=== PATIENT | male | born 1945 | race Caucasian/White ===

== ENCOUNTER 2020-08-05 16:13 | Emergency (ER) | payer MEDICARE, SELFPAY ==
[2020-08-05 16:44] VITALS: BP 132/64; PULSE 76; RESP 18; O2SAT 98; BMI 24.3
--- NOTE | 2020-08-05 16:47 | ECG_ITS ---
Test Reason : SI Blood Pressure : / mmHG Vent. Rate : 064 BPM Atrial Rate : 064 BPM P-R Int : 166 ms QRS Dur : 128 ms QT Int : 418 ms P-R-T Axes : 044 -50 072 degrees QTc Int : 431 ms Normal sinus rhythm Left axis deviation Left anterior fascicular block Abnormal ECG No previous ECGs available Referred By: Sari Carson Electronically Signed By:CLAUDIA MCCARTNEY MD
[2020-08-05 17:00] VITALS: BP 132/64; PULSE 76; RESP 18; O2SAT 98
--- NOTE | 2020-08-05 17:07 | ED_ITS ---
HPI - Psych General Chief Complaint: Psychiatric Symptoms Stated Complaint: crisis Time Seen by Provider: 08/05/20 16:36 Source: patient and EMS Mode of arrival: EMS Limitations: no limitations History of Present Illness HPI Narrative: 74 yo male with past medical history of dementia, IDDM, anemia, depression, hypertension, dysphagia here with complaints of depression with suicidal thoughts and a plan to cut his wrists. Patient tells me he is currently living in a prison. He is sad that he is from his who is currently having surgery on her knee and he fears that he will not see her again before he passes away. He tells me he has seen multiple people in the prison and be wheeled away and he is afraid it is going to happen to him. He tells me im tired and want to go to [facility]. This makes him very depressed and recently he has had thoughts of wanting to hurt himself. Expressed thoughts to staff today and he was transferred to the emergency department. Related Data Home Medications Medication Instructions Recorded Confirmed buspirone 5 mg PO BID 08/05/20 08/05/20 citalopram 20 mg PO DAILY 08/05/20 08/05/20 insulin glargine [Lantus Solostar 18 unit SUBCUT BEDTIME 08/05/20 08/05/20 U-100 Insulin] insulin lispro [Humalog U-100 1 sliding scale dose SUBCUT 08/05/20 08/05/20 Insulin] USEASDIRECTD lorazepam 0.5 mg PO DAILY PRN 08/05/20 08/05/20 lorazepam [Ativan] 0.5 mg PO BEDTIME 08/05/20 08/05/20 melatonin 6 mg PO BEDTIME 08/05/20 08/05/20 polyethylene glycol 3350 17 g PO DAILY 08/05/20 08/05/20 trazodone 25 mg PO DAILY 08/05/20 08/05/20 trazodone 75 mg PO BEDTIME 08/05/20 08/05/20 Allergies Allergy/AdvReac Type Severity Reaction Status Date / Time Unable to Assess Allergy Verified 08/05/20 16:47 Review of Systems Review of Systems: Yes all other systems are reviewed and are negative Constitutional: Constitutional: Reports no additional constitutional complaints, Denies body ache(s), Denies chills, Denies fever(s), Denies headache(s) and Denies weakness Eyes: Eyes: Reports no additional eye complaints and Denies change in vision ENT: Reports system reviewed and no additional complaints, except as documented, Denies dizziness, Denies headache(s), Denies nasal congestion, Denies nasal discharge and Denies neck pain Cardiovascular: Cardiovascular: Reports no additional cardiovascular complaints, Denies chest pain, Denies leg edema and Denies dyspnea Respiratory: Respiratory: Reports no additional respiratory complaints, Denies cough and Denies dyspnea Gastrointestinal: Gastrointestinal: Reports no additional gastrointestinal complaints, Denies abdominal pain, Denies diarrhea, Denies nausea and Denies vomiting Genitourinary: Genitourinary: Denies urinary incontinence Musculoskeletal: Musculoskeletal: Reports no additional musculoskeletal complaints, Denies back pain, Denies arthralgias, Denies joint swelling, Denies neck pain, Denies numbness and Denies tingling Integumentary/Breasts: Skin/Breast: Reports system reviewed and no additional complaints, except as docu and Denies rash Neurologic: Reports system reviewed and no additional complaints, except as documented, Denies Abnormal speech present, Denies dizziness, Denies headache(s), Denies numbness, Denies tingling and Denies weakness Psychiatric: Psychiatric: Reports anxiety, Reports depression, Denies hallucinations, Denies homicidal ideation and Reports suicidal ideation [facility] Past Medical History Attestation statement: The following information was validated with the patient. Source: old records reviewed and nursing notes reviewed Social History Social History Alcohol intake: unknown Patient Tobacco Use Status: Tobacco use Unknown Use of substances other than those prescribed or required for medical reasons: Unknown Advance Directives: No Advance Directives Information Provided: No Physical Exam Vital Signs: Vital Signs: Last Vital Signs Pulse 76 08/05/20 17:00 Resp 18 08/05/20 17:00 BP 132/64 08/05/20 17:00 Pulse Ox 98 08/05/20 17:00 Body Mass Index 24.3 Const: General: cooperative, healthy appearing, comfortable and no acute distress Orientation/consciousness: patient oriented x3 Limitations: no limitations HENMT: Head: Yes normal to inspection Ears: hearing grossly normal bilaterally General nose exam: Normal external nose present Face and sinus: Yes normal facial exam Mouth: Normal oral and palatal mucosa present Throat: Yes posterior oropharynx normal Eyes: General: appearance normal, both eyes and all related structures Pupils: Equal, round and reactive pupils present Neck: Neck: Yes normal visual inspection Chest: Chest palpation & inspection: normal inspection of the chest Resp: Effort & Inspection: normal respiratory effort Auscultation: clear to auscultation bilaterally Cardio: Rate: regular rate Rhythm: regular rhythm Peripheral pulses: Peripheral pulses 2+ throughout GI: Inspection: Yes normal to inspection Palpation (GI): Soft to palpation and nontender Auscultation: normal bowel sounds Back/Spine/Pelvis: Thoracic/Lumbar Spine: thoracic and lumbar spine normal to inspection Skin: General skin exam: no rashes or lesions noted Neuro: General: patient oriented x3, no focal motor deficits and normal sensation to monofilament Cranial nerves: Yes Equal, round and reactive pupils present Cognition (Neuro): normal cognition Speech: No Abnormal speech present Gait exam (Neuro): Normal gait present Motor exam (neuro): 5/5 motor strength present throughout Extrem: General: Yes normal to inspection Course Course Course Narrative: 74-year-old male coming from [facility] with complaints of depression, suicidal thoughts with plan to cut his wrists. No physical complaints. No concern for acute ingestion or trauma. Per staff at [facility] ER patient is at his baseline. Will check labs, UA, EKG. Will have care team come evaluate patient 2100-Sign out to night team pending care team evaluation. Patient placed in physician observation pending care team evaluation. MDM - Psych Differential Diagnosis Differential diagnosis: Likely depression Medical Records Attestation: I reviewed the patient's medical records. Lab Data Attestation: I reviewed the patient's lab results. Result diagrams: 08/05/20 17:19 08/05/20 17:19 Labs: Lab Results 08/05/20 08/05/20 08/05/20 Range/Units 17:19 17:19 17:19 WBC 8.5 (4.8-10.8) X10*3/uL RBC 4.46 L (4.60-5.80) X10*6/uL Hgb 13.6 L (14.0-18.0) g/dl Hct 40.7 L (42-52) % MCV 91.3 (80-98) fL MCH 30.5 (27.0-33.0) pg MCHC 33.4 (31.0-36.0) g/dl RDW 13.7 (11.0-16.0) % Plt Count 145 L (160-400) X10*3/uL MPV 9.5 (9.4-12.4) fL Immature Gran % (Auto) 0.4 (0.0-0.4) % Neut % (Auto) 70.2 (45-73) % Lymph % (Auto) 18.6 L (20-40) % [place] % (Auto) 8.6 (2-11) % Eos % (Auto) 1.8 (0-4) % Baso % (Auto) 0.4 (0-2) % Lymph # (Auto) 1.6 (1.2-4.9) X10*3/uL [place] # (Auto) 0.7 (0.1-1.2) X10*3/uL Eos # (Auto) 0.2 (0.0-0.4) X10*3/uL Baso # (Auto) 0.0 (0.0-0.2) X10*3/uL Abs Immat Gran (auto) 0.03 (0.00-0.03) X10*3/uL Absolute Neuts (auto) 5.9 (2.0-8.3) X10*3/uL Absolute Nucleated RBC 0.000 (0.0-0.012) X10*3/uL Nucleated RBC % (auto) 0.0 (0.0-0.2) /100WBC Smear Tech's Comments VERIFIED Sodium 140 (135-145) mmol/L Potassium 4.2 (3.3-5.1) mmol/L Chloride 105 (96-108) mmol/L Carbon Dioxide 29 (22-29) mmol/L Anion Gap 10 L (12-20) BUN 23 H (9-16) mg/dL Creatinine 0.88 (0.5-1.4) mg/dL Estim Creat Clear Calc 86.9 Estimated GFR > 60 Random Glucose 122 H (60-115) mg/dL Calcium 8.5 (8.4-10.2) mg/dL Total Bilirubin 0.4 (0.0-1.0) mg/dL Direct Bilirubin 0.2 (0.0-0.5) mg/dL AST 14 (5-37) U/L ALT 14 (0-40) U/L Alkaline Phosphatase 65 (39-117) U/L Total Protein 6.2 L (6.5-8.0) g/dL Albumin 3.7 (3.5-5.0) g/dL Salicylates (15-30) mg/dL Acetaminophen (<30) mcg/mL Ethyl Alcohol mg/dL COVID-19 (THOMAS) Negative (Negative) COVID-19 Clin Com See Note 08/05/20 08/05/20 Range/Units 17:19 17:19 WBC (4.8-10.8) X10*3/uL RBC (4.60-5.80) X10*6/uL Hgb (14.0-18.0) g/dl Hct (42-52) % MCV (80-98) fL MCH (27.0-33.0) pg MCHC (31.0-36.0) g/dl RDW (11.0-16.0) % Plt Count (160-400) X10*3/uL MPV (9.4-12.4) fL Immature Gran % (Auto) (0.0-0.4) % Neut % (Auto) (45-73) % Lymph % (Auto) (20-40) % [place] % (Auto) (2-11) % Eos % (Auto) (0-4) % Baso % (Auto) (0-2) % Lymph # (Auto) (1.2-4.9) X10*3/uL [place] # (Auto) (0.1-1.2) X10*3/uL Eos # (Auto) (0.0-0.4) X10*3/uL Baso # (Auto) (0.0-0.2) X10*3/uL Abs Immat Gran (auto) (0.00-0.03) X10*3/uL Absolute Neuts (auto) (2.0-8.3) X10*3/uL Absolute Nucleated RBC (0.0-0.012) X10*3/uL Nucleated RBC % (auto) (0.0-0.2) /100WBC Smear Tech's Comments Sodium (135-145) mmol/L Potassium (3.3-5.1) mmol/L Chloride (96-108) mmol/L Carbon Dioxide (22-29) mmol/L Anion Gap (12-20) BUN (9-16) mg/dL Creatinine (0.5-1.4) mg/dL Estim Creat Clear Calc Estimated GFR Random Glucose (60-115) mg/dL Calcium (8.4-10.2) mg/dL Total Bilirubin (0.0-1.0) mg/dL Direct Bilirubin (0.0-0.5) mg/dL AST (5-37) U/L ALT (0-40) U/L Alkaline Phosphatase (39-117) U/L Total Protein (6.5-8.0) g/dL Albumin (3.5-5.0) g/dL Salicylates < 5.0 L (15-30) mg/dL Acetaminophen < 1 (<30) mcg/mL Ethyl Alcohol < 10 mg/dL COVID-19 (THOMAS) (Negative) COVID-19 Clin Com ECG Data Interpretation: NSR with rate 64, normal pr, normal qrs, normal qtc Discharge Plan Discharge Clinical Impression: Depression Prescriptions: No Action buspirone 5 mg Tablet 5 mg PO BID RF: 0 trazodone 50 mg Tablet 25 mg PO DAILY RF: 0 trazodone 50 mg Tablet 75 mg PO BEDTIME RF: 0 polyethylene glycol 3350 17 gram Powder In Packet 17 g PO DAILY RF: 0 melatonin 3 mg Tablet 6 mg PO BEDTIME RF: 0 citalopram 20 mg Tablet 20 mg PO DAILY RF: 0 lorazepam 0.5 mg Tablet 0.5 mg PO DAILY PRN (Reason: Anxiety) RF: 0 lorazepam [Ativan] 0.5 mg Tablet 0.5 mg PO BEDTIME RF: 0 insulin lispro [Humalog U-100 Insulin] 100 unit/mL Solution 1 sliding scale dose SUBCUT USEASDIRECTD RF: 0 Lantus Solostar U-100 Insulin 100 unit/mL (3 mL) Insulin Pen 18 unit SUBCUT BEDTIME RF: 0
--- NOTE | 2020-08-05 17:24 | PC.NURSE ---
Pt arrives on EMS stretcher, stool incontinence. Confused but able to answers simple questions and follow simple commands. Oriented to self and year. Does report feelings of SI, with plan to slit wrist. Recalls his brother coming to visit and made a statement such as when you im going to cremate you right away. Pt states I dont want to alone Calm and cooperative with staff, agreeable to COVID swab and blood draw and EKG. Awaiting urine specimen.
--- NOTE | 2020-08-05 17:25 | PHA.MEDREC ---
Pharmacy Consult ? Medication Reconciliation Pharmacy has completed the medication reconciliation. Patient came with medication list from [facility]. There were no remarkable issues to report. Glenis Escalante, PharmD
[2020-08-05 17:28] LABS: Basophils Percent Auto 0.4 % (0-2); MANUAL DIFF FLAG SCAN; PLT CLUMP 1; Red Blood Count 4.46 X10*6/uL (4.60-5.80); SCAN SMEAR FLAG 1
[2020-08-05 17:29] LABS: Eosinophils Absolute Auto 0.2 X10*3/uL (0.0-0.4); Eosinophils Percent Auto 1.8 % (0-4); Hematocrit 40.7 % (42-52); Hemoglobin 13.6 g/dl (14.0-18.0); Imm Gran Abs Auto 0.03 X10*3/uL (0.00-0.03); Imm Gran Pct Auto 0.4 % (0.0-0.4); Lymphocytes Absolute Auto 1.6 X10*3/uL (1.2-4.9); Lymphocytes Percent Auto 18.6 % (20-40); Mean Corpuscular HGB Conc 33.4 g/dl (31.0-36.0); Mean Corpuscular Hemoglobin 30.5 pg (27.0-33.0); Mean Corpuscular Volume 91.3 fL (80-98); Mean Platelet Volume 9.5 fL (9.4-12.4); Monocytes Absolute Auto 0.7 X10*3/uL (0.1-1.2); Monocytes Percent Auto 8.6 % (2-11); Neutrophils Absolute Auto 5.9 X10*3/uL (2.0-8.3); Neutrophils Percent Auto 70.2 % (45-73); Platelet Count 145 X10*3/uL (160-400); Red Cell Distribution Width 13.7 % (11.0-16.0); White Blood Count 8.5 X10*3/uL (4.8-10.8)
--- NOTE | 2020-08-05 17:30 | PC.NURSE ---
Pharmacy down to complete med rec
[2020-08-05 18:02] LABS: SLIDE REVIEW VERIFIED
[2020-08-05 18:16] LABS: Alanine Aminotransferase 14 U/L (0-40); Albumin Level 3.7 g/dL (3.5-5.0); Alkaline Phosphatase 65 U/L (39-117); Anion Gap 10 (12-20); Aspartate Amino Transferase 14 U/L (5-37); Bilirubin Direct 0.2 mg/dL (0.0-0.5); Bilirubin Total 0.4 mg/dL (0.0-1.0); Blood Urea Nitrogen 23 mg/dL (9-16); Calcium 8.5 mg/dL (8.4-10.2); Carbon Dioxide 29 mmol/L (22-29); Chloride 105 mmol/L (96-108); Creatinine Clr Calc Pharmacy 86.9; Estimated Glomerular Filt Rate > 60; Glucose Random 122 mg/dL (60-115); Potassium 4.2 mmol/L (3.3-5.1); Sodium 140 mmol/L (135-145); Total Protein 6.2 g/dL (6.5-8.0)
[2020-08-05 18:20] LABS: Ethanol < 10 mg/dL
[2020-08-05 18:23] LABS: Acetaminophen LAB < 1 mcg/mL (<30); COVID-19 Test Negative (Negative); IDNOW Serial# 9DD0AD1C; Salicylate < 5.0 mg/dL (15-30)
[2020-08-05 22:00] VITALS: RESP 18
[2020-08-06] VITALS: RESP 18
--- NOTE | 2020-08-06 01:43 | PC.NURSE ---
pt sleeping, needs met at bedside, visable on the monitor. skin pink warm and dry. no s/s/ of distress.
[2020-08-06 06:36] VITALS: BP 122/66; PULSE 70; RESP 18; TEMP 36.7; O2SAT 96
[2020-08-06 06:52] LABS: Glucose, Whole Blood 90 mg/dL (60-115)
[2020-08-06 08:59] VITALS: BP 117/57; PULSE 62; RESP 18; TEMP 35.7; O2SAT 96
[2020-08-06 11:03] LABS: Glucose Urine UA 250 MG/DL (NEG); Leukocyte Esterase Urine 2+ (NEG); Nitrite Urine POS (NEG); PH 6.5 (5.0-8.0); UACC Culture Trigger YES; Urine Blood NEG (NEG); Urine Ketones NEG (NEG); Urine Protein NEG (NEG-TRACE)
[2020-08-06 11:04] LABS: Appearance Urine CLOUDY; Color Urine YELLOW
[2020-08-06 11:16] LABS: WBC Clumps Urine NOTED
[2020-08-06 11:17] LABS: Bacteria Urine 3+ /LPF; RBC Urine 0-2 /HPF (0); Squamous Epithelial Cell Urine 1+ /LPF; WBC Urine TNTC /HPF (0-4)
[2020-08-06 11:21] LABS: Amphetamine Screen Urine Not Detected (Not Detect); Barbiturates, Urine Not Detected (Not Detect); Benzodiazepines Screen Urine Not Detected (Not Detect); Cannabinoid Screen Urine Not Detected (Not Detect); Cocaine Screen Urine Not Detected (Not Detect); Opiate Screen Urine Not Detected (Not Detect); Phencyclidine Screen Urine Not Detected (Not Detect)
--- NOTE | 2020-08-06 19:33 | PC.NURSE ---
REPORT TAKEN FROM AINSLEY GORDON, FIRST CONTACT WITH PT. PLEASANTLY CONFUSED, EASILY DIRECTED. AMB TO BATHROOM WITH STEADY GAIT, INCONTINENT OF LARGE AMOUNT OF SOFT ORANGE/YELLOW STOOL. NO EXCESSIVE FOUL ODOR NOTED. PT ASSISTED WITH CLEANING AND ATTIRE CHANGE. BACK TO BED WITHOUT INCIDENT. S12 BEDSEARCH CONTINUES.
[2020-08-06 19:45] VITALS: BP 119/60; PULSE 67; RESP 18; TEMP 36.4; O2SAT 93
[2020-08-07] VITALS: BP 138/62; PULSE 56; RESP 16; TEMP 36.1; O2SAT 95
--- NOTE | 2020-08-07 00:13 | PC.NURSE ---
PT INCONTINENT OF URINE AND STOOL, BROUGHT TO BATHROOM TO CHANGE AND CLEAN UP. BEDDING CHANGED. RETURNED TO BED WITHOUT INCIDENT. BEDSEARCH CONTINUES.
[2020-08-07 04:00] VITALS: RESP 18
--- NOTE | 2020-08-07 04:33 | PC.NURSE ---
MED REC FOUND TO HAVE BEEN DONE BY PHARMACY 2 DAYS AGO BUT NO MEDS CONTINUED BY MD IN APR. THIS RN NOTIFIED GOLDEN WHO STATES HE WILL CONTINUE MEDS. PT RESTING IN BED AT THIS TIME, SKIN PWD, RESPIRATIONS EVEN UNLABORED. APPEARS WET YET REFUSING TO GO TO BATHROOM OR CHANGE ATTIRE. WILL CONTINUE TO ATTEMPT INTERVENTION. S12 BEDSEARCH CONTINUES.
[2020-08-07 06:00] VITALS: RESP 18
--- NOTE | 2020-08-07 07:30 | PC.NURSE ---
pt morning insulin held due to no blood sugar being obtained prior to pt eating his breakfast. Pt ate 100% of his breakfast and is resting quietly at this time.
--- NOTE | 2020-08-07 08:27 | PC.NURSE ---
Pt incontinent of urine and stool. Pt changed over with staff and back in bed resting quietly at this time.
[2020-08-07] MEDS: Escitalopram Oxalate 10 MG TABLET PO (09:09)
[2020-08-07] MEDS: busPIRone HCl 5 MG TABLET PO ×2 (09:10→21:06)
[2020-08-07] MEDS: LORazepam 0.5 MG TABLET PO ×2 (09:10→21:06)
[2020-08-07] MEDS: traZODone HCL 25 MG HALFTAB PO (09:10)
--- NOTE | 2020-08-07 09:12 | PC.NURSE ---
Miralax held for loose stool. Pt medicated with sched morning meds. PRN ativan given for pt agitation, pt insisting on going back to [place].
[2020-08-07 09:49] VITALS: BP 108/51; PULSE 62; RESP 18; TEMP 36.6; O2SAT 96
[2020-08-07 10:40] VITALS: RESP 15
[2020-08-07 12:47] LABS: Glucose, Whole Blood 159 mg/dL (60-115)
[2020-08-07] MEDS: Insulin Lispro 100 UNIT/ML 3 ML VIAL SUBCUT ×3 (12:52→21:07)
--- NOTE | 2020-08-07 16:35 | PC.NURSE ---
This rn sitting with patient for a while. Pt has been lying in bed, not watching TV, calm since this rn arrival. Pt is oriented to person and place, talks of his being at [facility] for knee surgery. States i have nothing to live for. my brother came and sat where you are, said I should just so they can cremate me. the next time I'll see my is in heaven . here they just try to shove vegetables in my face and ask me to be happy . Pt reoriented to plan for dona psych bedsearch. Offered shower, mouth care. Declining both.
[2020-08-07 18:09] LABS: Glucose, Whole Blood 197 mg/dL (60-115)
--- NOTE | 2020-08-07 18:51 | PC.NURSE ---
Pt ate full dinner tray. Has been talkative with this RN, declined offer to ambulate to BR with assistance. Continues to talk about dying and cremation. Offer to clean face also declined.
[2020-08-07 19:00] VITALS: BP 102/51; PULSE 75; RESP 18; TEMP 36.6; O2SAT 94
[2020-08-07 20:09] LABS: Glucose, Whole Blood 198 mg/dL (60-115)
[2020-08-07] MEDS: Insulin Glargine,Hum.rec.anlog 100 UNIT/ML 10 ML VIAL 18 UNIT SUBCUT (21:06)
[2020-08-07] MEDS: Melatonin 3 MG TABLET 6 MG PO (21:06)
[2020-08-07] MEDS: traZODone HCL 25 MG HALFTAB 75 MG PO (21:06)
--- NOTE | 2020-08-07 22:16 | PC.NURSE ---
Pt was saturated, incontinent of urine and soaked through brief. This Rn convinced pt to allow for linnen and clothing change. Was tolerant. Back in bed now with snack and plans to sleep.
[2020-08-08 02:26] VITALS: BP 98/54; PULSE 50; RESP 16; TEMP 36.3; O2SAT 96
[2020-08-08 06:54] LABS: Glucose, Whole Blood 92 mg/dL (60-115)
[2020-08-08] MEDS: busPIRone HCl 5 MG TABLET PO ×2 (08:40→21:34)
[2020-08-08] MEDS: traZODone HCL 25 MG HALFTAB PO (08:40)
[2020-08-08] MEDS: Escitalopram Oxalate 10 MG TABLET PO (08:40)
--- NOTE | 2020-08-08 10:05 | PC.NURSE ---
pt resting in room, calm and cooperative. pt took morning medications.
[2020-08-08 12:47] LABS: Glucose, Whole Blood 115 mg/dL (60-115)
--- NOTE | 2020-08-08 13:48 | PC.NURSE ---
pt was incontinent of urine. RN encouraged pt to get up and shower which he refused. pt did agree to go to the bathroom and get cleaned up and have his bed changed. pt continually asked So I will see Dot in a couple of weeks then? she is getting knee surgery . pt cooperative and calm.
[2020-08-08 13:57] VITALS: RESP 16
[2020-08-08 15:35] VITALS: BP 106/56; PULSE 73; O2SAT 95
[2020-08-08] MEDS: LORazepam 0.5 MG TABLET PO ×2 (17:13→21:35)
--- NOTE | 2020-08-08 17:43 | MHC.CARE ---
CARE Team speaks with Dr. Schneider from psychiatry. Per collateral contacts spoken with today, pt is at his baseline. Pt also has a UTI. CARE Team is discontinuing bedsearch, and longer recommending IPLOC. CARE Team reaches out to [facility], and left message. Keyla castle case management notified and willing to help get pt back to [facility]. TERESA Ferguson notified and is in agreement with plan.
[2020-08-08 17:46] LABS: Glucose, Whole Blood 207 mg/dL (60-115)
[2020-08-08] MEDS: Insulin Lispro 100 UNIT/ML 3 ML VIAL SUBCUT (17:50)
--- NOTE | 2020-08-08 18:09 | MHC.CM.ED ---
CM received a call from Sarah ALVAREZ to help with facilitating pt return to [facility]. T/W spoke with Karol at [facility]. Per Karol, she will need authorization from the [facility] and she is gone for the day. She suggested that CM call in the am to speak with [facility] for approval for pt to return. Pt has been cleared by CARE team to return to SNF. Hao GORDON and Marty MOORE aware.
--- NOTE | 2020-08-08 18:22 | PC.NURSE ---
pt agitated, coming to the nurses station in his brief onnly, swearing at staff, telling us to call the police so he can get the fuck outta here . posturing and reaching over the nurses station, flipping off staff. security was called to reassure pt and he deescalated quickly, allowed staff to dress him again and returned to his room for dinner.
--- NOTE | 2020-08-08 18:32 | P.EN_ITS ---
Event Note Date of Service: 08/08/20 Event Note: This commercial insurance underwriter did not see patient however Care team staff called to run case by commercial insurance underwriter. Patient sent to ED for making suicidal comment. Care team has assessed patient and recommend that patient is safe to return to facility. Team reports they have done extensive collateral, have talked with patient's healthcare proxy/guardian and that patient has a lifelong history of a saying suicidal comments, but has no history at all of self-harm. They report patient also has history of provocative behaviors. Patient resides in a locked, care facility that is staffed 24 hours a day making it a safe venue for patient. Patient is currently being treated for UTI. At this time care team staff, both Kaylynn and Meenakshi agree that patient is safe to return to care facility. Tub Mender asked if there is any more information as to why the facility felt the need to send him to the ED given that his behaviors are chronic and staff will inquire further. Given that patient has a UTI, commercial insurance underwriter will hold off further assessment until treatment has progressed. However, unless facility reports other concerns, and especially if facility is willing to take him back feeling they can keep him safe, based on care team's report, commercial insurance underwriter agrees with their assessment.
[2020-08-08 20:33] LABS: Glucose, Whole Blood 134 mg/dL (60-115)
[2020-08-08 20:38] VITALS: BP 92/56; PULSE 71; RESP 18; TEMP 36.7; O2SAT 98
--- NOTE | 2020-08-08 20:41 | PC.NURSE ---
Pt aaox2, disoriented to place and time. pt denies SI/HI at this time, reports he was feeling suicidal with thoughts of slitting my wrists while at [place] d/t dissatisfaction with placement. Pt reports improvement in thoughts. Pt compliant with pt care for this RN at this time.
[2020-08-08 21:17] VITALS: BP 99/52; PULSE 78; RESP 17; TEMP 36.3; O2SAT 95
[2020-08-08] MEDS: Insulin Glargine,Hum.rec.anlog 100 UNIT/ML 10 ML VIAL 18 UNIT SUBCUT (21:32)
[2020-08-08] MEDS: traZODone HCL 25 MG HALFTAB 75 MG PO (21:33)
[2020-08-08] MEDS: Melatonin 3 MG TABLET 6 MG PO (21:34)
[2020-08-09 06:51] VITALS: BP 118/53; PULSE 59; RESP 17; TEMP 36.3; O2SAT 96
[2020-08-09 06:52] LABS: Glucose, Whole Blood 101 mg/dL (60-115)
[2020-08-09] MEDS: polyethylene glycoL 3350 17 GM POWD.PACK PO (08:12)
[2020-08-09] MEDS: traZODone HCL 25 MG HALFTAB PO (08:13)
[2020-08-09] MEDS: busPIRone HCl 5 MG TABLET PO (08:13)
[2020-08-09] MEDS: Escitalopram Oxalate 10 MG TABLET PO (08:13)
--- NOTE | 2020-08-09 09:52 | PC.NURSE ---
Patient alert and asking staff when he will be leaving today. Patient is awaiting case management- will follow up with them to verify the plan for the patient. Patient aware that he will be updated as soon as we know more information. Resting comfortably at this time.
--- NOTE | 2020-08-09 10:45 | MHC.CM.ED ---
Patient remains in ER. Per May at [facility], patient can return. [facility] booked for nex available. Med nec with chart. Faiza GORDON aware. Continue to monitor for d/c needs.
--- NOTE | 2020-08-09 11:07 | PC.NURSE ---
Patient ambulatory and aware of plan to be d/c back to the facility. EMS present for patient transport. Patient ambulates with steady gate and patient belongings given back to the patient/ems.
== END 2020-08-09 11:31 | disposition skilled nursing facility (03) ==
PROVIDERS: Nurse Practitioner Family; Emergency Provider Internal Medicine
DX: F32.9 Major depressive disorder, single episode, unspecified (principal); R45.851 Suicidal ideations; N39.0 Urinary tract infection, site not specified; E11.9 Type 2 diabetes mellitus without complications; I10 Essential (primary) hypertension; F03.90 Unspecified dementia, unspecified severity, without behavioral disturbance, psychotic disturbance, mood disturbance, and anxiety; Z79.4 Long term (current) use of insulin; Z79.899 Other long term (current) drug therapy; Z20.822 Contact with and (suspected) exposure to COVID-19
CPT/HCPCS: 36415; 80048; 80076; 80143; 80179; 80307; 81001; 81003; 82077; 82947; 85025; 87086; 87635; 93005; 99285

== ENCOUNTER 2020-11-15 12:46 | Emergency (ER) | payer MEDICARE, SELFPAY ==
[2020-11-15 13:10] VITALS: BP 122/74; BP 130/70; PULSE 78; PULSE 80; RESP 18; TEMP 36.8; O2SAT 100; O2SAT 99; BMI 24.5
--- NOTE | 2020-11-15 15:46 | PHA.MEDREC ---
Pharmacy Consult ? Medication Reconciliation Pharmacy has completed the medication reconciliation. Patient resides at [facility] Thanks Pinky Diehl Pharm.D
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
[2020-11-15 16:04] LABS: MANUAL DIFF FLAG NO
[2020-11-15 16:06] LABS: Basophils Percent Auto 0.4 % (0-2); Eosinophils Absolute Auto 0.2 X10*3/uL (0.0-0.4); Eosinophils Percent Auto 2.4 % (0-4); Hematocrit 42.3 % (42-52); Hemoglobin 14.6 g/dl (14.0-18.0); Imm Gran Abs Auto 0.03 X10*3/uL (0.00-0.03); Imm Gran Pct Auto 0.4 % (0.0-0.4); Lymphocytes Absolute Auto 1.5 X10*3/uL (1.2-4.9); Lymphocytes Percent Auto 22.1 % (20-40); Mean Corpuscular HGB Conc 34.5 g/dl (31.0-36.0); Mean Corpuscular Hemoglobin 31.3 pg (27.0-33.0); Mean Corpuscular Volume 90.8 fL (80-98); Mean Platelet Volume 9.5 fL (9.4-12.4); Monocytes Absolute Auto 0.5 X10*3/uL (0.1-1.2); Monocytes Percent Auto 7.4 % (2-11); Neutrophils Absolute Auto 4.6 X10*3/uL (2.0-8.3); Neutrophils Percent Auto 67.3 % (45-73); Platelet Count 153 X10*3/uL (160-400); Red Blood Count 4.66 X10*6/uL (4.60-5.80); Red Cell Distribution Width 13.2 % (11.0-16.0); White Blood Count 6.8 X10*3/uL (4.8-10.8)
--- NOTE | 2020-11-15 16:08 | MHC.CM.ED ---
Received case management consult from Cadence MOORE. Patient is at [facility]. Patient came to the ER under a section 12 for AMS. Patient stated he want a grilled cheese sandwich and staff wouldn't provide one. Patient is confused at times. Labs are pending at this time. Anticipate patient will return to [facility] when medically stable. Continue to monitor for d/c needs.
[2020-11-15 16:20] LABS: COVID-19 Test Negative (Negative)
[2020-11-15 16:21] LABS: Alanine Aminotransferase 18 U/L (0-40); Albumin Level 4.1 g/dL (3.5-5.0); Alkaline Phosphatase 61 U/L (39-117); Anion Gap 10 (12-20); Aspartate Amino Transferase 14 U/L (5-37); Bilirubin Direct 0.2 mg/dL (0.0-0.5); Bilirubin Total 0.8 mg/dL (0.0-1.0); Blood Urea Nitrogen 17 mg/dL (9-16); Calcium 8.9 mg/dL (8.4-10.2); Carbon Dioxide 30 mmol/L (22-29); Chloride 104 mmol/L (96-108); Creatinine Clr Calc Pharmacy 72.5; Estimated Glomerular Filt Rate > 60; Glucose Random 166 mg/dL (60-115); Magnesium 2.2 mg/dL (1.6-2.6); Sodium 140 mmol/L (135-145); Total Protein 6.7 g/dL (6.5-8.0)
[2020-11-15 16:27] LABS: Appearance Urine CLEAR; Color Urine YELLOW; Glucose Urine UA 250 MG/DL (NEG); Leukocyte Esterase Urine TRACE (NEG); Nitrite Urine POS (NEG); PH 5.5 (5.0-8.0); Specific Gravity - Urine >= 1.030 (1.005-1.025); UACC Culture Trigger YES; Urine Blood TRACE (NEG); Urine Ketones NEG (NEG); Urine Protein NEG (NEG-TRACE)
--- NOTE | 2020-11-15 16:29 | MHC.CARE ---
CARE team consult received, pending urinalysis and results, will continue to follow.
[2020-11-15 16:43] LABS: Amorphous Sediment Urine TRACE /LPF; Mucus Urine TRACE /LPF; Squamous Epithelial Cell Urine TRACE /LPF
[2020-11-15 16:44] LABS: Bacteria Urine 2+ /LPF
--- NOTE | 2020-11-15 17:38 | MHC.CARE ---
CARE Team was consulted to meet with patient by ED provider after pt made suicidal statements. Pt was oriented x3, person, place, and time. Pt appeared disheveled and did not seem to be attending to his ADLs. Pt was engaged and eye contact within normal limits. Speech was slow and at times quiet. Pt stated he has been depressed because his is having surgery on her knee and he is worried about her. Pt's affect was full and animated. Pt did not appear to be responding to internal stimuli. Thought process was tangential. Pt denied SI or wanting to harm himself. CARE Team discussed plan to discharge pt back to SNF with ED provider, Cadence Galloway, and case management, Keyla, who were in agreement with this plan.
[2020-11-15 17:52] VITALS: BP 137/70; PULSE 79; RESP 16; TEMP 37.2; O2SAT 96
--- NOTE | 2020-11-15 17:52 | PC.NURSE ---
Pt has been calm. talks of his stating she's at [facility] getting her [facility] done ate a full lunch and has been able to follow commands. being cleansed and repositioned by PCT at this time. awaits ride back to [facility].
--- NOTE | 2020-11-15 17:59 | PC.NURSE ---
RN to RN bryson Luther at [facility]. [place] [facility] [place]
--- NOTE | 2020-11-15 19:38 | MHC.CM.ED ---
Pt is medically cleared to return to [facility] of . Pt has UTI. Care team cleared pt-not a danger to himself or others. [facility] aware. Ambulance booked for 6:30pm. CM to follow for d/c needs.
[2020-11-15 19:42] VITALS: BP 132/64; PULSE 74; RESP 16; TEMP 36.3; O2SAT 97
== END 2020-11-15 21:45 | disposition skilled nursing facility (03) ==
PROVIDERS: Physician Assistant; Emergency Provider Internal Medicine; PCP Internal Medicine
DX: F33.1 Major depressive disorder, recurrent, moderate (principal); N39.0 Urinary tract infection, site not specified; F03.90 Unspecified dementia, unspecified severity, without behavioral disturbance, psychotic disturbance, mood disturbance, and anxiety; E11.9 Type 2 diabetes mellitus without complications; Z20.822 Contact with and (suspected) exposure to COVID-19; Z79.899 Other long term (current) drug therapy; Z79.4 Long term (current) use of insulin
CPT/HCPCS: 36415; 80048; 80076; 81001; 83735; 85025; 87086; 87088; 87186; 87635; 99284

== ENCOUNTER 2021-08-04 14:38 | Emergency (ER) | payer MEDICARE, SELFPAY ==
--- NOTE | ~2021-08-04 | XR_ITS ---
EXAMINATION: XR CHEST CLINICAL INFORMATION: Increased aggression, confusion. COMPARISON: None TECHNIQUE: 2 views of the chest were obtained. FINDINGS: Low lung volumes and evaluation. There is mild elevation of the left hemidiaphragm. The lungs are clear. There are no pleural effusions. The heart and mediastinal structures are unremarkable. XR/XR chest 2V IMPRESSION: No acute cardiopulmonary process.
--- NOTE | ~2021-08-04 | CT_ITS ---
EXAMINATION: CT HEAD WITHOUT CONTRAST CLINICAL INFORMATION: Increased confusion, depression. COMPARISON: None TECHNIQUE: Contiguous axial imaging was performed from the skull base to vertex without intravenous administration of contrast. Coronal and sagittal reformatted images were obtained. This CT examination was performed using dose optimization techniques as appropriate, variously including the following: *Automated exposure control *Adjustment of mA and/or kV according to patient size (this includes techniques or standardized protocols for targeted exams where dose is matched to indication/reason for exam; i.e. extremities or head) *Use of iterative reconstruction technique DLP: 817 mGy-cm FINDINGS: There is mild widening of the cortical sulci and associated ventriculomegaly. Minimal periventricular microvascular changes. The lateral ventricles are symmetrical. The third and fourth ventricles are in their normal midline position. The basilar and prepontine cisterns are unremarkable. There is no acute intra or extracerebral abnormality. There is no mass effect or midline shift. Sections through the bony calvarium are unremarkable. The orbits are intact. The paranasal sinuses are clear. The mastoid air cells are clear. CT/CT head/brain wo con IMPRESSION: No acute intracranial pathology.
[2021-08-04 14:54] VITALS: BP 124/56; PULSE 74
--- NOTE | 2021-08-04 15:11 | ECG_ITS ---
Test Reason : alter mental Blood Pressure : / mmHG Vent. Rate : 064 BPM Atrial Rate : 064 BPM P-R Int : 134 ms QRS Dur : 140 ms QT Int : 426 ms P-R-T Axes : -28 -63 049 degrees QTc Int : 439 ms Artifact in tracing Sinus rhythm Left axis deviation non specific QRS widening Abnormal ECG When compared with ECG of 05-AUG-2020 17:09, possible RBBB, but V1 has artifact Referred By: Lesa Pinto Electronically Signed By:JUDITH JACOB
[2021-08-04 15:18] VITALS: BP 121/66; PULSE 69; TEMP 37; O2SAT 97; BMI 26.9
[2021-08-04 15:52] LABS: Basophils Percent Auto 0.4 % (0-2); Hemoglobin 13.5 g/dl (14.0-18.0); Imm Gran Abs Auto 0.02 X10*3/uL (0.00-0.03); Imm Gran Pct Auto 0.3 % (0.0-0.4); PLT CLUMP 1; SCAN SMEAR FLAG 1
[2021-08-04 15:54] LABS: Eosinophils Absolute Auto 0.2 X10*3/uL (0.0-0.4); Eosinophils Percent Auto 2.4 % (0-4); Hematocrit 40.1 % (42.0-52.0); Lymphocytes Absolute Auto 1.3 X10*3/uL (1.2-4.9); Lymphocytes Percent Auto 18.8 % (20-40); Mean Corpuscular HGB Conc 33.7 g/dl (31.0-36.0); Mean Corpuscular Hemoglobin 31.2 pg (27.0-33.0); Mean Corpuscular Volume 92.6 fL (80.0-98.0); Mean Platelet Volume 9.8 fL (9.4-12.4); Monocytes Absolute Auto 0.6 X10*3/uL (0.1-1.2); Monocytes Percent Auto 8.4 % (2-11); Neutrophils Absolute Auto 4.7 x10*3/uL (2.0-8.3); Neutrophils Percent Auto 69.7 % (45-73); Red Blood Count 4.33 X10*6/uL (4.60-5.80); Red Cell Distribution Width 12.8 % (11.0-16.0)
--- NOTE | 2021-08-04 16:00 | ED_ITS ---
HPI - Altered Mental Status General Chief Complaint: Altered Mental Status Stated Complaint: crisis Time Seen by Provider: 08/04/21 14:57 Source: patient, EMS and RN notes reviewed Mode of arrival: EMS Limitations: other (Poor historian) History of Present Illness HPI narrative: 75-year-old male c a PMHx of dementia, DM, HTN, anemia, depression and dysphagia presenting to the ED via EMS after the [facility] after they noticed that he has had increased confusion/aggression and usually when he gets like this he has UTIs. Patient currently confused at baseline and denies any complaints at this time reports that he wants to go home to his . MD complaint: confusion (Increased aggression) Onset (ago): day(s) (1) Timing confirmed by: caregiver (long-term facility staff) Severity: moderate Consistency of symptoms: constant Context: other (History of recurrent UTIs) Associated symptoms: denies other symptoms Related Data Home Medications Medication Instructions Recorded Confirmed buspirone 5 mg tablet 5 mg PO BID 08/05/20 11/15/20 insulin glargine 100 unit/mL (3 18 unit subcut BEDTIME 08/05/20 11/15/20 mL) subcutaneous pen (Lantus Solostar U-100 Insulin) insulin lispro 100 unit/mL 1 sliding scale dose subcut 08/05/20 11/15/20 subcutaneous solution (Humalog USEASDIRECTD U-100 Insulin) lorazepam 0.5 mg tablet 0.5 mg PO BID PRN Anxiety 08/05/20 11/15/20 trazodone 50 mg tablet 75 mg PO BEDTIME 08/05/20 11/15/20 acetaminophen 325 mg tablet 650 mg PO Q4H PRN Pain 11/15/20 11/15/20 escitalopram oxalate 10 mg tablet 1 tab PO DAILY 11/15/20 11/15/20 lorazepam 0.5 mg tablet 1 tab PO BEDTIME 11/15/20 11/15/20 melatonin 3 mg tablet 6 mg PO BEDTIME 11/15/20 11/15/20 quetiapine 25 mg tablet 12.5 mg PO BID PRN Agitation 11/15/20 11/15/20 trazodone 50 mg tablet 25 mg PO DAILY 11/15/20 11/15/20 Previous Rx's Medication Instructions Recorded cefuroxime axetil 250 mg tablet 250 mg PO BID 7 days #14 tabs 11/15/20 cefuroxime axetil 250 mg tablet 250 mg PO BID uti 7 days #14 tabs 08/04/21 Allergies Allergy/AdvReac Type Severity Reaction Status Date / Time aspirin [ASA] Allergy Facial Verified 08/05/20 23:36 Swelling Penicillins Allergy Redness of Verified 08/05/20 23:36 Skin Sulfa (Sulfonamide AdvReac Rash Verified 08/05/20 23:36 Antibiotics) Review of Systems Review of Systems: Yes Unobtainable due to mental status [facility] Past Medical History Attestation statement: The following information was validated with the patient. Source: old records reviewed and nursing notes reviewed Social History Social History Alcohol intake: unknown Patient Tobacco Use Status: Tobacco use Unknown Advance Directives: Yes Advance Directives on File: Yes Advance Directives Date on File: 08/11/20 Physical Exam ED Vital Signs: Vital Signs - 24 hr 08/04/21 15:18 Temperature 98.6 F Pulse Rate 69 Blood Pressure 121/66 Pulse Oximetry 97 Oxygen Delivery Method Room Air BMI result Body Mass Index 26.9 vital signs have been reviewed as normal and appeared to be correct. Blood pressure normal. Heart rate normal. Respiration rate normal. Temperature normal. Oxygen saturation normal. Appearance: Alert and pleasantly confused. No acute distress. Head: Normal external exam. Normocephalic. Atraumatic. Eyes: PERRLA. EOMI. Conjunctiva and sclera normal. Eyelids normal. ENT: EAC normal. TM's Normal. Pharynx normal. Uvula midline. Moist mucous membranes. No lesions/ulcerations or masses noted on the tongue. Normal voice. No trismus noted. No drooling noted. No muffled voice noted. Neck: Normal inspection. Neck supple. FROM. No adenopathy. Thyroid Normal. No tracheal deviation noted. No crepitus is noted. No meningeal signs. No neck mass noted. No signs of trauma noted. CVS: Normal heart rate and rhythm. Heart sound normal. Pulses normal throughout. No murmurs/rales/gallops. Respiratory: No respiratory distress. Painless inspiration. Breath sounds normal. No wheezes/rales/rhonchi noted. Chest nontender. No crepitus is noted. No signs of trauma noted. No accessory muscle usage noted or decreased air movement noted. No signs of trauma. Abdomen: Soft and nontender. Bowel sounds normal in all 4 quadrants. No distention noted. No organomegaly noted. No visible injury noted. Back: No CVA tenderness. Full range of motion noted. Nontender. No signs of trauma. Patient neuro intact bilaterally and distally on all 4 extremities. Patient's reflexes intact bilaterally and distally on all 4 extremities. No rashes/lesion/induration/fluctuance or signs of infection noted. Soiled and smells of urine. Skin: Skin warm and dry. Normal skin color. Normal skin turgor. No rashes/lesions/lacerations noted. Extremities: No lower extremity edema. No calf tenderness is noted. Extremities exhibit normal range of motion and nontender. Neuro: Alert and pleasantly confused No motor deficit. No sensory deficit. Reflexes normal. Normal steady gait. No focal neuro deficits noted. CN's II- XII intact bilaterally? Vascular: + radial pulses/+ 2 distal pedal pulses/+2 dorsalis pedis b/l. Normal cap refill. No cyanosis noted to upper extremity nails and lower extremity toes nails. Course Course Course Narrative: 15:15pm - 75-year-old male c a PMHx of dementia, DM, HTN, anemia, depression and dysphagia presenting to the ED via EMS after the [facility] [place] after they noticed that he has had increased confusion/aggression and usually when he gets like this he has UTIs. On exam patient is alert and pleasantly confused at baseline. No signs of trauma. Lungs clear to auscultation CV RRR. Abdomen is soft nontender. No CVA tenderness is noted. No rashes are noted. He is soiled in urine. No focal neuro deficits noted. Plan: Labs, chest x-ray, EKG, UA, CT scan of brain, blood cultures and lactic acid re-evaluate. Reevaluation(s) Reevaluation #1: - labs reviewed patient mild anemia with an H&H of 13.5/40.1. Persistent low pl atelet count at 150 similar compared to prior. BUN 21. Random glucose 145. Troponin 3.6. Lactic acid 1.6. Otherwise all other labs are within normal limits. Chest x-ray within normal limits no acute processes noted. CT scan of brain revealed chronic changes no acute processes noted. EKG within normal limits although new right bundle branch block was noted. - therefore at this time patient will need a straight cath for UA for possible UTI will re-evaluate. Time: 16:47 Reevaluation #2: - UA revealed positive nitrates therefore will treat for UTI and sent back to [facility]. Along with instructions to follow-up with PCP. long-term facility updated at this time by nurse. Time: 19:59 MDM - Altered Mental Status Medical Records Attestation: I reviewed the patient's medical records. Lab Data Attestation: I reviewed the patient's lab results. Result diagrams: 08/04/21 15:47 08/04/21 15:47 Labs: Lab Results 08/04/21 08/04/21 08/04/21 Range/Units 15:47 15:47 15:47 WBC 6.8 (4.8-10.8) X10*3/uL RBC 4.33 L (4.60-5.80) X10*6/uL Hgb 13.5 L (14.0-18.0) g/dl Hct 40.1 L (42.0-52.0) % MCV 92.6 (80.0-98.0) fL MCH 31.2 (27.0-33.0) pg MCHC 33.7 (31.0-36.0) g/dl RDW 12.8 (11.0-16.0) % Plt Count 150 L (160-400) X10*3/uL MPV 9.8 (9.4-12.4) fL Immature Gran % (Auto) 0.3 (0.0-0.4) % Neut % (Auto) 69.7 (45-73) % Lymph % (Auto) 18.8 L (20-40) % [place] % (Auto) 8.4 (2-11) % Eos % (Auto) 2.4 (0-4) % Baso % (Auto) 0.4 (0-2) % Lymph # (Auto) 1.3 (1.2-4.9) X10*3/uL [place] # (Auto) 0.6 (0.1-1.2) X10*3/uL Eos # (Auto) 0.2 (0.0-0.4) X10*3/uL Baso # (Auto) 0.0 (0.0-0.2) X10*3/uL Abs Immat Gran (auto) 0.02 (0.00-0.03) X10*3/uL Absolute Neuts (auto) 4.7 (2.0-8.3) x10*3/uL Absolute Nucleated RBC 0.000 (0.0-0.012) X10*3/uL Nucleated RBC % (auto) 0.0 (0.0-0.2) /100WBC PT 11.5 (9.9-13.0) SEC INR 1.0 (0.9-1.1) Sodium 138 (135-145) mmol/L Potassium 4.5 (3.3-5.1) mmol/L Chloride 104 (96-108) mmol/L Carbon Dioxide 24 (22-29) mmol/L Anion Gap 15 (12-20) BUN 21 H (9-16) mg/dL Creatinine 0.99 (0.5-1.4) mg/dL Estim Creat Clear Calc 71.8 Estimated GFR > 60 Random Glucose 145 H (60-115) mg/dL Lactic Acid (0.5-2.0) mmol/L Calcium 8.6 (8.4-10.2) mg/dL Magnesium 2.2 (1.6-2.6) mg/dL Total Bilirubin 0.4 (0.0-1.0) mg/dL AST 19 (5-37) U/L ALT 12 (0-40) U/L Alkaline Phosphatase 76 D (39-117) U/L Troponin I High Sens (<3.5-35.0) ng/L Total Protein 6.7 (6.5-8.0) g/dL Albumin 3.9 (3.5-5.0) g/dL Urine Color Urine Appearance Urine pH (5.0-8.0) Ur Specific [place] (1.005-1.025) Urine Protein (NEG-TRACE) MG/DL Urine Glucose (UA) (NEG) MG/DL Urine Ketones (NEG) MG/DL Urine Blood (NEG) Urine Nitrite (NEG) Ur Leukocyte Esterase (NEG) Urine RBC (0) /HPF Urine WBC (0-4) /HPF Ur Squamous Epith Cells /LPF Urine Bacteria /LPF 08/04/21 08/04/21 08/04/21 Range/Units 15:47 16:10 19:20 WBC (4.8-10.8) X10*3/uL RBC (4.60-5.80) X10*6/uL Hgb (14.0-18.0) g/dl Hct (42.0-52.0) % MCV (80.0-98.0) fL MCH (27.0-33.0) pg MCHC (31.0-36.0) g/dl RDW (11.0-16.0) % Plt Count (160-400) X10*3/uL MPV (9.4-12.4) fL Immature Gran % (Auto) (0.0-0.4) % Neut % (Auto) (45-73) % Lymph % (Auto) (20-40) % [place] % (Auto) (2-11) % Eos % (Auto) (0-4) % Baso % (Auto) (0-2) % Lymph # (Auto) (1.2-4.9) X10*3/uL [place] # (Auto) (0.1-1.2) X10*3/uL Eos # (Auto) (0.0-0.4) X10*3/uL Baso # (Auto) (0.0-0.2) X10*3/uL Abs Immat Gran (auto) (0.00-0.03) X10*3/uL Absolute Neuts (auto) (2.0-8.3) x10*3/uL Absolute Nucleated RBC (0.0-0.012) X10*3/uL Nucleated RBC % (auto) (0.0-0.2) /100WBC PT (9.9-13.0) SEC INR (0.9-1.1) Sodium (135-145) mmol/L Potassium (3.3-5.1) mmol/L Chloride (96-108) mmol/L Carbon Dioxide (22-29) mmol/L Anion Gap (12-20) BUN (9-16) mg/dL Creatinine (0.5-1.4) mg/dL Estim Creat Clear Calc Estimated GFR Random Glucose (60-115) mg/dL Lactic Acid 1.6 (0.5-2.0) mmol/L Calcium (8.4-10.2) mg/dL Magnesium (1.6-2.6) mg/dL Total Bilirubin (0.0-1.0) mg/dL AST (5-37) U/L ALT (0-40) U/L Alkaline Phosphatase (39-117) U/L Troponin I High Sens 3.6 (<3.5-35.0) ng/L Total Protein (6.5-8.0) g/dL Albumin (3.5-5.0) g/dL Urine Color YELLOW Urine Appearance HAZY Urine pH 6.0 (5.0-8.0) Ur Specific [place] 1.025 (1.005-1.025) Urine Protein NEG (NEG-TRACE) MG/DL Urine Glucose (UA) 250 H (NEG) MG/DL Urine Ketones NEG (NEG) MG/DL Urine Blood NEG (NEG) Urine Nitrite POS H (NEG) Ur Leukocyte Esterase TRACE H (NEG) Urine RBC 1-4 (0) /HPF Urine WBC 10-14 H (0-4) /HPF Ur Squamous Epith Cells 2+ /LPF Urine Bacteria 4+ /LPF Imaging Data Chest x-ray: Attestation: I personally reviewed and interpreted this imaging study as follows: Radiologist's impression: FINDINGS: Low lung volumes and evaluation. There is mild elevation of the left hemidiaphragm. The lungs are clear. There are no pleural effusions. The heart and mediastinal structures are unremarkable. XR/XR chest 2V IMPRESSION: No acute cardiopulmonary process. CT scan - head: Attestation: I personally reviewed and interpreted this imaging study as follows: Radiologist's impression: FINDINGS: There is mild widening of the cortical sulci and associated ventriculomegaly. Minimal periventricular microvascular changes. The lateral ventricles are symmetrical. The third and fourth ventricles are in their normal midline position. The basilar and prepontine cisterns are unremarkable. There is no acute intra or extracerebral abnormality. There is no mass effect or midline shift. Sections through the bony calvarium are unremarkable. The orbits are intact. The paranasal sinuses are clear. The mastoid air cells are clear. CT/CT head/brain wo con IMPRESSION: No acute intracranial pathology. ECG Data ECG #1: Attestation: I personally reviewed and interpreted this ECG as follows: ECG interpretation date: 08/04/21 ECG interpretation time: 15:11 Interpretation: Sinus rhythm with fusion complexes with a ventricular rate of 64 with left axis deviation right bundle-branch block. The right bundle branch block is new when compared to prior EKG otherwise no other new changes. No acute ischemic change noted. Prior EKG was 08/05/2020. Critical Care Time Critical Care Time Critical Care Time: Yes Total Critical Care Time: 60 Attestation: I personally attest to this time spent taking care of the patient Discharge Plan Discharge Clinical Impression: UTI (urinary tract infection) Patient Disposition: Home, Self-Care Instructions: Urinary Tract Infection in Men (ED) Prescriptions: New cefuroxime axetil 250 mg tablet 250 mg PO BID 7 Days Qty: 14 0RF No Action buspirone 5 mg Tablet 5 mg PO BID trazodone 50 mg Tablet 75 mg PO BEDTIME lorazepam 0.5 mg Tablet 0.5 mg PO BID PRN (Reason: Anxiety) insulin lispro [Humalog U-100 Insulin] 100 unit/mL Solution 1 sliding scale dose SUBCUT USEASDIRECTD Protocol: Insulin Correction Scale Less than or equal to 110 ---- Give (units): 0 111 to 150 Give (units): 0 151 to 200 Give (units): 2 201 to 250 Give (units): 4 251 to 300 Give (units): 6 301 to 350 Give (units): 8 Greater than 350 Give (units): 10 Call MD if Blood Glucose > : 350 [place] Solostar U-100 Insulin 100 unit/mL (3 mL) Insulin Pen 18 unit SUBCUT BEDTIME quetiapine 25 mg tablet 12.5 mg PO BID PRN (Reason: Agitation) escitalopram oxalate 10 mg tablet 1 tab PO DAILY acetaminophen 325 mg Tablet 650 mg PO Q4H PRN (Reason: Pain) Rx Instructions: PAIN/FEVER trazodone 50 mg tablet 25 mg PO DAILY melatonin 3 mg Tablet 6 mg PO BEDTIME lorazepam 0.5 mg tablet 1 tab PO BEDTIME cefuroxime axetil 250 mg tablet 250 mg PO BID 7 Days Qty: 14 0RF Referrals: Jolynn Corrales MD [Primary Care Provider] - 2 days
[2021-08-04 16:02] LABS: Prothrombin Time 11.5 SEC (9.9-13.0)
[2021-08-04] MEDS: 0.9 % Sodium Chloride 1,000 ML 999 ML IVCONT (16:05)
[2021-08-04 16:09] LABS: MANUAL DIFF FLAG NO
[2021-08-04 16:10] LABS: Platelet Count 150 X10*3/uL (160-400); White Blood Count 6.8 X10*3/uL (4.8-10.8)
[2021-08-04 16:11] LABS: Troponin-I High Sensitivity 3.6 ng/L (<3.5-35.0)
[2021-08-04 16:16] LABS: Alanine Aminotransferase 12 U/L (0-40); Albumin Level 3.9 g/dL (3.5-5.0); Alkaline Phosphatase 76 U/L (39-117); Anion Gap 15 (12-20); Aspartate Amino Transferase 19 U/L (5-37); Bilirubin Total 0.4 mg/dL (0.0-1.0); Blood Urea Nitrogen 21 mg/dL (9-16); Calcium 8.6 mg/dL (8.4-10.2); Carbon Dioxide 24 mmol/L (22-29); Chloride 104 mmol/L (96-108); Creatinine Clr Calc Pharmacy 71.8; Estimated Glomerular Filt Rate > 60; Glucose Random 145 mg/dL (60-115); Magnesium 2.2 mg/dL (1.6-2.6); Potassium 4.5 mmol/L (3.3-5.1); Sodium 138 mmol/L (135-145); Total Protein 6.7 g/dL (6.5-8.0)
[2021-08-04 16:36] LABS: Lactic Acid 1.6 mmol/L (0.5-2.0)
[2021-08-04 19:39] LABS: Appearance Urine HAZY; Color Urine YELLOW; Glucose Urine UA 250 MG/DL (NEG); Leukocyte Esterase Urine TRACE (NEG); Nitrite Urine POS (NEG); Specific Gravity - Urine 1.025 (1.005-1.025); UACC Culture Trigger YES; Urine Blood NEG (NEG); Urine Ketones NEG (NEG); Urine Protein NEG (NEG-TRACE)
[2021-08-04 19:58] LABS: Bacteria Urine 4+ /LPF; Squamous Epithelial Cell Urine 2+ /LPF
[2021-08-04 20:35] VITALS: BP 152/77; PULSE 62; RESP 14; TEMP 37.1; O2SAT 98
[2021-08-04 20:56] LABS: Troponin-I High Sensitivity 3.8 ng/L (<3.5-35.0)
--- NOTE | 2021-08-04 21:08 | PC.NURSE ---
Report given to HEIDI Roberson at [facility]. 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
== END 2021-08-04 21:29 | disposition home or self-care (01) ==
PROVIDERS: Physician Assistant Medical; Emergency Provider Emergency Medicine; PCP Internal Medicine
DX: N39.0 Urinary tract infection, site not specified (principal); F03.90 Unspecified dementia, unspecified severity, without behavioral disturbance, psychotic disturbance, mood disturbance, and anxiety; E11.9 Type 2 diabetes mellitus without complications; I10 Essential (primary) hypertension; D64.9 Anemia, unspecified
CPT/HCPCS: 36415; 51701; 70450; 71046; 80053; 81001; 83605; 83735; 84484; 85025; 85610; 87040; 87086; 93005; 96360; 99284

== ENCOUNTER 2021-08-13 16:37 | Emergency (ER) | payer MEDICARE, SELFPAY ==
--- NOTE | 2021-08-13 16:51 | ED_ITS ---
HPI - Altered Mental Status General Chief Complaint: General Medical Stated Complaint: Increase Agitation Time Seen by Provider: 08/13/21 16:43 Source: EMS Mode of arrival: EMS Limitations: no limitations History of Present Illness HPI narrative: 75-year-old male past medical history significant for depression, dementia presenting from a custodial facility coming in by ambulance with complaints of increased agitation over the past day. Patient unable to give me a good history but according to facility patient has been more agitated than usual, and they were concerned that he may have a urinary tract infection. Patient unable to answer my questions appropriately due to dementia however he tells me that they do not let him eat where he lives and he is mad. He also tells me that he just wants food and he will feel better. Denies chest pain, shortness of breath, fevers chills, nausea, vomiting, headache, dizziness, vision changes. Onset (ago): day(s) (1) Related Data Home Medications Medication Instructions Recorded Confirmed buspirone 5 mg tablet 5 mg PO BID 08/05/20 08/13/21 insulin glargine 100 unit/mL (3 15 unit subcut BEDTIME 08/05/20 08/13/21 mL) subcutaneous pen (Lantus Solostar U-100 Insulin) insulin lispro 100 unit/mL 1 sliding scale dose subcut TIDAC 08/05/20 08/13/21 subcutaneous solution (Humalog U-100 Insulin) lorazepam 0.5 mg tablet 0.25 mg PO BID 08/05/20 08/13/21 trazodone 50 mg tablet 75 mg PO BEDTIME 08/05/20 08/13/21 acetaminophen 325 mg tablet 650 mg PO Q4H PRN Pain 11/15/20 08/13/21 escitalopram oxalate 10 mg tablet 1 tab PO DAILY 11/15/20 08/13/21 melatonin 3 mg tablet 6 mg PO BEDTIME 11/15/20 08/13/21 quetiapine 25 mg tablet 25 mg PO BID 11/15/20 08/13/21 trazodone 50 mg tablet 25 mg PO DAILY 11/15/20 08/13/21 docusate sodium 100 mg capsule 100 mg PO BID PRN Constipation 08/13/21 08/13/21 omeprazole 20 mg capsule,delayed 20 mg PO DAILY 08/13/21 08/13/21 release quetiapine 25 mg tablet 50 mg PO DAILY@1200 08/13/21 08/13/21 Allergies Allergy/AdvReac Type Severity Reaction Status Date / Time aspirin [ASA] Allergy Facial Verified 08/13/21 16:57 Swelling Penicillins Allergy Redness of Verified 08/13/21 16:57 Skin Sulfa (Sulfonamide AdvReac Rash Verified 08/13/21 16:57 Antibiotics) Review of Systems Review of Systems: Yes Unobtainable due to mental status PMFSH Past Medical History Attestation statement: The following information was validated with the patient. 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 Dysphagia, oropharyngeal phase Dysphagia, pharyngoesophageal phase Essential (primary) hypertension Major depressive disorder, single episode, unspecified Metabolic encephalopathy Muscle weakness (generalized) Other abnormalities of gait and mobility Repeated falls Schizophrenia, unspecified Type 2 diabetes mellitus without complications Unspecified dementia without behavioral disturbance Unsteadiness on feet Weakness Social History Social History Alcohol intake: never Patient Tobacco Use Status: Tobacco use Unknown Use of substances other than those prescribed or required for medical reasons: No Advance Directives: Yes Advance Directives on File: Yes Advance Directives Date on File: 08/11/20 Physical Exam ED Vital Signs: Vital Signs - 24 hr 08/13/21 16:59 08/13/21 20:57 08/13/21 23:22 Temperature 98.8 F 98.1 F 98.1 F Pulse Rate 88 62 62 Respiratory Rate 18 16 Blood Pressure 101/60 122/73 140/74 H Pulse Oximetry 97 97 99 Oxygen Delivery Method Room Air Room Air Room Air BMI result Body Mass Index 27.1 VSS Appearance: Alert.? Oriented X3.? No acute distress.? Head: Normocephalic, atraumatic, no step-offs or deformities Eyes: Pupils equal, round and reactive to light.? ENT: Pharynx normal.? Neck: Normal inspection.? Neck supple.? CVS: Normal heart rate and rhythm.? Pulses normal.? Respiratory: No respiratory distress.? Breath sounds normal.? Abdomen: Soft and nontender.? Skin: Skin warm and dry.? Normal skin color.? Normal skin turgor.? Extremities: No lower extremity edema.? No calf ttp. 5/5 strength to bilateral upper and lower extremities Neuro: Oriented X 3.? No motor deficit.? No sensory deficit. CN 2-12 intact Course Reevaluation(s) Reevaluation #1: CBC with no leukocytosis, a normocytic anemia which appears to be chronic is present, chemistry w/ no acute electrolyte abnormalities requiring intervention. UA pending. Time: 17:44 Reevaluation #2: Called to the bedside as patient was difficult to get wright in, in a while taking blood soft a small amount of lubricant and secretions got into my eye. Patient tells me that he has no known HIV. He tells me that he is okay with me obtaining blood work to check. Obtain patient consent an ordered HIV antibody and antigen exposure source. He also gave consent to nurse and tech who yesenia darrius t. Very low risk. Time: 20:44 Reevaluation #3: UA negative. Patient has been calm, cooperative with us the entire time. At this time patient is medically cleared and he can go back to his custodial facility. Advised him to return with new or worsening symptoms. At this time I feel comfortable with discharge home Time: 00:22 MDM - Altered Mental Status MDM Narrative Medical decision making narrative: 1650 75-year-old male presents from custodial facility where they were concern ed that he has been agitated today, their concern for UTI. Patient offers no complaints. Physical examination benign. Patient answer questions however unable to hold a complex conversation. Alert and oriented x3. Neuro exam appears to be at baseline. No focal neuro deficits. Will rule out UTI, infection however unlikely. Likely dementia/sundowning. patient has not had any head trauma, no falls, no evidence signs of trauma, no reported falls, also noted that patient had a head CT and chest x-ray on 08/04/2021, which were within normal limits at this time I do not feel as though there is need for imaging. As I have high suspicion for sundowning/dementia. Medical Records Attestation: I reviewed the patient's medical records. Lab Data Attestation: I reviewed the patient's lab results. Result diagrams: 08/13/21 17:05 06/19/22 17:05 Labs: Lab Results 08/13/21 08/13/21 08/13/21 Range/Units 17:05 17:05 17:05 WBC 6.3 (4.8-10.8) X10*3/uL RBC 4.30 L (4.60-5.80) X10*6/uL Hgb 13.5 L (14.0-18.0) g/dl Hct 39.7 L (42.0-52.0) % MCV 92.3 (80.0-98.0) fL MCH 31.4 (27.0-33.0) pg MCHC 34.0 (31.0-36.0) g/dl RDW 12.8 (11.0-16.0) % Plt Count 157 L (160-400) X10*3/uL MPV 9.4 (9.4-12.4) fL Immature Gran % (Auto) 0.3 (0.0-0.4) % Neut % (Auto) 73.9 H (45-73) % Lymph % (Auto) 15.8 L (20-40) % [place] % (Auto) 7.6 (2-11) % Eos % (Auto) 2.1 (0-4) % Baso % (Auto) 0.3 (0-2) % Lymph # (Auto) 1.0 L (1.2-4.9) X10*3/uL [place] # (Auto) 0.5 (0.1-1.2) X10*3/uL Eos # (Auto) 0.1 (0.0-0.4) X10*3/uL Baso # (Auto) 0.0 (0.0-0.2) X10*3/uL Abs Immat Gran (auto) 0.02 (0.00-0.03) X10*3/uL Absolute Neuts (auto) 4.7 (2.0-8.3) x10*3/uL Absolute Nucleated RBC 0.000 (0.0-0.012) X10*3/uL Nucleated RBC % (auto) 0.0 (0.0-0.2) /100WBC Sodium 139 (135-145) mmol/L Potassium 3.8 (3.3-5.1) mmol/L Chloride 104 (96-108) mmol/L Carbon Dioxide 26 (22-29) mmol/L Anion Gap 13 (12-20) BUN 22 H (9-16) mg/dL Creatinine 1.08 (0.5-1.4) mg/dL Estim Creat Clear Calc 63.9 Estimated GFR > 60 Random Glucose 119 H (60-115) mg/dL Calcium 8.6 (8.4-10.2) mg/dL Magnesium 1.9 (1.6-2.6) mg/dL Total Bilirubin 0.4 (0.0-1.0) mg/dL AST 13 (5-37) U/L ALT 10 (0-40) U/L Alkaline Phosphatase 95 D (39-117) U/L Total Protein 6.7 (6.5-8.0) g/dL Albumin 4.0 (3.5-5.0) g/dL Urine Color Urine Appearance Urine pH (5.0-8.0) Ur Specific Arma (1.005-1.025) Urine Protein (NEG-TRACE) MG/DL Urine Glucose (UA) (NEG) MG/DL Urine Ketones (NEG) MG/DL Urine Blood (NEG) Urine Nitrite (NEG) Ur Leukocyte Esterase (NEG) Urine RBC (0) /HPF Urine WBC (0-4) /HPF Ur Squamous Epith Cells /LPF Calcium Oxalate Crystal /LPF Urine Bacteria /LPF Urine Mucus /LPF Urine Opiates Screen (Not Detect) Urine Fentanyl Screen (Not Detect) Ur Barbiturates Screen (Not Detect) Ur Phencyclidine Scrn (Not Detect) Ur Amphetamines Screen (Not Detect) U Benzodiazepines Scrn (Not Detect) Urine Cocaine Screen (Not Detect) U Marijuana (THC) Screen (Not Detect) Ethyl Alcohol mg/dL COVID-19 ([facility]OMAS) Negative (Negative) COVID-19 Clin Com See Note HIV 1&2 Ab/P24 Ag 4thGn (Nonreactive) 08/13/21 08/13/21 08/13/21 Range/Units 17:05 21:05 23:05 WBC (4.8-10.8) X10*3/uL RBC (4.60-5.80) X10*6/uL Hgb (14.0-18.0) g/dl Hct (42.0-52.0) % MCV (80.0-98.0) fL MCH (27.0-33.0) pg MCHC (31.0-36.0) g/dl RDW (11.0-16.0) % Plt Count (160-400) X10*3/uL MPV (9.4-12.4) fL Immature Gran % (Auto) (0.0-0.4) % Neut % (Auto) (45-73) % Lymph % (Auto) (20-40) % [place] % (Auto) (2-11) % Eos % (Auto) (0-4) % Baso % (Auto) (0-2) % Lymph # (Auto) (1.2-4.9) X10*3/uL [place] # (Auto) (0.1-1.2) X10*3/uL Eos # (Auto) (0.0-0.4) X10*3/uL Baso # (Auto) (0.0-0.2) X10*3/uL Abs Immat Gran (auto) (0.00-0.03) X10*3/uL Absolute Neuts (auto) (2.0-8.3) x10*3/uL Absolute Nucleated RBC (0.0-0.012) X10*3/uL Nucleated RBC % (auto) (0.0-0.2) /100WBC Sodium (135-145) mmol/L Potassium (3.3-5.1) mmol/L Chloride (96-108) mmol/L Carbon Dioxide (22-29) mmol/L Anion Gap (12-20) BUN (9-16) mg/dL Creatinine (0.5-1.4) mg/dL Estim Creat Clear Calc Estimated GFR Random Glucose (60-115) mg/dL Calcium (8.4-10.2) mg/dL Magnesium (1.6-2.6) mg/dL Total Bilirubin (0.0-1.0) mg/dL AST (5-37) U/L ALT (0-40) U/L Alkaline Phosphatase (39-117) U/L Total Protein (6.5-8.0) g/dL Albumin (3.5-5.0) g/dL Urine Color YELLOW Urine Appearance CLEAR Urine pH 6.0 (5.0-8.0) Ur Specific Arma >= 1.030 H (1.005-1.025) Urine Protein TRACE (NEG-TRACE) MG/DL Urine Glucose (UA) 500 H (NEG) MG/DL Urine Ketones 5 (NEG) MG/DL Urine Blood 3+ H (NEG) Urine Nitrite NEG (NEG) Ur Leukocyte Esterase NEG (NEG) Urine RBC 5-9 H (0) /HPF Urine WBC 1-4 (0-4) /HPF Ur Squamous Epith Cells 1+ /LPF Calcium Oxalate Crystal 2+ /LPF Urine Bacteria 3+ /LPF Urine Mucus 1+ /LPF Urine Opiates Screen (Not Detect) Urine Fentanyl Screen (Not Detect) Ur Barbiturates Screen (Not Detect) Ur Phencyclidine Scrn (Not Detect) Ur Amphetamines Screen (Not Detect) U Benzodiazepines Scrn (Not Detect) Urine Cocaine Screen (Not Detect) U Marijuana (THC) Screen (Not Detect) Ethyl Alcohol < 10 mg/dL COVID-19 (THOMAS) (Negative) COVID-19 Clin Com HIV 1&2 Ab/P24 Ag 4thGn Nonreactive (Nonreactive) 08/13/21 Range/Units 23:05 WBC (4.8-10.8) X10*3/uL RBC (4.60-5.80) X10*6/uL Hgb (14.0-18.0) g/dl Hct (42.0-52.0) % MCV (80.0-98.0) fL MCH (27.0-33.0) pg MCHC (31.0-36.0) g/dl RDW (11.0-16.0) % Plt Count (160-400) X10*3/uL MPV (9.4-12.4) fL Immature Gran % (Auto) (0.0-0.4) % Neut % (Auto) (45-73) % Lymph % (Auto) (20-40) % [place] % (Auto) (2-11) % Eos % (Auto) (0-4) % Baso % (Auto) (0-2) % Lymph # (Auto) (1.2-4.9) X10*3/uL [place] # (Auto) (0.1-1.2) X10*3/uL Eos # (Auto) (0.0-0.4) X10*3/uL Baso # (Auto) (0.0-0.2) X10*3/uL Abs Immat Gran (auto) (0.00-0.03) X10*3/uL Absolute Neuts (auto) (2.0-8.3) x10*3/uL Absolute Nucleated RBC (0.0-0.012) X10*3/uL Nucleated RBC % (auto) (0.0-0.2) /100WBC Sodium (135-145) mmol/L Potassium (3.3-5.1) mmol/L Chloride (96-108) mmol/L Carbon Dioxide (22-29) mmol/L Anion Gap (12-20) BUN (9-16) mg/dL Creatinine (0.5-1.4) mg/dL Estim Creat Clear Calc Estimated GFR Random Glucose (60-115) mg/dL Calcium (8.4-10.2) mg/dL Magnesium (1.6-2.6) mg/dL Total Bilirubin (0.0-1.0) mg/dL AST (5-37) U/L ALT (0-40) U/L Alkaline Phosphatase (39-117) U/L Total Protein (6.5-8.0) g/dL Albumin (3.5-5.0) g/dL Urine Color Urine Appearance Urine pH (5.0-8.0) Ur Specific Arma (1.005-1.025) Urine Protein (NEG-TRACE) MG/DL Urine Glucose (UA) (NEG) MG/DL Urine Ketones (NEG) MG/DL Urine Blood (NEG) Urine Nitrite (NEG) Ur Leukocyte Esterase (NEG) Urine RBC (0) /HPF Urine WBC (0-4) /HPF Ur Squamous Epith Cells /LPF Calcium Oxalate Crystal /LPF Urine Bacteria /LPF Urine Mucus /LPF Urine Opiates Screen POSITIVE H (Not Detect) Urine Fentanyl Screen Not Detected (Not Detect) Ur Barbiturates Screen Not Detected (Not Detect) Ur Phencyclidine Scrn Not Detected (Not Detect) Ur Amphetamines Screen Not Detected (Not Detect) U Benzodiazepines Scrn Not Detected (Not Detect) Urine Cocaine Screen Not Detected (Not Detect) U Marijuana (THC) Screen Not Detected (Not Detect) Ethyl Alcohol mg/dL COVID-19 (THOMAS) (Negative) COVID-19 Clin Com HIV 1&2 Ab/P24 Ag 4thGn (Nonreactive) Critical Care Time Critical Care Time Critical Care Time: No Discharge Plan Discharge Clinical Impression: Agitation Patient Disposition: Xfer SNF Additional Instructions: Take your medications as prescribed. If you were prescribed antibiotics today, it is important that you take your medication to their entirety, do not skip any doses, do not finish them early. Follow-up with your primary care provider this week. Return to the emergency department with new or worsening symptoms. Such as fevers, chills, chest pain, shortness of breath, nausea, vomiting, dizziness, headache, vision changes, lethargy In case of emergency call 911 labs and urine were reassuring. Prescriptions: No Action buspirone 5 mg Tablet 5 mg PO BID trazodone 50 mg Tablet 75 mg PO BEDTIME lorazepam 0.5 mg Tablet 0.25 mg PO BID insulin lispro [Humalog U-100 Insulin] 100 unit/mL Solution 1 sliding scale dose SUBCUT TIDAC Protocol: Insulin Correction Scale Less than or equal to 110 ---- Give (units): 0 111 to 150 Give (units): 0 151 to 200 Give (units): 2 201 to 250 Give (units): 4 251 to 300 Give (units): 6 301 to 350 Give (units): 8 Greater than 350 Give (units): 10 Call MD if Blood Glucose > : 350 Rx Instructions: 150-199: 2 units, 200-249: 4 units, 250-299: 6 units, 300-349: 8 units, 350- 399 10 units insulin glargine [Lantus Solostar U-100 Insulin] 100 unit/mL (3 mL) Insulin Pen 15 unit SUBCUT BEDTIME quetiapine 25 mg tablet 25 mg PO BID escitalopram oxalate 10 mg tablet 1 tab PO DAILY acetaminophen 325 mg Tablet 650 mg PO Q4H PRN (Reason: Pain) Rx Instructions: PAIN/FEVER trazodone 50 mg tablet 25 mg PO DAILY melatonin 3 mg Tablet 6 mg PO BEDTIME quetiapine 25 mg tablet 50 mg PO DAILY@1200 docusate sodium 100 mg Capsule 100 mg PO BID PRN (Reason: Constipation) omeprazole 20 mg Capsule,Delayed Release(Dr/Ec) 20 mg PO DAILY Referrals: Physician,Unknown J [Primary Care Provider] - 2 days
[2021-08-13 16:59] VITALS: BP 101/60; PULSE 88; RESP 18; TEMP 37.1; O2SAT 97; BMI 27.1
[2021-08-13 17:11] LABS: MANUAL DIFF FLAG NO
[2021-08-13 17:13] LABS: Basophils Percent Auto 0.3 % (0-2); Eosinophils Absolute Auto 0.1 X10*3/uL (0.0-0.4); Eosinophils Percent Auto 2.1 % (0-4); Hematocrit 39.7 % (42.0-52.0); Hemoglobin 13.5 g/dl (14.0-18.0); Imm Gran Abs Auto 0.02 X10*3/uL (0.00-0.03); Imm Gran Pct Auto 0.3 % (0.0-0.4); Lymphocytes Percent Auto 15.8 % (20-40); Mean Corpuscular Hemoglobin 31.4 pg (27.0-33.0); Mean Corpuscular Volume 92.3 fL (80.0-98.0); Mean Platelet Volume 9.4 fL (9.4-12.4); Monocytes Absolute Auto 0.5 X10*3/uL (0.1-1.2); Monocytes Percent Auto 7.6 % (2-11); Neutrophils Absolute Auto 4.7 x10*3/uL (2.0-8.3); Neutrophils Percent Auto 73.9 % (45-73); Platelet Count 157 X10*3/uL (160-400); Red Cell Distribution Width 12.8 % (11.0-16.0); White Blood Count 6.3 X10*3/uL (4.8-10.8)
--- NOTE | 2021-08-13 17:22 | PC.NURSE ---
pt alert, oriented to self and knows that he is at the hospital, repeatedly asking about where his is. hx dementia at baseline - pt reportedly increasingly combative at SNF, query UTI. EMS witnessed staff interacting with w pt and reported increased agitation due to staff demeanour. pt was calm and cooperative with EMS and has been the same at [facility]. pt reportedly hungry and states that he was denied food at SNF. per provider okay to give pt food - pt ate chicken salad sandwich and pudding, per records from SNF okay eating bread and mechanical soft food w thin liquids. while changing over pt, tech noted poor pt hygiene and old [facility] band dated 08/04 still on pt. labs drawn by tech without issue.
[2021-08-13 17:30] LABS: Ethanol < 10 mg/dL
[2021-08-13 17:31] LABS: COVID-19 Test Negative (Negative)
[2021-08-13 17:40] LABS: Alanine Aminotransferase 10 U/L (0-40); Alkaline Phosphatase 95 U/L (39-117); Anion Gap 13 (12-20); Aspartate Amino Transferase 13 U/L (5-37); Bilirubin Total 0.4 mg/dL (0.0-1.0); Blood Urea Nitrogen 22 mg/dL (9-16); Calcium 8.6 mg/dL (8.4-10.2); Carbon Dioxide 26 mmol/L (22-29); Chloride 104 mmol/L (96-108); Creatinine Clr Calc Pharmacy 63.9; Estimated Glomerular Filt Rate > 60; Glucose Random 119 mg/dL (60-115); Magnesium 1.9 mg/dL (1.6-2.6); Potassium 3.8 mmol/L (3.3-5.1); Sodium 139 mmol/L (135-145); Total Protein 6.7 g/dL (6.5-8.0)
--- NOTE | 2021-08-13 19:40 | PC.NURSE ---
straight cath attempted, unable to advance past urethra. provider notified, urojet ordered.
[2021-08-13] MEDS: Lidocaine HCl 2 % Urojet 10 ML JEL.PF.APP TOPICAL (20:07)
--- NOTE | 2021-08-13 20:17 | PC.NURSE ---
2nd nurse attempted straight cath, unable to advance, provider notified and brought into room to assess.
[2021-08-13 20:57] VITALS: BP 122/73; PULSE 62; RESP 16; TEMP 36.7; O2SAT 97
--- NOTE | 2021-08-13 20:59 | PC.NURSE ---
checked on straight cath - left in place by provider, straight cath now draining urine.
[2021-08-13 21:51] LABS: HIV AB/AG Nonreactive (Nonreactive); HIV Num 1 0.08 S/CO (0.00-0.99)
[2021-08-13 23:16] LABS: Appearance Urine CLEAR; Color Urine YELLOW; Glucose Urine UA 500 MG/DL (NEG); Leukocyte Esterase Urine NEG (NEG); Nitrite Urine NEG (NEG); Specific Gravity - Urine >= 1.030 (1.005-1.025); UACC Culture Trigger NO; Urine Blood 3+ (NEG); Urine Ketones 5 MG/DL (NEG); Urine Protein TRACE MG/DL (NEG-TRACE)
[2021-08-13 23:22] VITALS: BP 140/74; PULSE 62; TEMP 36.7; O2SAT 99
[2021-08-13 23:23] LABS: Bacteria Urine 3+ /LPF; Calcium Oxalate Crystals Urine 2+ /LPF; Mucus Urine 1+ /LPF; Squamous Epithelial Cell Urine 1+ /LPF
[2021-08-13 23:26] LABS: Amphetamine Screen Urine Not Detected (Not Detect); Barbiturates, Urine Not Detected (Not Detect); Benzodiazepines Screen Urine Not Detected (Not Detect); Cannabinoid Screen Urine Not Detected (Not Detect); Cocaine Screen Urine Not Detected (Not Detect); Fentanyl, urine Not Detected (Not Detect); Opiate Screen Urine POSITIVE (Not Detect); Phencyclidine Screen Urine Not Detected (Not Detect)
[2021-08-14 02:42] VITALS: BP 143/56; PULSE 59; RESP 16; TEMP 36.6; O2SAT 100
--- NOTE | 2021-08-14 02:58 | PC.NURSE ---
PATIENT WAS INC OF URINE ,CARE GIVEN LINEN CHANGE ,PATIENT WATCHING TELEVISION IN BED .
--- NOTE | 2021-08-14 03:22 | PC.NURSE ---
Naga GORDON assumed care from Gillian GORDON at this time. Check pt's penis because of difficult straight cath insertion by Corinne MOORE earlier in shift. Small amount of dark red discharge noted, clean with wash cloth, pt reports no pain.
--- NOTE | 2021-08-14 03:43 | PC.NURSE ---
Report given to Odette GORDON at [facility]. Pt will be transported back to facility via ambulance this morning.
[2021-08-14 05:39] VITALS: BP 174/84; PULSE 64; RESP 18; TEMP 36.9; O2SAT 99
--- NOTE | 2021-08-14 06:14 | PC.NURSE ---
PATIENT WAS AWAKE ALL NIGHT WATCHING TELEVISION ,PATIENT WAS INC OF URINE AT 6AM ,CARE GIVEN LINEN CHANGE ,PATIENT CONTINUE TO WATCH TELEVISION .
[2021-08-14 08:24] VITALS: BP 113/55; PULSE 102; RESP 16; O2SAT 94
--- NOTE | 2021-08-14 08:25 | PC.NURSE ---
offered pt tuna sandwich and orange juice. pt refused the sandwich but requested that stay. pt reporting he wants to go home, requested that the undertaker be called to take him.
== END 2021-08-14 09:43 | disposition skilled nursing facility (03) ==
PROVIDERS: Physician Assistant; Emergency Provider Internal Medicine
DX: F03.91 Unspecified dementia, unspecified severity, with behavioral disturbance (principal); E11.9 Type 2 diabetes mellitus without complications; F33.1 Major depressive disorder, recurrent, moderate; Z79.899 Other long term (current) drug therapy; Z20.822 Contact with and (suspected) exposure to COVID-19; Z79.4 Long term (current) use of insulin
CPT/HCPCS: 36415; 51702; 80053; 80307; 81001; 82077; 83735; 85025; 87635; 96365; 99284

== ENCOUNTER 2022-02-23 16:34 | Emergency (ER) | payer MEDICARE, SELFPAY ==
[2022-02-23 16:46] VITALS: BP 130/59; BP 130/80; PULSE 84; RESP 18; TEMP 37.4; O2SAT 97; BMI 37.1
--- NOTE | 2022-02-23 17:20 | ED.PSYCH ---
HPI - Psych General Chief Complaint: Psychiatric Symptoms Stated Complaint: SI WITH INTENT. Time Seen by Provider: 02/23/22 16:36 Source: patient and EMS Mode of arrival: EMS Limitations: other (History of dementia) History of Present Illness HPI Narrative: Patient comes to the emergency room complaining of suicidal ideation. Patient lives at [facility]. Earlier today, the staff at the [facility] saw the patient was trying to jump off the balcony. The patient here in the emergency room states that he does want to . Patient belligerent, swearing, yelling that he wants his Criss to pick him up and take him back home Related Data Home Medications Medication Instructions Recorded Confirmed acetaminophen 325 mg tablet 650 mg PO Q4H PRN Fever 02/23/22 02/23/22 bisacodyl 10 mg rectal suppository 10 mg ME DAILY PRN Constipation 02/23/22 02/23/22 dextrose 40 % oral gel (Glutose-45) 15 g PO Q15M PRN Hypoglycemia 02/23/22 02/23/22 divalproex 125 mg tablet,delayed 125 mg PO BID 02/23/22 02/23/22 release divalproex 250 mg tablet,delayed 250 mg PO BEDTIME 02/23/22 02/23/22 release (Depakote) docusate sodium 100 mg capsule 100 mg PO DAILY 02/23/22 02/23/22 escitalopram oxalate 5 mg tablet 7.5 mg PO DAILY 02/23/22 02/23/22 insulin glargine 100 unit/mL (3 5 unit subcut QPM 02/23/22 02/23/22 mL) subcutaneous pen (Lantus Solostar U-100 Insulin) insulin lispro 100 unit/mL 1 sliding scale dose subcut 02/23/22 02/23/22 subcutaneous solution USEASDIRECTD lorazepam 0.5 mg tablet (Ativan) 0.5 mg PO BID PRN Anxiety 02/23/22 02/23/22 magnesium hydroxide 400 mg/5 mL 400 mg PO BEDTIME PRN Constipation 02/23/22 02/23/22 oral suspension (Milk of Magnesia) melatonin 3 mg tablet 6 mg PO DAILY 02/23/22 02/23/22 naloxone 4 mg/actuation nasal 1 spray intranasal USEASDIRECTD 02/23/22 02/23/22 spray (Narcan) PRN apnea omeprazole 20 mg capsule,delayed 20 mg PO DAILY 02/23/22 02/23/22 release polyethylene glycol 3350 17 gram 17 g PO DAILY 02/23/22 02/23/22 oral powder packet (Miralax) quetiapine 50 mg tablet (Seroquel) 50 mg PO TID 02/23/22 02/23/22 sodium phosphates 19 gram-7 118 ml ME DAILY PRN Constipation 02/23/22 02/23/22 gram/118 mL enema (Fleet Enema) trazodone 50 mg tablet 25 mg PO DAILY 02/23/22 02/23/22 trazodone 50 mg tablet 75 mg PO BEDTIME 02/23/22 02/23/22 Previous Rx's Medication Instructions Recorded cefuroxime axetil 500 mg tablet 500 mg PO BID #20 tabs 02/23/22 Allergies Allergy/AdvReac Type Severity Reaction Status Date / Time aspirin [ASA] Allergy Facial Verified 08/13/21 16:57 Swelling Penicillins Allergy Redness of Verified 08/13/21 16:57 Skin Sulfa (Sulfonamide AdvReac Rash Verified 08/13/21 16:57 Antibiotics) Review of Systems Review of Systems: Yes all other systems are reviewed and are negative and Unobtainable due to mental condition (Patient complaining of not sleeping and refuses to answer any questions) PMFSH Past Medical History Medical History Anemia 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 Dysphagia, oropharyngeal phase Dysphagia, pharyngoesophageal phase Essential (primary) hypertension Major depressive disorder, single episode, unspecified Metabolic encephalopathy Muscle weakness (generalized) Other abnormalities of gait and mobility Repeated falls Schizophrenia, unspecified Type 2 diabetes mellitus without complications Unspecified dementia without behavioral disturbance Unsteadiness on feet Weakness Social History Social History Alcohol intake: current Patient Tobacco Use Status: Tobacco use Unknown Smoked in Last 30 Days: No Use of substances other than those prescribed or required for medical reasons: No Advance Directives: Yes Advance Directives on File: Yes Advance Directives Date on File: 08/11/20 Physical Exam Vital Signs: Vital Signs: Last Vital Signs Temp 99.3 F 02/23/22 16:46 Pulse 84 02/23/22 16:46 Resp 20 02/23/22 19:15 BP 130/59 L 02/23/22 16:46 Pulse Ox 97 02/23/22 16:46 O2 Del Method 02/23/22 16:46 BMI result Body Mass Index 37.1 Const: Other: Appearance: Alert. Oriented X1 , angry, pacing around, belligerent Eyes: Pupils equal, round and reactive to light. ENT: Pharynx normal. Neck: Normal inspection. Neck supple. No lymph nodes noted. No crepitus CVS: Normal heart rate and rhythm. Pulses normal. Normal S1 and S2 Respiratory: No respiratory distress. Breath sounds normal. No Wheezing. No rales Abdomen: Soft and nontender. No rigidity. No distention. Skin: Skin warm and dry. Normal skin color. Normal skin turgor. Extremities: No lower extremity edema. No Lacerations. No Rash Neuro: Oriented X 3. No motor deficit. No sensory deficit. Moving all extremities. No slurred speech. CN 2 through 12 grossly intact Psych: Anxious, pacing Course Course Course Narrative: Patient does have history of dementia. Urinalysis pending. Behavioral health network consult pending. Physician observation started at 17:25 21:40, we were able to obtain urine. Patient has a UTI, given 1 dose of IM ceftriaxone. The care team evaluated the patient, he will stay until he has a little bit more clear tomorrow. Patient remains on physician observation Medications Administered Discontinued Medications Generic Name Dose Route Start Last Admin Trade Name Freq PRN Reason Stop Dose Admin Olanzapine 10 mg 02/23/22 18:11 02/23/22 18:15 Olanzapine 10 Mg Vial IM 02/23/22 18:12 10 mg ONCE ONE Administration Medical Decision Making Lab Data Labs: Lab Results 02/23/22 02/23/22 02/23/22 Range/Units 17:29 20:45 20:45 Urine Color Yellow Urine Appearance Clear Urine pH 6.0 (5.0-9.0) Ur Specific [place] 1.010 (1.005-1.025) Urine Protein Negative (Neg-Trace) mg/dL Urine Glucose (UA) Negative (Negative) mg/dL Urine Ketones Negative (Negative) mg/dL Urine Blood Negative (Negative) Urine Nitrite Positive H (Negative) Ur Leukocyte Esterase Moderate (2+) H (Negative) Urine RBC 0-2 (0-2) /HPF Urine WBC 21-50 H (0-5) /HPF Ur Squamous Epith Cells 0-2 (0-2) /HPF Urine Bacteria 4+ (None Seen) Hyaline Casts 0-2 (0-2) /LPF Urine Opiates Screen Not Detected (Not Detect) Urine Fentanyl Screen Not Detected (Not Detect) Ur Barbiturates Screen Not Detected (Not Detect) Ur Phencyclidine Scrn Not Detected (Not Detect) Ur Amphetamines Screen Not Detected (Not Detect) U Benzodiazepines Scrn Not Detected (Not Detect) Urine Cocaine Screen Not Detected (Not Detect) U Marijuana (THC) Screen Not Detected (Not Detect) Influenza Type A (PCR) NEGATIVE (Negative) Influenza Type B (PCR) NEGATIVE (Negative) RSV RNA Qual (PCR) NEGATIVE (Negative) SARS-CoV-2 RNA (RT-PCR) NEGATIVE (Negative) Discharge Plan Discharge Clinical Impression: Dementia, Urinary tract infection Patient Disposition: Still a Patient Instructions: Urinary Tract Infection in Older Adults (ED) Additional Instructions: Please follow-up with your primary care physician tomorrow. If you have any worsening or new symptoms, please return to the emergency room or call 911 Prescriptions: New cefuroxime axetil 500 mg tablet 500 mg PO BID Qty: 20 0RF No Action acetaminophen 325 mg Tablet 650 mg PO Q4H PRN (Reason: Fever) divalproex [Depakote] 250 mg Tablet,Delayed Release (Dr/Ec) 250 mg PO BEDTIME dextrose [Glutose-45] 40 % Gel 15 g PO Q15M PRN (Reason: Hypoglycemia) Rx Instructions: until symptoms of low blood sugar are controlled melatonin 3 mg Tablet 6 mg PO DAILY lorazepam [Ativan] 0.5 mg Tablet 0.5 mg PO BID PRN (Reason: Anxiety) magnesium hydroxide [Milk of Magnesia] 400 mg/5 mL Suspension 400 mg PO BEDTIME PRN (Reason: Constipation) bisacodyl 10 mg Suppository 10 mg ME DAILY PRN (Reason: Constipation) divalproex 125 mg Tablet,Delayed Release (Dr/Ec) 125 mg PO BID Fleet Enema 19-7 gram/118 mL Enema 118 ml ME DAILY PRN (Reason: Constipation) docusate sodium 100 mg Capsule 100 mg PO DAILY insulin lispro 100 unit/mL Solution 1 sliding scale dose SUBCUT USEASDIRECTD Protocol: Insulin Correction Scale Less than or equal to 110 ---- Give (units): 0 111 to 150 Give (units): 0 151 to 200 Give (units): 2 201 to 250 Give (units): 4 251 to 300 Give (units): 6 301 to 350 Give (units): 8 Greater than 350 Give (units): 10 Call MD if Blood Glucose > : 350 escitalopram oxalate 5 mg Tablet 7.5 mg PO DAILY insulin glargine [Lantus Solostar U-100 Insulin] 100 unit/mL (3 mL) Insulin Pen 5 unit SUBCUT QPM naloxone [Narcan] 4 mg/actuation [place],Non-Aerosol 1 spray INTRANASAL USEASDIRECTD PRN (Reason: apnea) Rx Instructions: spray 1 dose into ONE nostril; alternate nostrils w each dose until help arrives trazodone 50 mg Tablet 25 mg PO DAILY trazodone 50 mg Tablet 75 mg PO BEDTIME polyethylene glycol 3350 [Miralax] 17 gram Powder In Packet 17 g PO DAILY omeprazole 20 mg Capsule,Delayed Release(Dr/Ec) 20 mg PO DAILY quetiapine [Seroquel] 50 mg Tablet 50 mg PO TID Interventions: [place]-Suicide Risk Severity Scale Last Done: 02/23/22 16:49
--- NOTE | 2022-02-23 17:44 | PC.NURSE ---
Pt loud and verbally abusive towards staff during mold insert changer period. why the fuck am I here? I should just go and already. You fucking asshole's don't care. What do I have to do to get out of here? I'm going to make a fucking scene. Pt slamming walker while walking in [place] area. Md aware of pt's refusal for urine sample.
--- NOTE | 2022-02-23 17:54 | PC.NURSE ---
Addendum entered by Aury Mckeon 02/23/22 17:57: Contact information for Olga LONG [phone] Original Note: Olga MCADAMSN from [place] contacted [facility] [place]. You can't just look at him and discharge him after an hour or two otherwise this will be for nothing . Per olga, Pt has had increasing agitation x months w/o relief from medication or PRNs at the SNF. i'm not sure if his pcp is aware of this or not . Incident tonight: Pt reportedly had increasing behaviors of aggression all afternoon. Pt then repeatedly attempted to throw himself off the balcony, but he was caught in time. No prns were offered by staff for anxiety or agitation through out the day.
[2022-02-23] MEDS: OLANZapine 10 MG VIAL IM (18:15)
[2022-02-23 18:21] VITALS: RESP 24
--- NOTE | 2022-02-23 18:24 | PC.NURSE ---
Multiple attempts were made with patient to decrease aggressive behavior. Pt threatened to punch me as I was handing out dinner trays. Per pt Fuck you cunt, I want to get out of here. You better call the Undertaker. Pt continued to slam walker into ground and nurses station.
[2022-02-23 18:30] VITALS: RESP 18
[2022-02-23 18:30] LABS: Influenza A PCR NEGATIVE (Negative); Influenza B PCR NEGATIVE (Negative); Resp Syncy Virus RNA Qual PCR NEGATIVE (Negative); SARS COV2 PCR INHOUSE NEGATIVE (Negative)
[2022-02-23 18:45] VITALS: RESP 18
[2022-02-23 19:00] VITALS: RESP 16
[2022-02-23 19:15] VITALS: RESP 20
--- NOTE | 2022-02-23 20:22 | MHC.CARE ---
CARE TEAM spoke to Guicho Rosa RN. RN reported patient attempted to jump off the first floor balcony and was reportedly stopped by staff. She discussed patient has a known diagnosis of dementia and has a history of anxiety. She also reported patient has history of destroying walkers, by throwing them and has been talking about , stating he wants to call the undertakers . According to RN, patient often asks for his and becomes angry when she is not able to visit. Pt will be assessed in the morning.
[2022-02-23 20:53] LABS: Appearance Urine Clear; Color Urine Yellow; Glucose Urine UA Negative (Negative); Leukocyte Esterase Urine Moderate (2+) (Negative); Nitrite Urine Positive (Negative); UMIC TRIGGER UACC YES; Urine Blood Negative (Negative); Urine Ketones Negative (Negative); Urine Protein Negative (Neg-Trace)
[2022-02-23 20:55] LABS: Bacteria Urine 4+ (None Seen); Hyaline Casts Urine 0-2 /LPF (0-2); RBC Urine 0-2 /HPF (0-2); Squamous Epithelial Cell Urine 0-2 /HPF (0-2); UACC Culture Trigger YES; WBC Urine 21-50 /HPF (0-5)
[2022-02-23 21:04] LABS: Amphetamine Screen Urine Not Detected (Not Detect); Barbiturates, Urine Not Detected (Not Detect); Benzodiazepines Screen Urine Not Detected (Not Detect); Cannabinoid Screen Urine Not Detected (Not Detect); Cocaine Screen Urine Not Detected (Not Detect); Fentanyl, urine Not Detected (Not Detect); Opiate Screen Urine Not Detected (Not Detect); Phencyclidine Screen Urine Not Detected (Not Detect)
[2022-02-23] MEDS: cefTRIAXone sodium 1 GM, Lidocaine HCl 1 % MPF 2.1 ML IM (22:16)
--- NOTE | 2022-02-23 22:38 | MHC.CARE ---
CARE Team was notified by pod RN that pt has an UTI. Pt was Im'd due to level of agitation. Per Sarah plan is to keep pt here in the ED until agitation has subsided and will not return to SNF until it is controlled. CARE Team does not anticipate that pt will require an admission. Pt will be started on medication to control his UTI and CARE Team will interview pt tomorrow once more awake and clear.
[2022-02-23 22:59] LABS: Glucose, Whole Blood 116 mg/dL (60-115)
--- NOTE | 2022-02-24 05:19 | PC.NURSE ---
Patient slept through the night, up twice for elimination, patient was incontinent of bladder x 1, saturated with urine, incontinence care provided, patient complaint, patient + for UTI Ceftriaxone 1 gm administered at 22.6/patient compliant, patient is hyper-verbal at time but coherent mostly, POC at 2254 was 116, med rec completed/pending provider's approval, patient continues to refuse to have blood drawn, patient will be evaluated by care team in the morning, will continue to monitor.
[2022-02-24 05:44] LABS: Glucose, Whole Blood 108 mg/dL (60-115)
[2022-02-24 06:52] VITALS: BP 139/68; PULSE 63; RESP 17; TEMP 36.7; O2SAT 98
--- NOTE | 2022-02-24 08:21 | PHA.MEDREC ---
Pharmacy Consult ? Medication Reconciliation Pharmacy has completed the medication reconciliation. Reviewed med rec done by nursing (Aury). Patient came in with list.
[2022-02-24] MEDS: Divalproex Sodium Sprinkles 125 MG CAP.DR.SPR PO ×2 (08:56→20:32)
[2022-02-24] MEDS: Escitalopram Oxalate 5 MG TABLET 7.5 MG PO (08:56)
[2022-02-24] MEDS: Docusate Sodium 100 MG CAPSULE PO (08:56)
[2022-02-24] MEDS: Omeprazole 20 MG CAPSULE.DR PO (08:56)
[2022-02-24] MEDS: QUEtiapine Fumarate 50 MG TABLET PO ×3 (08:57→20:32)
[2022-02-24] MEDS: traZODone HCL 25 MG HALFTAB PO (08:57)
[2022-02-24] MEDS: polyethylene glycoL 3350 17 GM POWD.PACK PO (09:12)
--- NOTE | 2022-02-24 09:49 | PC.NURSE ---
alert but forgetful, has asked several times about when he's going home, he told several interesting stories about his past including building his home in [place] and [place] the [place] in [place], he states that he is claustrophobic from this experience and does not like to have the lights off in his room
--- NOTE | 2022-02-24 11:20 | MHC.CARE ---
CARE Team made CM aware Pt will be cleared to be discharged tomorrow 02/25/22
[2022-02-24 13:30] LABS: Glucose, Whole Blood 185 mg/dL (60-115)
--- NOTE | 2022-02-24 13:38 | PC.NURSE ---
repeatedly asking when he's going home as he is forgetful, calm and pleasant and always happy to hear that he'll be going home tomorrow, poc after his lunch was 185 so insulin held
--- NOTE | 2022-02-24 15:02 | PC.NURSE ---
Addendum entered by Caryn Sunshine RN 02/24/22 18:44: report given to HEIDI Fong Original Note: report received from HEIDI Roman pt is alert and oriented to self no signs of acute distress notice breathing equally unlabored
[2022-02-24 18:12] LABS: Glucose, Whole Blood 112 mg/dL (60-115)
[2022-02-24] MEDS: Melatonin 3 MG TABLET 6 MG PO (20:31)
[2022-02-24] MEDS: Divalproex Sodium 250 MG TABLET.DR PO (20:32)
[2022-02-24] MEDS: traZODone HCL 25 MG HALFTAB 75 MG PO (20:32)
[2022-02-24 20:38] VITALS: BP 145/72; PULSE 57; RESP 18; TEMP 36.4; O2SAT 97
[2022-02-24 20:44] LABS: Glucose, Whole Blood 97 mg/dL (60-115)
--- NOTE | 2022-02-25 06:13 | PC.NURSE ---
Patient slept through the night, no distress observed/reported, behavior pleasant and non concerning, compliant with medication, +UTI treated with ceftin 250 mg BID, POC at 2039 was 97, HS Lantus held per provider's order, per care team patient will be discharged back to [facility] today, will continue to monitor.
[2022-02-25] MEDS: Omeprazole 20 MG CAPSULE.DR PO (06:46)
[2022-02-25 06:47] LABS: Glucose, Whole Blood 162 mg/dL (60-115)
--- NOTE | 2022-02-25 08:15 | MHC.EDTECH ---
Pt was prompted to wake up and change soiled linen. Pt was washed up, brief and hospital attire was changed and bed linen was replaced. Pt now resting comfortably in bed with walker within reach.
[2022-02-25 08:36] VITALS: BP 131/61; PULSE 57; RESP 16; TEMP 36.7; O2SAT 96
--- NOTE | 2022-02-25 08:47 | MHC.CM.ED ---
Pt has been cleared to return to [facility] today at 11 am via [facility]. Message left for pt's contact Amy - pt and ED care team aware of return and in agreement w/plan.
[2022-02-25] MEDS: Insulin Lispro 100 UNIT/ML 3 ML VIAL SUBCUT (08:57)
[2022-02-25] MEDS: traZODone HCL 25 MG HALFTAB PO (08:58)
[2022-02-25] MEDS: Escitalopram Oxalate 5 MG TABLET 7.5 MG PO (08:58)
[2022-02-25] MEDS: Divalproex Sodium Sprinkles 125 MG CAP.DR.SPR PO (08:58)
[2022-02-25] MEDS: QUEtiapine Fumarate 50 MG TABLET PO (08:59)
[2022-02-25] MEDS: Docusate Sodium 100 MG CAPSULE PO (08:59)
[2022-02-25] MEDS: polyethylene glycoL 3350 17 GM POWD.PACK PO (08:59)
--- NOTE | 2022-02-25 09:59 | PC.NURSE ---
pt is a/o x 1 no sob/leonel noted speaks in full sentences. amb (i) gait steady with walker. pt continues to ask for rhina and when he is going home. pt has been verbally redirected many times with success. pt to be d/c home today to [facility]. pt is aware of plan of care.
--- NOTE | 2022-02-25 10:20 | PC.NURSE ---
pt is a/o x 1 no sob/leonel noted pt is in the hallway threatening to throw his walker at this rn because he does not have a tv in his room and he needs to go buy one. finally verbal queuing is responding to the pt. pt is given snacks and juice/water. pt continues to call this rn a bitch and a cunt . pt keeps saying that he wants out of here now. call the undertaker . pt is verbally redirected to his room or the common area with the tv.
[2022-02-25] MEDS: LORazepam 0.5 MG TABLET 0.25 MG PO (10:31)
--- NOTE | 2022-02-25 11:26 | PC.NURSE ---
pt is out of his room continues to be aggressive and is hitting his walker on the nurses station. pt also continues to call the staff, christine cotto and rishi . pt has been offered food/snacks and is stating that we have not fed him.
--- NOTE | 2022-02-25 11:32 | PC.NURSE ---
pt is in the common area with mha ish) planning cards (go fishing)
[2022-02-25] MEDS: LORazepam 1 MG TABLET PO (11:41)
--- NOTE | 2022-02-25 11:54 | PC.NURSE ---
rn to rn report given hattie at [facility], pt aware of plan of care for return to facility.
== END 2022-02-25 13:25 ==
PROVIDERS: Emergency Medicine; Emergency Provider Emergency Medicine Emergency Medical Services
DX: F03.C2 Unspecified dementia, severe, with psychotic disturbance (principal); R45.851 Suicidal ideations; F33.1 Major depressive disorder, recurrent, moderate; N39.0 Urinary tract infection, site not specified; Z20.822 Contact with and (suspected) exposure to COVID-19; Z79.899 Other long term (current) drug therapy
CPT/HCPCS: 0241U; 80307; 81001; 82947; 87086; 96372; 99285; J0696

== ENCOUNTER 2022-06-17 15:43 | Inpatient (IN) | payer MEDICARE, SELFPAY ==
--- NOTE | ~2022-06-17 | XR_ITS ---
EXAMINATION: XR KNEE, LEFT CLINICAL INFORMATION: Fall. COMPARISON: None available. TECHNIQUE: Two views of the left knee. FINDINGS: No acute fractures or subluxation. Mild joint space narrowing and subcortical sclerosis of the medial and patellofemoral compartments. No erosions or chondrocalcinosis. No joint effusion. Scattered atherosclerotic disease. XR/XR knee LT 2V IMPRESSION: No acute fractures or subluxation. Mild degenerative osteoarthritis.
--- NOTE | ~2022-06-17 | XR_ITS ---
Examination: Left ankle. Bilateral hips with AP pelvis. Clinical indications: Fell. Pain left side. TECHNIQUE: Left ankle 2 views. AP pelvis and bilateral hips 5 views. FINDINGS: AP PELVIS AND BILATERAL HIPS: There is foreshortening of left femoral neck with a minimally displaced subcapital fracture left hip. There is no dislocation. The right hip joint is normal. SI joints are symmetrical the pelvic bones are normal. The soft tissues are normal. LEFT ANKLE: The subtalar joint and ankle mortise is normal. There is no visible acute fracture, dislocation or subluxation seen. The soft tissues are normal. There are vascular calcifications. XR/XR ankle LT 2V IMPRESSION: 1. There is foreshortening of left femoral neck with a subcapital fracture left hip. There is no dislocation. 2. There is no visible acute fracture or dislocation right hip or pelvis exam. 3. There is no acute fracture or dislocation left ankle.
--- NOTE | ~2022-06-17 | CT_ITS ---
EXAMINATION: CT HEAD WITHOUT CONTRAST CLINICAL INFORMATION: Head injury. Post fall. COMPARISON: None available. TECHNIQUE: Contiguous axial imaging was performed from the skull base to vertex without intravenous administration of contrast. This CT examination was performed using dose optimization techniques as appropriate, variously including the following: *Automated exposure control *Adjustment of mA and/or kV according to patient size (this includes techniques or standardized protocols for targeted exams where dose is matched to indication/reason for exam; i.e. extremities or head) *Use of iterative reconstruction technique DLP: 918 mGy-cm FINDINGS: There is no acute intra-axial, extra-axial bleed, masses or midline shift. There is no acute infarct evolution. There is no edema. There is diffuse periventricular hypodensity likely small vessel ischemic changes. The lateral ventricles are symmetrical but enlarged. There is mild prominence of bifrontal subarachnoid space. Bone windows reveal no calvarial abnormality. Bilateral paranasal sinuses and mastoid air cells are well aerated. No scalp soft tissue abnormality seen. CT/CT head/brain wo IV con IMPRESSION: No acute intracranial process seen. There is age-related cerebral volume loss.
--- NOTE | ~2022-06-17 | XR_ITS ---
Examination: Left ankle. Bilateral hips with AP pelvis. Clinical indications: Fell. Pain left side. TECHNIQUE: Left ankle 2 views. AP pelvis and bilateral hips 5 views. FINDINGS: AP PELVIS AND BILATERAL HIPS: There is foreshortening of left femoral neck with a minimally displaced subcapital fracture left hip. There is no dislocation. The right hip joint is normal. SI joints are symmetrical the pelvic bones are normal. The soft tissues are normal. LEFT ANKLE: The subtalar joint and ankle mortise is normal. There is no visible acute fracture, dislocation or subluxation seen. The soft tissues are normal. There are vascular calcifications. XR/XR hip BI w PEL1V IMPRESSION: 1. There is foreshortening of left femoral neck with a subcapital fracture left hip. There is no dislocation. 2. There is no visible acute fracture or dislocation right hip or pelvis exam. 3. There is no acute fracture or dislocation left ankle.
[2022-06-17 15:56] VITALS: BP 123/83; BP 140/72; PULSE 82; PULSE 84; RESP 18; TEMP 36.1; O2SAT 98; BMI 27.1
[2022-06-17 16:51] LABS: COVID-19 Test Negative (Negative); IDNOW Serial# 9DB6401D
[2022-06-17 17:15] LABS: MANUAL DIFF FLAG NO
[2022-06-17 17:29] LABS: Basophils Percent Auto 0.5 % (0-2); Eosinophils Absolute Auto 0.1 X10*3/uL (0.0-0.4); Eosinophils Percent Auto 2.9 % (0-4); Hematocrit 36.6 % (42.0-52.0); Hemoglobin 12.2 g/dl (14.0-18.0); Imm Gran Abs Auto 0.03 X10*3/uL (0.00-0.03); Imm Gran Pct Auto 0.7 % (0.0-0.4); Lymphocytes Absolute Auto 1.1 X10*3/uL (1.2-4.9); Lymphocytes Percent Auto 24.9 % (20-40); Mean Corpuscular HGB Conc 33.3 g/dl (31.0-36.0); Mean Corpuscular Hemoglobin 31.8 pg (27.0-33.0); Mean Corpuscular Volume 95.3 fL (80.0-98.0); Mean Platelet Volume 9.6 fL (9.4-12.4); Monocytes Absolute Auto 0.6 X10*3/uL (0.1-1.2); Monocytes Percent Auto 12.7 % (2-11); Neutrophils Absolute Auto 2.6 x10*3/uL (2.0-8.3); Neutrophils Percent Auto 58.3 % (45-73); Platelet Count 141 X10*3/uL (160-400); Red Blood Count 3.84 X10*6/uL (4.60-5.80); Red Cell Distribution Width 12.8 % (11.0-16.0); White Blood Count 4.4 X10*3/uL (4.8-10.8)
--- NOTE | 2022-06-17 17:29 | PHA.MEDREC ---
Addendum entered by Candy Dobson RPh 06/17/22 17:31: [facility] HAS REVIEWED MED REC Original Note: Pharmacy Consult ? Medication Reconciliation [facility]
[2022-06-17 17:38] LABS: Alanine Aminotransferase 20 U/L (0-40); Albumin Level 3.6 g/dL (3.5-5.0); Alkaline Phosphatase 60 U/L (39-117); Anion Gap 12 (12-20); Aspartate Amino Transferase 16 U/L (5-37); Bilirubin Total 0.7 mg/dL (0.0-1.0); Blood Urea Nitrogen 21 mg/dL (9-16); Calcium 8.3 mg/dL (8.4-10.2); Carbon Dioxide 29 mmol/L (22-29); Chloride 103 mmol/L (96-108); Estimated Glomerular Filt Rate > 60; Ethanol < 10 mg/dL; Glucose Random 89 mg/dL (60-115); Potassium 4.2 mmol/L (3.3-5.1); Sodium 140 mmol/L (135-145); Total Protein 6.1 g/dL (6.5-8.0)
[2022-06-17 17:39] LABS: Valproate 38.2 mcg/mL (50.0-100.0)
[2022-06-17 18:38] VITALS: BP 130/86; PULSE 98; O2SAT 98
--- NOTE | 2022-06-17 21:22 | PC.NURSE ---
pt refusing all bed time medications. pt states i'm 76 years old, screw the diabetes medication, i don't care if i live another 12 hours or not pt tells this RN he doesn't need any of those . pt also refusing giving a urine sample. he says ill go when i feel like it PA aware. will CTM.
--- NOTE | 2022-06-17 23:05 | PC.NURSE ---
report received from HIEDI Álvarez patient sleeping at this time, respirations even and unlabored, skin pwd, no apparent distress. Awaiting urine sample to get CARE team consult
[2022-06-17 23:07] VITALS: BP 134/76; PULSE 67; RESP 15; O2SAT 99
--- NOTE | 2022-06-17 23:45 | PC.NURSE ---
this RN and MOE Dominguez spoke with pt regarding urine sample. Pt declined, this RN spoke with TERESA Ferguson who agreed with this RN that pt can wait until the am
--- NOTE | 2022-06-18 00:06 | MHC.EDTECH ---
t/w attempted to obtain urine when pt woke up he stated you keep asking me and I keep telling you the same thing... I can't right now. PT also followed by saying I have already said my prayers and you continue to bother me. RN, CARE TEAM and DIRECT MARKETING SPECIALIST made aware.
--- NOTE | 2022-06-18 00:12 | MHC.CARE ---
Pt could not give a urine. There is some suspicion that he have a UTI which could be contributing to his mental state. Pt was not medically cleared for t/w to see him.
--- NOTE | 2022-06-18 01:53 | ED.PSYCH ---
HPI - Psych General Chief Complaint: Psychiatric Symptoms <TERESA Gann Last Filed: 06/18/22 02:05> Stated Complaint: evaluation <TERESA Gann Last Filed: 06/18/22 02:05> Time Seen by Provider: 06/17/22 16:34 <TERESA Gann Last Filed: 06/18/22 02:05> Source: patient <TERESA Gann Last Filed: 06/18/22 02:05> Mode of arrival: ambulatory <TERESA Gann Last Filed: 06/18/22 02:05> Limitations: no limitations <TERESA Gann Last Filed: 06/18/22 02:05> History of Present Illness HPI Narrative: 76-year-old male history of dementia presents to the ED for trying jump off the balcony. Patient has increased aggression. Patient from [facility]. Patient brought by EMS <TERESA Gann Last Filed: 06/18/22 02:05> Related Data Home Medications: Home Medications Medication Instructions Recorded Confirmed acetaminophen 325 mg tablet 650 mg PO Q4H PRN Fever 02/23/22 06/17/22 divalproex 125 mg tablet,delayed 125 mg PO BEDTIME 02/23/22 06/17/22 release divalproex 250 mg tablet,delayed 250 mg PO BID 02/23/22 06/17/22 release (Depakote) docusate sodium 100 mg capsule 100 mg PO DAILY PRN Constipation 02/23/22 06/17/22 escitalopram oxalate 5 mg tablet 7.5 mg PO DAILY 02/23/22 06/17/22 insulin lispro 100 unit/mL 1 sliding scale dose subcut 02/23/22 06/17/22 subcutaneous solution USEASDIRECTD lorazepam 0.5 mg tablet (Ativan) 0.25 mg PO BID PRN Anxiety 02/23/22 06/17/22 melatonin 3 mg tablet 6 mg PO BEDTIME 02/23/22 06/17/22 omeprazole 20 mg capsule,delayed 20 mg PO DAILY@0630 02/23/22 06/17/22 release polyethylene glycol 3350 17 gram 17 g PO DAILY PRN Constipation 02/23/22 06/17/22 oral powder packet (Miralax) quetiapine 50 mg tablet (Seroquel) 50 mg PO QID 02/23/22 06/17/22 trazodone 50 mg tablet 25 mg PO DAILY 02/23/22 06/17/22 trazodone 50 mg tablet 75 mg PO BEDTIME 02/23/22 06/17/22 metformin 500 mg tablet,extended 500 mg PO BEDTIME 06/17/22 06/17/22 release 24 hr methenamine hippurate 1 gram tablet 1 g PO BID 06/17/22 06/17/22 <TERESA Gann - Last Filed: 06/18/22 02:05> Allergies/Adverse Reactions: Allergies Allergy/AdvReac Type Severity Reaction Status Date / Time aspirin [ASA] Allergy Facial Verified 08/13/21 16:57 Swelling Penicillins Allergy Redness of Verified 08/13/21 16:57 Skin Sulfa (Sulfonamide AdvReac Rash Verified 08/13/21 16:57 Antibiotics) <TERESA Gann - Last Filed: 06/18/22 02:05> Review of Systems Review of Systems: tried to jump of balcony <TERESA Gann - Last Filed: 06/18/22 02:05> Yes all other systems are reviewed and are negative <TERESA Gann - Last Filed: 06/18/22 02:05> PMFSH Past Medical History Medical History: Medical History Anemia 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 Dysphagia, oropharyngeal phase Dysphagia, pharyngoesophageal phase Essential (primary) hypertension Major depressive disorder, single episode, unspecified Metabolic encephalopathy Muscle weakness (generalized) Other abnormalities of gait and mobility Repeated falls Schizophrenia, unspecified Type 2 diabetes mellitus without complications Unspecified dementia without behavioral disturbance Unsteadiness on feet Weakness <TERESA Gann - Last Filed: 06/18/22 02:05> Social History Social History: Social History Alcohol intake: current Alcohol intake frequency: holidays/special occasions only Patient Tobacco Use Status: Tobacco use Unknown Smoked in Last 30 Days: No Use of substances other than those prescribed or required for medical reasons: No Advance Directives: Yes Advance Directives on File: Yes Advance Directives Date on File: 08/11/20 <TERESA Gann - Last Filed: 06/18/22 02:05> Physical Exam Vital Signs: Vital Signs: Last Vital Signs Temp 97.4 F 06/18/22 06:00 Pulse 62 06/18/22 06:00 Resp 16 06/18/22 06:00 BP 113/53 L 06/18/22 06:00 Pulse Ox 96 06/18/22 06:00 O2 Del Method Room Air 06/18/22 06:00 BMI result Body Mass Index 27.1 <TERESA Gann - Last Filed: 06/18/22 02:05> Vital Signs: Last Vital Signs Temp 97.4 F 06/18/22 06:00 Pulse 62 06/18/22 06:00 Resp 16 06/18/22 06:00 BP 113/53 L 06/18/22 06:00 Pulse Ox 96 06/18/22 06:00 O2 Del Method Room Air 06/18/22 06:00 BMI result Body Mass Index 27.1 <Viktor Yang MD - Last Filed: 06/18/22 07:17> Const: General: cooperative, healthy appearing and comfortable <TERESA Gann Last Filed: 06/18/22 02:05> HEENT: Head: Yes normal to inspection, Yes No palpable skull fracture present, Yes normocephalic, Yes atraumatic and No abrasion <TERESA Gann Last Filed: 06/18/22 02:05> Eyes: General: appearance normal, both eyes and all related structures <TERESA Gann Last Filed: 06/18/22 02:05> Neck: Neck: Yes normal visual inspection, Yes full ROM, Yes no lymphadenopathy, Yes no meningeal signs, Yes trachea midline, Yes supple, No anterior neck swelling and No tender <TERESA Gann Last Filed: 06/18/22 02:05> Chest: Chest palpation & inspection: normal inspection of the chest and normal palpation of entire chest wall <TERESA Gann Last Filed: 06/18/22 02:05> Resp: Effort & Inspection: normal respiratory effort and able to speak in complete sentences <TERESA Gann Last Filed: 06/18/22 02:05> Auscultation: clear to auscultation bilaterally <Marty AramisTERESA Last Filed: 06/18/22 02:05> Cardio: Jugular venous distension: no JVD <Marty AramisTERESA Last Filed: 06/18/22 02:05> Heart sounds: S1 normal heart sound present and S2 normal heart sound present <Marty Aramis, PA Last Filed: 06/18/22 02:05> GI: Inspection: Yes normal to inspection and No abdominal wall ecchymosis <Marty Aramis, PA Last Filed: 06/18/22 02:05> Palpation (GI): Soft to palpation, not firm, nontender, no guarding and not rigid <Marty Aramis, PA Last Filed: 06/18/22 02:05> : General: No CVA tenderness and Yes no CVA tenderness <Marty Aramis, PA Last Filed: 06/18/22 02:05> Back/Spine/Pelvis: Back: no CVA tenderness, No CVA tenderness and No back tenderness <Marty Aramis, PA Last Filed: 06/18/22 02:05> Skin: General skin exam: no rashes or lesions noted and elasticity normal <Marty Aramis, PA Filed: 06/18/22 02:05> Neuro: Other: Dementia <Marty Aramis, PA Filed: 06/18/22 02:05> General: gait normal, tone normal, moves all extremities, Normal light touch and pain sensation, no meningeal signs, no focal motor deficits, CN's II-XI intact bilaterally and normal sensation to monofilament <Marty Aramis, TERESA Last Filed: 06/18/22 02:05> Extrem: General: Yes normal to inspection and Yes full ROM <Marty Aramis, PA Last Filed: 06/18/22 02:05> Psych: Other: Dementia <Marty Aramis, PA Last Filed: 06/18/22 02:05> Appearance: grossly normal, well kempt and not disheveled <Marty Aramis, PA Last Filed: 06/18/22 02:05> Course Reevaluation(s) Reevaluation #1: I assume care at 7:00 a.m. this morning. Patient is care team evaluation for suicidal ideation. <Viktor Yang MD - Last Filed: 06/18/22 07:17> Medications Administered Generic Name Dose Route Start Last Admin Trade Name Freq PRN Reason Stop Dose Admin Divalproex Sodium 250 mg 06/17/22 21:15 06/17/22 21:26 Divalproex Sodium 250 Mg Tablet. PO Not Given BID HELEN Divalproex Sodium 125 mg 06/17/22 21:15 06/17/22 21:26 Divalproex Sodium Sprinkles 125 Mg Cap. PO Not Given BEDTIME HELEN Melatonin 6 mg 06/17/22 21:15 06/17/22 21:26 Melatonin 3 Mg Tablet PO Not Given BEDTIME HELEN Metformin HCl 500 mg 06/17/22 21:15 06/17/22 21:26 Metformin Hcl Er 500 Mg Tab.Er.24h PO Not Given BEDTIME HELEN Omeprazole 20 mg 06/18/22 06:30 06/18/22 05:57 Omeprazole 20 Mg Capsule. PO 20 mg DAILY@0630 HELEN Administration Quetiapine Fumarate 50 mg 06/17/22 21:15 06/17/22 21:26 Quetiapine Fumarate 50 Mg Tablet PO Not Given QID HELEN Trazodone HCl 75 mg 06/17/22 21:15 06/17/22 21:26 Trazodone Hcl 25 Mg Halftab PO Not Given BEDTIME HELEN <TERESA Gann - Last Filed: 06/18/22 02:05> Medications Administered Generic Name Dose Route Start Last Admin Trade Name Freq PRN Reason Stop Dose Admin Divalproex Sodium 250 mg 06/17/22 21:15 06/17/22 21:26 Divalproex Sodium 250 Mg Tablet. PO Not Given BID HELEN Divalproex Sodium 125 mg 06/17/22 21:15 06/17/22 21:26 Divalproex Sodium Sprinkles 125 Mg Cap. PO Not Given BEDTIME HELEN Melatonin 6 mg 06/17/22 21:15 06/17/22 21:26 Melatonin 3 Mg Tablet PO Not Given BEDTIME HELEN Metformin HCl 500 mg 06/17/22 21:15 06/17/22 21:26 Metformin Hcl Er 500 Mg Tab.Er.24h PO Not Given BEDTIME HELEN Omeprazole 20 mg 06/18/22 06:30 06/18/22 05:57 Omeprazole 20 Mg Capsule. PO 20 mg DAILY@0630 [facility] Administration Quetiapine Fumarate 50 mg 06/17/22 21:15 06/17/22 21:26 Quetiapine Fumarate 50 Mg Tablet PO Not Given QID HELEN Trazodone HCl 75 mg 06/17/22 21:15 06/17/22 21:26 Trazodone Hcl 25 Mg Halftab PO Not Given BEDTIME HELEN <Viktor Yang MD - Last Filed: 06/18/22 07:17> Medical Decision Making Medical Decision Making MDM Narrative: 76-year-old male brought to the ED for trying to jump off a balcony and being agressive. Patient has history of dementia. Labs are normal waiting for UA. Care team consult pending <TERESA Gann - Last Filed: 06/18/22 02:05> Differential Diagnosis Differential Diagnoses: The differential diagnosis associated with the presentation includes (UTI, worsening dementia) <TERESA Gann - Last Filed: 06/18/22 02:05> Admission/Observation Consideration of admission/observation: Escalation of care including admission/observation considered <TERESA Gann - Last Filed: 06/18/22 02:05> Lab Data [facility] Lab Attestation statement: I reviewed the patient's lab results. <TERESA Gann - Last Filed: 06/18/22 02:05> Result Diagrams: 06/17/22 17:11 06/17/22 17:11 <TERESA Gann - Last Filed: 06/18/22 02:05> Labs: Lab Results 06/17/22 06/17/22 06/17/22 Range/Units 16:25 17:11 17:11 WBC 4.4 L (4.8-10.8) X10*3/uL RBC 3.84 L (4.60-5.80) X10*6/uL Hgb 12.2 L (14.0-18.0) g/dl Hct 36.6 L (42.0-52.0) % MCV 95.3 (80.0-98.0) fL MCH 31.8 (27.0-33.0) pg MCHC 33.3 (31.0-36.0) g/dl RDW 12.8 (11.0-16.0) % Plt Count 141 L (160-400) X10*3/uL MPV 9.6 (9.4-12.4) fL Immature Gran % (Auto) 0.7 H (0.0-0.4) % Neut % (Auto) 58.3 (45-73) % Lymph % (Auto) 24.9 (20-40) % Forest % (Auto) 12.7 H (2-11) % Eos % (Auto) 2.9 (0-4) % Baso % (Auto) 0.5 (0-2) % Lymph # (Auto) 1.1 L (1.2-4.9) X10*3/uL Forest # (Auto) 0.6 (0.1-1.2) X10*3/uL Eos # (Auto) 0.1 (0.0-0.4) X10*3/uL Baso # (Auto) 0.0 (0.0-0.2) X10*3/uL Abs Immat Gran (auto) 0.03 (0.00-0.03) X10*3/uL Absolute Neuts (auto) 2.6 (2.0-8.3) x10*3/uL Absolute Nucleated RBC 0.000 (0.0-0.012) X10*3/uL Nucleated RBC % (auto) 0.0 (0.0-0.2) /100WBC Sodium 140 (135-145) mmol/L Potassium 4.2 (3.3-5.1) mmol/L Chloride 103 (96-108) mmol/L Carbon Dioxide 29 (22-29) mmol/L Anion Gap 12 (12-20) BUN 21 H (9-16) mg/dL Creatinine 1.00 (0.5-1.4) mg/dL Estim Creat Clear Calc 70.0 Estimated GFR > 60 Random Glucose 89 (60-115) mg/dL Calcium 8.3 L (8.4-10.2) mg/dL Total Bilirubin 0.7 (0.0-1.0) mg/dL AST 16 (5-37) U/L ALT 20 (0-40) U/L Alkaline Phosphatase 60 (39-117) U/L Total Protein 6.1 L (6.5-8.0) g/dL Albumin 3.6 (3.5-5.0) g/dL Urine Color Urine Appearance Urine pH (5.0-9.0) Ur Specific Rosebud (1.005-1.025) Urine Protein (Neg-Trace) mg/dL Urine Glucose (UA) (Negative) mg/dL Urine Ketones (Negative) mg/dL Urine Blood (Negative) Urine Nitrite (Negative) Ur Leukocyte Esterase (Negative) Urine RBC (0-2) /HPF Urine WBC (0-5) /HPF Ur Squamous Epith Cells (0-2) /HPF Urine Bacteria (None Seen) Hyaline Casts (0-2) /LPF Urine Opiates Screen (Not Detect) Urine Fentanyl Screen (Not Detect) Ur Barbiturates Screen (Not Detect) Valproic Acid (50.0-100.0) mcg/mL Ur Phencyclidine Scrn (Not Detect) Ur Amphetamines Screen (Not Detect) U Benzodiazepines Scrn (Not Detect) Urine Cocaine Screen (Not Detect) U Marijuana (THC) Screen (Not Detect) Ethyl Alcohol < 10 mg/dL COVID-19 (THOMAS) Negative (Negative) COVID-19 Clin Com See Note 06/17/22 06/18/22 06/18/22 Range/Units 17:11 05:12 05:12 WBC (4.8-10.8) X10*3/uL RBC (4.60-5.80) X10*6/uL Hgb (14.0-18.0) g/dl Hct (42.0-52.0) % MCV (80.0-98.0) fL MCH (27.0-33.0) pg MCHC (31.0-36.0) g/dl RDW (11.0-16.0) % Plt Count (160-400) X10*3/uL MPV (9.4-12.4) fL Immature Gran % (Auto) (0.0-0.4) % Neut % (Auto) (45-73) % Lymph % (Auto) (20-40) % Forest % (Auto) (2-11) % Eos % (Auto) (0-4) % Baso % (Auto) (0-2) % Lymph # (Auto) (1.2-4.9) X10*3/uL Forest # (Auto) (0.1-1.2) X10*3/uL Eos # (Auto) (0.0-0.4) X10*3/uL Baso # (Auto) (0.0-0.2) X10*3/uL Abs Immat Gran (auto) (0.00-0.03) X10*3/uL Absolute Neuts (auto) (2.0-8.3) x10*3/uL Absolute Nucleated RBC (0.0-0.012) X10*3/uL Nucleated RBC % (auto) (0.0-0.2) /100WBC Sodium (135-145) mmol/L Potassium (3.3-5.1) mmol/L Chloride (96-108) mmol/L Carbon Dioxide (22-29) mmol/L Anion Gap (12-20) BUN (9-16) mg/dL Creatinine (0.5-1.4) mg/dL Estim Creat Clear Calc Estimated GFR Random Glucose (60-115) mg/dL Calcium (8.4-10.2) mg/dL Total Bilirubin (0.0-1.0) mg/dL AST (5-37) U/L ALT (0-40) U/L Alkaline Phosphatase (39-117) U/L Total Protein (6.5-8.0) g/dL Albumin (3.5-5.0) g/dL Urine Color Yellow Urine Appearance Cloudy Urine pH 7.5 (5.0-9.0) Ur Specific Rosebud 1.015 (1.005-1.025) Urine Protein Trace (Neg-Trace) mg/dL Urine Glucose (UA) Negative (Negative) mg/dL Urine Ketones Negative (Negative) mg/dL Urine Blood Negative (Negative) Urine Nitrite Positive H (Negative) Ur Leukocyte Esterase Large (3+) H (Negative) Urine RBC 0-2 (0-2) /HPF Urine WBC >50 H (0-5) /HPF Ur Squamous Epith Cells 0-2 (0-2) /HPF Urine Bacteria 4+ (None Seen) Hyaline Casts 0-2 (0-2) /LPF Urine Opiates Screen Not Detected (Not Detect) Urine Fentanyl Screen Not Detected (Not Detect) Ur Barbiturates Screen Not Detected (Not Detect) Valproic Acid 38.2 L (50.0-100.0) mcg/mL Ur Phencyclidine Scrn Not Detected (Not Detect) Ur Amphetamines Screen Not Detected (Not Detect) U Benzodiazepines Scrn Not Detected (Not Detect) Urine Cocaine Screen Not Detected (Not Detect) U Marijuana (THC) Screen Not Detected (Not Detect) Ethyl Alcohol mg/dL COVID-19 (THOMAS) (Negative) COVID-19 Clin Com <TERESA Gann - Last Filed: 06/18/22 02:05> Lab Results 06/17/22 06/17/22 06/17/22 Range/Units 16:25 17:11 17:11 WBC 4.4 L (4.8-10.8) X10*3/uL RBC 3.84 L (4.60-5.80) X10*6/uL Hgb 12.2 L (14.0-18.0) g/dl Hct 36.6 L (42.0-52.0) % MCV 95.3 (80.0-98.0) fL MCH 31.8 (27.0-33.0) pg MCHC 33.3 (31.0-36.0) g/dl RDW 12.8 (11.0-16.0) % Plt Count 141 L (160-400) X10*3/uL MPV 9.6 (9.4-12.4) fL Immature Gran % (Auto) 0.7 H (0.0-0.4) % Neut % (Auto) 58.3 (45-73) % Lymph % (Auto) 24.9 (20-40) % Forest % (Auto) 12.7 H (2-11) % Eos % (Auto) 2.9 (0-4) % Baso % (Auto) 0.5 (0-2) % Lymph # (Auto) 1.1 L (1.2-4.9) X10*3/uL Forest # (Auto) 0.6 (0.1-1.2) X10*3/uL Eos # (Auto) 0.1 (0.0-0.4) X10*3/uL Baso # (Auto) 0.0 (0.0-0.2) X10*3/uL Abs Immat Gran (auto) 0.03 (0.00-0.03) X10*3/uL Absolute Neuts (auto) 2.6 (2.0-8.3) x10*3/uL Absolute Nucleated RBC 0.000 (0.0-0.012) X10*3/uL Nucleated RBC % (auto) 0.0 (0.0-0.2) /100WBC Sodium 140 (135-145) mmol/L Potassium 4.2 (3.3-5.1) mmol/L Chloride 103 (96-108) mmol/L Carbon Dioxide 29 (22-29) mmol/L Anion Gap 12 (12-20) BUN 21 H (9-16) mg/dL Creatinine 1.00 (0.5-1.4) mg/dL Estim Creat Clear Calc 70.0 Estimated GFR > 60 Random Glucose 89 (60-115) mg/dL Calcium 8.3 L (8.4-10.2) mg/dL Total Bilirubin 0.7 (0.0-1.0) mg/dL AST 16 (5-37) U/L ALT 20 (0-40) U/L Alkaline Phosphatase 60 (39-117) U/L Total Protein 6.1 L (6.5-8.0) g/dL Albumin 3.6 (3.5-5.0) g/dL Urine Color Urine Appearance Urine pH (5.0-9.0) Ur Specific Rosebud (1.005-1.025) Urine Protein (Neg-Trace) mg/dL Urine Glucose (UA) (Negative) mg/dL Urine Ketones (Negative) mg/dL Urine Blood (Negative) Urine Nitrite (Negative) Ur Leukocyte Esterase (Negative) Urine RBC (0-2) /HPF Urine WBC (0-5) /HPF Ur Squamous Epith Cells (0-2) /HPF Urine Bacteria (None Seen) Hyaline Casts (0-2) /LPF Urine Opiates Screen (Not Detect) Urine Fentanyl Screen (Not Detect) Ur Barbiturates Screen (Not Detect) Valproic Acid (50.0-100.0) mcg/mL Ur Phencyclidine Scrn (Not Detect) Ur Amphetamines Screen (Not Detect) U Benzodiazepines Scrn (Not Detect) Urine Cocaine Screen (Not Detect) U Marijuana (THC) Screen (Not Detect) Ethyl Alcohol < 10 mg/dL COVID-19 (THOMAS) Negative (Negative) COVID-19 Clin Com See Note 06/17/22 06/18/22 06/18/22 Range/Units 17:11 05:12 05:12 WBC (4.8-10.8) X10*3/uL RBC (4.60-5.80) X10*6/uL Hgb (14.0-18.0) g/dl Hct (42.0-52.0) % MCV (80.0-98.0) fL MCH (27.0-33.0) pg MCHC (31.0-36.0) g/dl RDW (11.0-16.0) % Plt Count (160-400) X10*3/uL MPV (9.4-12.4) fL Immature Gran % (Auto) (0.0-0.4) % Neut % (Auto) (45-73) % Lymph % (Auto) (20-40) % Forest % (Auto) (2-11) % Eos % (Auto) (0-4) % Baso % (Auto) (0-2) % Lymph # (Auto) (1.2-4.9) X10*3/uL Forest # (Auto) (0.1-1.2) X10*3/uL Eos # (Auto) (0.0-0.4) X10*3/uL Baso # (Auto) (0.0-0.2) X10*3/uL Abs Immat Gran (auto) (0.00-0.03) X10*3/uL Absolute Neuts (auto) (2.0-8.3) x10*3/uL Absolute Nucleated RBC (0.0-0.012) X10*3/uL Nucleated RBC % (auto) (0.0-0.2) /100WBC Sodium (135-145) mmol/L Potassium (3.3-5.1) mmol/L Chloride (96-108) mmol/L Carbon Dioxide (22-29) mmol/L Anion Gap (12-20) BUN (9-16) mg/dL Creatinine (0.5-1.4) mg/dL Estim Creat Clear Calc Estimated GFR Random Glucose (60-115) mg/dL Calcium (8.4-10.2) mg/dL Total Bilirubin (0.0-1.0) mg/dL AST (5-37) U/L ALT (0-40) U/L Alkaline Phosphatase (39-117) U/L Total Protein (6.5-8.0) g/dL Albumin (3.5-5.0) g/dL Urine Color Yellow Urine Appearance Cloudy Urine pH 7.5 (5.0-9.0) Ur Specific Rosebud 1.015 (1.005-1.025) Urine Protein Trace (Neg-Trace) mg/dL Urine Glucose (UA) Negative (Negative) mg/dL Urine Ketones Negative (Negative) mg/dL Urine Blood Negative (Negative) Urine Nitrite Positive H (Negative) Ur Leukocyte Esterase Large (3+) H (Negative) Urine RBC 0-2 (0-2) /HPF Urine WBC >50 H (0-5) /HPF Ur Squamous Epith Cells 0-2 (0-2) /HPF Urine Bacteria 4+ (None Seen) Hyaline Casts 0-2 (0-2) /LPF Urine Opiates Screen Not Detected (Not Detect) Urine Fentanyl Screen Not Detected (Not Detect) Ur Barbiturates Screen Not Detected (Not Detect) Valproic Acid 38.2 L (50.0-100.0) mcg/mL Ur Phencyclidine Scrn Not Detected (Not Detect) Ur Amphetamines Screen Not Detected (Not Detect) U Benzodiazepines Scrn Not Detected (Not Detect) Urine Cocaine Screen Not Detected (Not Detect) U Marijuana (THC) Screen Not Detected (Not Detect) Ethyl Alcohol mg/dL COVID-19 (THOMAS) (Negative) COVID-19 Clin Com <Viktor Yang MD - Last Filed: 06/18/22 07:17> Discharge Plan Discharge Clinical Impression: Dementia <TERESA Gann - Last Filed: 06/18/22 02:05> Patient Disposition: Still a Patient <TERESA Gann - Last Filed: 06/18/22 02:05> Prescriptions: No Action acetaminophen 325 mg Tablet 650 mg PO Q4H PRN (Reason: Fever) divalproex [Depakote] 250 mg Tablet,Delayed Release (Dr/Ec) 250 mg PO BID melatonin 3 mg Tablet 6 mg PO BEDTIME lorazepam [Ativan] 0.5 mg Tablet 0.25 mg PO BID PRN (Reason: Anxiety) divalproex 125 mg Tablet,Delayed Release (Dr/Ec) 125 mg PO BEDTIME docusate sodium 100 mg Capsule 100 mg PO DAILY PRN (Reason: Constipation) insulin lispro 100 unit/mL Solution 1 sliding scale dose SUBCUT USEASDIRECTD Protocol: Insulin Correction Scale Less than or equal to 110 ---- Give (units): 0 111 to 150 Give (units): 0 151 to 200 Give (units): 2 201 to 250 Give (units): 4 251 to 300 Give (units): 6 301 to 350 Give (units): 8 Greater than 350 Give (units): 10 Call MD if Blood Glucose > : 350 escitalopram oxalate 5 mg Tablet 7.5 mg PO DAILY trazodone 50 mg Tablet 25 mg PO DAILY trazodone 50 mg Tablet 75 mg PO BEDTIME polyethylene glycol 3350 [Miralax] 17 gram Powder In Packet 17 g PO DAILY PRN (Reason: Constipation) omeprazole 20 mg Capsule,Delayed Release(Dr/Ec) 20 mg PO DAILY@0630 quetiapine [Seroquel] 50 mg Tablet 50 mg PO QID methenamine hippurate 1 gram tablet 1 g PO BID metformin 500 mg tablet extended release 24 hr 500 mg PO BEDTIME <TERESA Gann - Last Filed: 06/18/22 02:05> Interventions: [place]-Suicide Risk Severity Scale Last Done: 06/18/22 00:20 <TERESA Gann - Last Filed: 06/18/22 02:05>
[2022-06-18 05:23] LABS: Appearance Urine Cloudy; Color Urine Yellow; Glucose Urine UA Negative (Negative); Leukocyte Esterase Urine Large (3+) (Negative); Nitrite Urine Positive (Negative); PH 7.5 (5.0-9.0); Specific Gravity - Urine 1.015 (1.005-1.025); UMIC TRIGGER UA YES; Urine Blood Negative (Negative); Urine Ketones Negative (Negative); Urine Protein Trace mg/dL (Neg-Trace)
[2022-06-18 05:27] LABS: Amphetamine Screen Urine Not Detected (Not Detect); Barbiturates, Urine Not Detected (Not Detect); Benzodiazepines Screen Urine Not Detected (Not Detect); Cannabinoid Screen Urine Not Detected (Not Detect); Cocaine Screen Urine Not Detected (Not Detect); Fentanyl, urine Not Detected (Not Detect); Opiate Screen Urine Not Detected (Not Detect); Phencyclidine Screen Urine Not Detected (Not Detect)
[2022-06-18 05:31] LABS: Bacteria Urine 4+ (None Seen); Hyaline Casts Urine 0-2 /LPF (0-2); RBC Urine 0-2 /HPF (0-2); Squamous Epithelial Cell Urine 0-2 /HPF (0-2); WBC Urine >50 /HPF (0-5)
[2022-06-18] MEDS: Omeprazole 20 MG CAPSULE.DR PO (05:57)
[2022-06-18 06:00] VITALS: BP 113/53; PULSE 62; RESP 16; TEMP 36.3; O2SAT 96
--- NOTE | 2022-06-18 06:00 | PC.NURSE ---
late entry: pt reporting that he feels wet, pt does have breif that is soaked in urine. This RN assisted patient with getting changed and giving a urine sample. Pt cleaned up, changed into new clothes and helped back to his room. Morning medication administered per MAR, patient is now resting comfortably awaiting breakfast, no apparent distress, respirations even and unlabored
[2022-06-18 07:24] LABS: Glucose, Whole Blood 110 mg/dL (60-115)
[2022-06-18 07:36] VITALS: BP 135/64; PULSE 66; RESP 16; TEMP 36.6; O2SAT 97
--- NOTE | 2022-06-18 08:50 | PC.NURSE ---
pt is al/o no sob/leonel noted speaks in full sentences. pt is upset and wants to leave. pt intermittently slams his walker on the floor. pt continually to state i need to get out of this fucking place. You better call the undertaker pt is refusing to take his meds.
[2022-06-18] MEDS: Escitalopram Oxalate 5 MG TABLET 7.5 MG PO (08:57)
[2022-06-18] MEDS: QUEtiapine Fumarate 50 MG TABLET PO ×4 (08:58→20:49)
[2022-06-18] MEDS: Divalproex Sodium 250 MG TABLET.DR PO ×2 (08:58→20:50)
[2022-06-18] MEDS: traZODone HCL 25 MG HALFTAB PO (08:58)
[2022-06-18] MEDS: cephALEXin 500 MG CAPSULE PO (08:58)
[2022-06-18] MEDS: LORazepam 0.5 MG TABLET 0.25 MG PO (08:58)
--- NOTE | 2022-06-18 09:30 | MHC.CARE ---
LVM with equal opportunity specialist at [facility]. [phone]. LVM at 830 and at 930, requesting call back to discuss patient dispo/ return to facility.
--- NOTE | 2022-06-18 10:52 | PC.NURSE ---
[phone][facility] called stating that their digital media director is asking that this pt be referred to another facility due to safety reason. anant states that pt's resident floor is on the second floor and has a balconey which pt was trying to access. care team (jc) aware.
--- NOTE | 2022-06-18 11:06 | MHC.EDTECH ---
Patient was brought into the bathroom and changed. Brief was soiled; Pt's buttocks and groin area was cleaned, new brief placed. Patient changed into clean hospital gown and pants. Patient ambulated back to hallway chair with walker.
--- NOTE | 2022-06-18 11:11 | PC.NURSE ---
fast food worker called this rn spoke with obdulia. request for pureed food 2ndary to pt not having his dentures.
--- NOTE | 2022-06-18 11:51 | MHC.CARE ---
Kayli RN with [facility] reports they are not able to have patient return, due to the balcony not being secure, and their not being able to secure it, and patient cannot be moved to the first floor due to elopement risk. T/w requested the facility call his HCP/ his to inform her of this. Ombudsman for facility is [phone].
--- NOTE | 2022-06-18 12:01 | MHC.EDTECH ---
Patient refused to have blood sugar checked.
--- NOTE | 2022-06-18 12:36 | MHC.EDTECH ---
Patient refused blood sugar check.
--- NOTE | 2022-06-18 12:45 | MHC.CARE ---
patient is an inpatient geriatric bed search.
--- NOTE | 2022-06-18 12:53 | MHC.EDTECH ---
Patient repeatedly states there's no food here , and this tech has offered Pt food multiple times (soft foods, jello/pudding) as Pt says he doesn't have any teeth. Pt continues to decline any food/drink offers.
[2022-06-18] MEDS: HaloperidoL 5 MG TABLET PO (12:56)
--- NOTE | 2022-06-18 13:05 | MHC.CARE ---
T/w discussed case with patient's , Kinjal, who is in agreement with the plan to bed search inpatient LOC. She will be in touch with her sister, who is also involved and will work with the [facility]. around patients placement.
--- NOTE | 2022-06-18 13:05 | PC.NURSE ---
pt med x 1 with haldol 5mg po for increase anxiety.. pt needs ekg done.
--- NOTE | 2022-06-18 13:06 | ECG_ITS ---
Test Reason : check qt Blood Pressure : / mmHG Vent. Rate : 071 BPM Atrial Rate : 071 BPM P-R Int : 166 ms QRS Dur : 136 ms QT Int : 414 ms P-R-T Axes : 025 -76 042 degrees QTc Int : 449 ms Normal sinus rhythm Left axis deviation Non-specific intra-ventricular conduction block Abnormal ECG When compared with ECG of 04-AUG-2021 15:30, Non-specific intra-ventricular conduction block has replaced Right bundle branch block Referred By: Viktor Yang Electronically Signed By:Naveen Choen
[2022-06-18 13:14] LABS: Glucose, Whole Blood 162 mg/dL (60-115)
[2022-06-18] MEDS: Insulin Lispro 100 UNIT/ML 3 ML VIAL SUBCUT (14:17)
--- NOTE | 2022-06-18 14:18 | PC.NURSE ---
pt ate grill cheese sandwich for lunch.
[2022-06-18 14:25] VITALS: BP 134/78; PULSE 78; RESP 16; TEMP 36.6; O2SAT 98
--- NOTE | 2022-06-18 14:53 | PC.NURSE ---
pt slammed his walker on the floor and broke alice lower extremity of the walker; a new walker was obtained and is being kept behind nursing station at this time.
[2022-06-18 15:31] VITALS: RESP 16
--- NOTE | 2022-06-18 15:50 | PC.NURSE ---
This MEDICAL PHYSIOLOGIST/L is unable to engage pt in meaningful conversation/interview secondary to significant agitation/anger stating I WANT TO GO HOME! . Pts attending nurse aware.
[2022-06-18 18:00] VITALS: BP 117/61; BP 135/64; PULSE 76; PULSE 78; RESP 16; RESP 18; TEMP 36.2; TEMP 36.3; O2SAT 95; O2SAT 99
[2022-06-18 20:16] LABS: Glucose, Whole Blood 158 mg/dL (60-115)
[2022-06-18] MEDS: LORazepam 1 MG TABLET PO (20:49)
[2022-06-18] MEDS: Divalproex Sodium Sprinkles 125 MG CAP.DR.SPR PO (20:51)
[2022-06-18] MEDS: Melatonin 3 MG TABLET 6 MG PO (21:48)
[2022-06-18] MEDS: metFORMIN HCl ER 500 MG TAB.ER.24H PO (21:48)
[2022-06-18] MEDS: traZODone HCL 25 MG HALFTAB 75 MG PO (22:06)
--- NOTE | 2022-06-18 22:54 | PC.ADMIT ---
pt is resident at LT facility exhibiting decompensation of mental health. pt actually went out onto facilities balcony and was prepared to jump. pt has hx schizophrenia, depression, dementia, anxiety. medical hx IDDM, opiate abuse. pt found to have uti and has given 1 dose of keflex in ED. pt is confused to time and place. he is emotionally labile. making fists and striking table top. he is fixated on calling the under taker and that he was going to tonight. pt is uncooperative and agitated. with interaction he has fled the common area on several occasions. he uses a walker for ambulation. he is resistant to redirection and has been placed on 1 to 1 supervision. circulation director provider atul felix has been notified of pts extreme agitation. with great effort pt was medication compliant. pt takes pills whole without difficulty pt was given ativan 1 mg po and seroquel 50 mg po for agitation. pt was returned to bed. he has been incontinent of urine.
[2022-06-19] MEDS: Omeprazole 20 MG CAPSULE.DR PO (05:47)
[2022-06-19 06:00] VITALS: BP 104/66; PULSE 74; RESP 18; TEMP 36.5; O2SAT 95
[2022-06-19 08:34] LABS: Alanine Aminotransferase 17 U/L (0-40); Albumin Level 3.3 g/dL (3.5-5.0); Alkaline Phosphatase 52 U/L (39-117); Anion Gap 12 (12-20); Aspartate Amino Transferase 15 U/L (5-37); Bilirubin Total 0.7 mg/dL (0.0-1.0); Blood Urea Nitrogen 22 mg/dL (9-16); Calcium 8.3 mg/dL (8.4-10.2); Carbon Dioxide 28 mmol/L (22-29); Chloride 104 mmol/L (96-108); Cholesterol 143 mg/dL; Estimated Glomerular Filt Rate > 60; Glucose Fasting 122 mg/dL (60-99); HDL Cholesterol 29 mg/dL; LDL Cholesterol Calculated 95 mg/dl; Potassium 4.1 mmol/L (3.3-5.1); Sodium 140 mmol/L (135-145); Total Protein 5.4 g/dL (6.5-8.0); Triglycerides 97 mg/dL
[2022-06-19] MEDS: Escitalopram Oxalate 5 MG TABLET 7.5 MG PO (10:37)
[2022-06-19] MEDS: Divalproex Sodium 250 MG TABLET.DR PO ×2 (10:37→19:56)
[2022-06-19] MEDS: traZODone HCL 25 MG HALFTAB PO (10:37)
[2022-06-19] MEDS: QUEtiapine Fumarate 50 MG TABLET PO ×4 (10:38→19:56)
--- NOTE | 2022-06-19 13:51 | P.HPPS_ITS ---
HPI Date of Service: 06/19/22 Chief Complaint: depression Sources of Information: patient interviewed, chart reviewed and crisis/core team assessment reviewed HPI Subjective Notes: [place] Warning and Section 12B Narrative: Mr. Bertrand is a 76 year-old male with hx of dementia, unclear psychiatric hx who was brought via EMS from [facility] in [place] where he resides due to pt trying to jump off balcony on second floor as suicide attempt. Per crisis report, pt at baseline tends to be irritable and makes threats to want to harm self but no actual attempt. In the ED, utox is negative. It does seem that patient has chronic UTIs and is on methanamine. On the unit, pt initially presented as combative asking to be discharged, somewhat agitated, loud. He did agree to take oral medication including olanzapine 10mg and ativan 1mg. He has been on a one to one due to gait instability and lack of awareness. Pt seen today with VARGHESE Martínez. Pt reports he wants to go home in [place], which is not his currently place of residence. He is not oriented to place or situation. He does not recall any incident related to him trying to harm himself. Interview is limited as pt reports feeling very tired and somnolent and being hard of hearing. Past Psychiatric History: Inpatient: unknow Past med trials: depakote (will check ammonia), seroquel, ativan. 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 Dysphagia, oropharyngeal phase Dysphagia, pharyngoesophageal phase Essential (primary) hypertension Major depressive disorder, single episode, unspecified Metabolic encephalopathy Muscle weakness (generalized) Other abnormalities of gait and mobility Repeated falls Schizophrenia, unspecified Type 2 diabetes mellitus without complications Unspecified dementia without behavioral disturbance Unsteadiness on feet Weakness Diagnostics Vital Signs (24Hr): Vital Signs - 24 hr 06/18/22 14:25 06/18/22 15:31 06/18/22 18:00 Temperature 97.9 F 97.1 F Pulse Rate 78 78 Respiratory Rate 16 16 16 Blood Pressure 134/78 135/64 Pulse Oximetry 98 99 Oxygen Delivery Method Room Air Room Air 06/18/22 18:00 Temperature 97.4 F Pulse Rate 76 Respiratory Rate 18 Blood Pressure 117/61 Pulse Oximetry 95 Oxygen Delivery Method Room Air BMI result Body Mass Index 27.1 Labs 06/17/22 17:11 06/19/22 07:56 Labs: Laboratory Results - last 48 hr 06/17/22 06/17/22 06/17/22 16:25 17:11 17:11 WBC 4.4 L RBC 3.84 L Hgb 12.2 L Hct 36.6 L MCV 95.3 MCH 31.8 MCHC 33.3 RDW 12.8 Plt Count 141 L MPV 9.6 Immature Gran % (Auto) 0.7 H Neut % (Auto) 58.3 Lymph % (Auto) 24.9 [place] % (Auto) 12.7 H Eos % (Auto) 2.9 Baso % (Auto) 0.5 Lymph # (Auto) 1.1 L [place] # (Auto) 0.6 Eos # (Auto) 0.1 Baso # (Auto) 0.0 Abs Immat Gran (auto) 0.03 Absolute Neuts (auto) 2.6 Absolute Nucleated RBC 0.000 Nucleated RBC % (auto) 0.0 Sodium 140 Potassium 4.2 Chloride 103 Carbon Dioxide 29 Anion Gap 12 BUN 21 H Creatinine 1.00 Estim Creat Clear Calc 70.0 Estimated GFR > 60 POC Glucose Random Glucose 89 Fasting Glucose Calcium 8.3 L Total Bilirubin 0.7 AST 16 ALT 20 Alkaline Phosphatase 60 Total Protein 6.1 L Albumin 3.6 Triglycerides Cholesterol LDL Cholesterol, Calc HDL Cholesterol Urine Color Urine Appearance Urine pH Ur Specific [place] Urine Protein Urine Glucose (UA) Urine Ketones Urine Blood Urine Nitrite Ur Leukocyte Esterase Urine RBC Urine WBC Ur Squamous Epith Cells Urine Bacteria Hyaline Casts Urine Opiates Screen Urine Fentanyl Screen Ur Barbiturates Screen Valproic Acid Ur Phencyclidine Scrn Ur Amphetamines Screen U Benzodiazepines Scrn Urine Cocaine Screen U Marijuana (THC) Screen Ethyl Alcohol < 10 COVID-19 (THOMAS) Negative COVID-19 Clin Com See Note 06/17/22 06/18/22 06/18/22 17:11 05:12 05:12 WBC RBC Hgb Hct MCV MCH MCHC RDW Plt Count MPV Immature Gran % (Auto) Neut % (Auto) Lymph % (Auto) [place] % (Auto) Eos % (Auto) Baso % (Auto) Lymph # (Auto) [place] # (Auto) Eos # (Auto) Baso # (Auto) Abs Immat Gran (auto) Absolute Neuts (auto) Absolute Nucleated RBC Nucleated RBC % (auto) Sodium Potassium Chloride Carbon Dioxide Anion Gap BUN Creatinine Estim Creat Clear Calc Estimated GFR POC Glucose Random Glucose Fasting Glucose Calcium Total Bilirubin AST ALT Alkaline Phosphatase Total Protein Albumin Triglycerides Cholesterol LDL Cholesterol, Calc HDL Cholesterol Urine Color Yellow Urine Appearance Cloudy Urine pH 7.5 Ur Specific [place] 1.015 Urine Protein Trace Urine Glucose (UA) Negative Urine Ketones Negative Urine Blood Negative Urine Nitrite Positive H Ur Leukocyte Esterase Large (3+) H Urine RBC 0-2 Urine WBC >50 H Ur Squamous Epith Cells 0-2 Urine Bacteria 4+ Hyaline Casts 0-2 Urine Opiates Screen Not Detected Urine Fentanyl Screen Not Detected Ur Barbiturates Screen Not Detected Valproic Acid 38.2 L Ur Phencyclidine Scrn Not Detected Ur Amphetamines Screen Not Detected U Benzodiazepines Scrn Not Detected Urine Cocaine Screen Not Detected U Marijuana (THC) Screen Not Detected Ethyl Alcohol COVID-19 (THOMAS) COVID-[employer] 06/18/22 06/18/22 06/18/22 07:18 13:09 19:53 WBC RBC Hgb Hct MCV MCH MCHC RDW Plt Count MPV Immature Gran % (Auto) Neut % (Auto) Lymph % (Auto) [place] % (Auto) Eos % (Auto) Baso % (Auto) Lymph # (Auto) [place] # (Auto) Eos # (Auto) Baso # (Auto) Abs Immat Gran (auto) Absolute Neuts (auto) Absolute Nucleated RBC Nucleated RBC % (auto) Sodium Potassium Chloride Carbon Dioxide Anion Gap BUN Creatinine Estim Creat Clear Calc Estimated GFR POC Glucose 110 162 H 158 H Random Glucose Fasting Glucose Calcium Total Bilirubin AST ALT Alkaline Phosphatase Total Protein Albumin Triglycerides Cholesterol LDL Cholesterol, Calc HDL Cholesterol Urine Color Urine Appearance Urine pH Ur Specific [place] Urine Protein Urine Glucose (UA) Urine Ketones Urine Blood Urine Nitrite Ur Leukocyte Esterase Urine RBC Urine WBC Ur Squamous Epith Cells Urine Bacteria Hyaline Casts Urine Opiates Screen Urine Fentanyl Screen Ur Barbiturates Screen Valproic Acid Ur Phencyclidine Scrn Ur Amphetamines Screen U Benzodiazepines Scrn Urine Cocaine Screen U Marijuana (THC) Screen Ethyl Alcohol COVID-19 (THOMAS) COVID-19 [facility] 06/19/22 07:56 WBC RBC Hgb Hct MCV MCH MCHC RDW Plt Count MPV Immature Gran % (Auto) Neut % (Auto) Lymph % (Auto) [place] % (Auto) Eos % (Auto) Baso % (Auto) Lymph # (Auto) [place] # (Auto) Eos # (Auto) Baso # (Auto) Abs Immat Gran (auto) Absolute Neuts (auto) Absolute Nucleated RBC Nucleated RBC % (auto) Sodium 140 Potassium 4.1 Chloride 104 Carbon Dioxide 28 Anion Gap 12 BUN 22 H Creatinine 1.00 Estim Creat Clear Calc 70.0 Estimated GFR > 60 POC Glucose Random Glucose Fasting Glucose 122 H Calcium 8.3 L Total Bilirubin 0.7 AST 15 ALT 17 Alkaline Phosphatase 52 Total Protein 5.4 L Albumin 3.3 L Triglycerides 97 Cholesterol 143 LDL Cholesterol, Calc 95 HDL Cholesterol 29 Urine Color Urine Appearance Urine pH Ur Specific [place] Urine Protein Urine Glucose (UA) Urine Ketones Urine Blood Urine Nitrite Ur Leukocyte Esterase Urine RBC Urine WBC Ur Squamous Epith Cells Urine Bacteria Hyaline Casts Urine Opiates Screen Urine Fentanyl Screen Ur Barbiturates Screen Valproic Acid Ur Phencyclidine Scrn Ur Amphetamines Screen U Benzodiazepines Scrn Urine Cocaine Screen U Marijuana (THC) Screen Ethyl Alcohol COVID-19 (THOMAS) COVID-19 Clin Com Meds/Allergies Meds Home Medications Medication Instructions Recorded Confirmed Type acetaminophen 325 mg tablet 650 mg PO Q4H PRN Fever 02/23/22 06/17/22 History divalproex 125 mg tablet,delayed 125 mg PO BEDTIME 02/23/22 06/17/22 History release divalproex 250 mg tablet,delayed 250 mg PO BID 02/23/22 06/17/22 History release (Depakote) docusate sodium 100 mg capsule 100 mg PO DAILY PRN Constipation 02/23/22 06/17/22 History escitalopram oxalate 5 mg tablet 7.5 mg PO DAILY 02/23/22 06/17/22 History insulin lispro 100 unit/mL 1 sliding scale dose subcut 02/23/22 06/17/22 History subcutaneous solution USEASDIRECTD lorazepam 0.5 mg tablet (Ativan) 0.25 mg PO BID PRN Anxiety 02/23/22 06/17/22 History melatonin 3 mg tablet 6 mg PO BEDTIME 02/23/22 06/17/22 History omeprazole 20 mg capsule,delayed 20 mg PO DAILY@0630 02/23/22 06/17/22 History release polyethylene glycol 3350 17 gram 17 g PO DAILY PRN Constipation 02/23/22 06/17/22 History oral powder packet (Miralax) quetiapine 50 mg tablet (Seroquel) 50 mg PO QID 02/23/22 06/17/22 History trazodone 50 mg tablet 25 mg PO DAILY 02/23/22 06/17/22 History trazodone 50 mg tablet 75 mg PO BEDTIME 02/23/22 06/17/22 History metformin 500 mg tablet,extended 500 mg PO BEDTIME 06/17/22 06/17/22 History release 24 hr methenamine hippurate 1 gram tablet 1 g PO BID 06/17/22 06/17/22 History Allergies Allergies Allergy/AdvReac Type Severity Reaction Status Date / Time aspirin [ASA] Allergy Facial Verified 08/13/21 16:57 Swelling Penicillins Allergy Redness of Verified 08/13/21 16:57 Skin Sulfa (Sulfonamide AdvReac Rash Verified 08/13/21 16:57 Antibiotics) Mental Status Exam Mental Status Exam Narrative: Appearance: wearing hospital gown, fair hygiene, in NAD Behavior: calmer, engagement limited due to sedation and focus on wanting to go home Speech: mumbles, regular rate/rhythm/volume, spontaneous TP: disorganized TC: wanting to go home Mood: I want to go home Affect: somnolent SI: unable to assess HI:unable to assess VH/AH: none Delusions: no overt delusional content noted or reported. Insight/judgment: impaired x 2. Memory/cog: alert not oriented to place, month, situation, year. Assessment & Plan Assessment & Plan (1) Major neurocognitive disorder: Status: Acute Code(s): F03.90 - Unspecified dementia, unspecified severity, without behavioral disturbance, psychotic disturbance, mood disturbance, and anxiety Plan Mr. Bertrand is a 76 year-old male with hx of dementia brought via EMS from [facility] due to pt trying to jump off window as suicide attempt. It appears pt has been more combative or agitated, although at baseline pt supposely is irritable but has not tried to harm himself or others. Utox is negative. 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 On the unit, pt does not recall event leading to this admission, he is not oriented to place or month. He reports he lives in [place] and wants to return there. He did presented as combative initially requiring prn olanzapine and ativan. Will check ammonia with depakote. Obtain collateral information. Pt does not have capacity to make medical decisions, therefore, CV was rejected and he is currently on 12b.Will reach out to HCP PLAN 1. Admit to S1, one to one due to unsteady gait. Sect 12b 2. obtain collateral information 3. continue current medications- seroquel- which may consider changing to TID, not QID. obtain ammonia levels pt on depakote. 4. Aftercare planning. Patient educated on: diagnosis and medication risk/benefits Guardian/Caregiver educated on: diagnosis Informed Consent: does not understand Reason for continued inpatient stay Substantial Risk for: stable for discharge Statement Statement: I have reviewed the history and physical and performed a pertinent examination on my patient. No changes have occurred unless specified. If the History and Physical was not performed prior to admission, the Hospitalist's service will be consulted for completing the admission physical. Time Spent With Patient Time: Total time managing care of this patient today ____ minutes.
[2022-06-19 14:43] LABS: MANUAL DIFF FLAG NO
[2022-06-19 14:48] LABS: Basophils Percent Auto 0.2 % (0-2); Eosinophils Absolute Auto 0.1 X10*3/uL (0.0-0.4); Eosinophils Percent Auto 2.4 % (0-4); Hematocrit 35.7 % (42.0-52.0); Imm Gran Abs Auto 0.06 X10*3/uL (0.00-0.03); Imm Gran Pct Auto 1.2 % (0.0-0.4); Lymphocytes Percent Auto 21.2 % (20-40); Mean Corpuscular HGB Conc 33.6 g/dl (31.0-36.0); Mean Corpuscular Hemoglobin 31.4 pg (27.0-33.0); Mean Corpuscular Volume 93.5 fL (80.0-98.0); Mean Platelet Volume 9.2 fL (9.4-12.4); Monocytes Absolute Auto 0.5 X10*3/uL (0.1-1.2); Monocytes Percent Auto 10.6 % (2-11); Neutrophils Absolute Auto 3.2 x10*3/uL (2.0-8.3); Neutrophils Percent Auto 64.4 % (45-73); Platelet Count 142 X10*3/uL (160-400); Red Blood Count 3.82 X10*6/uL (4.60-5.80); Red Cell Distribution Width 12.8 % (11.0-16.0); White Blood Count 4.9 X10*3/uL (4.8-10.8)
[2022-06-19 15:13] LABS: Ammonia 38 umol/L (13-55)
[2022-06-19 19:15] VITALS: BP 122/66; PULSE 70; RESP 18; TEMP 36.4; O2SAT 96
[2022-06-19] MEDS: Melatonin 3 MG TABLET 6 MG PO (19:54)
[2022-06-19] MEDS: traZODone HCL 25 MG HALFTAB 75 MG PO (19:55)
[2022-06-19] MEDS: metFORMIN HCl ER 500 MG TAB.ER.24H PO (19:56)
[2022-06-19] MEDS: Divalproex Sodium Sprinkles 125 MG CAP.DR.SPR PO (19:56)
[2022-06-20 07:30] VITALS: BP 141/77; PULSE 89; RESP 16; TEMP 36.5; O2SAT 96
[2022-06-20 07:43] LABS: Glucose, Whole Blood 135 mg/dL (60-115)
--- NOTE | 2022-06-20 08:17 | HO.PSYCHPN ---
Subjective Subjective Date of Service: 06/20/22 Reason For Visit: depression Subjective Notes: Section 12B Interim History: Pt reports he is waiting to go home. When asked about suicidal ideation, he states I want to go to [facility]! He denies any plan or intent to harm himself. No recollection as to what brought him here. He denies any pain. He has been visible at times of for meals. Per nursing, pt slept through the night. No behavioral concerns/disturbances. No need for restraints. Medication Compliance: Yes Side effects from medications: No Review of Systems Acute medical concerns: No Review of Systems Review of Systems tried to jump of [place] Yes all other systems are reviewed and are negative and Unobtainable due to mental status Mental Status Exam Mental Status Exam Narrative: Appearance: wearing hospital gown, fair hygiene, in NAD Behavior: calmer, engagement limited due to sedation and focus on wanting to go home Speech: mumbles, regular rate/rhythm/volume, spontaneous TP: disorganized TC: wanting to go home Mood: I want to go home Affect: congruent, tired. SI: denies HI:denies VH/AH: none Delusions: no overt delusional content noted or reported. Insight/judgment: impaired x 2. Memory/cog: alert not oriented to place, month, situation, year. Diagnostics Vital Signs (24Hr): Vital Signs - 24 hr 06/19/22 19:15 Temperature 97.6 F Pulse Rate 70 Respiratory Rate 18 Blood Pressure 122/66 Pulse Oximetry 96 Oxygen Delivery Method Room Air BMI result Body Mass Index 27.1 Labs 06/19/22 14:39 06/19/22 07:56 Labs: Laboratory Results - last 48 hr 06/18/22 06/18/22 06/19/22 13:09 19:53 07:56 WBC RBC Hgb Hct MCV MCH MCHC RDW Plt Count MPV Immature Gran % (Auto) Neut % (Auto) Lymph % (Auto) [place] % (Auto) Eos % (Auto) Baso % (Auto) Lymph # (Auto) [place] # (Auto) Eos # (Auto) Baso # (Auto) Abs Immat Gran (auto) Absolute Neuts (auto) Absolute Nucleated RBC Nucleated RBC % (auto) Sodium 140 Potassium 4.1 Chloride 104 Carbon Dioxide 28 Anion Gap 12 BUN 22 H Creatinine 1.00 Estim Creat Clear Calc 70.0 Estimated GFR > 60 POC Glucose 162 H 158 H Fasting Glucose 122 H Calcium 8.3 L Total Bilirubin 0.7 AST 15 ALT 17 Alkaline Phosphatase 52 Ammonia Total Protein 5.4 L Albumin 3.3 L Triglycerides 97 Cholesterol 143 LDL Cholesterol, Calc 95 HDL Cholesterol 29 06/19/22 06/19/22 06/20/22 14:39 14:39 07:39 WBC 4.9 RBC 3.82 L Hgb 12.0 L Hct 35.7 L MCV 93.5 MCH 31.4 MCHC 33.6 RDW 12.8 Plt Count 142 L MPV 9.2 L Immature Gran % (Auto) 1.2 H Neut % (Auto) 64.4 Lymph % (Auto) 21.2 [place] % (Auto) 10.6 Eos % (Auto) 2.4 Baso % (Auto) 0.2 Lymph # (Auto) 1.0 L [place] # (Auto) 0.5 Eos # (Auto) 0.1 Baso # (Auto) 0.0 Abs Immat Gran (auto) 0.06 H Absolute Neuts (auto) 3.2 Absolute Nucleated RBC 0.000 Nucleated RBC % (auto) 0.0 Sodium Potassium Chloride Carbon Dioxide Anion Gap BUN Creatinine Estim Creat Clear Calc Estimated GFR POC Glucose 135 H Fasting Glucose Calcium Total Bilirubin AST ALT Alkaline Phosphatase Ammonia 38 Total Protein Albumin Triglycerides Cholesterol LDL Cholesterol, Calc HDL Cholesterol Medications Medications Current Medications Acetaminophen (Acetaminophen 325 Mg Tablet) 650 mg PO Q4H PRN PRN Reason: Fever Al Hydroxide/Mg Hydroxide (Magnesium Hydrox/Alum Hydrox 30 Ml Oral.Susp) 30 ml PO Q6H PRN PRN Reason: Heartburn/Nausea Divalproex Sodium (Divalproex Sodium 250 Mg [place].) 250 mg PO BID [facility] Last Admin: 06/19/22 19:56 Dose: 250 mg Divalproex Sodium (Divalproex Sodium Sprinkles 125 Mg Cap.) 125 mg PO BEDTIME [facility] Last Admin: 06/19/22 19:56 Dose: 125 mg Docusate Sodium (Docusate Sodium 100 Mg Capsule) 100 mg PO DAILY PRN PRN Reason: Constipation Escitalopram Oxalate (Escitalopram Oxalate 5 Mg Tablet) 7.5 mg PO DAILY [facility] Last Admin: 06/19/22 10:37 Dose: 7.5 mg Insulin Human Lispro (Insulin Lispro 100 Unit/Ml 3 Ml Vial) 0 unit SUBCUT QIDWMHS [facility]; Protocol Last Admin: 06/19/22 19:56 Dose: Not Given Lorazepam (Lorazepam 1 Mg Tablet) 1 mg PO BID PRN PRN Reason: Anxiety Last Admin: 06/18/22 20:49 Dose: 1 mg Melatonin (Melatonin 3 Mg Tablet) 6 mg PO BEDTIME [facility] Last Admin: 06/19/22 19:54 Dose: 6 mg Metformin HCl (Metformin Hcl Er 500 Mg Tab.Er.24h) 500 mg PO BEDTIME [facility] Last Admin: 06/19/22 19:56 Dose: 500 mg Non-Formulary Medication (Methenamine Hippurate) 1 gm PO BID [facility] Omeprazole (Omeprazole 20 Mg Capsule.Dr) 20 mg PO DAILY@0630 [facility] Last Admin: 06/20/22 06:33 Dose: Not Given Pharmacy Consult (Consult Rx Perform Med Rec) 1 each MISCELLANE ONCE PRN PRN Reason: Consult order Polyethylene Glycol (Polyethylene Glycol 3350 17 Gm Powd.Pack) 17 gm PO DAILY PRN PRN Reason: Constipation Quetiapine Fumarate (Quetiapine Fumarate 50 Mg Tablet) 50 mg PO QID [facility] Last Admin: 06/19/22 19:56 Dose: 50 mg Trazodone HCl (Trazodone Hcl 25 Mg Halftab) 25 mg PO DAILY [facility] Last Admin: 06/19/22 10:37 Dose: 25 mg Trazodone HCl (Trazodone Hcl 25 Mg Halftab) 75 mg PO BEDTIME [facility] Last Admin: 06/19/22 19:55 Dose: 75 mg Allergies Allergies Allergy/AdvReac Type Severity Reaction Status Date / Time aspirin [ASA] Allergy Facial Verified 08/13/21 16:57 Swelling Penicillins Allergy Redness of Verified 08/13/21 16:57 Skin Sulfa (Sulfonamide AdvReac Rash Verified 08/13/21 16:57 Antibiotics) Assessment & Plan Assessment & Plan (1) Major neurocognitive disorder: Status: Acute Code(s): F03.90 - Unspecified dementia, unspecified severity, without behavioral disturbance, psychotic disturbance, mood disturbance, and anxiety Plan Mr. Bertrand is a 76 year-old male with hx of dementia brought via EMS from [facility] due to pt trying to jump off window as suicide attempt. It appears pt has been more combative or agitated, although at baseline pt supposely is irritable but has not tried to harm himself or others. Utox is negative. 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 On the unit, pt does not recall event leading to this admission, he is not oriented to place or month. He reports he lives in [place] and wants to return there. He did presented as combative initially requiring prn olanzapine and ativan. Will check ammonia with depakote. Obtain collateral information. Pt does not have capacity to make medical decisions, therefore, CV was rejected and he is currently on 12b.Will reach out to HCP PLAN 1. Admit to S1, one to one due to unsteady gait. Sect 12b 2. obtain collateral information 3. continue current medications- seroquel- which may consider changing to TID, not QID. obtain ammonia levels pt on depakote. 4. Aftercare planning. 06/20 continue tx. switch seroquel to TID Reason for continued inpatient stay Substantial Risk for: inability to function Time Spent With Patient Time: Total time managing care of this patient today ____ minutes.
[2022-06-20] MEDS: Escitalopram Oxalate 5 MG TABLET 7.5 MG PO (08:34)
[2022-06-20] MEDS: QUEtiapine Fumarate 50 MG TABLET PO ×4 (08:35→20:27)
[2022-06-20] MEDS: Divalproex Sodium 250 MG TABLET.DR PO ×2 (08:35→20:27)
[2022-06-20] MEDS: traZODone HCL 25 MG HALFTAB PO (08:35)
[2022-06-20 16:29] LABS: Glucose, Whole Blood 193 mg/dL (60-115)
[2022-06-20] MEDS: Insulin Lispro 100 UNIT/ML 3 ML VIAL SUBCUT (16:33)
[2022-06-20 18:00] VITALS: BP 133/64; PULSE 84; RESP 18; TEMP 36.3; O2SAT 99
[2022-06-20] MEDS: traZODone HCL 25 MG HALFTAB 75 MG PO (20:26)
[2022-06-20] MEDS: metFORMIN HCl ER 500 MG TAB.ER.24H PO (20:27)
[2022-06-20] MEDS: Divalproex Sodium Sprinkles 125 MG CAP.DR.SPR PO (20:27)
[2022-06-20] MEDS: Melatonin 3 MG TABLET 6 MG PO (20:27)
[2022-06-20 20:53] LABS: Glucose, Whole Blood 96 mg/dL (60-115)
[2022-06-21 06:00] VITALS: BP 90/53; PULSE 68; RESP 18; TEMP 36.1; O2SAT 92
[2022-06-21] MEDS: QUEtiapine Fumarate 50 MG TABLET PO ×4 (09:01→21:16)
[2022-06-21] MEDS: Omeprazole 20 MG CAPSULE.DR PO (09:02)
[2022-06-21] MEDS: traZODone HCL 25 MG HALFTAB PO (09:02)
[2022-06-21] MEDS: Escitalopram Oxalate 5 MG TABLET 7.5 MG PO (09:02)
[2022-06-21] MEDS: Divalproex Sodium 250 MG TABLET.DR PO ×2 (09:02→21:16)
[2022-06-21] MEDS: Insulin Lispro 100 UNIT/ML 3 ML VIAL SUBCUT ×2 (13:34→21:17)
[2022-06-21 14:55] VITALS: BP 123/62; PULSE 83; RESP 18; O2SAT 99
[2022-06-21 17:04] LABS: Glucose, Whole Blood 136 mg/dL (60-115)
[2022-06-21 17:04] LABS: Glucose, Whole Blood 157 mg/dL (60-115)
--- NOTE | 2022-06-21 17:04 | HO.PSYCHPN ---
Subjective Subjective Date of Service: 06/21/22 Reason For Visit: depression Subjective Notes: Conditional Voluntary Interim History: Pt in bed, but more visible earlier today. Pt reports he is good. Pt asks if this leader writer spoke with . Pt not oriented to place or situation. No behavioral concerns. Ambulating on his own with walker. Pt sleeping throught the night. He is off one to one. Medication Compliance: Yes Review of Systems Review of Systems tried to jump of balcony Yes all other systems are reviewed and are negative and Unobtainable due to mental status Mental Status Exam Mental Status Exam Narrative: Appearance: wearing hospital gown, fair hygiene, in NAD Behavior: calmer, engagement limited due to sedation and focus on wanting to go home Speech: mumbles, regular rate/rhythm/volume, spontaneous TP: disorganized TC: wanting to go home Mood: I want to go home Affect: congruent, tired. SI: denies HI:denies VH/AH: none Delusions: no overt delusional content noted or reported. Insight/judgment: impaired x 2. Memory/cog: alert not oriented to place, month, situation, year. Diagnostics Vital Signs (24Hr): Vital Signs - 24 hr 06/20/22 18:00 06/21/22 06:00 06/21/22 14:55 Temperature 97.3 F 96.9 F Pulse Rate 84 68 83 Respiratory Rate 18 18 18 Blood Pressure 133/64 90/53 L 123/62 Pulse Oximetry 99 92 99 Oxygen Delivery Method Room Air Room Air Room Air BMI result Body Mass Index 27.1 Labs 06/19/22 14:39 06/19/22 07:56 Labs: Laboratory Results - last 48 hr 06/20/22 06/20/22 06/20/22 07:39 16:26 20:35 POC Glucose 135 H 193 H 96 Medications Medications Current Medications Acetaminophen (Acetaminophen 325 Mg Tablet) 650 mg PO Q4H PRN PRN Reason: Fever Al Hydroxide/Mg Hydroxide (Magnesium Hydrox/Alum Hydrox 30 Ml Oral.Susp) 30 ml PO Q6H PRN PRN Reason: Heartburn/Nausea Divalproex Sodium (Divalproex Sodium 250 Mg Tablet.) 250 mg PO BID [facility] Last Admin: 06/21/22 09:02 Dose: 250 mg Divalproex Sodium (Divalproex Sodium Sprinkles 125 Mg Cap.Spr) 125 mg PO BEDTIME [facility] Last Admin: 06/20/22 20:27 Dose: 125 mg Docusate Sodium (Docusate Sodium 100 Mg Capsule) 100 mg PO DAILY PRN PRN Reason: Constipation Escitalopram Oxalate (Escitalopram Oxalate 5 Mg Tablet) 7.5 mg PO DAILY [facility] Last Admin: 06/21/22 09:02 Dose: 7.5 mg Insulin Human Lispro (Insulin Lispro 100 Unit/Ml 3 Ml Vial) 0 unit SUBCUT QIDWS [facility]; Protocol Last Admin: 06/21/22 13:34 Dose: 2 unit Lorazepam (Lorazepam 1 Mg Tablet) 1 mg PO BID PRN PRN Reason: Anxiety Last Admin: 06/18/22 20:49 Dose: 1 mg Melatonin (Melatonin 3 Mg Tablet) 6 mg PO BEDTIME [facility] Last Admin: 06/20/22 20:27 Dose: 6 mg Metformin HCl (Metformin Hcl Er 500 Mg Tab.Er.24h) 500 mg PO BEDTIME [facility] Last Admin: 06/20/22 20:27 Dose: 500 mg Non-Formulary Medication (Methenamine Hippurate) 1 gm PO BID [facility] Omeprazole (Omeprazole 20 Mg Capsule.) 20 mg PO DAILY@0630 [facility] Last Admin: 06/21/22 09:02 Dose: 20 mg Pharmacy Consult (Consult Rx Perform Med Rec) 1 each MISCELLANE ONCE PRN PRN Reason: Consult order Polyethylene Glycol (Polyethylene Glycol 3350 17 Gm Powd.Pack) 17 gm PO DAILY PRN PRN Reason: Constipation Quetiapine Fumarate (Quetiapine Fumarate 50 Mg Tablet) 50 mg PO QID [facility] Last Admin: 06/21/22 13:34 Dose: 50 mg Trazodone HCl (Trazodone Hcl 25 Mg Halftab) 25 mg PO DAILY [facility] Last Admin: 06/21/22 09:02 Dose: 25 mg Trazodone HCl (Trazodone Hcl 25 Mg Halftab) 75 mg PO BEDTIME [facility] Last Admin: 06/20/22 20:26 Dose: 75 mg Allergies Allergies Allergy/AdvReac Type Severity Reaction Status Date / Time aspirin [ASA] Allergy Facial Verified 08/13/21 16:57 Swelling Penicillins Allergy Redness of Verified 08/13/21 16:57 Skin Sulfa (Sulfonamide AdvReac Rash Verified 08/13/21 16:57 Antibiotics) Assessment & Plan Assessment & Plan (1) Major neurocognitive disorder: Status: Acute Code(s): F03.90 - Unspecified dementia, unspecified severity, without behavioral disturbance, psychotic disturbance, mood disturbance, and anxiety Plan Mr. Bertrand is a 76 year-old male with hx of dementia brought via EMS from [facility] due to pt trying to jump off window as suicide attempt. It appears pt has been more combative or agitated, although at baseline pt supposely is irritable but has not tried to harm himself or others. Utox is negative. 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 On the unit, pt does not recall event leading to this admission, he is not oriented to place or month. He reports he lives in [place] and wants to return there. He did presented as combative initially requiring prn olanzapine and ativan. Will check ammonia with depakote. Obtain collateral information. Pt does not have capacity to make medical decisions, therefore, CV was rejected and he is currently on 12b.Will reach out to HCP PLAN 1. Admit to S1, one to one due to unsteady gait. Sect 12b 2. obtain collateral information 3. continue current medications- seroquel- which may consider changing to TID, not QID. obtain ammonia levels pt on depakote. 4. Aftercare planning. 06/20 continue tx. switch seroquel to TID 06/21 continue tx. Reason for continued inpatient stay Substantial Risk for: inability to function Time Spent With Patient Time: Total time managing care of this patient today ____ minutes.
[2022-06-21] MEDS: LORazepam 1 MG TABLET PO (17:21)
[2022-06-21 18:00] VITALS: BP 105/59; PULSE 75; RESP 18; TEMP 36.6; O2SAT 93
[2022-06-21 20:47] LABS: Glucose, Whole Blood 186 mg/dL (60-115)
[2022-06-21] MEDS: Melatonin 3 MG TABLET 6 MG PO (21:16)
[2022-06-21] MEDS: Divalproex Sodium Sprinkles 125 MG CAP.DR.SPR PO (21:16)
[2022-06-21] MEDS: traZODone HCL 25 MG HALFTAB 75 MG PO (21:17)
[2022-06-21] MEDS: metFORMIN HCl ER 500 MG TAB.ER.24H PO (21:17)
[2022-06-22 08:00] VITALS: BP 113/62; PULSE 62; RESP 16; TEMP 35.9; O2SAT 98
[2022-06-22 08:11] LABS: Glucose, Whole Blood 126 mg/dL (60-115)
[2022-06-22] MEDS: Omeprazole 20 MG CAPSULE.DR PO (08:25)
[2022-06-22] MEDS: Escitalopram Oxalate 5 MG TABLET 7.5 MG PO (08:25)
[2022-06-22] MEDS: traZODone HCL 25 MG HALFTAB PO (08:25)
[2022-06-22] MEDS: Divalproex Sodium 250 MG TABLET.DR PO ×2 (08:25→20:57)
[2022-06-22] MEDS: QUEtiapine Fumarate 50 MG TABLET PO ×4 (08:25→20:58)
[2022-06-22 11:44] LABS: Glucose, Whole Blood 196 mg/dL (60-115)
[2022-06-22] MEDS: Insulin Lispro 100 UNIT/ML 3 ML VIAL SUBCUT (12:44)
[2022-06-22 16:47] LABS: Glucose, Whole Blood 123 mg/dL (60-115)
[2022-06-22 18:00] VITALS: BP 119/60; PULSE 75; RESP 18; TEMP 36.3; O2SAT 96
[2022-06-22] MEDS: traZODone HCL 25 MG HALFTAB 75 MG PO (20:57)
[2022-06-22] MEDS: Melatonin 3 MG TABLET 6 MG PO (20:58)
[2022-06-22] MEDS: Divalproex Sodium Sprinkles 125 MG CAP.DR.SPR PO (20:58)
[2022-06-22] MEDS: metFORMIN HCl ER 500 MG TAB.ER.24H PO (20:59)
--- NOTE | 2022-06-22 21:02 | P.PNPSI_ITS ---
Subjective Subjective Date of Service: 06/22/22 Reason For Visit: depression Subjective Notes: Conditional Voluntary Interim History: Pt in bed. Pt reports he is good. Pt asks if this engineering writer spoke with . Pt not oriented to place or situation. No behavioral concerns. Ambulating on his own with walker. Pt sleeping throught the night. Medication Compliance: Yes Mental Status Exam Mental Status Exam Narrative: Appearance: wearing hospital gown, fair hygiene, in NAD Behavior: calmer, engagement limited due to sedation and focus on wanting to go home Speech: mumbles, regular rate/rhythm/volume, spontaneous TP: disorganized TC: wanting to go home Mood: I want to go home Affect: congruent, tired. SI: denies HI:denies VH/AH: none Delusions: no overt delusional content noted or reported. Insight/judgment: impaired x 2. Memory/cog: alert not oriented to place, month, situation, year. Diagnostics Vital Signs (24Hr): Vital Signs - 24 hr 06/22/22 08:00 06/22/22 18:00 Temperature 96.7 F L 97.3 F Pulse Rate 62 75 Respiratory Rate 16 18 Blood Pressure 113/62 119/60 Pulse Oximetry 98 96 Oxygen Delivery Method Room Air Room Air BMI result Body Mass Index 27.1 Labs 06/19/22 14:39 06/19/22 07:56 Labs: Laboratory Results - last 48 hr 06/21/22 06/21/22 06/21/22 11:44 16:57 20:12 POC Glucose 157 H 136 H 186 H 06/22/22 06/22/22 06/22/22 08:07 11:41 16:43 POC Glucose 126 H 196 H 123 H Medications Medications Current Medications Acetaminophen (Acetaminophen 325 Mg Tablet) 650 mg PO Q4H PRN PRN Reason: Fever Al Hydroxide/Mg Hydroxide (Magnesium Hydrox/Alum Hydrox 30 Ml Oral.Susp) 30 ml PO Q6H PRN PRN Reason: Heartburn/Nausea Divalproex Sodium (Divalproex Sodium 250 Mg Polo.) 250 mg PO BID [facility] Last Admin: 06/22/22 20:57 Dose: 250 mg Divalproex Sodium (Divalproex Sodium Sprinkles 125 Mg Cap.) 125 mg PO BEDTIME [facility] Last Admin: 06/22/22 20:58 Dose: 125 mg Docusate Sodium (Docusate Sodium 100 Mg Capsule) 100 mg PO DAILY PRN PRN Reason: Constipation Escitalopram Oxalate (Escitalopram Oxalate 5 Mg Tablet) 7.5 mg PO DAILY [facility] Last Admin: 06/22/22 08:25 Dose: 7.5 mg Insulin Human Lispro (Insulin Lispro 100 Unit/Ml 3 Ml Vial) 0 unit SUBCUT QIDWMHS [facility]; Protocol Last Admin: 06/22/22 20:59 Dose: Not Given Lorazepam (Lorazepam 1 Mg Tablet) 1 mg PO BID PRN PRN Reason: Anxiety Last Admin: 06/21/22 17:21 Dose: 1 mg Melatonin (Melatonin 3 Mg Tablet) 6 mg PO BEDTIME [facility] Last Admin: 06/22/22 20:58 Dose: 6 mg Metformin HCl (Metformin Hcl Er 500 Mg Tab.Er.24h) 500 mg PO BEDTIME [facility] Last Admin: 06/22/22 20:59 Dose: 500 mg Omeprazole (Omeprazole 20 Mg Capsule.Dr) 20 mg PO DAILY@0630 [facility] Last Admin: 06/22/22 08:25 Dose: 20 mg Pharmacy Consult (Consult Rx Perform Med Rec) 1 each MISCELLANE ONCE PRN PRN Reason: Consult order Polyethylene Glycol (Polyethylene Glycol 3350 17 Gm Powd.Pack) 17 gm PO DAILY PRN PRN Reason: Constipation Quetiapine Fumarate (Quetiapine Fumarate 50 Mg Tablet) 50 mg PO QID [facility] Last Admin: 06/22/22 20:58 Dose: 50 mg Trazodone HCl (Trazodone Hcl 25 Mg Halftab) 25 mg PO DAILY [facility] Last Admin: 06/22/22 08:25 Dose: 25 mg Trazodone HCl (Trazodone Hcl 25 Mg Halftab) 75 mg PO BEDTIME [facility] Last Admin: 06/22/22 20:57 Dose: 75 mg Allergies Allergies Allergy/AdvReac Type Severity Reaction Status Date / Time aspirin [ASA] Allergy Facial Verified 08/13/21 16:57 Swelling Penicillins Allergy Redness of Verified 08/13/21 16:57 Skin Sulfa (Sulfonamide AdvReac Rash Verified 08/13/21 16:57 Antibiotics) Assessment & Plan Assessment & Plan (1) Major neurocognitive disorder: Status: Acute Code(s): F03.90 - Unspecified dementia, unspecified severity, without behavioral disturbance, psychotic disturbance, mood disturbance, and anxiety Plan Mr. Bertrand is a 76 year-old male with hx of dementia brought via EMS from [facility] due to pt trying to jump off window as suicide attempt. It appears pt has been more combative or agitated, although at baseline pt supposely is irritable but has not tried to harm himself or others. Utox is negative. 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 On the unit, pt does not recall event leading to this admission, he is not oriented to place or month. He reports he lives in [place] and wants to return there. He did presented as combative initially requiring prn olanzapine and ativan. Will check ammonia with depakote. Obtain collateral information. Pt does not have capacity to make medical decisions, therefore, CV was rejected and he is currently on 12b.Will reach out to HCP PLAN 1. Admit to S1, one to one due to unsteady gait. Sect 12b 2. obtain collateral information 3. continue current medications- seroquel- which may consider changing to TID, not QID. obtain ammonia levels pt on depakote. 4. Aftercare planning. 06/20 continue tx. switch seroquel to TID 06/21 continue tx. 06/22 continue tx. Reason for continued inpatient stay Substantial Risk for: inability to function Time Spent With Patient Time: Total time managing care of this patient today ____ minutes.
[2022-06-23] MEDS: LORazepam 1 MG TABLET PO (02:51)
--- NOTE | 2022-06-23 11:22 | P.PNPSI_ITS ---
Subjective Subjective Date of Service: 06/23/22 Reason For Visit: depression Interim History: seen in his bed. said nothing to MD aside from go away. unable to tolerate minimal interaction. per staff, demented, angry. impulsive, poor behavioral control. Mental Status Exam Mental Status Exam Narrative: disheveled, poor hygiene, lying in hospital bed, wearing kristina. saying only g o away, not responding to questions otherwise. no PMA/PMR, not cooperative. speech nml loudness and tone. nml rate, decr amount, decr latency. thoughts unable to assess well, but perseverative in very brief interaction. affect constricted, hypo-intense, non-labile. mood not assessed. no SI/HI/AVH expressed. Diagnostics Vital Signs (24Hr): Vital Signs - 24 hr 06/22/22 18:00 Temperature 97.3 F Pulse Rate 75 Respiratory Rate 18 Blood Pressure 119/60 Pulse Oximetry 96 Oxygen Delivery Method Room Air BMI result Body Mass Index 27.1 Labs 06/19/22 14:39 06/19/22 07:56 Labs: Laboratory Results - last 48 hr 06/21/22 06/21/22 06/21/22 11:44 16:57 20:12 POC Glucose 157 H 136 H 186 H 06/22/22 06/22/22 06/22/22 08:07 11:41 16:43 POC Glucose 126 H 196 H 123 H Medications Medications Current Medications Acetaminophen (Acetaminophen 325 Mg Tablet) 650 mg PO Q4H PRN PRN Reason: Fever Al Hydroxide/Mg Hydroxide (Magnesium Hydrox/Alum Hydrox 30 Ml Oral.Susp) 30 ml PO Q6H PRN PRN Reason: Heartburn/Nausea Divalproex Sodium (Divalproex Sodium 250 Mg Polo.) 250 mg PO BID [facility] Last Admin: 06/22/22 20:57 Dose: 250 mg Divalproex Sodium (Divalproex Sodium Sprinkles 125 Mg Cap.) 125 mg PO BEDTIME [facility] Last Admin: 06/22/22 20:58 Dose: 125 mg Docusate Sodium (Docusate Sodium 100 Mg Capsule) 100 mg PO DAILY PRN PRN Reason: Constipation Escitalopram Oxalate (Escitalopram Oxalate 5 Mg Tablet) 7.5 mg PO DAILY [facility] Last Admin: 06/22/22 08:25 Dose: 7.5 mg Insulin Human Lispro (Insulin Lispro 100 Unit/Ml 3 Ml Vial) 0 unit SUBCUT QIDWMHS [facility]; Protocol Last Admin: 06/23/22 10:56 Dose: Not Given Lorazepam (Lorazepam 1 Mg Tablet) 1 mg PO BID PRN PRN Reason: Anxiety Last Admin: 06/23/22 02:51 Dose: 1 mg Melatonin (Melatonin 3 Mg Tablet) 6 mg PO BEDTIME [facility] Last Admin: 06/22/22 20:58 Dose: 6 mg Metformin HCl (Metformin Hcl Er 500 Mg Tab.Er.24h) 500 mg PO BEDTIME [facility] Last Admin: 06/22/22 20:59 Dose: 500 mg Omeprazole (Omeprazole 20 Mg Capsule.Dr) 20 mg PO DAILY@0630 [facility] Last Admin: 06/22/22 08:25 Dose: 20 mg Pharmacy Consult (Consult Rx Perform Med Rec) 1 each MISCELLANE ONCE PRN PRN Reason: Consult order Polyethylene Glycol (Polyethylene Glycol 3350 17 Gm Powd.Pack) 17 gm PO DAILY PRN PRN Reason: Constipation Quetiapine Fumarate (Quetiapine Fumarate 50 Mg Tablet) 50 mg PO QID [facility] Last Admin: 06/22/22 20:58 Dose: 50 mg Trazodone HCl (Trazodone Hcl 25 Mg Halftab) 25 mg PO DAILY [facility] Last Admin: 06/22/22 08:25 Dose: 25 mg Trazodone HCl (Trazodone Hcl 25 Mg Halftab) 75 mg PO BEDTIME [facility] Last Admin: 06/22/22 20:57 Dose: 75 mg Allergies Allergies Allergy/AdvReac Type Severity Reaction Status Date / Time aspirin [ASA] Allergy Facial Verified 08/13/21 16:57 Swelling Penicillins Allergy Redness of Verified 08/13/21 16:57 Skin Sulfa (Sulfonamide AdvReac Rash Verified 08/13/21 16:57 Antibiotics) Assessment & Plan Assessment & Plan (1) Major neurocognitive disorder: Status: Acute Code(s): F03.90 - Unspecified dementia, unspecified severity, without behavioral dist urbance, psychotic disturbance, mood disturbance, and anxiety Plan Mr. Bertrand is a 76 year-old male with hx of dementia brought via EMS from [facility] due to pt trying to jump off window as suicide attempt. It appears pt has been more combative or agitated, although at baseline pt supposely is irritable but has not tried to harm himself or others. Utox is negative. 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 On the unit, pt does not recall event leading to this admission, he is not oriented to place or month. He reports he lives in [place] and wants to return there. He did presented as combative initially requiring prn olanzapine and ativan. Will check ammonia with depakote. Obtain collateral information. Pt does not have capacity to make medical decisions, therefore, CV was rejected and he is currently on 12b.Will reach out to HCP PLAN 1. Admit to S1, one to one due to unsteady gait. Sect 12b 2. obtain collateral information 3. continue current medications- seroquel- which may consider changing to TID, not QID. obtain ammonia levels pt on depakote. 4. Aftercare planning. 06/20 continue tx. switch seroquel to TID 06/23: continue current mgmt. Reason for continued inpatient stay Substantial Risk for: harm to others, inability to function and rapid decompensation Time Spent With Patient Time: Total time managing care of this patient today ____ minutes.
[2022-06-23] MEDS: traZODone HCL 25 MG HALFTAB PO (12:54)
[2022-06-23] MEDS: Divalproex Sodium 250 MG TABLET.DR PO ×2 (12:54→19:43)
[2022-06-23] MEDS: QUEtiapine Fumarate 50 MG TABLET PO ×3 (12:54→19:43)
[2022-06-23] MEDS: Escitalopram Oxalate 5 MG TABLET 7.5 MG PO (12:54)
[2022-06-23] MEDS: traZODone HCL 25 MG HALFTAB 75 MG PO (19:42)
[2022-06-23] MEDS: Divalproex Sodium Sprinkles 125 MG CAP.DR.SPR PO (19:43)
[2022-06-23] MEDS: metFORMIN HCl ER 500 MG TAB.ER.24H PO (19:43)
[2022-06-23] MEDS: Melatonin 3 MG TABLET 6 MG PO (19:44)
[2022-06-24 06:00] VITALS: BP 127/59; PULSE 61; RESP 16; TEMP 36.6; O2SAT 97
[2022-06-24] MEDS: Omeprazole 20 MG CAPSULE.DR PO (06:39)
[2022-06-24 07:48] LABS: Glucose, Whole Blood 125 mg/dL (60-115)
--- NOTE | 2022-06-24 10:45 | P.PNPSI_ITS ---
Subjective Subjective Date of Service: 06/24/22 Reason For Visit: depression Interim History: now what? as MD entered room. MD introduced self, pt replied, leave me alone, repeatedly, until MD left the room. per staff, intermittently taking meds. slept last night. to clinical staff rn: get out of my room you crazy bitch! Mental Status Exam Mental Status Exam Narrative: disheveled, poor hygiene, lying in hospital bed, wearing kristina. saying only leave me alone, not responding to questions otherwise. no PMA/PMR, not cooperative. speech nml loudness and tone. nml rate, decr amount, decr latency. thoughts unable to assess well, but perseverative in very brief interaction. affect constricted, hypo-intense, non-labile. mood not assessed. no SI/HI/AVH expressed. Diagnostics Vital Signs (24Hr): Vital Signs - 24 hr 06/24/22 06:00 Temperature 97.8 F Pulse Rate 61 Respiratory Rate 16 Blood Pressure 127/59 L Pulse Oximetry 97 Oxygen Delivery Method Room Air BMI result Body Mass Index 27.1 Labs 06/19/22 14:39 06/19/22 07:56 Labs: Laboratory Results - last 48 hr 06/22/22 06/22/22 06/24/22 11:41 16:43 07:43 POC Glucose 196 H 123 H 125 H Medications Medications Current Medications Acetaminophen (Acetaminophen 325 Mg Tablet) 650 mg PO Q4H PRN PRN Reason: Fever Al Hydroxide/Mg Hydroxide (Magnesium Hydrox/Alum Hydrox 30 Ml Oral.Susp) 30 ml PO Q6H PRN PRN Reason: Heartburn/Nausea Divalproex Sodium (Divalproex Sodium 250 Mg Polo.) 250 mg PO BID [facility] Last Admin: 06/24/22 09:42 Dose: Not Given Divalproex Sodium (Divalproex Sodium Sprinkles 125 Mg Cap) 125 mg PO BEDTIME [facility] Last Admin: 06/23/22 19:43 Dose: 125 mg Docusate Sodium (Docusate Sodium 100 Mg Capsule) 100 mg PO DAILY PRN PRN Reason: Constipation Escitalopram Oxalate (Escitalopram Oxalate 5 Mg Tablet) 7.5 mg PO DAILY [facility] Last Admin: 06/24/22 09:42 Dose: Not Given Insulin Human Lispro (Insulin Lispro 100 Unit/Ml 3 Ml Vial) 0 unit SUBCUT QIDWMHS [facility]; Protocol Last Admin: 06/24/22 09:42 Dose: Not Given Melatonin (Melatonin 3 Mg Tablet) 6 mg PO BEDTIME [facility] Last Admin: 06/23/22 19:44 Dose: 6 mg Metformin HCl (Metformin Hcl Er 500 Mg Tab.Er.24h) 500 mg PO BEDTIME [facility] Last Admin: 06/23/22 19:43 Dose: 500 mg Omeprazole (Omeprazole 20 Mg Capsule.Dr) 20 mg PO DAILY@0630 [facility] Last Admin: 06/24/22 06:39 Dose: 20 mg Pharmacy Consult (Consult Rx Perform Med Rec) 1 each MISCELLANE ONCE PRN PRN Reason: Consult order Polyethylene Glycol (Polyethylene Glycol 3350 17 Gm Powd.Pack) 17 gm PO DAILY PRN PRN Reason: Constipation Quetiapine Fumarate (Quetiapine Fumarate 50 Mg Tablet) 50 mg PO QID [facility] Last Admin: 06/24/22 09:43 Dose: Not Given Trazodone HCl (Trazodone Hcl 25 Mg Halftab) 25 mg PO DAILY [facility] Last Admin: 06/24/22 09:43 Dose: Not Given Trazodone HCl (Trazodone Hcl 25 Mg Halftab) 75 mg PO BEDTIME [facility] Last Admin: 06/23/22 19:42 Dose: 75 mg Allergies Allergies Allergy/AdvReac Type Severity Reaction Status Date / Time aspirin [ASA] Allergy Facial Verified 08/13/21 16:57 Swelling Penicillins Allergy Redness of Verified 08/13/21 16:57 Skin Sulfa (Sulfonamide AdvReac Rash Verified 08/13/21 16:57 Antibiotics) Assessment & Plan Assessment & Plan (1) Major neurocognitive disorder: Status: Acute Code(s): F03.90 - Unspecified dementia, unspecified severity, without behavioral disturbance, psychotic disturbance, mood disturbance, and anxiety Plan Mr. Bertrand is a 76 year-old male with hx of dementia brought via EMS from [facility] due to pt trying to jump off window as suicide attempt. It appears pt has been more combative or agitated, although at baseline pt supposely is irritable but has not tried to harm himself or others. Utox is negative. 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 On the unit, pt does not recall event leading to this admission, he is not oriented to place or month. He reports he lives in [place] and wants to return there. He did presented as combative initially requiring prn olanzapine and ativan. Will check ammonia with depakote. Obtain collateral information. Pt does not have capacity to make medical decisions, therefore, CV was rejected and he is currently on 12b.Will reach out to HCP PLAN 1. Admit to S1, one to one due to unsteady gait. Sect 12b 2. obtain collateral information 3. continue current medications- seroquel- which may consider changing to TID, not QID. obtain ammonia levels pt on depakote. 4. Aftercare planning. 06/20 continue tx. switch seroquel to TID 06/21 continue tx. 06/24: hostile. continue current mgmt. Reason for continued inpatient stay Substantial Risk for: inability to function and rapid decompensation Time Spent With Patient Time: Total time managing care of this patient today ____ minutes.
[2022-06-24] MEDS: QUEtiapine Fumarate 50 MG TABLET PO ×3 (14:40→20:00)
[2022-06-24 18:00] VITALS: BP 104/67; PULSE 94; RESP 18; TEMP 36.1; O2SAT 98
[2022-06-24] MEDS: Divalproex Sodium 250 MG TABLET.DR PO (20:00)
[2022-06-24] MEDS: traZODone HCL 25 MG HALFTAB 75 MG PO (20:00)
[2022-06-24] MEDS: Divalproex Sodium Sprinkles 125 MG CAP.DR.SPR PO (20:00)
[2022-06-24] MEDS: Melatonin 3 MG TABLET 6 MG PO (20:00)
[2022-06-25 06:00] VITALS: BP 110/56; PULSE 56; RESP 16; TEMP 36.2; O2SAT 97
[2022-06-25] MEDS: Escitalopram Oxalate 5 MG TABLET 7.5 MG PO (11:12)
[2022-06-25] MEDS: Divalproex Sodium 250 MG TABLET.DR PO (11:13)
[2022-06-25] MEDS: Omeprazole 20 MG CAPSULE.DR PO (11:16)
[2022-06-25] MEDS: QUEtiapine Fumarate 50 MG TABLET PO ×2 (11:17→16:45)
[2022-06-25] MEDS: traZODone HCL 25 MG HALFTAB PO (11:31)
--- NOTE | 2022-06-25 12:33 | MHC.CLN ---
NUTRITION DIET=REGULAR, NDD3 CONSISTENCY. UPGRADED FROM [facility]. STAFF REPORTS LIMITED INTAKE WITH [facility] DIET SINCE PATIENT DISLIKES. FOLLOW UP WEEKLY FOR INTAKE AND DIET TOLERANCE.
--- NOTE | 2022-06-25 15:48 | HO.PSYCHPN ---
Subjective Subjective Date of Service: 06/25/22 Reason For Visit: depression Subjective Notes: Conditional Voluntary Interim History: Pt more combative this morning, yelling at staff, telling them to leave him alone. Pt slept through the night. He was redirected to his room. He has refused some medications last night and this morning but later took them. Pt continues to present as not oriented to place or situation,a sking to go with his . His HCP came to visit, signed releases of information. Diagnostics Vital Signs (24Hr): Vital Signs - 24 hr 06/24/22 18:00 06/25/22 06:00 Temperature 97.0 F 97.1 F Pulse Rate 94 56 Respiratory Rate 18 16 Blood Pressure 104/67 110/56 L Pulse Oximetry 98 97 Oxygen Delivery Method Room Air BMI result Body Mass Index 27.1 Labs 06/19/22 14:39 06/19/22 07:56 Labs: Laboratory Results - last 48 hr 06/24/22 07:43 POC Glucose 125 H Medications Medications Current Medications Acetaminophen (Acetaminophen 325 Mg Tablet) 650 mg PO Q4H PRN PRN Reason: Fever Al Hydroxide/Mg Hydroxide (Magnesium Hydrox/Alum Hydrox 30 Ml Oral.Susp) 30 ml PO Q6H PRN PRN Reason: Heartburn/Nausea Divalproex Sodium (Divalproex Sodium 250 Mg Tablet.) 250 mg PO BID [facility] Last Admin: 06/25/22 11:13 Dose: 250 mg Divalproex Sodium (Divalproex Sodium Sprinkles 125 Mg Cap.) 125 mg PO BEDTIME [facility] Last Admin: 06/24/22 20:00 Dose: 125 mg Docusate Sodium (Docusate Sodium 100 Mg Capsule) 100 mg PO BID [facility] Escitalopram Oxalate (Escitalopram Oxalate 5 Mg Tablet) 7.5 mg PO DAILY [facility] Last Admin: 06/25/22 11:12 Dose: 7.5 mg Insulin Human Lispro (Insulin Lispro 100 Unit/Ml 3 Ml Vial) 0 unit SUBCUT QIDWMHS [facility]; Protocol Last Admin: 06/25/22 09:38 Dose: Not Given Melatonin (Melatonin 3 Mg Tablet) 6 mg PO BEDTIME [facility] Last Admin: 06/24/22 20:00 Dose: 6 mg Metformin HCl (Metformin Hcl Er 500 Mg Tab.Er.24h) 500 mg PO BEDTIME [facility] Last Admin: 06/25/22 03:29 Dose: Not Given Non-Formulary Medication (Methanamine) 1 g PO BID [facility] Omeprazole (Omeprazole 20 Mg Capsule.) 20 mg PO DAILY@0630 [facility] Last Admin: 06/25/22 11:16 Dose: 20 mg Pharmacy Consult (Consult Rx Perform Med Rec) 1 each MISCELLANE ONCE PRN PRN Reason: Consult order Polyethylene Glycol (Polyethylene Glycol 3350 17 Gm Powd.Pack) 17 gm PO DAILY PRN PRN Reason: Constipation Quetiapine Fumarate (Quetiapine Fumarate 50 Mg Tablet) 50 mg PO QID [facility] Last Admin: 06/25/22 11:17 Dose: 50 mg Trazodone HCl (Trazodone Hcl 25 Mg Halftab) 75 mg PO BEDTIME [facility] Last Admin: 06/24/22 20:00 Dose: 75 mg Allergies Allergies Allergy/AdvReac Type Severity Reaction Status Date / Time aspirin [ASA] Allergy Facial Verified 08/13/21 16:57 Swelling Penicillins Allergy Redness of Verified 08/13/21 16:57 Skin Sulfa (Sulfonamide AdvReac Rash Verified 08/13/21 16:57 Antibiotics) Assessment & Plan Assessment & Plan (1) Major neurocognitive disorder: Status: Acute Code(s): F03.90 - Unspecified dementia, unspecified severity, without behavioral disturbance, psychotic disturbance, mood disturbance, and anxiety Plan Mr. Bertrand is a 76 year-old male with hx of dementia brought via EMS from [facility] due to pt trying to jump off window as suicide attempt. It appears pt has been more combative or agitated, although at baseline pt supposely is irritable but has not tried to harm himself or others. Utox is negative. 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 On the unit, pt does not recall event leading to this admission, he is not oriented to place or month. He reports he lives in [place] and wants to return there. He did presented as combative initially requiring prn olanzapine and ativan. Will check ammonia with depakote. Obtain collateral information. Pt does not have capacity to make medical decisions, therefore, CV was rejected and he is currently on 12b.Will reach out to HCP PLAN 1. Admit to S1, one to one due to unsteady gait. Sect 12b 2. obtain collateral information 3. continue current medications- seroquel- which may consider changing to TID, not QID. obtain ammonia levels pt on depakote. 4. Aftercare planning. 06/20 continue tx. switch seroquel to TID 06/21 continue tx. 06/24: hostile. continue current mgmt. 06/25 continue tx. Reason for continued inpatient stay Substantial Risk for: inability to function Time Spent With Patient Time: Total time managing care of this patient today ____ minutes.
[2022-06-25 19:00] VITALS: BP 129/67; PULSE 85; RESP 18; TEMP 36.4; O2SAT 98
[2022-06-26 06:00] VITALS: BP 140/65; PULSE 73; RESP 18; TEMP 36.3; O2SAT 96
[2022-06-26] MEDS: Omeprazole 20 MG CAPSULE.DR PO (06:04)
--- NOTE | 2022-06-26 06:27 | PC.NURSE ---
pt wakes up at 05:30, provided incontinent of urine. he came out of the bed without clothes on, nurse Kim put it on the [employer], and pulled up the brief. it was incontinent again, offered him to change the brief but pt refused change, very irritated, cursed, yelled, and lying on bed with wet brief.
[2022-06-26 08:07] LABS: Ammonia 24 umol/L (13-55)
[2022-06-26 08:16] LABS: Valproate < 12.5 mcg/mL (50.0-100.0)
[2022-06-26] MEDS: Divalproex Sodium 250 MG TABLET.DR PO ×2 (08:58→21:16)
[2022-06-26] MEDS: Escitalopram Oxalate 5 MG TABLET 7.5 MG PO (08:58)
[2022-06-26] MEDS: QUEtiapine Fumarate 50 MG TABLET PO ×4 (08:58→21:17)
[2022-06-26] MEDS: Docusate Sodium 100 MG CAPSULE PO ×2 (08:58→21:16)
[2022-06-26 16:26] LABS: Glucose, Whole Blood 139 mg/dL (60-115)
--- NOTE | 2022-06-26 17:33 | HO.PSYCHPN ---
Subjective Subjective Date of Service: 06/26/22 Reason For Visit: depression Subjective Notes: Conditional Voluntary Interim History: Pt much more visible and social with peers. He continues to present as not oriented to place, asking to go to his , still thinkig he lives in [place]. No SI/HI At times irritable but not combative nor resistant to receive care. Medication Compliance: Yes Mental Status Exam Mental Status Exam Narrative: Appearance: wearing hospital gown, fair hygiene, in NAD Behavior: calmer, Speech: mumbles, regular rate/rhythm/volume, spontaneous TP: tangential TC: wanting to go home Mood: I want to go home Affect: congruent, tired. SI: denies HI:denies VH/AH: none Delusions: no overt delusional content noted or reported. Insight/judgment: impaired x 2. Memory/cog: alert not oriented to place, month, situation, year. Diagnostics Vital Signs (24Hr): Vital Signs - 24 hr 06/25/22 19:00 06/26/22 06:00 Temperature 97.5 F 97.4 F Pulse Rate 85 73 Respiratory Rate 18 18 Blood Pressure 129/67 140/65 H Pulse Oximetry 98 96 Oxygen Delivery Method Room Air Room Air BMI result Body Mass Index 27.1 Labs 06/19/22 14:39 06/19/22 07:56 Labs: Laboratory Results - last 48 hr 06/26/22 06/26/22 06/26/22 07:42 07:42 16:20 POC Glucose 139 H Ammonia 24 Valproic Acid < 12.5 L Medications Medications Current Medications Acetaminophen (Acetaminophen 325 Mg Tablet) 650 mg PO Q4H PRN PRN Reason: Fever Al Hydroxide/Mg Hydroxide (Magnesium Hydrox/Alum Hydrox 30 Ml Oral.Susp) 30 ml PO Q6H PRN PRN Reason: Heartburn/Nausea Divalproex Sodium (Divalproex Sodium 250 Mg Tablet.) 250 mg PO BID [facility] Last Admin: 06/26/22 08:58 Dose: 250 mg Divalproex Sodium (Divalproex Sodium Sprinkles 125 Mg Cap.) 125 mg PO BEDTIME [facility] Last Admin: 06/25/22 21:51 Dose: Not Given Docusate Sodium (Docusate Sodium 100 Mg Capsule) 100 mg PO BID [facility] Last Admin: 06/26/22 08:58 Dose: 100 mg Escitalopram Oxalate (Escitalopram Oxalate 5 Mg Tablet) 7.5 mg PO DAILY [facility] Last Admin: 06/26/22 08:58 Dose: 7.5 mg Insulin Human Lispro (Insulin Lispro 100 Unit/Ml 3 Ml Vial) 0 unit SUBCUT QIDWMHS [facility]; Protocol Last Admin: 06/26/22 17:05 Dose: Not Given Melatonin (Melatonin 3 Mg Tablet) 6 mg PO BEDTIME [facility] Last Admin: 06/25/22 21:51 Dose: Not Given Metformin HCl (Metformin Hcl Er 500 Mg Tab.Er.24h) 500 mg PO BEDTIME [facility] Last Admin: 06/25/22 21:51 Dose: Not Given Non-Formulary Medication (Methanamine) 1 g PO BID [facility] Omeprazole (Omeprazole 20 Mg Capsule.Dr) 20 mg PO DAILY@0630 [facility] Last Admin: 06/26/22 06:04 Dose: 20 mg Pharmacy Consult (Consult Rx Perform Med Rec) 1 each MISCELLANE ONCE PRN PRN Reason: Consult order Polyethylene Glycol (Polyethylene Glycol 3350 17 Gm Powd.Pack) 17 gm PO DAILY PRN PRN Reason: Constipation Quetiapine Fumarate (Quetiapine Fumarate 50 Mg Tablet) 50 mg PO QID [facility] Last Admin: 06/26/22 17:04 Dose: 50 mg Trazodone HCl (Trazodone Hcl 25 Mg Halftab) 75 mg PO BEDTIME [facility] Last Admin: 06/25/22 21:51 Dose: Not Given Allergies Allergies Allergy/AdvReac Type Severity Reaction Status Date / Time aspirin [ASA] Allergy Facial Verified 08/13/21 16:57 Swelling Penicillins Allergy Redness of Verified 08/13/21 16:57 Skin Sulfa (Sulfonamide AdvReac Rash Verified 08/13/21 16:57 Antibiotics) Assessment & Plan Assessment & Plan (1) Major neurocognitive disorder: Status: Acute Code(s): F03.90 - Unspecified dementia, unspecified severity, without behavioral disturbance, psychotic disturbance, mood disturbance, and anxiety Plan Mr. Bertrand is a 76 year-old male with hx of dementia brought via EMS from [facility] due to pt trying to jump off window as suicide attempt. It appears pt has been more combative or agitated, although at baseline pt supposely is irritable but has not tried to harm himself or others. Utox is negative. 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 On the unit, pt does not recall event leading to this admission, he is not oriented to place or month. He reports he lives in [place] and wants to return there. He did presented as combative initially requiring prn olanzapine and ativan. Will check ammonia with depakote. Obtain collateral information. Pt does not have capacity to make medical decisions, therefore, CV was rejected and he is currently on 12b.Will reach out to HCP PLAN 1. Admit to S1, one to one due to unsteady gait. Sect 12b 2. obtain collateral information 3. continue current medications- seroquel- which may consider changing to TID, not QID. obtain ammonia levels pt on depakote. 4. Aftercare planning. 06/20 continue tx. switch seroquel to TID 06/21 continue tx. 06/24: hostile. continue current mgmt. 06/25 continue tx. 06/26 continue tx. Reason for continued inpatient stay Substantial Risk for: inability to function Time Spent With Patient Time: Total time managing care of this patient today ____ minutes.
[2022-06-26 18:00] VITALS: BP 125/67; PULSE 60; RESP 18; TEMP 36.3; O2SAT 97
[2022-06-26 20:48] LABS: Glucose, Whole Blood 221 mg/dL (60-115)
[2022-06-26] MEDS: Insulin Lispro 100 UNIT/ML 3 ML VIAL SUBCUT (21:14)
[2022-06-26] MEDS: traZODone HCL 25 MG HALFTAB 75 MG PO (21:16)
[2022-06-26] MEDS: metFORMIN HCl ER 500 MG TAB.ER.24H PO (21:16)
[2022-06-26] MEDS: Melatonin 3 MG TABLET 6 MG PO (21:17)
[2022-06-26] MEDS: Divalproex Sodium Sprinkles 125 MG CAP.DR.SPR PO (21:17)
[2022-06-27] MEDS: Omeprazole 20 MG CAPSULE.DR PO (05:35)
[2022-06-27 07:40] VITALS: BP 121/60; PULSE 75; RESP 17; TEMP 36; O2SAT 98
[2022-06-27 08:09] LABS: Glucose, Whole Blood 109 mg/dL (60-115)
[2022-06-27] MEDS: Escitalopram Oxalate 5 MG TABLET 7.5 MG PO (08:29)
[2022-06-27] MEDS: Divalproex Sodium 250 MG TABLET.DR PO ×2 (08:30→20:37)
[2022-06-27] MEDS: QUEtiapine Fumarate 50 MG TABLET PO ×4 (08:30→20:37)
[2022-06-27] MEDS: Docusate Sodium 100 MG CAPSULE PO ×2 (08:31→20:37)
[2022-06-27 11:20] LABS: Glucose, Whole Blood 131 mg/dL (60-115)
--- NOTE | 2022-06-27 13:38 | MHC.CLN ---
F/U ALERTED THAT GRILLED CHEESE ORDERED FOR PATIENT. 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 VISITED WITH PATIENT WITH OT AND NURSE. DISLIKES VEGETABLES. LIKES PEANUT BUTTER/FLUFF SANDWICHES AND HAMBURGERS. RN TO ORDER JOB COACH/JOB DEVELOPER EVAL. PROVIDED WITH SOFT SANDWICH AND PUDDING ON UNIT. FOLLOW FOR JOB COACH/JOB DEVELOPER RECOMMENDATIONS.
[2022-06-27 16:45] LABS: Glucose, Whole Blood 208 mg/dL (60-115)
[2022-06-27] MEDS: Insulin Lispro 100 UNIT/ML 3 ML VIAL SUBCUT (17:29)
[2022-06-27 18:00] VITALS: BP 108/58; PULSE 62; RESP 18; TEMP 36.4; O2SAT 97
--- NOTE | 2022-06-27 19:36 | P.PNPSI_ITS ---
Subjective Subjective Date of Service: 06/27/22 Reason For Visit: depression Subjective Notes: Conditional Voluntary Interim History: Pt much more visible and social with peers. He continues to present as not oriented to place, asking to go to his , still thinking he lives in [place]. No SI/HI. Per nursing, he slept through the night. At times irritable but not combative nor resistant to receive care. Review of Systems Review of Systems tried to jump of ghada Yes all other systems are reviewed and are negative and Unobtainable due to mental status Mental Status Exam Mental Status Exam Narrative: Appearance: wearing hospital gown, fair hygiene, in NAD Behavior: calmer, Speech: mumbles, regular rate/rhythm/volume, spontaneous TP: tangential TC: wanting to go home Mood: I want to go home Affect: congruent, tired. SI: denies HI:denies VH/AH: none Delusions: no overt delusional content noted or reported. Insight/judgment: impaired x 2. Memory/cog: alert not oriented to place, month, situation, year. Diagnostics Vital Signs (24Hr): Vital Signs - 24 hr 06/27/22 07:40 Temperature 96.8 F Pulse Rate 75 Respiratory Rate 17 Blood Pressure 121/60 Pulse Oximetry 98 Oxygen Delivery Method Room Air BMI result Body Mass Index 27.1 Labs 06/19/22 14:39 06/19/22 07:56 Labs: Laboratory Results - last 48 hr 06/26/22 06/26/22 06/26/22 07:42 07:42 16:20 POC Glucose 139 H Ammonia 24 Valproic Acid < 12.5 L 06/26/22 06/27/22 06/27/22 20:30 07:45 11:15 POC Glucose 221 H 109 131 H Ammonia Valproic Acid 06/27/22 16:27 POC Glucose 208 H Ammonia Valproic Acid Medications Medications Current Medications Acetaminophen (Acetaminophen 325 Mg Tablet) 650 mg PO Q4H PRN PRN Reason: Fever Al Hydroxide/Mg Hydroxide (Magnesium Hydrox/Alum Hydrox 30 Ml Oral.Susp) 30 ml PO Q6H PRN PRN Reason: Heartburn/Nausea Divalproex Sodium (Divalproex Sodium 250 Mg Tablet.) 250 mg PO BID [facility] Last Admin: 06/27/22 08:30 Dose: 250 mg Divalproex Sodium (Divalproex Sodium Sprinkles 125 Mg ) 125 mg PO BEDTIME [facility] Last Admin: 06/26/22 21:17 Dose: 125 mg Docusate Sodium (Docusate Sodium 100 Mg Capsule) 100 mg PO BID [facility] Last Admin: 06/27/22 08:31 Dose: 100 mg Escitalopram Oxalate (Escitalopram Oxalate 5 Mg Tablet) 7.5 mg PO DAILY [facility] Last Admin: 06/27/22 08:29 Dose: 7.5 mg Insulin Human Lispro (Insulin Lispro 100 Unit/Ml 3 Ml Vial) 0 unit SUBCUT QIDWMHS [facility]; Protocol Last Admin: 06/27/22 17:29 Dose: 4 unit Melatonin (Melatonin 3 Mg Tablet) 6 mg PO BEDTIME [facility] Last Admin: 06/26/22 21:17 Dose: 6 mg Metformin HCl (Metformin Hcl Er 500 Mg Tab.Er.24h) 500 mg PO BEDTIME [facility] Last Admin: 06/26/22 21:16 Dose: 500 mg Non-Formulary Medication (Methanamine) 1 g PO BID [facility] Omeprazole (Omeprazole 20 Mg Thai.) 20 mg PO DAILY@0630 [facility] Last Admin: 06/27/22 05:35 Dose: 20 mg Pharmacy Consult (Consult Rx Perform Med Rec) 1 each MISCELLANE ONCE PRN PRN Reason: Consult order Polyethylene Glycol (Polyethylene Glycol 3350 17 Gm Powd.Pack) 17 gm PO DAILY PRN PRN Reason: Constipation Quetiapine Fumarate (Quetiapine Fumarate 50 Mg Tablet) 50 mg PO QID [facility] Last Admin: 06/27/22 17:31 Dose: 50 mg Trazodone HCl (Trazodone Hcl 25 Mg Halftab) 75 mg PO BEDTIME [facility] Last Admin: 06/26/22 21:16 Dose: 75 mg Allergies Allergies Allergy/AdvReac Type Severity Reaction Status Date / Time aspirin [ASA] Allergy Facial Verified 08/13/21 16:57 Swelling Penicillins Allergy Redness of Verified 08/13/21 16:57 Skin Sulfa (Sulfonamide AdvReac Rash Verified 08/13/21 16:57 Antibiotics) Assessment & Plan Assessment & Plan (1) Major neurocognitive disorder: Status: Acute Code(s): F03.90 - Unspecified dementia, unspecified severity, without behavioral distu rbance, psychotic disturbance, mood disturbance, and anxiety Plan Mr. Bertrand is a 76 year-old male with hx of dementia brought via EMS from [facility] due to pt trying to jump off window as suicide attempt. It appears pt has been more combative or agitated, although at baseline pt supposely is irritable but has not tried to harm himself or others. Utox is negative. 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 On the unit, pt does not recall event leading to this admission, he is not oriented to place or month. He reports he lives in [place] and wants to return there. He did presented as combative initially requiring prn olanzapine and ativan. Will check ammonia with depakote. Obtain collateral information. Pt does not have capacity to make medical decisions, therefore, CV was rejected and he is currently on 12b.Will reach out to HCP PLAN 1. Admit to S1, one to one due to unsteady gait. Sect 12b 2. obtain collateral information 3. continue current medications- seroquel- which may consider changing to TID, not QID. obtain ammonia levels pt on depakote. 4. Aftercare planning. 06/20 continue tx. switch seroquel to TID 06/21 continue tx. 06/24: hostile. continue current mgmt. 06/25 continue tx. 06/26 continue tx. 06/27 continue tx. Reason for continued inpatient stay Substantial Risk for: inability to function Time Spent With Patient Time: Total time managing care of this patient today ____ minutes.
[2022-06-27] MEDS: traZODone HCL 25 MG HALFTAB 75 MG PO (20:37)
[2022-06-27] MEDS: Melatonin 3 MG TABLET 6 MG PO (20:37)
[2022-06-27] MEDS: metFORMIN HCl ER 500 MG TAB.ER.24H PO (20:38)
[2022-06-27] MEDS: Divalproex Sodium Sprinkles 125 MG CAP.DR.SPR PO (20:38)
[2022-06-27 21:24] LABS: Glucose, Whole Blood 90 mg/dL (60-115)
[2022-06-28] MEDS: Omeprazole 20 MG CAPSULE.DR PO (05:57)
[2022-06-28 07:00] VITALS: BMI 27.2
[2022-06-28 07:30] VITALS: BP 115/64; PULSE 84; RESP 16; TEMP 35.9; O2SAT 98
[2022-06-28] MEDS: Escitalopram Oxalate 5 MG TABLET 7.5 MG PO (08:25)
[2022-06-28] MEDS: Divalproex Sodium 250 MG TABLET.DR PO ×2 (08:26→20:10)
[2022-06-28] MEDS: Docusate Sodium 100 MG CAPSULE PO ×2 (08:26→20:10)
[2022-06-28] MEDS: QUEtiapine Fumarate 50 MG TABLET PO ×4 (08:26→20:11)
[2022-06-28 10:28] LABS: Glucose, Whole Blood 127 mg/dL (60-115)
[2022-06-28 16:53] LABS: Glucose, Whole Blood 167 mg/dL (60-115)
[2022-06-28] MEDS: Insulin Lispro 100 UNIT/ML 3 ML VIAL SUBCUT (17:00)
[2022-06-28 18:00] VITALS: BP 129/63; PULSE 71; RESP 18; TEMP 36.3; O2SAT 96
[2022-06-28] MEDS: Divalproex Sodium Sprinkles 125 MG CAP.DR.SPR PO (20:10)
[2022-06-28] MEDS: traZODone HCL 25 MG HALFTAB 75 MG PO (20:11)
[2022-06-28] MEDS: metFORMIN HCl ER 500 MG TAB.ER.24H PO (20:11)
[2022-06-28] MEDS: Melatonin 3 MG TABLET 6 MG PO (20:11)
[2022-06-28 20:31] LABS: Glucose, Whole Blood 101 mg/dL (60-115)
[2022-06-28] MEDS: Acetaminophen 325 MG TABLET 650 MG PO (22:22)
[2022-06-29 06:00] VITALS: BP 111/56; PULSE 73; RESP 18; TEMP 36.1; O2SAT 97
--- NOTE | 2022-06-29 06:58 | P.PNPSI_ITS ---
Subjective Subjective Date of Service: 06/28/22 Reason For Visit: depression Subjective Notes: Conditional Voluntary Interim History: Pt much more visible and social with peers. He continues to present as not oriented to place, asking to go to his , still thinking he lives in [place]. Pt asks for clothes, asking if wive is bringing them. No SI/HI. Per nursing, he slept through the night. At times irritable but not combative nor resistant to receive care. Review of Systems Review of Systems tried to jump of ghada Yes all other systems are reviewed and are negative and Unobtainable due to mental status Mental Status Exam Mental Status Exam Narrative: Appearance: wearing hospital gown, fair hygiene, in NAD Behavior: calmer, Speech: mumbles, regular rate/rhythm/volume, spontaneous TP: tangential TC: wanting to go home Mood: I want to go home Affect: congruent, tired. SI: denies HI:denies VH/AH: none Delusions: no overt delusional content noted or reported. Insight/judgment: impaired x 2. Memory/cog: alert not oriented to place, month, situation, year. Diagnostics Vital Signs (24Hr): Vital Signs - 24 hr 06/28/22 07:30 06/28/22 18:00 Temperature 96.7 F L 97.3 F Pulse Rate 84 71 Respiratory Rate 16 18 Blood Pressure 115/64 129/63 Pulse Oximetry 98 96 Oxygen Delivery Method Room Air Room Air BMI result Body Mass Index 27.2 Labs 06/19/22 14:39 06/19/22 07:56 Labs: Laboratory Results - last 48 hr 06/27/22 06/27/22 06/27/22 07:45 11:15 16:27 POC Glucose 109 131 H 208 H 06/27/22 06/28/22 06/28/22 20:36 07:40 16:46 POC Glucose 90 127 H 167 H 06/28/22 20:08 POC Glucose 101 Medications Medications Current Medications Acetaminophen (Acetaminophen 325 Mg Tablet) 650 mg PO Q4H PRN PRN Reason: Fever Last Admin: 06/28/22 22:22 Dose: 650 mg Al Hydroxide/Mg Hydroxide (Magnesium Hydrox/Alum Hydrox 30 Ml Oral.Susp) 30 ml PO Q6H PRN PRN Reason: Heartburn/Nausea Divalproex Sodium (Divalproex Sodium 250 Mg Tablet.) 250 mg PO BID [facility] Last Admin: 06/28/22 20:10 Dose: 250 mg Divalproex Sodium (Divalproex Sodium Sprinkles 125 Mg Cap.) 125 mg PO B EDTIME [facility] Last Admin: 06/28/22 20:10 Dose: 125 mg Docusate Sodium (Docusate Sodium 100 Mg Capsule) 100 mg PO BID [facility] Last Admin: 06/28/22 20:10 Dose: 100 mg Escitalopram Oxalate (Escitalopram Oxalate 5 Mg Tablet) 7.5 mg PO DAILY [facility] Last Admin: 06/28/22 08:25 Dose: 7.5 mg Insulin Human Lispro (Insulin Lispro 100 Unit/Ml 3 Ml Vial) 0 unit SUBCUT QIDW S [facility]; Protocol Last Admin: 06/28/22 20:10 Dose: Not Given Melatonin (Melatonin 3 Mg Tablet) 6 mg PO BEDTIME [facility] Last Admin: 06/28/22 20:11 Dose: 6 mg Metformin HCl (Metformin Hcl Er 500 Mg Tab.Er.24h) 500 mg PO BEDTIME [facility] Last Admin: 06/28/22 20:11 Dose: 500 mg Non-Formulary Medication (Methanamine) 1 g PO BID [facility] Omeprazole (Omeprazole 20 Mg Capsule.) 20 mg PO DAILY@0630 [facility] Last Admin: 06/28/22 05:57 Dose: 20 mg Pharmacy Consult (Consult Rx Perform Med Rec) 1 each MISCELLANE ONCE PRN PRN Reason: Consult order Polyethylene Glycol (Polyethylene Glycol 3350 17 Gm Powd.Pack) 17 gm PO DAILY PRN PRN Reason: Constipation Quetiapine Fumarate (Quetiapine Fumarate 50 Mg Tablet) 50 mg PO QID [facility] Last Admin: 06/28/22 20:11 Dose: 50 mg Trazodone HCl (Trazodone Hcl 25 Mg Halftab) 75 mg PO BEDTIME [facility] Last Admin: 06/28/22 20:11 Dose: 75 mg Allergies Allergies Allergy/AdvReac Type Severity Reaction Status Date / Time aspirin [ASA] Allergy Facial Verified 08/13/21 16:57 Swelling Penicillins Allergy Redness of Verified 08/13/21 16:57 Skin Sulfa (Sulfonamide AdvReac Rash Verified 08/13/21 16:57 Antibiotics) Assessment & Plan Assessment & Plan (1) Major neurocognitive disorder: Status: Acute Code(s): F03.90 - Unspecified dementia, unspecified severity, without behavioral disturbance, psychotic disturbance, mood disturbance, and anxiety Plan Mr. Bertrand is a 76 year-old male with hx of dementia brought via EMS from [facility] due to pt trying to jump off window as suicide attempt. It appears pt has been more combative or agitated, although at baseline pt supposely is irritable but has not tried to harm himself or others. Utox is negative. 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 On the unit, pt does not recall event leading to this admission, he is not oriented to place or month. He reports he lives in [place] and wants to return there. He did presented as combative initially requiring prn olanzapine and ativan. Will check ammonia with depakote. Obtain collateral information. Pt does not have capacity to make medical decisions, therefore, CV was rejected and he is currently on 12b.Will reach out to HCP PLAN 1. Admit to S1, one to one due to unsteady gait. Sect 12b 2. obtain collateral information 3. continue current medications- seroquel- which may consider changing to TID, not QID. obtain ammonia levels pt on depakote. 4. Aftercare planning. 06/20 continue tx. switch seroquel to TID 06/21 continue tx. 06/24: hostile. continue current mgmt. 06/25 continue tx. 06/26 continue tx. 06/27 continue tx. 06/28 continue tx. Reason for continued inpatient stay Substantial Risk for: inability to function Time Spent With Patient Time: Total time managing care of this patient today ____ minutes.
[2022-06-29 08:05] LABS: Glucose, Whole Blood 107 mg/dL (60-115)
[2022-06-29] MEDS: Escitalopram Oxalate 5 MG TABLET 7.5 MG PO (08:37)
[2022-06-29] MEDS: Divalproex Sodium 250 MG TABLET.DR PO ×2 (08:37→20:54)
[2022-06-29] MEDS: QUEtiapine Fumarate 50 MG TABLET PO ×3 (08:37→20:55)
[2022-06-29] MEDS: Omeprazole 20 MG CAPSULE.DR PO (08:37)
[2022-06-29] MEDS: Docusate Sodium 100 MG CAPSULE PO ×2 (08:38→20:55)
[2022-06-29 16:52] LABS: Glucose, Whole Blood 243 mg/dL (60-115)
[2022-06-29] MEDS: Insulin Lispro 100 UNIT/ML 3 ML VIAL SUBCUT (16:58)
[2022-06-29 18:00] VITALS: BP 115/60; PULSE 80; RESP 16; TEMP 36.8; O2SAT 95
[2022-06-29] MEDS: traZODone HCL 25 MG HALFTAB 75 MG PO (20:53)
[2022-06-29] MEDS: metFORMIN HCl ER 500 MG TAB.ER.24H PO (20:54)
[2022-06-29] MEDS: Melatonin 3 MG TABLET 6 MG PO (20:54)
[2022-06-29] MEDS: Divalproex Sodium Sprinkles 125 MG CAP.DR.SPR PO (20:54)
[2022-06-29 21:07] LABS: Glucose, Whole Blood 114 mg/dL (60-115)
--- NOTE | 2022-06-29 21:52 | HO.PSYCHPN ---
Subjective Subjective Date of Service: 06/29/22 Reason For Visit: depression Subjective Notes: Conditional Voluntary Interim History: Pt much more visible and social with peers- irritable at times about his clothes and asking to leave to [place]. He continues to present as not oriented to place, asking to go to his , still thinking he lives in [place] (he has not lived here in more than decade). Pt asks for clothes, asking if wive is bringing them. No SI/HI. Per nursing, he slept through the night. At times irritable but not combative nor resistant to receive care. Review of Systems Review of Systems tried to jump of ghada Yes all other systems are reviewed and are negative and Unobtainable due to mental status Mental Status Exam Mental Status Exam Narrative: Appearance: wearing hospital gown, fair hygiene, in NAD Behavior: calmer, Speech: mumbles, regular rate/rhythm/volume, spontaneous TP: tangential TC: wanting to go home Mood: I want to go home Affect: congruent, tired. SI: denies HI:denies VH/AH: none Delusions: no overt delusional content noted or reported. Insight/judgment: impaired x 2. Memory/cog: alert not oriented to place, month, situation, year. Diagnostics Vital Signs (24Hr): Vital Signs - 24 hr 06/29/22 06:00 Temperature 96.9 F Pulse Rate 73 Respiratory Rate 18 Blood Pressure 111/56 L Pulse Oximetry 97 Oxygen Delivery Method Room Air BMI result Body Mass Index 27.2 Labs 06/19/22 14:39 06/19/22 07:56 Labs: Laboratory Results - last 48 hr 06/28/22 06/28/22 06/28/22 07:40 16:46 20:08 POC Glucose 127 H 167 H 101 06/29/22 06/29/22 06/29/22 07:55 16:45 20:57 POC Glucose 107 243 H 114 Medications Medications Current Medications Acetaminophen (Acetaminophen 325 Mg Tablet) 650 mg PO Q4H PRN PRN Reason: Fever Last Admin: 06/28/22 22:22 Dose: 650 mg Al Hydroxide/Mg Hydroxide (Magnesium Hydrox/Alum Hydrox 30 Ml Oral.Susp) 30 ml PO Q6H PRN PRN Reason: Heartburn/Nausea Divalproex Sodium (Divalproex Sodium 250 Mg Tablet.) 250 mg PO BID [facility] Last Admin: 06/29/22 20:54 Dose: 250 mg Divalproex Sodium (Divalproex Sodium Sprinkles 125 Mg Cap.) 125 mg PO BEDTIME [facility] Last Admin: 06/29/22 20:54 Dose: 125 mg Docusate Sodium (Docusate Sodium 100 Mg Capsule) 100 mg PO BID [facility] Last Admin: 06/29/22 20:55 Dose: 100 mg Escitalopram Oxalate (Escitalopram Oxalate 5 Mg Tablet) 7.5 mg PO DAILY [facility] Last Admin: 06/29/22 08:37 Dose: 7.5 mg Insulin Human Lispro (Insulin Lispro 100 Unit/Ml 3 Ml Vial) 0 unit SUBCUT QIDWMHS [facility]; Protocol Last Admin: 06/29/22 16:58 Dose: 4 unit Melatonin (Melatonin 3 Mg Tablet) 6 mg PO BEDTIME [facility] Last Admin: 06/29/22 20:54 Dose: 6 mg Metformin HCl (Metformin Hcl Er 500 Mg Tab.Er.24h) 500 mg PO BEDTIME [facility] Last Admin: 06/29/22 20:54 Dose: 500 mg Non-Formulary Medication (Methanamine) 1 g PO BID [facility] Omeprazole (Omeprazole 20 Mg Capsule.) 20 mg PO DAILY@0630 [facility] Last Admin: 06/29/22 08:37 Dose: 20 mg Pharmacy Consult (Consult Rx Perform Med Rec) 1 each MISCELLANE ONCE PRN PRN Reason: Consult order Polyethylene Glycol (Polyethylene Glycol 3350 17 Gm Powd.Pack) 17 gm PO DAILY PRN PRN Reason: Constipation Quetiapine Fumarate (Quetiapine Fumarate 50 Mg Tablet) 50 mg PO QID [facility] Last Admin: 06/29/22 20:55 Dose: 50 mg Trazodone HCl (Trazodone Hcl 25 Mg Halftab) 75 mg PO BEDTIME [facility] Last Admin: 06/29/22 20:53 Dose: 75 mg Allergies Allergies Allergy/AdvReac Type Severity Reaction Status Date / Time aspirin [ASA] Allergy Facial Verified 08/13/21 16:57 Swelling Penicillins Allergy Redness of Verified 08/13/21 16:57 Skin Sulfa (Sulfonamide AdvReac Rash Verified 08/13/21 16:57 Antibiotics) Assessment & Plan Assessment & Plan (1) Major neurocognitive disorder: Status: Acute Code(s): F03.90 - Unspecified dementia, unspecified severity, without behavioral disturbance, psychotic disturbance, mood disturbance, and anxiety Plan Mr. Bertrand is a 76 year-old male with hx of dementia brought via EMS from [facility] due to pt trying to jump off window as suicide attempt. It appears pt has been more combative or agitated, although at baseline pt supposely is irritable but has not tried to harm himself or others. Utox is negative. 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 On the unit, pt does not recall event leading to this admission, he is not oriented to place or month. He reports he lives in [place] and wants to return there. He did presented as combative initially requiring prn olanzapine and ativan. Will check ammonia with depakote. Obtain collateral information. Pt does not have capacity to make medical decisions, therefore, CV was rejected and he is currently on 12b.Will reach out to HCP PLAN 1. Admit to S1, one to one due to unsteady gait. Sect 12b 2. obtain collateral information 3. continue current medications- seroquel- which may consider changing to TID, not QID. obtain ammonia levels pt on depakote. 4. Aftercare planning. 06/20 continue tx. switch seroquel to TID 06/21 continue tx. 06/24: hostile. continue current mgmt. 06/25 continue tx. 06/26 continue tx. 06/27 continue tx. 06/28 continue tx. 06/29 continue tx. Reason for continued inpatient stay Substantial Risk for: inability to function Time Spent With Patient Time: Total time managing care of this patient today ____ minutes.
[2022-06-30 06:00] VITALS: BP 126/58; PULSE 77; RESP 17; TEMP 35.9; O2SAT 99
[2022-06-30] MEDS: Omeprazole 20 MG CAPSULE.DR PO (06:19)
[2022-06-30 07:54] LABS: Glucose, Whole Blood 133 mg/dL (60-115)
[2022-06-30] MEDS: Escitalopram Oxalate 5 MG TABLET 7.5 MG PO (08:47)
[2022-06-30] MEDS: Divalproex Sodium 250 MG TABLET.DR PO ×2 (08:48→21:01)
[2022-06-30] MEDS: Docusate Sodium 100 MG CAPSULE PO ×2 (08:48→21:01)
[2022-06-30] MEDS: QUEtiapine Fumarate 50 MG TABLET PO ×4 (08:48→21:01)
[2022-06-30 11:34] LABS: Glucose, Whole Blood 138 mg/dL (60-115)
[2022-06-30] MEDS: Loperamide HCl 2 MG CAPSULE 4 MG PO (13:41)
[2022-06-30 18:01] LABS: Creatinine Clr Calc Pharmacy 61.9; Estimated Glomerular Filt Rate > 60
--- NOTE | 2022-06-30 18:17 | P.PNPSI_ITS ---
Subjective Subjective Date of Service: 06/30/22 Reason For Visit: depression Medical Problems Affecting Mental Status: No Interim History: Overall has been irritable but redirectable. Has clear disorganization and cognitive impairment. Talking about food frustration and being brought up on fluffernutters and hating vegetables. Talking about his home he built in the and wanting to return there. Difficulty with name of pace he was at currently and timeline. Agitated at wrist band (falls) - same removed as risk of aggression to others/property higher with same on. Medication Compliance: Intermittent Side effects from medications: No Attending Groups: No Review of Systems Acute medical concerns: No Review of Systems Review of Systems Yes Unobtainable due to mental status Mental Status Exam Mental Status Exam Narrative: Appearance: wearing hospital gown, fair hygiene, in NAD Behavior: calmer, Speech: mumbles, regular rate/rhythm/volume, spontaneous TP: tangential TC: wanting to go home Mood: I want to go home Affect: congruent, tired. SI: denies HI:denies VH/AH: none Delusions: no overt delusional content noted or reported. Insight/judgment: impaired x 2. Memory/cog: alert not oriented to place, month, situation, year. Diagnostics Vital Signs (24Hr): Vital Signs - 24 hr 06/30/22 06:00 Temperature 96.7 F L Pulse Rate 77 Respiratory Rate 17 Blood Pressure 126/58 L Pulse Oximetry 99 Oxygen Delivery Method Room Air BMI result Body Mass Index 27.2 Labs 06/19/22 14:39 06/30/22 17:25 Labs: Laboratory Results - last 48 hr 06/28/22 06/29/22 06/29/22 20:08 07:55 16:45 Creatinine Estim Creat Clear Calc Estimated GFR POC Glucose 101 107 243 H 06/29/22 06/30/22 06/30/22 20:57 07:46 11:29 Creatinine Estim Creat Clear Calc Estimated GFR POC Glucose 114 133 H 138 H 06/30/22 17:25 Creatinine 1.13 Estim Creat Clear Calc 61.9 Estimated GFR > 60 POC Glucose Medications Medications Current Medications Acetaminophen (Acetaminophen 325 Mg Tablet) 650 mg PO Q4H PRN PRN Reason: Fever Last Admin: 06/28/22 22:22 Dose: 650 mg Al Hydroxide/Mg Hydroxide (Magnesium Hydrox/Alum Hydrox 30 Ml Oral.Susp) 30 ml PO Q6H PRN PRN Reason: Heartburn/Nausea Divalproex Sodium (Divalproex Sodium 250 Mg Tablet.) 250 mg PO BID [facility] Last Admin: 06/30/22 08:48 Dose: 250 mg Divalproex Sodium (Divalproex Sodium Sprinkles 125 Mg Cap.) 125 mg PO BEDTIME [facility] Last Admin: 06/29/22 20:54 Dose: 125 mg Docusate Sodium (Docusate Sodium 100 Mg Capsule) 100 mg PO BID [facility] Last Admin: 06/30/22 08:48 Dose: 100 mg Escitalopram Oxalate (Escitalopram Oxalate 5 Mg Tablet) 7.5 mg PO DAILY [facility] Last Admin: 06/30/22 08:47 Dose: 7.5 mg Insulin Human Lispro (Insulin Lispro 100 Unit/Ml 3 Ml Vial) 0 unit SUBCUT QIDWS [facility]; Protocol Last Admin: 06/30/22 17:10 Dose: Not Given Loperamide HCl (Loperamide Hcl 2 Mg Capsule) 4 mg PO Q4H PRN PRN Reason: Diarrhea Last Admin: 06/30/22 13:41 Dose: 4 mg Melatonin (Melatonin 3 Mg Tablet) 6 mg PO BEDTIME [facility] Last Admin: 06/29/22 20:54 Dose: 6 mg Metformin HCl (Metformin Hcl Er 500 Mg Tab.Er.24h) 500 mg PO BEDTIME [facility] Last Admin: 06/29/22 20:54 Dose: 500 mg Non-Formulary Medication (Methanamine) 1 g PO BID [facility] Omeprazole (Omeprazole 20 Mg Capsule.) 20 mg PO DAILY@0630 [facility] Last Admin: 06/30/22 06:19 Dose: 20 mg Pharmacy Consult (Consult Rx Perform Med Rec) 1 each MISCELLANE ONCE PRN PRN Reason: Consult order Polyethylene Glycol (Polyethylene Glycol 3350 17 Gm Powd.Pack) 17 gm PO DAILY PRN PRN Reason: Constipation Quetiapine Fumarate (Quetiapine Fumarate 50 Mg Tablet) 50 mg PO QID [facility] Last Admin: 06/30/22 17:21 Dose: 50 mg Trazodone HCl (Trazodone Hcl 25 Mg Halftab) 75 mg PO BEDTIME [facility] Last Admin: 06/29/22 20:53 Dose: 75 mg Allergies Allergies Allergy/AdvReac Type Severity Reaction Status Date / Time aspirin [ASA] Allergy Facial Verified 08/13/21 16:57 Swelling Penicillins Allergy Redness of Verified 08/13/21 16:57 Skin Sulfa (Sulfonamide AdvReac Rash Verified 08/13/21 16:57 Antibiotics) Assessment & Plan Assessment & Plan (1) Major neurocognitive disorder: Status: Acute Code(s): F03.90 - Unspecified dementia, unspecified severity, without behavioral dis turbance, psychotic disturbance, mood disturbance, and anxiety Plan Mr. Bertrand is a 76 year-old male with hx of dementia brought via EMS from [facility] due to pt trying to jump off window as suicide attempt. It appears pt has been more combative or agitated, although at baseline pt supposely is irritable but has not tried to harm himself or others. Utox is negative. 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 On the unit, pt does not recall event leading to thi s admission, he is not oriented to place or month. He reports he lives in [place] and wants to return there. He did presented as combative initially requiring prn olanzapine and ativan. Will check ammonia with depakote. Obtain collateral information. Pt does not have capacity to make medical decisions, therefore, CV was rejected and he is currently on 12b.Will reach out to HCP PLAN 1. Admit to S1, one to one due to unsteady gait. Sect 12b 2. obtain collateral information 3. continue current medications- seroquel- which may consider changing to TID, not QID. obtain ammonia levels pt on depakote. 4. Aftercare planning. 06/20 continue tx. switch seroquel to TID 06/21 continue tx. 06/24: hostile. continue current mgmt. 06/25 continue tx. 5/2 continue tx. 5/3 continue tx. / continue tx. 5/6 continue tx. Reason for continued inpatient stay Substantial Risk for: inability to function Time Spent With Patient Time: Total time managing care of this patient today ____ minutes.
[2022-06-30] MEDS: Melatonin 3 MG TABLET 6 MG PO (21:00)
[2022-06-30] MEDS: traZODone HCL 25 MG HALFTAB 75 MG PO (21:01)
[2022-06-30] MEDS: Divalproex Sodium Sprinkles 125 MG CAP.DR.SPR PO (21:01)
[2022-06-30] MEDS: metFORMIN HCl ER 500 MG TAB.ER.24H PO (21:01)
[2022-07-01 06:00] VITALS: BP 136/68; PULSE 69; RESP 16; TEMP 36.2; O2SAT 98
[2022-07-01] MEDS: Omeprazole 20 MG CAPSULE.DR PO (06:00)
[2022-07-01 06:31] LABS: Glucose, Whole Blood 123 mg/dL (60-115)
[2022-07-01] MEDS: Escitalopram Oxalate 5 MG TABLET 7.5 MG PO (08:35)
[2022-07-01] MEDS: QUEtiapine Fumarate 50 MG TABLET PO ×4 (08:37→20:52)
[2022-07-01] MEDS: Docusate Sodium 100 MG CAPSULE PO ×2 (08:37→20:52)
[2022-07-01] MEDS: Divalproex Sodium 250 MG TABLET.DR PO ×2 (08:38→20:52)
[2022-07-01 11:26] LABS: Glucose, Whole Blood 127 mg/dL (60-115)
--- NOTE | 2022-07-01 12:19 | HO.PSYCHPN ---
Subjective Subjective Date of Service: 07/01/22 Reason For Visit: depression Medical Problems Affecting Mental Status: No Interim History: Much less irritable today. Happy with peanut butter and jelly sandwiches (favorite is fluffernutter at home). Otherwise tangential. No overt psychosis. Is med adherent. Sleep ok Medication Compliance: Yes Side effects from medications: No Attending Groups: No Review of Systems Acute medical concerns: No Review of Systems Review of Systems Yes Unobtainable due to mental status Mental Status Exam Mental Status Exam Narrative: Appearance: wearing hospital gown, fair hygiene, in NAD Behavior: calmer, Speech: mumbles, regular rate/rhythm/volume, spontaneous TP: tangential TC: wanting to go home Mood:frustrated Affect: congruent, tired. SI: denies HI:denies VH/AH: none Delusions: no overt delusional content noted or reported. Insight/judgment: impaired x 2. Memory/cog: alert not oriented to place, month, situation, year. Diagnostics Vital Signs (24Hr): Vital Signs - 24 hr 07/01/22 06:00 Temperature 97.1 F Pulse Rate 69 Respiratory Rate 16 Blood Pressure 136/68 Pulse Oximetry 98 Oxygen Delivery Method Room Air BMI result Body Mass Index 27.2 Labs 06/19/22 14:39 06/30/22 17:25 Labs: Laboratory Results - last 48 hr 06/29/22 06/29/22 06/30/22 16:45 20:57 07:46 Creatinine Estim Creat Clear Calc Estimated GFR POC Glucose 243 H 114 133 H 06/30/22 06/30/22 07/01/22 11:29 17:25 06:23 Creatinine 1.13 Estim Creat Clear Calc 61.9 Estimated GFR > 60 POC Glucose 138 H 123 H 07/01/22 11:23 Creatinine Estim Creat Clear Calc Estimated GFR POC Glucose 127 H Medications Medications Current Medications Acetaminophen (Acetaminophen 325 Mg Tablet) 650 mg PO Q4H PRN PRN Reason: Fever Last Admin: 06/28/22 22:22 Dose: 650 mg Al Hydroxide/Mg Hydroxide (Magnesium Hydrox/Alum Hydrox 30 Ml Oral.Susp) 30 ml PO Q6H PRN PRN Reason: Heartburn/Nausea Divalproex Sodium (Divalproex Sodium 250 Mg Tablet.) 250 mg PO BID [facility] Last Admin: 07/01/22 08:38 Dose: 250 mg Divalproex Sodium (Divalproex Sodium Sprinkles 125 Mg Otto.) 125 mg PO BEDTIME [facility] Last Admin: 06/30/22 21:01 Dose: 125 mg Docusate Sodium (Docusate Sodium 100 Mg Capsule) 100 mg PO BID [facility] Last Admin: 07/01/22 08:37 Dose: 100 mg Escitalopram Oxalate (Escitalopram Oxalate 5 Mg Tablet) 7.5 mg PO DAILY [facility] Last Admin: 07/01/22 08:35 Dose: 7.5 mg Insulin Human Lispro (Insulin Lispro 100 Unit/Ml 3 Ml Vial) 0 unit SUBCUT QIDWMHS [facility]; Protocol Last Admin: 07/01/22 11:25 Dose: Not Given Loperamide HCl (Loperamide Hcl 2 Mg Capsule) 4 mg PO Q4H PRN PRN Reason: Diarrhea Last Admin: 06/30/22 13:41 Dose: 4 mg Melatonin (Melatonin 3 Mg Tablet) 6 mg PO BEDTIME [facility] Last Admin: 06/30/22 21:00 Dose: 6 mg Metformin HCl (Metformin Hcl Er 500 Mg Tab.Er.24h) 500 mg PO BEDTIME [facility] Last Admin: 06/30/22 21:01 Dose: 500 mg Non-Formulary Medication (Methanamine) 1 g PO BID [facility] Omeprazole (Omeprazole 20 Mg Capsule.) 20 mg PO DAILY@0630 [facility] Last Admin: 07/01/22 06:00 Dose: 20 mg Pharmacy Consult (Consult Rx Perform Med Rec) 1 each MISCELLANE ONCE PRN PRN Reason: Consult order Polyethylene Glycol (Polyethylene Glycol 3350 17 Gm Powd.Pack) 17 gm PO DAILY PRN PRN Reason: Constipation Quetiapine Fumarate (Quetiapine Fumarate 50 Mg Tablet) 50 mg PO QID [facility] Last Admin: 07/01/22 08:37 Dose: 50 mg Trazodone HCl (Trazodone Hcl 25 Mg Halftab) 75 mg PO BEDTIME [facility] Last Admin: 06/30/22 21:01 Dose: 75 mg Allergies Allergies Allergy/AdvReac Type Severity Reaction Status Date / Time aspirin [ASA] Allergy Facial Verified 08/13/21 16:57 Swelling Penicillins Allergy Redness of Verified 08/13/21 16:57 Skin Sulfa (Sulfonamide AdvReac Rash Verified 08/13/21 16:57 Antibiotics) Assessment & Plan Assessment & Plan (1) Major neurocognitive disorder: Status: Acute Code(s): F03.90 - Unspecified dementia, unspecified severity, without behavioral disturbance, psychotic disturbance, mood disturbance, and anxiety Plan Mr. Bertrand is a 76 year-old male with hx of dementia brought via EMS from [facility] due to pt trying to jump off window as suicide attempt. It appears pt has been more combative or agitated, although at baseline pt supposely is irritable but has not tried to harm himself or others. Utox is negative. 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 On the unit, pt does not recall event leading to this admission, he is not oriented to place or month. He reports he lives in [place] and wants to return there. He did presented as combative initially requiring prn olanzapine and ativan. Will check ammonia with depakote. Obtain collateral information. Pt does not have capacity to make medical decisions, therefore, CV was rejected and he is currently on 12b.Will reach out to HCP PLAN 1. Admit to S1, one to one due to unsteady gait. Sect 12b 2. obtain collateral information 3. continue current medications- seroquel- which may consider changing to TID, not QID. obtain ammonia levels pt on depakote. 4. Aftercare planning. 06/20 continue tx. switch seroquel to TID 06/21 continue tx. 06/24: hostile. continue current mgmt. 06/25 continue tx. / continue tx. 06/27 continue tx. 06/28 continue tx. 07/01 continue tx. Reason for continued inpatient stay Substantial Risk for: inability to function and rapid decompensation Time Spent With Patient Time: Total time managing care of this patient today ____ minutes.
[2022-07-01] MEDS: Insulin Lispro 100 UNIT/ML 3 ML VIAL SUBCUT ×2 (16:18→20:51)
[2022-07-01 16:22] LABS: Glucose, Whole Blood 187 mg/dL (60-115)
[2022-07-01 18:00] VITALS: BP 120/58; PULSE 72; RESP 18; TEMP 36; O2SAT 97
[2022-07-01] MEDS: Acetaminophen 325 MG TABLET 650 MG PO (18:09)
[2022-07-01 20:17] LABS: Glucose, Whole Blood 185 mg/dL (60-115)
[2022-07-01] MEDS: Melatonin 3 MG TABLET 6 MG PO (20:51)
[2022-07-01] MEDS: traZODone HCL 25 MG HALFTAB 75 MG PO (20:52)
[2022-07-01] MEDS: metFORMIN HCl ER 500 MG TAB.ER.24H PO (20:52)
[2022-07-01] MEDS: Divalproex Sodium Sprinkles 125 MG CAP.DR.SPR PO (20:52)
[2022-07-02] MEDS: Omeprazole 20 MG CAPSULE.DR PO (05:43)
[2022-07-02 06:00] VITALS: BP 124/59; PULSE 73; RESP 18; TEMP 36; O2SAT 98
[2022-07-02] MEDS: Divalproex Sodium 250 MG TABLET.DR PO ×2 (08:22→20:05)
[2022-07-02] MEDS: Escitalopram Oxalate 5 MG TABLET 7.5 MG PO (08:22)
[2022-07-02] MEDS: Docusate Sodium 100 MG CAPSULE PO ×2 (08:22→20:05)
[2022-07-02] MEDS: QUEtiapine Fumarate 50 MG TABLET PO ×4 (08:22→20:06)
[2022-07-02 18:00] VITALS: BP 128/58; PULSE 99; RESP 18; TEMP 36.4; O2SAT 96
[2022-07-02] MEDS: traZODone HCL 25 MG HALFTAB 75 MG PO (20:05)
[2022-07-02] MEDS: metFORMIN HCl ER 500 MG TAB.ER.24H PO (20:06)
[2022-07-02] MEDS: Divalproex Sodium Sprinkles 125 MG CAP.DR.SPR PO (20:06)
[2022-07-02] MEDS: Melatonin 3 MG TABLET 6 MG PO (20:06)
[2022-07-02 20:15] LABS: Glucose, Whole Blood 136 mg/dL (60-115)
--- NOTE | 2022-07-02 21:24 | HO.PSYCHPN ---
Subjective Subjective Date of Service: 07/02/22 Reason For Visit: depression Subjective Notes: Conditional Voluntary Interim History: Per nursing, pt slept through the night. Pt at times irritable, complaining about texture of food. Will have speech therapist do swallowing eval. He asks this typewriter mechanic to send him to [place], place he has not lived for more than decade. Pt ambulating independently with walker. No need for IM for combative behaviors. Review of Systems Review of Systems tried to jump of ghada Yes all other systems are reviewed and are negative and Unobtainable due to mental status Mental Status Exam Mental Status Exam Narrative: Appearance: wearing hospital gown, fair hygiene, in NAD Behavior: calmer, Speech: mumbles, regular rate/rhythm/volume, spontaneous TP: tangential TC: wanting to go home Mood:frustrated Affect: congruent, tired. SI: denies HI:denies VH/AH: none Delusions: no overt delusional content noted or reported. Insight/judgment: impaired x 2. Memory/cog: alert not oriented to place, month, situation, year. Diagnostics Vital Signs (24Hr): Vital Signs - 24 hr 07/02/22 06:00 07/02/22 18:00 Temperature 96.8 F 97.6 F Pulse Rate 73 99 Respiratory Rate 18 18 Blood Pressure 124/59 L 128/58 L Pulse Oximetry 98 96 Oxygen Delivery Method Room Air Room Air BMI result Body Mass Index 27.2 Labs 06/19/22 14:39 06/30/22 17:25 Labs: Laboratory Results - last 48 hr 07/01/22 07/01/22 07/01/22 06:23 11:23 15:58 POC Glucose 123 H 127 H 187 H 07/01/22 07/02/22 19:57 20:04 POC Glucose 185 H 136 H Medications Medications Current Medications Acetaminophen (Acetaminophen 325 Mg Tablet) 650 mg PO Q4H PRN PRN Reason: Fever Last Admin: 07/01/22 18:09 Dose: 650 mg Al Hydroxide/Mg Hydroxide (Magnesium Hydrox/Alum Hydrox 30 Ml Oral.Susp) 30 ml PO Q6H PRN PRN Reason: Heartburn/Nausea Divalproex Sodium (Divalproex Sodium 250 Mg Tablet.) 250 mg PO BID [facility] Last Admin: 07/02/22 20:05 Dose: 250 mg Divalproex Sodium (Divalproex Sodium Sprinkles 125 Mg Otto.) 125 mg PO BEDTIME [facility] Last Admin: 07/02/22 20:06 Dose: 125 mg Docusate Sodium (Docusate Sodium 100 Mg Capsule) 100 mg PO BID [facility] Last Admin: 07/02/22 20:05 Dose: 100 mg Escitalopram Oxalate (Escitalopram Oxalate 5 Mg Tablet) 7.5 mg PO DAILY [facility] Last Admin: 07/02/22 08:22 Dose: 7.5 mg Insulin Human Lispro (Insulin Lispro 100 Unit/Ml 3 Ml Vial) 0 unit SUBCUT QIDWS [facility]; Protocol Last Admin: 07/02/22 16:58 Dose: Not Given Loperamide HCl (Loperamide Hcl 2 Mg Capsule) 4 mg PO Q4H PRN PRN Reason: Diarrhea Last Admin: 06/30/22 13:41 Dose: 4 mg Melatonin (Melatonin 3 Mg Tablet) 6 mg PO BEDTIME [facility] Last Admin: 07/02/22 20:06 Dose: 6 mg Metformin HCl (Metformin Hcl Er 500 Mg Tab.Er.24h) 500 mg PO BEDTIME [facility] Last Admin: 07/02/22 20:06 Dose: 500 mg Non-Formulary Medication (Methanamine) 1 g PO BID [facility] Omeprazole (Omeprazole 20 Mg Capsule.) 20 mg PO DAILY@0630 [facility] Last Admin: 07/02/22 05:43 Dose: 20 mg Pharmacy Consult (Consult Rx Perform Med Rec) 1 each MISCELLANE ONCE PRN PRN Reason: Consult order Polyethylene Glycol (Polyethylene Glycol 3350 17 Gm Powd.Pack) 17 gm PO DAILY PRN PRN Reason: Constipation Quetiapine Fumarate (Quetiapine Fumarate 50 Mg Tablet) 50 mg PO QID [facility] Last Admin: 07/02/22 20:06 Dose: 50 mg Trazodone HCl (Trazodone Hcl 25 Mg Halftab) 75 mg PO BEDTIME [facility] Last Admin: 07/02/22 20:05 Dose: 75 mg Allergies Allergies Allergy/AdvReac Type Severity Reaction Status Date / Time aspirin [ASA] Allergy Facial Verified 08/13/21 16:57 Swelling Penicillins Allergy Redness of Verified 08/13/21 16:57 Skin Sulfa (Sulfonamide AdvReac Rash Verified 08/13/21 16:57 Antibiotics) Assessment & Plan Assessment & Plan (1) Major neurocognitive disorder: Status: Acute Code(s): F03.90 - Unspecified dementia, unspecified severity, without behavioral disturbance, psychotic disturbance, mood disturbance, and anxiety Plan Mr. Bertrand is a 76 year-old male with hx of dementia brought via EMS from [facility] due to pt trying to jump off window as suicide attempt. It appears pt has been more combative or agitated, although at baseline pt supposely is irritable but has not tried to harm himself or others. Utox is negative. 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 On the unit, pt does not recall event leading to this admission, he is not oriented to place or month. He reports he lives in [place] and wants to return there. He did presented as combative initially requiring prn olanzapine and ativan. Will check ammonia with depakote. Obtain collateral information. Pt does not have capacity to make medical decisions, therefore, CV was rejected and he is currently on 12b.Will reach out to HCP PLAN 1. Admit to S1, one to one due to unsteady gait. Sect 12b 2. obtain collateral information 3. continue current medications- seroquel- which may consider changing to TID, not QID. obtain ammonia levels pt on depakote. 4. Aftercare planning. 06/20 continue tx. switch seroquel to TID 06/21 continue tx. 06/24: hostile. continue current mgmt. 06/25 continue tx. /2 continue tx. / continue tx. 06/28 continue tx. 07/01 continue tx. 07/02 increase seroquel from 50mg po QID to 100mg po TID, will check depakote level tomorrow morning, adjust dose as needed. Reason for continued inpatient stay Substantial Risk for: inability to function Time Spent With Patient Time: Total time managing care of this patient today ____ minutes.
[2022-07-03] MEDS: Omeprazole 20 MG CAPSULE.DR PO (05:53)
[2022-07-03 07:48] LABS: Glucose, Whole Blood 121 mg/dL (60-115)
[2022-07-03 08:07] VITALS: BP 135/71; PULSE 61; RESP 16; TEMP 36.3; O2SAT 96
[2022-07-03] MEDS: Divalproex Sodium 500 MG TABLET.DR PO ×2 (08:18→20:14)
[2022-07-03] MEDS: QUEtiapine Fumarate 100 MG TABLET PO ×3 (08:19→20:15)
[2022-07-03] MEDS: Docusate Sodium 100 MG CAPSULE PO ×2 (08:19→20:14)
[2022-07-03] MEDS: Escitalopram Oxalate 10 MG TABLET PO (08:19)
[2022-07-03 11:17] LABS: Valproate 24.1 mcg/mL (50.0-100.0)
[2022-07-03 11:24] LABS: Glucose, Whole Blood 131 mg/dL (60-115)
[2022-07-03 11:54] LABS: Alanine Aminotransferase 12 U/L (0-40); Albumin Level 3.5 g/dL (3.5-5.0); Alkaline Phosphatase 60 U/L (39-117); Anion Gap 13 (12-20); Aspartate Amino Transferase 13 U/L (5-37); Bilirubin Total 0.6 mg/dL (0.0-1.0); Blood Urea Nitrogen 26 mg/dL (9-16); Calcium 8.6 mg/dL (8.4-10.2); Carbon Dioxide 28 mmol/L (22-29); Chloride 104 mmol/L (96-108); Creatinine Clr Calc Pharmacy 63.6; Estimated Glomerular Filt Rate > 60; Glucose Random 128 mg/dL (60-115); Sodium 141 mmol/L (135-145); Total Protein 5.9 g/dL (6.5-8.0)
--- NOTE | 2022-07-03 13:13 | P.PNPSI_ITS ---
Subjective Subjective Date of Service: 07/03/22 Reason For Visit: depression Subjective Notes: Conditional Voluntary Interim History: Per nursing, pt slept through the night. Pt at times irritable, complaining about texture of food- he has not dentures. He asks this poem writer to send him to [place], place he has not lived for more than decade. Pt ambulating independently with walker. No need for IM for combative behaviors. Depakote level this AM, was low, depakote increase to 500mg po BID. Review of Systems Review of Systems tried to jump of gh[place] Yes all other systems are reviewed and are negative and Unobtainable due to mental status Mental Status Exam Mental Status Exam Narrative: Appearance: wearing hospital gown, fair hygiene, in NAD Behavior: calmer, Speech: mumbles, regular rate/rhythm/volume, spontaneous TP: tangential TC: wanting to go home Mood:frustrated Affect: congruent, tired. SI: denies HI:denies VH/AH: none Delusions: no overt delusional content noted or reported. Insight/judgment: impaired x 2. Memory/cog: alert not oriented to place, month, situation, year. Diagnostics Vital Signs (24Hr): Vital Signs - 24 hr 07/02/22 18:00 07/03/22 08:07 Temperature 97.6 F 97.4 F Pulse Rate 99 61 Respiratory Rate 18 16 Blood Pressure 128/58 L 135/71 Pulse Oximetry 96 96 Oxygen Delivery Method Room Air Room Air BMI result Body Mass Index 27.2 Labs 06/19/22 14:39 07/03/22 07:53 Labs: Laboratory Results - last 48 hr 07/01/22 07/01/22 07/02/22 15:58 19:57 20:04 Sodium Potassium Chloride Carbon Dioxide Anion Gap BUN Creatinine Estim Creat Clear Calc Estimated GFR POC Glucose 187 H 185 H 136 H Random Glucose Calcium Total Bilirubin AST ALT Alkaline Phosphatase Total Protein Albumin Valproic Acid 07/03/22 07/03/22 07/03/22 07:43 07:53 07:53 Sodium 141 Potassium 4.0 Chloride 104 Carbon Dioxide 28 Anion Gap 13 BUN 26 H Creatinine 1.10 Estim Creat Clear Calc 63.6 Estimated GFR > 60 POC Glucose 121 H Random Glucose 128 H Calcium 8.6 Total Bilirubin 0.6 AST 13 ALT 12 Alkaline Phosphatase 60 Total Protein 5.9 L Albumin 3.5 Valproic Acid 24.1 L 07/03/22 11:20 Sodium Potassium Chloride Carbon Dioxide Anion Gap BUN Creatinine Estim Creat Clear Calc Estimated GFR POC Glucose 131 H Random Glucose Calcium Total Bilirubin AST ALT Alkaline Phosphatase Total Protein Albumin Valproic Acid Medications Medications Current Medications Acetaminophen (Acetaminophen 325 Mg Tablet) 650 mg PO Q4H PRN PRN Reason: Fever Last Admin: 07/01/22 18:09 Dose: 650 mg Al Hydroxide/Mg Hydroxide (Magnesium Hydrox/Alum Hydrox 30 Ml Oral.Susp) 30 ml PO Q6H PRN PRN Reason: Heartburn/Nausea Divalproex Sodium (Divalproex Sodium 500 Mg Tablet.) 500 mg PO BID [facility] Last Admin: 07/03/22 08:18 Dose: 500 mg Docusate Sodium (Docusate Sodium 100 Mg Capsule) 100 mg PO BID [facility] Last Admin: 07/03/22 08:19 Dose: 100 mg Escitalopram Oxalate (Escitalopram Oxalate 10 Mg Tablet) 10 mg PO DAILY [facility] Last Admin: 07/03/22 08:19 Dose: 10 mg Insulin Human Lispro (Insulin Lispro 100 Unit/Ml 3 Ml Vial) 0 unit SUBCUT QIDWMHS [facility]; Protocol Last Admin: 07/03/22 11:35 Dose: Not Given Loperamide HCl (Loperamide Hcl 2 Mg Capsule) 4 mg PO Q4H PRN PRN Reason: Diarrhea Last Admin: 06/30/22 13:41 Dose: 4 mg Melatonin (Melatonin 3 Mg Tablet) 6 mg PO BEDTIME [facility] Last Admin: 07/02/22 20:06 Dose: 6 mg Metformin HCl (Metformin Hcl Er 500 Mg Tab.Er.24h) 500 mg PO BEDTIME [facility] Last Admin: 07/02/22 20:06 Dose: 500 mg Non-Formulary Medication (Methanamine) 1 g PO BID [facility] Omeprazole (Omeprazole 20 Mg Capsule.) 20 mg PO DAILY@0630 [facility] Last Admin: 07/03/22 05:53 Dose: 20 mg Pharmacy Consult (Consult Rx Perform Med Rec) 1 each MISCELLANE ONCE PRN PRN Reason: Consult order Polyethylene Glycol (Polyethylene Glycol 3350 17 Gm Powd.Pack) 17 gm PO DAILY PRN PRN Reason: Constipation Quetiapine Fumarate (Quetiapine Fumarate 100 Mg Tablet) 100 mg PO TID [facility] Last Admin: 07/03/22 08:19 Dose: 100 mg Trazodone HCl (Trazodone Hcl 100 Mg Tablet) 100 mg PO BEDTIME [facility] Allergies Allergies Allergy/AdvReac Type Severity Reaction Status Date / Time aspirin [ASA] Allergy Facial Verified 08/13/21 16:57 Swelling Penicillins Allergy Redness of Verified 08/13/21 16:57 Skin Sulfa (Sulfonamide AdvReac Rash Verified 08/13/21 16:57 Antibiotics) Assessment & Plan Assessment & Plan (1) Major neurocognitive disorder: Status: Acute Code(s): F03.90 - Unspecified dementia, unspecified severity, without behavioral disturbance, psychotic disturbance, mood disturbance, and anxiety Plan Mr. Bertrand is a 76 year-old male with hx of dementia brought via EMS from [facility] due to pt trying to jump off window as suicide attempt. It appears pt has been more combative or agitated, although at baseline pt supposely is irritable but has not tried to harm himself or others. Utox is negative. 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 On the unit, pt does not recall event leading to this admission, he is not oriented to place or month. He reports he lives in [place] and wants to return there. He did presented as combative initially requiring prn olanzapine and ativan. Will check ammonia with depakote. Obtain collateral information. Pt does not have capacity to make medical decisions, therefore, CV was rejected and he is currently on 12b.Will reach out to HCP PLAN 1. Admit to S1, one to one due to unsteady gait. Sect 12b 2. obtain collateral information 3. continue current medications- seroquel- which may consider changing to TID, not QID. obtain ammonia levels pt on depakote. 4. Aftercare planning. 06/20 continue tx. switch seroquel to TID 06/21 continue tx. 06/24: hostile. continue current mgmt. 06/25 continue tx. 06/26 continue tx. 06/27 continue tx. 06/28 continue tx. 07/01 continue tx. 07/02 increase seroquel from 50mg po QID to 100mg po TID, will check depakote level tomorrow morning, adjust dose as needed. 07/03 continue tx. depakote 500mg po BID Reason for continued inpatient stay Substantial Risk for: inability to function Time Spent With Patient Time: Total time managing care of this patient today ____ minutes.
--- NOTE | 2022-07-03 14:46 | MHC.SLORD ---
Speech Language Pathology Order Status: HAND BUFFER attempted swallow evaluation, however Pt vehemently declined and requested that I leave his room. He states he want's to do his own shopping and go to [facility].
[2022-07-03 18:00] VITALS: BP 130/62; PULSE 79; RESP 18; TEMP 36; O2SAT 98
[2022-07-03 20:04] LABS: Glucose, Whole Blood 236 mg/dL (60-115)
[2022-07-03] MEDS: Insulin Lispro 100 UNIT/ML 3 ML VIAL SUBCUT (20:14)
[2022-07-03] MEDS: metFORMIN HCl ER 500 MG TAB.ER.24H PO (20:15)
[2022-07-03] MEDS: traZODone HCL 100 MG TABLET PO (20:15)
[2022-07-03] MEDS: Melatonin 3 MG TABLET 6 MG PO (20:15)
[2022-07-04] MEDS: Omeprazole 20 MG CAPSULE.DR PO (06:09)
[2022-07-04 07:30] VITALS: BP 123/60; PULSE 72; RESP 16; TEMP 36.3; O2SAT 98
[2022-07-04 07:46] LABS: Glucose, Whole Blood 211 mg/dL (60-115)
[2022-07-04] MEDS: Insulin Lispro 100 UNIT/ML 3 ML VIAL SUBCUT ×2 (07:48→16:43)
[2022-07-04] MEDS: Docusate Sodium 100 MG CAPSULE PO ×2 (07:49→20:26)
[2022-07-04] MEDS: Divalproex Sodium 500 MG TABLET.DR PO ×2 (07:49→20:26)
[2022-07-04] MEDS: Escitalopram Oxalate 10 MG TABLET PO (07:49)
[2022-07-04] MEDS: QUEtiapine Fumarate 100 MG TABLET PO ×3 (07:49→20:26)
[2022-07-04 11:25] LABS: Glucose, Whole Blood 87 mg/dL (60-115)
--- NOTE | 2022-07-04 13:10 | MHC.SL.SWA ---
Risk of Aspiration Due to: Reduced Cognition Dysphasia Diet Status: Upgrade Liquid Consistency and Strategies for Safe Swallow: Liquid Intake Recommendation: Thin Liquid Intake Strategies: Small Sips Solid Food Consistency: Dietary Recommendations: Regular Additional Modifications to Solid Foods: Moisten solids w/ sauce/gravy. Avoid hard, sticky, tough to chew solids Oral Medication Intake: Crushed w/ puree (when possible) Please contact the pharmacy regarding appropriate crushable or liquid drug formulations that are available whenever modified delivery is recommended. Compensatory Strategies and Precautions to be Taken for Safe Swallow: Sitting Upright (90 deg) Small Bites and Sips Alternate Liquids/Solids Rate of Ingestion Change Oral Check Avoid Specific Foods Supervision While Eating and Drinking for Safe Swallow: Total Assistance (1:1) Foods to Avoid: Avoid hard, sticky, tough to chew solids Swallowing Recommended Treatments: Compens. Strategy Educat. Recommendation for Speech: Outpatient Speech Therapy Inpatient Speech Therapy Comment: D/t pt's observed toleration of regular solids inclusive of chicken, rice, and bread, in addition to pt's request for less restrictive diet, recommend UPGRADE to REGULAR SOLIDS. Continue with thin liquids. Pt reportedly taking pills whole w/ liquid at [facility] [place] [place] with no reported complications however, recommend crushed w/ puree (when possible) d/t recommendation from pt's SNF. Pt requires 1-1 assist to cut up food and provide tray assistance d/t observed use of singular right hand. Per RN, pt will have staff present to assist during meals. Pt may require intermittent cues to take small bites and eat slowly. Frequency/Duration: 1-2 f/u to monitor for diet toleration Tax Associate Attorney Clinican/Clinical Fellow: No Supervisory Statement: I have reviewed and agree with the student/clinical fellow's documentation: N/A Speech Language Pathologist: Preeti Moreno M.A., HARD TILE SETTER APPRENTICE
[2022-07-04 16:26] LABS: Glucose, Whole Blood 172 mg/dL (60-115)
[2022-07-04 18:00] VITALS: BP 103/56; PULSE 78; RESP 18; TEMP 36.1; O2SAT 97
[2022-07-04] MEDS: Melatonin 3 MG TABLET 6 MG PO (20:26)
[2022-07-04] MEDS: traZODone HCL 100 MG TABLET PO (20:26)
[2022-07-04] MEDS: metFORMIN HCl ER 500 MG TAB.ER.24H PO (20:26)
--- NOTE | 2022-07-04 21:06 | P.PNPSI_ITS ---
Subjective Subjective Date of Service: 07/04/22 Reason For Visit: depression Subjective Notes: Conditional Voluntary Interim History: Per nursing, pt slept through the night. Pt at times irritable, complaining about texture of food- he has not dentures. Pt appears calmer, less irritable/ He reports he is waiting for his . He wonders if he will soon or not. He states he feels there's no future for him. At same time, he reports he is glad that he can eat regular sandwiches and his food is not ground. He denies SI/HI. Medication Compliance: Yes Review of Systems Review of Systems tried to jump of balcony Yes all other systems are reviewed and are negative and Unobtainable due to mental status Mental Status Exam Mental Status Exam Narrative: Appearance: wearing hospital gown, fair hygiene, in NAD Behavior: calmer, Speech: mumbles, regular rate/rhythm/volume, spontaneous TP: tangential TC: wanting to go home Mood:frustrated Affect: congruent, tired. SI: denies HI:denies VH/AH: none Delusions: no overt delusional content noted or reported. Insight/judgment: impaired x 2. Memory/cog: alert not oriented to place, month, situation, year. Diagnostics Vital Signs (24Hr): Vital Signs - 24 hr 07/04/22 07:30 Temperature 97.4 F Pulse Rate 72 Respiratory Rate 16 Blood Pressure 123/60 Pulse Oximetry 98 Oxygen Delivery Method Room Air BMI result Body Mass Index 27.2 Labs 06/19/22 14:39 07/03/22 07:53 Labs: Laboratory Results - last 48 hr 07/03/22 07/03/22 07/03/22 07:43 07:53 07:53 Sodium 141 Potassium 4.0 Chloride 104 Carbon Dioxide 28 Anion Gap 13 BUN 26 H Creatinine 1.10 Estim Creat Clear Calc 63.6 Estimated GFR > 60 POC Glucose 121 H Random Glucose 128 H Calcium 8.6 Total Bilirubin 0.6 AST 13 ALT 12 Alkaline Phosphatase 60 Total Protein 5.9 L Albumin 3.5 Valproic Acid 24.1 L 07/03/22 07/03/22 07/04/22 11:20 19:49 07:42 Sodium Potassium Chloride Carbon Dioxide Anion Gap BUN Creatinine Estim Creat Clear Calc Estimated GFR POC Glucose 131 H 236 H 211 H Random Glucose Calcium Total Bilirubin AST ALT Alkaline Phosphatase Total Protein Albumin Valproic Acid 07/04/22 07/04/22 11:22 16:22 Sodium Potassium Chloride Carbon Dioxide Anion Gap BUN Creatinine Estim Creat Clear Calc Estimated GFR POC Glucose 87 172 H Random Glucose Calcium Total Bilirubin AST ALT Alkaline Phosphatase Total Protein Albumin Valproic Acid Medications Medications Current Medications Acetaminophen (Acetaminophen 325 Mg Tablet) 650 mg PO Q4H PRN PRN Reason: Fever Last Admin: 07/01/22 18:09 Dose: 650 mg Al Hydroxide/Mg Hydroxide (Magnesium Hydrox/Alum Hydrox 30 Ml Oral.Susp) 30 ml PO Q6H PRN PRN Reason: Heartburn/Nausea Divalproex Sodium (Divalproex Sodium 500 Mg Tablet.) 500 mg PO BID [facility] Last Admin: 07/04/22 20:26 Dose: 500 mg Docusate Sodium (Docusate Sodium 100 Mg Capsule) 100 mg PO BID [facility] Last Admin: 07/04/22 20:26 Dose: 100 mg Escitalopram Oxalate (Escitalopram Oxalate 10 Mg Tablet) 10 mg PO DAILY [facility] Last Admin: 07/04/22 07:49 Dose: 10 mg Insulin Human Lispro (Insulin Lispro 100 Unit/Ml 3 Ml Vial) 0 unit SUBCUT QIDWMHS [facility]; Protocol Last Admin: 07/04/22 20:55 Dose: Not Given Loperamide HCl (Loperamide Hcl 2 Mg Capsule) 4 mg PO Q4H PRN PRN Reason: Diarrhea Last Admin: 06/30/22 13:41 Dose: 4 mg Melatonin (Melatonin 3 Mg Tablet) 6 mg PO BEDTIME [facility] Last Admin: 07/04/22 20:26 Dose: 6 mg Metformin HCl (Metformin Hcl Er 500 Mg Tab.Er.24h) 500 mg PO BEDTIME [facility] Last Admin: 07/04/22 20:26 Dose: 500 mg Non-Formulary Medication (Methanamine) 1 g PO BID [facility] Omeprazole (Omeprazole 20 Mg Capsule.) 20 mg PO DAILY@0630 [facility] Last Admin: 07/04/22 06:09 Dose: 20 mg Pharmacy Consult (Consult Rx Perform Med Rec) 1 each MISCELLANE ONCE PRN PRN Reason: Consult order Polyethylene Glycol (Polyethylene Glycol 3350 17 Gm Powd.Pack) 17 gm PO DAILY PRN PRN Reason: Constipation Quetiapine Fumarate (Quetiapine Fumarate 100 Mg Tablet) 100 mg PO TID [facility] Last Admin: 07/04/22 20:26 Dose: 100 mg Trazodone HCl (Trazodone Hcl 100 Mg Tablet) 100 mg PO BEDTIME [facility] Last Admin: 07/04/22 20:26 Dose: 100 mg Allergies Allergies Allergy/AdvReac Type Severity Reaction Status Date / Time aspirin [ASA] Allergy Facial Verified 08/13/21 16:57 Swelling Penicillins Allergy Redness of Verified 08/13/21 16:57 Skin Sulfa (Sulfonamide AdvReac Rash Verified 08/13/21 16:57 Antibiotics) Assessment & Plan Assessment & Plan (1) Major neurocognitive disorder: Status: Acute Code(s): F03.90 - Unspecified dementia, unspecified severity, without behavioral disturbance, psychotic disturbance, mood disturbance, and anxiety Plan Mr. Bertrand is a 76 year-old male with hx of dementia brought via EMS from [facility] due to pt trying to jump off window as suicide attempt. It appears pt has been more combative or agitated, although at baseline pt supposely is irritable but has not tried to harm himself or others. Utox is negative. 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 On the unit, pt does not recall event leading to this admission, he is not oriented to place or month. He reports he lives in [place] and wants to return there. He did presented as combative initially requiring prn olanzapine and ativan. Will check ammonia with depakote. Obtain collateral information. Pt does not have capacity to make medical decisions, therefore, CV was rejected and he is currently on 12b.Will reach out to HCP PLAN 1. Admit to S1, one to one due to unsteady gait. Sect 12b 2. obtain collateral information 3. continue current medications- seroquel- which may consider changing to TID, not QID. obtain ammonia levels pt on depakote. 4. Aftercare planning. 06/20 continue tx. switch seroquel to TID 06/21 continue tx. 06/24: hostile. continue current mgmt. 06/25 continue tx. 06/26 continue tx. 06/27 continue tx. 06/28 continue tx. 07/01 continue tx. 07/02 increase seroquel from 50mg po QID to 100mg po TID, will check depakote level tomorrow morning, adjust dose as needed. 07/03 continue tx. depakote 500mg po BID 07/04 continue tx. check depakote level in 5 days. Reason for continued inpatient stay Substantial Risk for: inability to function Time Spent With Patient Time: Total time managing care of this patient today ____ minutes.
[2022-07-05] MEDS: Omeprazole 20 MG CAPSULE.DR PO (05:45)
[2022-07-05 06:00] VITALS: BP 153/74; PULSE 75; RESP 18; TEMP 36.6; O2SAT 100
[2022-07-05 07:55] LABS: Glucose, Whole Blood 126 mg/dL (60-115)
[2022-07-05] MEDS: QUEtiapine Fumarate 100 MG TABLET PO ×2 (08:43→14:42)
[2022-07-05] MEDS: Escitalopram Oxalate 10 MG TABLET PO (08:43)
[2022-07-05] MEDS: Docusate Sodium 100 MG CAPSULE PO (08:43)
[2022-07-05] MEDS: Divalproex Sodium 500 MG TABLET.DR PO ×2 (08:43→20:20)
[2022-07-05] MEDS: Acetaminophen 325 MG TABLET 650 MG PO ×2 (14:42→20:20)
[2022-07-05] MEDS: Insulin Lispro 100 UNIT/ML 3 ML VIAL SUBCUT (16:29)
[2022-07-05 16:30] LABS: Glucose, Whole Blood 187 mg/dL (60-115)
--- NOTE | 2022-07-05 17:23 | MHC.SL.SWA ---
Speech Pathologist Impression: Risk of Aspiration Due to: Reduced Cognition Dysphasia Diet Status: Per RN at [facility], pt on ground diet but capable of eating regular solids (i.e. fries & cheeseburger), thin liquids, meds usually crushed. Per RN at [facility], pt sometimes requires cues to eat slow. Liquid Consistency and Strategies for Safe Swallow: Liquid Intake Recommendation: Thin Liquid Intake Strategies: Small Sips Solid Food Consistency: Dietary Recommendations: Regular Additional Modifications to Solid Foods: Moisten solids w/ sauce/gravy. Avoid hard, sticky, tough to chew solids Oral Medication Intake: Crushed with Puree Please contact the pharmacy regarding appropriate crushable or liquid drug formulations that are available whenever modified delivery is recommended. Compensatory Strategies and Precautions to be Taken for Safe Swallow: Sitting Upright (90 deg) Liquids from Cup Small Bites and Sips Supervision While Eating and Drinking for Safe Swallow: Total Assistance (1:1) Foods to Avoid: Moisten foods w/ sauce/gravy. Avoid hard, sticky, tough to chew solids Swallowing Recommended Treatments: Compens. Strategy Educat. Recommendation for Speech: Outpatient Speech Therapy Inpatient Speech Therapy Comment: Patient seen yesterday for swallowing evaluation after he was requesting an advancement to regular diet, which he was placed on after assessment. Patient was observed today at lunch eating with a group in the common area on the floor. Patient had meal of grilled cheese sandwich, chips, soup and a crumb pudding dessert. Patient had consumed all of sandwich before arrival of NEWS ANALYST, but was observed eating potato chips and drinking juice from cup. Patient was able to manage chips despite edentulous state with no difficulties. Patient was independently eating and drinking with no clinical signs of aspiration or difficulties. NEWS ANALYST interacted with patient, with patient making several out of context remarks, but commenting on grilled cheese I like simple foods. Patient reported not difficulty with meal, did not want dessert or soup. Recommend patient continue on Regular diet with THIN liquids, pills whole in puree. As patient is on least restrictive diet and tolerating well, recommend D/C speech at this time. Please re-contact if there are additional concerns. Frequency/Duration: D/C Date Range for Service Req: Timeline to reassess: Frame Opener Clinican/Clinical Fellow: No Supervisory Statement: I have reviewed and agree with the student/clinical fellow's documentation: N/A Speech Language Pathologist: Deena Alexander M.A., [facility]-NEWS ANALYST
[2022-07-05 18:00] VITALS: BP 139/64; PULSE 90; TEMP 36.9; O2SAT 96
--- NOTE | 2022-07-05 19:12 | PC.NURSE ---
Pt. found sitting on floor next to toilet at 12:55. Stated he fell off and hit his head and left knee. Neuro assmt. and VS WNL. Able to move all. Pt. with large amounts of BM on hands, toilet, and floor. Assisted off floor and to bed and cleaned and changed. Pt. refusing to bear weight. Abrasion noted to L knee and cold pack applied. Portable X ray to knee done in room and was negative for fracture. Transferred to stretcher for CT scan with report pending. HCP Amy Forgue updated via phone.
[2022-07-05] MEDS: metFORMIN HCl ER 500 MG TAB.ER.24H PO (20:21)
[2022-07-05] MEDS: traZODone HCL 100 MG TABLET PO (20:21)
--- NOTE | 2022-07-05 21:08 | HO.PSYCHPN ---
Subjective Subjective Date of Service: 07/05/22 Reason For Visit: depression Subjective Notes: Conditional Voluntary Interim History: Per nursing, pt slept through the night. Pt sustained fall at around 1pm. Pt was found on the floor next to toilet. Pt reported slid off the toilet. Pt reported hitting his head and difficulty walking. Pt had scratch on left knee and reported left knee pain. head CT ordered. xr to knee completed. Consult to hospitalist ordered. Neuro check. Pt seen in bed. He reports he is not able to walk and is resting in bed instead. He had dinner in bed. He is alert, at baseline he is not oriented to place or situation but no loss of conciousness. Review of Systems Review of Systems tried to jump of ghada Yes all other systems are reviewed and are negative and Unobtainable due to mental status Mental Status Exam Mental Status Exam Narrative: Appearance: wearing hospital gown, fair hygiene, in NAD Behavior: calmer, Speech: mumbles, regular rate/rhythm/volume, spontaneous TP: tangential TC: wanting to go home Mood:frustrated Affect: congruent, tired. SI: denies HI:denies VH/AH: none Delusions: no overt delusional content noted or reported. Insight/judgment: impaired x 2. Memory/cog: alert not oriented to place, month, situation, year. Diagnostics Vital Signs (24Hr): Vital Signs - 24 hr 07/05/22 06:00 07/05/22 18:00 Temperature 97.9 F 98.4 F Pulse Rate 75 90 Respiratory Rate 18 Blood Pressure 153/74 H 139/64 Pulse Oximetry 100 96 Oxygen Delivery Method Room Air Room Air BMI result Body Mass Index 27.2 Labs 06/19/22 14:39 07/03/22 07:53 Labs: Laboratory Results - last 48 hr 07/04/22 07/04/22 07/04/22 07:42 11:22 16:22 POC Glucose 211 H 87 172 H 07/05/22 07/05/22 07:51 16:20 POC Glucose 126 H 187 H Imaging Radiology Impressions: ITS Impressions Knee X-Ray 07/05/22 13:51 IMPRESSION: No acute fractures or subluxation. Mild degenerative osteoarthritis. Medications Medications Current Medications Acetaminophen (Acetaminophen 325 Mg Tablet) 650 mg PO Q4H PRN PRN Reason: Fever Last Admin: 07/05/22 20:20 Dose: 650 mg Al Hydroxide/Mg Hydroxide (Magnesium Hydrox/Alum Hydrox 30 Ml Oral.Susp) 30 ml PO Q6H PRN PRN Reason: Heartburn/Nausea Divalproex Sodium (Divalproex Sodium 500 Mg Tablet.) 500 mg PO BID [facility] Last Admin: 07/05/22 20:20 Dose: 500 mg Docusate Sodium (Docusate Sodium 100 Mg Capsule) 100 mg PO BID [facility] Last Admin: 07/05/22 20:30 Dose: Not Given Escitalopram Oxalate (Escitalopram Oxalate 10 Mg Tablet) 10 mg PO DAILY [facility] Last Admin: 07/05/22 08:43 Dose: 10 mg Insulin Human Lispro (Insulin Lispro 100 Unit/Ml 3 Ml Vial) 0 unit SUBCUT QIDWMHS [facility]; Protocol Last Admin: 07/05/22 20:23 Dose: Not Given Loperamide HCl (Loperamide Hcl 2 Mg Capsule) 4 mg PO Q4H PRN PRN Reason: Diarrhea Last Admin: 06/30/22 13:41 Dose: 4 mg Melatonin (Melatonin 3 Mg Tablet) 6 mg PO BEDTIME [facility] Last Admin: 07/05/22 20:32 Dose: Not Given Metformin HCl (Metformin Hcl Er 500 Mg Tab.Er.24h) 500 mg PO BEDTIME [facility] Last Admin: 07/05/22 20:21 Dose: 500 mg Omeprazole (Omeprazole 20 Mg Capsule.Dr) 20 mg PO DAILY@0630 [facility] Last Admin: 07/05/22 05:45 Dose: 20 mg Pharmacy Consult (Consult Rx Perform Med Rec) 1 each MISCELLANE ONCE PRN PRN Reason: Consult order Polyethylene Glycol (Polyethylene Glycol 3350 17 Gm Powd.Pack) 17 gm PO DAILY PRN PRN Reason: Constipation Quetiapine Fumarate (Quetiapine Fumarate 100 Mg Tablet) 100 mg PO TID [facility] Last Admin: 07/05/22 20:30 Dose: Not Given Trazodone HCl (Trazodone Hcl 100 Mg Tablet) 100 mg PO BEDTIME [facility] Last Admin: 07/05/22 20:21 Dose: 100 mg Allergies Allergies Allergy/AdvReac Type Severity Reaction Status Date / Time aspirin [ASA] Allergy Facial Verified 08/13/21 16:57 Swelling Penicillins Allergy Redness of Verified 08/13/21 16:57 Skin Sulfa (Sulfonamide AdvReac Rash Verified 08/13/21 16:57 Antibiotics) Assessment & Plan Assessment & Plan (1) Major neurocognitive disorder: Status: Acute Code(s): F03.90 - Unspecified dementia, unspecified severity, without behavioral disturbance, psychotic disturbance, mood disturbance, and anxiety Plan Mr. Bertrand is a 76 year-old male with hx of dementia brought via EMS from [facility] due to pt trying to jump off window as suicide attempt. It appears pt has been more combative or agitated, although at baseline pt supposely is irritable but has not tried to harm himself or others. Utox is negative. 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 On the unit, pt does not recall event leading to this admission, he is not oriented to place or month. He reports he lives in [place] and wants to return there. He did presented as combative initially requiring prn olanzapine and ativan. Will check ammonia with depakote. Obtain collateral information. Pt does not have capacity to make medical decisions, therefore, CV was rejected and he is currently on 12b.Will reach out to HCP PLAN 1. Admit to S1, one to one due to unsteady gait. Sect 12b 2. obtain collateral information 3. continue current medications- seroquel- which may consider changing to TID, not QID. obtain ammonia levels pt on depakote. 4. Aftercare planning. 06/20 continue tx. switch seroquel to TID 06/21 continue tx. 06/24: hostile. continue current mgmt. 06/25 continue tx. 06/26 continue tx. 06/27 continue tx. 06/28 continue tx. 07/01 continue tx. 07/02 increase seroquel from 50mg po QID to 100mg po TID, will check depakote level tomorrow morning, adjust dose as needed. 07/03 continue tx. depakote 500mg po BID 07/04 continue tx. 07/05 pt felt, pending hospitalist consult, neuro check, Reason for continued inpatient stay Substantial Risk for: inability to function Time Spent With Patient Time: Total time managing care of this patient today ____ minutes.
[2022-07-05 23:49] VITALS: BP 131/70; PULSE 80; RESP 17; TEMP 37.1; O2SAT 93
[2022-07-06] MEDS: Omeprazole 20 MG CAPSULE.DR PO (06:40)
[2022-07-06 07:50] LABS: Glucose, Whole Blood 177 mg/dL (60-115)
[2022-07-06 08:00] VITALS: BP 124/66; PULSE 87; RESP 20; TEMP 36.4; O2SAT 97
[2022-07-06] MEDS: Divalproex Sodium 500 MG TABLET.DR PO (09:34)
[2022-07-06] MEDS: QUEtiapine Fumarate 100 MG TABLET PO ×2 (09:34→15:24)
[2022-07-06] MEDS: Insulin Lispro 100 UNIT/ML 3 ML VIAL SUBCUT ×3 (09:34→17:20)
[2022-07-06] MEDS: Escitalopram Oxalate 10 MG TABLET PO (09:34)
[2022-07-06] MEDS: Docusate Sodium 100 MG CAPSULE PO (09:34)
[2022-07-06] MEDS: Acetaminophen 325 MG TABLET 650 MG PO (09:35)
--- NOTE | 2022-07-06 11:19 | MHC.CLN ---
F/U SEEN BY SIZE WORKER WITH DIET CONSISTENCY ADVANCED TO REGULAR. APPEARS TO BE EATING WELL/TOLERATING DIET CONSISTENCY. RD TO FOLLOW UP NEEDED.
[2022-07-06 11:39] LABS: Glucose, Whole Blood 203 mg/dL (60-115)
--- NOTE | 2022-07-06 12:48 | P.CONHOSP_ITS ---
History of Present Illness Data of Consult Service Date: 07/06/22 Primary Care Provider: Unknown Physician HPI Reason for consult: Unwitnessed fall Patient is a 76 year old male with a PMH significant for dementia, insulin- dependent diabetes type 2, anemia, HTN, and SI with multiple attempts of attempting to jump from tall heights. Medical consult for pt who had an unwitnessed fall in his bathroom yesterday at 12:55 in the afternoon. Patient an unreliable historian given baseline dementia, but he states he went to use the bathroom on his own when he fell and hit his head and left knee. Staff found patient sitting on the floor in the bathroom with feces on his hands, toilet, and bathroom floor. Minor abrasion was noted on left knee. Pt refused to bear weight and complained of left knee pain. A cold compress was placed on his left knee and a portable x-ray showed no acute fracture of the left knee. Pt was then placed on a stretcher and taken to get CT of head, results still pending. Of note, a stat consult was placed but was not called in to the hospitalist team. Pt seen and evaluated in a wheelchair in common area. Pt aware he recently had a fall because he was doing something good, but unable to provide many more details of the event. Complains of left knee and hip pain. Denies right hip or knee pain. Pt still refusing to bear weight d/t pain and complains of severe pain with passive flexion of knee, but apparently not been complaining of pain when getting into or out of wheelchair or bed. Previous to fall pt was ambulatory with a walker. 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 Dysphagia, oropharyngeal phase Dysphagia, pharyngoesophageal phase Essential (primary) hypertension Major depressive disorder, single episode, unspecified Metabolic encephalopathy Muscle weakness (generalized) Other abnormalities of gait and mobility Repeated falls Schizophrenia, unspecified Type 2 diabetes mellitus without complications Unspecified dementia without behavioral disturbance Unsteadiness on feet Weakness Social History Household Members: Unknown / Unable to assess Housing: [facility] Do you presently have visiting nurse or other home services: No Unable to assess alcohol history related to: Refusing to respond Alcohol intake: current Alcohol intake frequency: holidays/special occasions only Patient Tobacco Use Status: Tobacco use Unknown Second Hand Smoke Exposure: No Advance Directives: Yes Advance Directives on File: Yes Advance Directives Date on File: 08/11/20 Sexual orientation: Straight/Heterosexual Meds Allergies Allergy/AdvReac Type Severity Reaction Status Date / Time aspirin [ASA] Allergy Facial Verified 08/13/21 16:57 Swelling Penicillins Allergy Redness of Verified 08/13/21 16:57 Skin Sulfa (Sulfonamide AdvReac Rash Verified 08/13/21 16:57 Antibiotics) Active Medications: Current Medications Acetaminophen (Acetaminophen 325 Mg Tablet) 650 mg PO Q4H PRN PRN Reason: Fever Last Admin: 07/06/22 09:35 Dose: 650 mg Al Hydroxide/Mg Hydroxide (Magnesium Hydrox/Alum Hydrox 30 Ml Oral.Susp) 30 ml PO Q6H PRN PRN Reason: Heartburn/Nausea Divalproex Sodium (Divalproex Sodium 500 Mg Tablet.) 500 mg PO BID [facility] Last Admin: 07/06/22 09:34 Dose: 500 mg Docusate Sodium (Docusate Sodium 100 Mg Capsule) 100 mg PO BID [facility] Last Admin: 07/06/22 09:34 Dose: 100 mg Escitalopram Oxalate (Escitalopram Oxalate 10 Mg Tablet) 10 mg PO DAILY [facility] Last Admin: 07/06/22 09:34 Dose: 10 mg Insulin Human Lispro (Insulin Lispro 100 Unit/Ml 3 Ml Vial) 0 unit SUBCUT QIDWMHS [facility]; Protocol Last Admin: 07/06/22 11:44 Dose: 4 unit Loperamide HCl (Loperamide Hcl 2 Mg Capsule) 4 mg PO Q4H PRN PRN Reason: Diarrhea Last Admin: 06/30/22 13:41 Dose: 4 mg Melatonin (Melatonin 3 Mg Tablet) 6 mg PO BEDTIME [facility] Last Admin: 07/05/22 20:32 Dose: Not Given Metformin HCl (Metformin Hcl Er 500 Mg Tab.Er.24h) 500 mg PO BEDTIME [facility] Last Admin: 07/05/22 20:21 Dose: 500 mg Omeprazole (Omeprazole 20 Mg Capsule.) 20 mg PO DAILY@0630 [facility] Last Admin: 07/06/22 06:40 Dose: 20 mg Pharmacy Consult (Consult Rx Perform Med Rec) 1 each MISCELLANE ONCE PRN PRN Reason: Consult order Polyethylene Glycol (Polyethylene Glycol 3350 17 Gm Powd.Pack) 17 gm PO DAILY PRN PRN Reason: Constipation Quetiapine Fumarate (Quetiapine Fumarate 100 Mg Tablet) 100 mg PO TID [facility] Last Admin: 07/06/22 09:34 Dose: 100 mg Trazodone HCl (Trazodone Hcl 100 Mg Tablet) 100 mg PO BEDTIME [facility] Last Admin: 07/05/22 20:21 Dose: 100 mg Home Medications Medication Instructions Recorded Confirmed Last Taken Type acetaminophen 325 mg tablet 650 mg PO Q4H PRN Fever 02/23/22 06/17/22 Unknown History divalproex 125 mg tablet,delayed 125 mg PO BEDTIME 02/23/22 06/17/22 06/16/22 History release divalproex 250 mg tablet,delayed 250 mg PO BID 02/23/22 06/17/22 06/17/22 14:00 History release (Depakote) docusate sodium 100 mg capsule 100 mg PO DAILY PRN Constipation 02/23/22 06/17/22 Unknown History escitalopram oxalate 5 mg tablet 7.5 mg PO DAILY 02/23/22 06/17/22 06/17/22 14:00 History insulin lispro 100 unit/mL 1 sliding scale dose subcut 02/23/22 06/17/22 06/17/22 14:00 History subcutaneous solution USEASDIRECTD lorazepam 0.5 mg tablet (Ativan) 0.25 mg PO BID PRN Anxiety 02/23/22 06/17/22 06/17/22 14:00 History melatonin 3 mg tablet 6 mg PO BEDTIME 02/23/22 06/17/22 06/16/22 History omeprazole 20 mg capsule,delayed 20 mg PO DAILY@0630 02/23/22 06/17/22 06/17/22 14:00 History release polyethylene glycol 3350 17 gram 17 g PO DAILY PRN Constipation 02/23/22 06/17/22 Unknown History oral powder packet (Miralax) quetiapine 50 mg tablet (Seroquel) 50 mg PO QID 02/23/22 06/17/22 06/17/22 14:00 History trazodone 50 mg tablet 25 mg PO DAILY 02/23/22 06/17/22 06/17/22 14:00 History trazodone 50 mg tablet 75 mg PO BEDTIME 02/23/22 06/17/22 06/16/22 History metformin 500 mg tablet,extended 500 mg PO BEDTIME 06/17/22 06/17/22 06/16/22 History release 24 hr methenamine hippurate 1 gram tablet 1 g PO BID 06/17/22 06/17/22 06/17/22 14:00 History Physical Exam Vital Signs and Narrative: Vital Signs: Last Vital Signs Temp 97.6 F 07/06/22 08:00 Pulse 87 07/06/22 08:00 Resp 20 07/06/22 08:00 BP 124/66 07/06/22 08:00 Pulse Ox 97 07/06/22 08:00 O2 Del Method Room Air 07/06/22 08:00 BMI result Body Mass Index 27.2 General: AOx3, no acute distress. Pt sitting in wheelchair unwilling to attempt to stand. Resp: CTA bilaterally CVS: S1, S2, RRR GI: NT, no distention Neuro: Cranial nerves II-XII grossly intact bilaterally. Motor grossly intact bilaterally. Musculoskeletal: Left hip, knee, and ankle ROM limited secondary to pain. Left knee, ankle, and hip diffusely tender to palpation. Extremities: No edema Psych: Confused, cooperative, wanting to go home. Results Labs 06/19/22 14:39 07/03/22 07:53 Labs: Laboratory Results - last 24 hr 07/05/22 07/06/22 07/06/22 16:20 07:43 11:34 POC Glucose 187 H 177 H 203 H Imaging Radiologist's Impressions: Impressions Knee X-Ray 07/05/22 13:51 IMPRESSION: No acute fractures or subluxation. Mild degenerative osteoarthritis. Assessment and Plan (1) Knee pain, left: Status: Acute (2) Hip pain, left: Status: Acute Plan Patient is a 76 year old male with a PMH significant for dementia, insulin-dependent diabetes type 2, anemia, HTN, and SI with multiple attempts of attempting to jump from tall heights. Medical consult for pt who had an unwitnessed fall in his bathroom yesterday at 12:55 in the afternoon. Left knee and hip pain secondary to mechanical fall Patient had an x-ray of left knee yesterday which was negative for acute fracture or subluxation Pt incapable of weight-bearing and with reduced passive and active ROM secondary to pain X-ray of ankle negative for acute fracture or subluxation X-ray of right hip negative for fracture or subluxation X-ray of left hip showed foreshortening of left femoral neck with a subcapital fracture left hip without dislocation Orthopedics consulted, plan on surgical repair Pt will be made NPO now Pt to be kept [id number] Pt will be transferred to the medical unit Analgesics for pain management Pt will not need 1-1 sitter, pt is stable without combative behaviors, per psychiatry Thank you for allowing us to participate in the care of this patient. Will continue to follow. Please let us know if there are any acute complaints or questions. Time Spent With Patient Time: Total time managing care of this patient today ____ minutes.
--- NOTE | 2022-07-06 15:35 | PM.PSYDC ---
DS: Providers Provider Date of Service: 07/06/22 Date of admission: 06/18/22 16:04 Primary care physician: Unknown Physician Consults: 07/05/22 13:21 Consult to Hospitalist Stat Comment: Consulting Provider: Hospitalist Reason For Exam: fall 07/06/22 14:04 Consult to Orthopedics Routine Consulting Provider: [facility] [place] Orth[facility] Surgeons Reason for consultation: Left hip fracture after mechanical fall DS: Diagnosis Discharge Diagnosis (1) Knee pain, left: Status: Acute (2) Hip pain, left: Status: Acute (3) Major neurocognitive disorder: Status: Acute DS: Medications Discharge Medications Home Medications: Home Medications Medication Instructions Recorded Confirmed acetaminophen 325 mg tablet 650 mg PO Q4H PRN Fever 02/23/22 06/17/22 divalproex 125 mg tablet,delayed 125 mg PO BEDTIME 02/23/22 06/17/22 release divalproex 250 mg tablet,delayed 250 mg PO BID 02/23/22 06/17/22 release (Depakote) docusate sodium 100 mg capsule 100 mg PO DAILY PRN Constipation 02/23/22 06/17/22 escitalopram oxalate 5 mg tablet 7.5 mg PO DAILY 02/23/22 06/17/22 insulin lispro 100 unit/mL 1 sliding scale dose subcut 02/23/22 06/17/22 subcutaneous solution USEASDIRECTD lorazepam 0.5 mg tablet (Ativan) 0.25 mg PO BID PRN Anxiety 02/23/22 06/17/22 melatonin 3 mg tablet 6 mg PO BEDTIME 02/23/22 06/17/22 omeprazole 20 mg capsule,delayed 20 mg PO DAILY@0630 02/23/22 06/17/22 release polyethylene glycol 3350 17 gram 17 g PO DAILY PRN Constipation 02/23/22 06/17/22 oral powder packet (Miralax) quetiapine 50 mg tablet (Seroquel) 50 mg PO QID 02/23/22 06/17/22 trazodone 50 mg tablet 25 mg PO DAILY 02/23/22 06/17/22 trazodone 50 mg tablet 75 mg PO BEDTIME 02/23/22 06/17/22 metformin 500 mg tablet,extended 500 mg PO BEDTIME 06/17/22 06/17/22 release 24 hr methenamine hippurate 1 gram tablet 1 g PO BID 06/17/22 06/17/22 Mental Status Exam Mental Status Exam Narrative: Appearance: edentulous, wearing hospital gown, fair hygiene, in NAD Behavior: calmer, Speech: clear, regular rate/rhythm/volume, spontaneous TP: tangential TC: wanting to go home Mood: better Affect: congruent, tired. SI: denies HI:denies VH/AH: none Delusions: no overt delusional content noted or reported. Insight/judgment: impaired x 2. Memory/cog: alert not oriented to place, month, situation, year. Data Data Completed and Pending Completed studies during hospitalization [Text1]: 06/29/22 06/29/22 06/30/22 16:45 20:57 07:46 Sodium Potassium Chloride Carbon Dioxide Anion Gap BUN Creatinine Estim Creat Clear Calc Estimated GFR POC Glucose 243 H 114 133 H Random Glucose Calcium Total Bilirubin AST ALT Alkaline Phosphatase Total Protein Albumin Valproic Acid 06/30/22 06/30/22 07/01/22 11:29 17:25 06:23 Sodium Potassium Chloride Carbon Dioxide Anion Gap BUN Creatinine 1.13 Estim Creat Clear Calc 61.9 Estimated GFR > 60 POC Glucose 138 H 123 H Random Glucose Calcium Total Bilirubin AST ALT Alkaline Phosphatase Total Protein Albumin Valproic Acid 07/01/22 07/01/22 07/01/22 11:23 15:58 19:57 Sodium Potassium Chloride Carbon Dioxide Anion Gap BUN Creatinine Estim Creat Clear Calc Estimated GFR POC Glucose 127 H 187 H 185 H Random Glucose Calcium Total Bilirubin AST ALT Alkaline Phosphatase Total Protein Albumin Valproic Acid 07/02/22 07/03/22 07/03/22 20:04 07:43 07:53 Sodium Potassium Chloride Carbon Dioxide Anion Gap BUN Creatinine Estim Creat Clear Calc Estimated GFR POC Glucose 136 H 121 H Random Glucose Calcium Total Bilirubin AST ALT Alkaline Phosphatase Total Protein Albumin Valproic Acid 24.1 L 07/03/22 07/03/22 07/03/22 07:53 11:20 19:49 Sodium 141 Potassium 4.0 Chloride 104 Carbon Dioxide 28 Anion Gap 13 BUN 26 H Creatinine 1.10 Estim Creat Clear Calc 63.6 Estimated GFR > 60 POC Glucose 131 H 236 H Random Glucose 128 H Calcium 8.6 Total Bilirubin 0.6 AST 13 ALT 12 Alkaline Phosphatase 60 Total Protein 5.9 L Albumin 3.5 Valproic Acid 07/04/22 07/04/2223 07:42 11:22 16:22 Sodium Potassium Chloride Carbon Dioxide Anion Gap BUN Creatinine Estim Creat Clear Calc Estimated GFR POC Glucose 211 H 87 172 H Random Glucose Calcium Total Bilirubin AST ALT Alkaline Phosphatase Total Protein Albumin Valproic Acid 07/05/22 07/05/22 07/06/22 07:51 16:20 07:43 Sodium Potassium Chloride Carbon Dioxide Anion Gap BUN Creatinine Estim Creat Clear Calc Estimated GFR POC Glucose 126 H 187 H 177 H Random Glucose Calcium Total Bilirubin AST ALT Alkaline Phosphatase Total Protein Albumin Valproic Acid 07/06/22 11:34 Sodium Potassium Chloride Carbon Dioxide Anion Gap BUN Creatinine Estim Creat Clear Calc Estimated GFR POC Glucose 203 H Random Glucose Calcium Total Bilirubin AST ALT Alkaline Phosphatase Total Protein Albumin Valproic Acid 06/18/22 05:12 Urine Catheterized - Straight Catheter Urine Culture - Final Imaging Diagnostic Imaging Impressions Knee X-Ray 07/05/22 13:51 IMPRESSION: No acute fractures or subluxation. Mild degenerative osteoarthritis. Ankle X-Ray 07/06/22 13:27 IMPRESSION: 1. There is foreshortening of left femoral neck with a subcapital fracture left hip. There is no dislocation. 2. There is no visible acute fracture or dislocation right hip or pelvis exam. 3. There is no acute fracture or dislocation left ankle. Hip/Pelvis X-Ray 07/06/22 13:27 IMPRESSION: 1. There is foreshortening of left femoral neck with a subcapital fracture left hip. There is no dislocation. 2. There is no visible acute fracture or dislocation right hip or pelvis exam. 3. There is no acute fracture or dislocation left ankle. DS: Summary Hospital Course Hospital Course: HPI: Subjective Notes: [place] Warning and Section 12B Narrative: Mr. Bertrand is a 76 year-old male with hx of dementia, unclear psychiatric hx who was brought via EMS from [facility] in [place] where he resides due to pt trying to jump off [employer] on second floor as suicide attempt. Per crisis report, pt at baseline tends to be irritable and makes threats to want to harm self but no actual attempt. In the ED, utox is negative. It does seem that patient has chronic UTIs and is on methanamine. On the unit, pt initially presented as combative asking to be discharged, somewhat agitated, loud. He did agree to take oral medication including olanzapine 10mg and ativan 1mg. He has been on a one to one due to gait instability and lack of awareness. Pt seen today with VARGHESE Martínez. Pt reports he wants to go home in [place], which is not his currently place of residence. He is not oriented to place or situation. He does not recall any incident related to him trying to harm himself. Interview is? limited as pt reports feeling very tired and somnolent and being hard of hearing. Past Psychiatric History: Inpatient: unknow Past med trials: depakote (will check ammonia), seroquel, ativan. Medical Evaluation Reviewed: Yes HOSPITAL COURSE On the unit, pt was admitted on a CV signed by invokated HCP. Pt presented as irritable at times. However, he did not remember events leading to this admission. Pt reported he lived in [place] when he has not lived there in a decade. He was not oriented to month, date, year or situation. Meeting with HCP discussed medication for combative behaviors in setting of dementia. Dose of seroquel was increased from 50mg po QID to 100mg po TID. Pt's depakote was increase to 500mg po BID. He gradually presented as calmer. He was sleeping through the night. He did have an irritable edge but able to be redirected. He often asked for go back home to [place] and unable to retain information about the fact that he has not lived there for a decade. He denied suicidal or homicidal ideation. No signs of psychosis or delusions. He was mostly at times comfabulating due to memory problems. Pt was eating well. He was taking medications as prescribed Pt sustained unwitnessed fall on 07/05. Pt initially reporting left knee pain and trauma to head- initially XR of left knee did not show any fractures, head CT no bleeding. Pt continued to report pain with ambulation- hip XR left femoral neck with subcapital fracture left hip. Pt being transferred to medical floor. 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 Status at Discharge Cognitive/behavioral status at discharge: Pt alert, at baseline not oriented to place, situation, month. No psychosis or delusions. no combative behaviors. No SI/HI. Pt sleeping through the night. No behavioral concerns. Functional status at discharge: independent ambulation Overall status at discharge: patient is progressing back to baseline Time Spent with Patient Time attestation: Total time managing care of this patient today ____ minutes. Time spent: Greater than 30 minutes Discharge Plan Discharge Anticipated Discharge Date/Time: 07/06/22 15:22 Patient Disposition: Home, Self-Care Discharge Diagnosis: Major Neurocognitive Disorder Referrals: Physician,Unknown J [Primary Care Provider] - 1 Week Discharge Medications: No Action acetaminophen 325 mg Tablet 650 mg PO Q4H PRN (Reason: Fever) divalproex [Depakote] 250 mg Tablet,Delayed Release (Dr/Ec) 250 mg PO BID melatonin 3 mg Tablet 6 mg PO BEDTIME lorazepam [Ativan] 0.5 mg Tablet 0.25 mg PO BID PRN (Reason: Anxiety) divalproex 125 mg Tablet,Delayed Release (Dr/Ec) 125 mg PO BEDTIME docusate sodium 100 mg Capsule 100 mg PO DAILY PRN (Reason: Constipation) insulin lispro 100 unit/mL Solution 1 sliding scale dose SUBCUT USEASDIRECTD Protocol: Insulin Correction Scale Less than or equal to 110 ---- Give (units): 0 111 to 150 Give (units): 0 151 to 200 Give (units): 2 201 to 250 Give (units): 4 251 to 300 Give (units): 6 301 to 350 Give (units): 8 Greater than 350 Give (units): 10 Call MD if Blood Glucose > : 350 escitalopram oxalate 5 mg Tablet 7.5 mg PO DAILY trazodone 50 mg Tablet 25 mg PO DAILY trazodone 50 mg Tablet 75 mg PO BEDTIME polyethylene glycol 3350 [Miralax] 17 gram Powder In Packet 17 g PO DAILY PRN (Reason: Constipation) omeprazole 20 mg Capsule,Delayed Release(Dr/Ec) 20 mg PO DAILY@0630 quetiapine [Seroquel] 50 mg Tablet 50 mg PO QID methenamine hippurate 1 gram tablet 1 g PO BID metformin 500 mg tablet extended release 24 hr 500 mg PO BEDTIME Discharge Orders: Discharge Order (Routine); Ordered 07/06/22 Ordered By: Maria Dolores Cox Diet: Regular diet Activity on Discharge: Use Splints or Immobilizers Stand Alone Forms: Patient Portal Discharge page Care Plan Goals: maintain mood Health Concerns: transfer to medical floor left hip fracture Plan of Treatment: take medications as prescribed Assessment: Pt alert, due to dementia, orientation is impaired but this is baseline. No combative behaviors. No SI/HI.
[2022-07-06] MEDS: oxyCODONE HCl Immed Release 5 MG TABLET PO (16:52)
[2022-07-06 17:01] LABS: Glucose, Whole Blood 217 mg/dL (60-115)
--- NOTE | 2022-07-06 17:01 | P.HPOP_ITS ---
History of Present Illness History of Present Illness Date of Service: 07/06/22 Chief complaint: depression Narrative: Mr. Bertrand is a 76 yo male who has been admitted to the geriatric psychiatric unit from his rehab facility after making an attempt to jump off of a second story balcony in an attempted suicide. He has a past medical history significant for dementia, insulin-dependent diabetes type 2, anemia, HTN, and SI with multiple attempts of attempting to jump from tall heights. Medical consult for pt who had an unwitnessed fall in his bathroom yesterday at 12:55 in the afternoon. X-rays of the left hip revealed a displaced femoral neck fracture. Orthopedics was consulted for further evaluation and treatment. The patient is an unreliable historian and unable to consent. 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 Dysphagia, oropharyngeal phase Dysphagia, pharyngoesophageal phase Essential (primary) hypertension Major depressive disorder, single episode, unspecified Metabolic encephalopathy Muscle weakness (generalized) Other abnormalities of gait and mobility Repeated falls Schizophrenia, unspecified Type 2 diabetes mellitus without complications Unspecified dementia without behavioral disturbance Unsteadiness on feet Weakness Social History Social History Household Members: Unknown / Unable to assess Housing: [facility] Do you presently have visiting nurse or other home services: No Unable to assess alcohol history related to: Refusing to respond Alcohol intake: current Alcohol intake frequency: holidays/special occasions only Patient Tobacco Use Status: Tobacco use Unknown Second Hand Smoke Exposure: No Advance Directives: Yes Advance Directives on File: Yes Advance Directives Date on File: 08/11/20 Sexual orientation: Straight/Heterosexual Meds Allergies Allergy/AdvReac Type Severity Reaction Status Date / Time aspirin [ASA] Allergy Facial Verified 08/13/21 16:57 Swelling Penicillins Allergy Redness of Verified 08/13/21 16:57 Skin Sulfa (Sulfonamide AdvReac Rash Verified 08/13/21 16:57 Antibiotics) Active Medications: Current Medications Acetaminophen (Acetaminophen 325 Mg Tablet) 650 mg PO Q6H PRN PRN Reason: Pain, Mild (Pain Scale 1-3) Al Hydroxide/Mg Hydroxide (Magnesium Hydrox/Alum Hydrox 30 Ml Oral.Susp) 30 ml PO Q6H PRN PRN Reason: Heartburn/Nausea Divalproex Sodium (Divalproex Sodium 500 Mg Tablet.) 500 mg PO BID [facility] Last Admin: 07/06/22 09:34 Dose: 500 mg Docusate Sodium (Docusate Sodium 100 Mg Capsule) 100 mg PO BID [facility] Last Admin: 07/06/22 09:34 Dose: 100 mg Escitalopram Oxalate (Escitalopram Oxalate 10 Mg Tablet) 10 mg PO DAILY [facility] Last Admin: 07/06/22 09:34 Dose: 10 mg Insulin Human Lispro (Insulin Lispro 100 Unit/Ml 3 Ml Vial) 0 unit SUBCUT QIDWMHS [facility]; Protocol Last Admin: 07/06/22 11:44 Dose: 4 unit Loperamide HCl (Loperamide Hcl 2 Mg Capsule) 4 mg PO Q4H PRN PRN Reason: Diarrhea Last Admin: 06/30/22 13:41 Dose: 4 mg Magnesium Hydroxide (Milk Of Magnesia 30 Ml Oral.Susp) 30 ml PO DAILY PRN PRN Reason: Constipation Melatonin (Melatonin 3 Mg Tablet) 3 mg PO BEDTIME PRN PRN Reason: Insomnia Metformin HCl (Metformin Hcl Er 500 Mg Tab.Er.24h) 500 mg PO BEDTIME [facility] Last Admin: 07/05/22 20:21 Dose: 500 mg Morphine Sulfate (Morphine Sulfate 4 Mg/Ml Cartridge) 2 mg IVPUSH Q4H PRN; Protocol PRN Reason: Pain, Severe (Pain Scale 7-10) Omeprazole (Omeprazole 20 Mg Capsule.) 20 mg PO DAILY@0630 [facility] Last Admin: 07/06/22 06:40 Dose: 20 mg Oxycodone HCl (Oxycodone Hcl Immed Release 5 Mg Tablet) 5 mg PO Q4H PRN PRN Reason: Pain, Severe (Pain Scale 7-10) Last Admin: 07/06/22 16:52 Dose: 5 mg Pharmacy Consult (Consult Rx Perform Med Rec) 1 each MISCELLANE ONCE PRN PRN Reason: Consult order Polyethylene Glycol (Polyethylene Glycol 3350 17 Gm Powd.Pack) 17 gm PO DAILY PRN PRN Reason: Constipation Quetiapine Fumarate (Quetiapine Fumarate 100 Mg Tablet) 100 mg PO TID [facility] Last Admin: 07/06/22 15:24 Dose: 100 mg Senna (Sennosides 8.6 Mg Tablet) 17.2 mg PO BEDTIME PRN PRN Reason: Constipation Sodium Chloride (0.9 % Sodium Chloride Flush 3 Ml Syringe) 3 ml IVFLUSH QSHIFT HELEN Trazodone HCl (Trazodone Hcl 100 Mg Tablet) 100 mg PO BEDTIME [facility] Last Admin: 07/05/22 20:21 Dose: 100 mg Home Medications Medication Instructions Recorded Confirmed Last Taken Type acetaminophen 325 mg tablet 650 mg PO Q4H PRN Fever 02/23/22 06/17/22 Unknown History divalproex 125 mg tablet,delayed 125 mg PO BEDTIME 02/23/22 06/17/22 06/16/22 History release divalproex 250 mg tablet,delayed 250 mg PO BID 02/23/22 06/17/22 06/17/22 14:00 History release (Depakote) docusate sodium 100 mg capsule 100 mg PO DAILY PRN Constipation 02/23/22 06/17/22 Unknown History escitalopram oxalate 5 mg tablet 7.5 mg PO DAILY 02/23/22 06/17/22 06/17/22 14:00 History insulin lispro 100 unit/mL 1 sliding scale dose subcut 02/23/22 06/17/22 06/17/22 14:00 History subcutaneous solution USEASDIRECTD lorazepam 0.5 mg tablet (Ativan) 0.25 mg PO BID PRN Anxiety 02/23/22 06/17/22 06/17/22 14:00 History melatonin 3 mg tablet 6 mg PO BEDTIME 02/23/22 06/17/22 06/16/22 History omeprazole 20 mg capsule,delayed 20 mg PO DAILY@0630 02/23/22 06/17/22 06/17/22 14:00 History release polyethylene glycol 3350 17 gram 17 g PO DAILY PRN Constipation 02/23/22 0 06/17/22 Unknown History oral powder packet (Miralax) quetiapine 50 mg tablet (Seroquel) 50 mg PO QID 02/23/22 06/17/22 06/17/22 14:00 History trazodone 50 mg tablet 25 mg PO DAILY 02/23/22 06/17/22 06/17/22 14:00 History trazodone 50 mg tablet 75 mg PO BEDTIME 02/23/22 06/17/22 06/16/22 History metformin 500 mg tablet,extended 500 mg PO BEDTIME 06/17/22 06/17/22 06/16/22 History release 24 hr methenamine hippurate 1 gram tablet 1 g PO BID 06/17/22 06/17/22 06/17/22 14:00 History Physical Exam Vital Signs: Vital Signs: Last Vital Signs Temp 97.6 F 07/06/22 08:00 Pulse 87 07/06/22 08:00 Resp 20 07/06/22 08:00 BP 124/66 07/06/22 08:00 Pulse Ox 97 07/06/22 08:00 O2 Del Method Room Air 07/06/22 08:00 BMI result Body Mass Index 27.2 Extrem: Other: Left lower extremity is shortened and externally rotated. Pain with log roll. Able to dorsi/plantar flex. NVI. Results Labs 06/19/22 14:39 07/03/22 07:53 Labs: Abnormal lab results 07/06/22 07/06/22 07/06/22 Range/Units 07:43 11:34 16:51 POC Glucose 177 H 203 H 217 H (60-115) mg/dL H & H 06/17/22 06/19/22 Range/Units 17:11 14:39 Hgb 12.2 L 12.0 L (14.0-18.0) g/dl Hct 36.6 L 35.7 L (42.0-52.0) % All other labs normal. Assessment and Plan (1) Fracture of hip, left, closed: Status: Acute Plan Mr. Bertrand is a 76 yo male who has been admitted to the geriatric psychiatric unit from his rehab facility after making an attempt to jump off of a second story [email or web address] in an attempted suicide. He has a past medical history significant for dementia, insulin-dependent diabetes type 2, anemia, HTN, and SI with multiple attempts of attempting to jump from tall heights. Medical consult for pt who had an unwitnessed fall in his bathroom yesterday at 12:55 in the afternoon. he is an unreliable historian and unable to consent. I attempted to reach both contacts listed in the patients chart, Amy at [phone] and his brother Vick at [phone] with no answer to discuss the patients case. The plan is for the patient to remain NPO after midnight. Plan is to bring the patient to the OR tomorrow morning after medically cleared for left hip hemiarthroplasty. NPO after midnight Pain management as appropriate NWB LLE Plan for hemiarthroplasty tomorrow morning Time Spent With Patient Time: Total time managing care of this patient today ____ minutes. Quality Stroke Does the patient have a stroke diagnosis?: No VTE Prior VTE?: No VTE Risk Level:: Medical - moderate - high VTE Device Contraindication: N/A - Device Ordered VTE Drug Contraindication: Treatment Not Indicated Procedures Date of Service Date of Service: 07/06/22
[2022-07-06 17:03] LABS: Prothrombin Time 11.5 SEC (10.0-13.1)
== END 2022-07-06 17:22 | disposition short-term general hospital (02) | DRG 884 ==
LOC: HO.ED 06-18 02:03 → HO.PGERI 06-18 16:27
PROVIDERS: Emergency Medicine Emergency Medical Services; Internal Medicine; Physician Assistant; Social Worker; Admitting Provider Psychiatry & Neurology Psychiatry; Emergency Provider Internal Medicine; Visit Provider Psychiatry & Neurology Psychiatry
DX: F03.911 Unspecified dementia, unspecified severity, with agitation (principal); S72.012A Unspecified intracapsular fracture of left femur, initial encounter for closed fracture; R45.851 Suicidal ideations; W19.XXXA Unspecified fall, initial encounter; E11.9 Type 2 diabetes mellitus without complications; I10 Essential (primary) hypertension; D64.9 Anemia, unspecified; Z88.0 Allergy status to penicillin; Z88.2 Allergy status to sulfonamides; Z88.6 Allergy status to analgesic agent; Z79.4 Long term (current) use of insulin; Z79.84 Long term (current) use of oral hypoglycemic drugs; Z79.899 Other long term (current) drug therapy
CPT/HCPCS: 36415; 70450; 73521; 73560; 73600; 80053; 80061; 80164; 80307; 81001; 82077; 82140; 82565; 82947; 85025; 85610; 87086; 87635; 92526; 92610; 93005; 99285; S9485

== ENCOUNTER 2022-07-06 17:23 | Inpatient (IN) | payer MEDICARE, MEDICAID, SELFPAY ==
--- NOTE | ~2022-07-06 | XR_ITS ---
EXAMINATION: XR PELVIS CLINICAL INFORMATION: Post left hip hemiarthroplasty COMPARISON: Previous x-ray from yesterday TECHNIQUE: AP view of the pelvis. FINDINGS: There is a new left hip hemiarthroplasty in satisfactory position. No fracture or dislocation. There is mild arthritis at the right hip joint. Bones of the visualized pelvis are unremarkable. There is atherosclerotic disease. There are postsurgical changes to the soft tissues. XR/XR pelvis 1-2V IMPRESSION: Satisfactory appearance of left hip replacement.
--- NOTE | 2022-07-06 18:02 | PM.EVENT ---
Event Note Date of Service: 07/06/22 Event Note: Pt assessed with PA, see H and P, under consult Note in Hospitalist documentation from TERESA Fine from 07/06. Pt has hip fracture from mechanical fall. Discussed with Ortho and will have surgery 07/07. Will get routine ECG chec INR, type and screen prior to surgery, has no angin, no heart failure symptoms, he is at average risk for planned procedure, no additional cardiopulmonary testing indicated at this time. Time Spent With Patient Time: Total time managing care of this patient today ____ minutes.
[2022-07-06 18:20] VITALS: BP 129/65; PULSE 87; RESP 18; TEMP 37.6; O2SAT 97
[2022-07-06 18:48] VITALS: BP 129/65; PULSE 87; RESP 18; TEMP 37; O2SAT 97
[2022-07-06] MEDS: Docusate Sodium 100 MG CAPSULE PO (21:19)
[2022-07-06] MEDS: Acetaminophen 325 MG TABLET 650 MG PO (21:19)
[2022-07-06] MEDS: 0.9 % Sodium Chloride Flush 3 ML SYRINGE IVFLUSH (21:20)
[2022-07-07] VITALS (10 sets, daily range): BP systolic 100–142; BP diastolic 56–74; PULSE 77–97; RESP 16–20; TEMP 36.3–37.2; O2SAT 93–97; BMI 24.4
[2022-07-07] MEDS: ceFAZolin Sodium/Dextrose,Iso 2 GM/50 ML PIGGYBACK IV ×2 (00:05→18:41)
[2022-07-07] MEDS: Morphine Sulfate 4 MG/ML CARTRIDGE 2 MG IVPUSH ×2 (00:08→06:23)
[2022-07-07 06:57] LABS: MANUAL DIFF FLAG NO
[2022-07-07 07:19] LABS: Alanine Aminotransferase 13 U/L (0-40); Albumin Level 3.4 g/dL (3.5-5.0); Alkaline Phosphatase 68 U/L (39-117); Anion Gap 11 (12-20); Aspartate Amino Transferase 13 U/L (5-37); Bilirubin Total 0.6 mg/dL (0.0-1.0); Blood Urea Nitrogen 18 mg/dL (9-16); Calcium 8.6 mg/dL (8.4-10.2); Carbon Dioxide 29 mmol/L (22-29); Chloride 106 mmol/L (96-108); Estimated Glomerular Filt Rate 55; Glucose Random 212 mg/dL (60-115); Potassium 4.2 mmol/L (3.3-5.1); Sodium 142 mmol/L (135-145)
[2022-07-07 07:33] LABS: Basophils Percent Auto 0.3 % (0-2); Eosinophils Absolute Auto 0.2 X10*3/uL (0.0-0.4); Eosinophils Percent Auto 3.1 % (0-4); Hematocrit 36.9 % (42.0-52.0); Hemoglobin 12.3 g/dl (14.0-18.0); Imm Gran Abs Auto 0.05 X10*3/uL (0.00-0.03); Imm Gran Pct Auto 0.7 % (0.0-0.4); Lymphocytes Percent Auto 14.8 % (20-40); Mean Corpuscular HGB Conc 33.3 g/dl (31.0-36.0); Mean Corpuscular Hemoglobin 31.7 pg (27.0-33.0); Mean Corpuscular Volume 95.1 fL (80.0-98.0); Mean Platelet Volume 10.2 fL (9.4-12.4); Monocytes Absolute Auto 0.8 X10*3/uL (0.1-1.2); Monocytes Percent Auto 11.8 % (2-11); Neutrophils Absolute Auto 4.7 x10*3/uL (2.0-8.3); Neutrophils Percent Auto 69.3 % (45-73); Platelet Count 124 X10*3/uL (160-400); Red Blood Count 3.88 X10*6/uL (4.60-5.80); Red Cell Distribution Width 13.3 % (11.0-16.0); White Blood Count 6.7 X10*3/uL (4.8-10.8)
--- NOTE | 2022-07-07 09:02 | P.PNIM_ITS ---
Subjective Subjective Date of Service: 07/07/22 Interval History: f/u on hip fracture pain is controlled, hurts with movment Physical Exam Vital Signs: Vital Signs: Last Vital Signs Temp 97.3 F 07/07/22 08:00 Pulse 80 07/07/22 08:00 Resp 20 07/07/22 08:00 BP 135/74 07/07/22 08:00 Pulse Ox 94 07/07/22 08:00 O2 Del Method Room Air 07/07/22 08:00 Const: Other: General: AO X 3, no acute distress Resp: CTA bilateral CVS: S1,S2,RRR GI: +BS, NT, no distention Skin: No rash Neuro: motor grossly intact Psych: appropriate affect Objective Data Active Medications Acetaminophen (Acetaminophen 325 Mg Tablet) 650 mg PO Q6H PRN PRN Reason: Pain, Mild (Pain Scale 1-3) Last Admin: 07/06/22 21:19 Dose: 650 mg Documented By: SIVAN Acetaminophen (Acetaminophen 325 Mg Tablet) 650 mg PO Q6H PRN PRN Reason: Pain, Mild (Pain Scale 1-3) Al Hydroxide/Mg Hydroxide (Magnesium Hydrox/Alum Hydrox 30 Ml Oral.Susp) 30 ml PO Q6H PRN PRN Reason: Heartburn/Nausea Divalproex Sodium (Divalproex Sodium 500 Mg Tablet.Dr) 500 mg PO BID [facility] Docusate Sodium (Docusate Sodium 100 Mg Capsule) 100 mg PO BID [facility] Last Admin: 07/06/22 21:19 Dose: 100 mg Documented By: SIVAN Docusate Sodium (Docusate Sodium 100 Mg Capsule) 100 mg PO BID [facility] Escitalopram Oxalate (Escitalopram Oxalate 10 Mg Tablet) 10 mg PO DAILY [facility] Insulin Human Lispro (Insulin Lispro 100 Unit/Ml 3 Ml Vial) 0 unit SUBCUT QIDWMHS [facility]; Protocol Loperamide HCl (Loperamide Hcl 2 Mg Capsule) 4 mg PO Q4H PRN PRN Reason: Diarrhea Magnesium Hydroxide (Milk Of Magnesia 30 Ml Oral.Susp) 30 ml PO DAILY PRN PRN Reason: Constipation Melatonin (Melatonin 3 Mg Tablet) 3 mg PO BEDTIME PRN PRN Reason: Insomnia Melatonin (Melatonin 3 Mg Tablet) 3 mg PO BEDTIME PRN PRN Reason: Insomnia Metformin HCl (Metformin Hcl Er 500 Mg Tab.Er.24h) 500 mg PO BEDTIME [facility] Morphine Sulfate (Morphine Sulfate 4 Mg/Ml Cartridge) 2 mg IVPUSH Q6H PRN; Protocol PRN Reason: Pain, Severe (Pain Scale 7-10) Last Admin: 07/07/22 06:23 Dose: 2 mg Documented By: SIVAN Morphine Sulfate (Morphine Sulfate 4 Mg/Ml Cartridge) 2 mg IVPUSH Q4H PRN; Protocol PRN Reason: Pain, Severe (Pain Scale 7-10) Omeprazole (Omeprazole 20 Mg Capsule.Dr) 20 mg PO DAILY@06 [facility] Oxycodone HCl (Oxycodone Hcl Immed Release 5 Mg Tablet) 5 mg PO Q4H PRN PRN Reason: Pain, Severe (Pain Scale 7-10) Pharmacy Consult (Consult Rx Perform Med Rec) 1 each MISCELLANE ONCE PRN PRN Reason: Consult order Polyethylene Glycol (Polyethylene Glycol 3350 17 Gm Powd.Pack) 17 gm PO DAILY PRN PRN Reason: Constipation Quetiapine Fumarate (Quetiapine Fumarate 100 Mg Tablet) 100 mg PO TID [facility] Senna (Sennosides 8.6 Mg Tablet) 17.2 mg PO BEDTIME PRN PRN Reason: Constipation Sodium Chloride (0.9 % Sodium Chloride Flush 3 Ml Syringe) 3 ml IVFLUSH [facility] Last Admin: 07/06/22 21:20 Dose: 3 ml Documented By: SIVAN Sodium Chloride (0.9 % Sodium Chloride Flush 3 Ml Syringe) 3 [facility] Trazodone HCl (Trazodone Hcl 100 Mg Tablet) 100 mg PO BEDTIME [facility] Labs 07/07/22 06:34 07/07/22 06:34 Labs: Laboratory Results - last 24 hr 07/06/22 07/07/22 07/07/22 20:26 06:34 06:34 MCV 95.1 MCH 31.7 MCHC 33.3 RDW 13.3 Plt Count 124 L MPV 10.2 Immature Gran % (Auto) 0.7 H Neut % (Auto) 69.3 Lymph % (Auto) 14.8 L Carroll % (Auto) 11.8 H Eos % (Auto) 3.1 Baso % (Auto) 0.3 Lymph # (Auto) 1.0 L [place] # (Auto) 0.8 Eos # (Auto) 0.2 Baso # (Auto) 0.0 Abs Immat Gran (auto) 0.05 H Absolute Neuts (auto) 4.7 Absolute Nucleated RBC 0.000 Nucleated RBC % (auto) 0.0 Anion Gap 11 L Estim Creat Clear Calc TNP Estimated GFR 55 Random Glucose 212 H Calcium 8.6 Total Bilirubin 0.6 AST 13 ALT 13 Alkaline Phosphatase 68 Total Protein 6.0 L Albumin 3.4 L Blood Type O Positive Antibody Screen POSITIVE Antibody Identification Anti-E Crossmatch (AHG) See Detail Assessment and Plan (1) Fracture of hip, left, closed: Status: Acute Plan Patient is a 76 year old male with a PMH significant for dementia, insulin- dependent diabetes type 2, anemia, HTN, and SI with multiple attempts of attempting to jump from tall heights. Medical consult for pt who had an unwitnessed fall in his bathroom yesterday at 12:55 in the afternoon. Left knee and hip pain secondary to mechanical fall Patient had an x-ray of left knee yesterday which was negative for acute fracture or subluxation Pt incapable of weight-bearing and with reduced passive and active ROM secondary to pain X-ray of ankle negative for acute fracture or subluxation X-ray of right hip negative for fracture or subluxation X-ray of left hip showed foreshortening of left femoral neck with a subcapital fracture left hip without dislocation Orthopedics consulted, plan on surgical repair today Pt will be made NPO now Pt to be kept [id number] At average risk for surgery and no additional testing indicatated at this time. Diabetes --resume med after surgery Mood desorder, dementia--continue meds Lovenox for DVT prophylaxis after surgery Need for inpatient: Hip fracture and will need surgery Time Spent With Patient Time: Total time managing care of this patient today ____ minutes. Quality Stroke Does the patient have a stroke diagnosis?: No VTE Prior VTE?: No VTE Risk Level:: Medical - moderate - high VTE Device Contraindication: N/A - Device Ordered VTE Drug Contraindication: Treatment Not Indicated
--- NOTE | 2022-07-07 09:02 | MHC.CM.PN ---
Attempted interview w/Pt at bedside; Pt refused to interview w/this RNCM and asked this RNCM to leave. He requested this RNCM to call Amy; he was informed Amy was called multiple times w/messages left at every single number listed, to no avail. He stated he would not answer any questions. This RNCM verbally notified Pt of IMM From Medicare and gave it to him in person. Copy furnished in chart. Pending Amy's return call for completed interview. CM to follow.
[2022-07-07 09:10] LABS: MANUAL DIFF FLAG NO
[2022-07-07 09:15] LABS: Basophils Percent Auto 0.3 % (0-2); Eosinophils Absolute Auto 0.2 X10*3/uL (0.0-0.4); Eosinophils Percent Auto 2.4 % (0-4); Hematocrit 37.3 % (42.0-52.0); Hemoglobin 12.3 g/dl (14.0-18.0); Imm Gran Abs Auto 0.03 X10*3/uL (0.00-0.03); Imm Gran Pct Auto 0.4 % (0.0-0.4); Lymphocytes Percent Auto 14.7 % (20-40); Mean Corpuscular Hemoglobin 31.1 pg (27.0-33.0); Mean Corpuscular Volume 94.2 fL (80.0-98.0); Mean Platelet Volume 9.7 fL (9.4-12.4); Monocytes Absolute Auto 0.8 X10*3/uL (0.1-1.2); Monocytes Percent Auto 10.9 % (2-11); Neutrophils Percent Auto 71.3 % (45-73); Platelet Count 121 X10*3/uL (160-400); Red Blood Count 3.96 X10*6/uL (4.60-5.80); Red Cell Distribution Width 13.2 % (11.0-16.0)
[2022-07-07 09:34] LABS: Anion Gap 10 (12-20); Blood Urea Nitrogen 17 mg/dL (9-16); Calcium 8.4 mg/dL (8.4-10.2); Carbon Dioxide 30 mmol/L (22-29); Chloride 106 mmol/L (96-108); Estimated Glomerular Filt Rate > 60; Glucose Random 203 mg/dL (60-115); Potassium 4.1 mmol/L (3.3-5.1); Sodium 142 mmol/L (135-145)
--- NOTE | 2022-07-07 11:26 | HO.ANESPROP2 ---
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 Dysphagia, oropharyngeal phase Dysphagia, pharyngoesophageal phase Essential (primary) hypertension Major depressive disorder, single episode, unspecified Metabolic encephalopathy Muscle weakness (generalized) Other abnormalities of gait and mobility Repeated falls Schizophrenia, unspecified Type 2 diabetes mellitus without complications Unspecified dementia without behavioral disturbance Unsteadiness on feet Weakness Family History Family history of problems with anesthesia: No Surgical History History of Problems with Anesthesia: No Social History Social History Household Members: Unknown / Unable to assess Housing: Unknown / Unable to assess Do you presently have visiting nurse or other home services: No Unable to assess alcohol history related to: Unknown Alcohol intake: current Alcohol intake frequency: holidays/special occasions only Patient Tobacco Use Status: Tobacco use Unknown Second Hand Smoke Exposure: No Use of substances other than those prescribed or required for medical reasons: Unknown Currently Displaying Signs/Symptoms of Drug Intoxication Withdrawal: No Any prior treatment program specific to substance use: No Have you been hit, kicked, punched, or otherwise hurt by someone within the past year? If so, by whom?: No Do you feel safe in your current relationship?: Yes Is there a partner from a previous relationship who is making you feel unsafe now?: No Are you made to feel afraid or neglected: No Advance Directives: Yes Advance Directives on File: Yes Advance Directives Date on File: 08/11/20 Do you have thoughts of harming others: None Do you have a plan to hurt others: No Plan Recently lost weight without trying: Unsure How much weight loss: Unsure Nutrition Risks: No Nutritional Risk Poor oral hygiene: No Sexual orientation: Straight/Heterosexual Meds Allergies Allergy/AdvReac Type Severity Reaction Status Date / Time aspirin [ASA] Allergy Facial Verified 08/13/21 16:57 Swelling Penicillins Allergy Redness of Verified 08/13/21 16:57 Skin Sulfa (Sulfonamide AdvReac Rash Verified 08/13/21 16:57 Antibiotics) Active Medications: Current Medications Acetaminophen (Acetaminophen 325 Mg Tablet) 650 mg PO Q6H PRN PRN Reason: Pain, Mild (Pain Scale 1-3) Last Admin: 07/06/22 21:19 Dose: 650 mg Acetaminophen (Acetaminophen 325 Mg Tablet) 650 mg PO Q6H PRN PRN Reason: Pain, Mild (Pain Scale 1-3) Al Hydroxide/Mg Hydroxide (Magnesium Hydrox/Alum Hydrox 30 Ml Oral.Susp) 30 ml PO Q6H PRN PRN Reason: Heartburn/Nausea Divalproex Sodium (Divalproex Sodium 500 Mg Tablet.) 500 mg PO BID [facility] Docusate Sodium (Docusate Sodium 100 Mg Capsule) 100 mg PO BID [facility] Last Admin: 07/07/22 10:45 Dose: Not Given Docusate Sodium (Docusate Sodium 100 Mg Capsule) 100 mg PO BID [facility] Escitalopram Oxalate (Escitalopram Oxalate 10 Mg Tablet) 10 mg PO DAILY [facility] Insulin Human Lispro (Insulin Lispro 100 Unit/Ml 3 Ml Vial) 0 unit SUBCUT QIDWMHS [facility]; Protocol Loperamide HCl (Loperamide Hcl 2 Mg Capsule) 4 mg PO Q4H PRN PRN Reason: Diarrhea Magnesium Hydroxide (Milk Of Magnesia 30 Ml Oral.Susp) 30 ml PO DAILY PRN PRN Reason: Constipation Melatonin (Melatonin 3 Mg Tablet) 3 mg PO BEDTIME PRN PRN Reason: Insomnia Melatonin (Melatonin 3 Mg Tablet) 3 mg PO BEDTIME PRN PRN Reason: Insomnia Metformin HCl (Metformin Hcl Er 500 Mg Tab.Er.24h) 500 mg PO BEDTIME [facility] Morphine Sulfate (Morphine Sulfate 4 Mg/Ml Cartridge) 2 mg IVPUSH Q6H PRN; Protocol PRN Reason: Pain, Severe (Pain Scale 7-10) Last Admin: 07/07/22 06:23 Dose: 2 mg Morphine Sulfate (Morphine Sulfate 4 Mg/Ml Cartridge) 2 mg IVPUSH Q4H PRN; Protocol PRN Reason: Pain, Severe (Pain Scale 7-10) Omeprazole (Omeprazole 20 Mg Capsule.) 20 mg PO DAILY@0630 [facility] Oxycodone HCl (Oxycodone Hcl Immed Release 5 Mg Tablet) 5 mg PO Q4H PRN PRN Reason: Pain, Severe (Pain Scale 7-10) Pharmacy Consult (Consult Rx Perform Med Rec) 1 each MISCELLANE ONCE PRN PRN Reason: Consult order Polyethylene Glycol (Polyethylene Glycol 3350 17 Gm Powd.Pack) 17 gm PO DAILY PRN PRN Reason: Constipation Quetiapine Fumarate (Quetiapine Fumarate 100 Mg Tablet) 100 mg PO TID [facility] Senna (Sennosides 8.6 Mg Tablet) 17.2 mg PO BEDTIME PRN PRN Reason: Constipation Sodium Chloride (0.9 % Sodium Chloride Flush 3 Ml Syringe) 3 ml IVFLUSH [facility] Last Admin: 07/07/22 10:43 Dose: Not Given Sodium Chloride (0.9 % Sodium Chloride Flush 3 Ml Syringe) 3 ml IVFLUSH [facility] Trazodone HCl (Trazodone Hcl 100 Mg Tablet) 100 mg PO BEDTIME [facility] Home Medications Medication Instructions Recorded Confirmed Last Taken Type acetaminophen 325 mg tablet 650 mg PO Q4H PRN Fever 02/23/22 07/06/22 Unknown History divalproex 250 mg tablet,delayed 500 mg PO BID 02/23/22 07/06/22 06/17/22 14:00 History release (Depakote) docusate sodium 100 mg capsule 100 mg PO DAILY PRN Constipation 02/23/22 07/06/22 Unknown History escitalopram oxalate 5 mg tablet 10 mg PO DAILY 02/23/22 07/06/22 06/17/22 14:00 History insulin lispro 100 unit/mL 1 sliding scale dose subcut 02/23/22 07/06/22 06/17/22 14:00 History subcutaneous solution USEASDIRECTD melatonin 3 mg tablet 6 mg PO BEDTIME 02/23/22 07/06/22 06/16/22 History omeprazole 20 mg capsule,delayed 20 mg PO DAILY@0630 02/23/22 07/06/22 06/17/22 14:00 History release polyethylene glycol 3350 17 gram 17 g PO DAILY PRN Constipation 02/23/22 07/06/22 Unknown History oral powder packet (Miralax) quetiapine 50 mg tablet (Seroquel) 100 mg PO TID 02/23/22 07/06/22 06/17/22 14:00 History trazodone 50 mg tablet 100 mg PO BEDTIME 02/23/22 07/06/22 06/16/22 History metformin 500 mg tablet,extended 500 mg PO BEDTIME 06/17/22 07/06/22 06/16/22 History release 24 hr methenamine hippurate 1 gram tablet 1 g PO BID 06/17/22 07/06/22 06/17/22 14:00 History Exam Exam Date and Time: July 07, 2022 112 Height,Weight and Vital Signs: Weight 94.5 kg Last Vital Signs Temp 97.3 F 07/07/22 08:00 Pulse 80 07/07/22 08:00 Resp 20 07/07/22 08:00 BP 135/74 07/07/22 08:00 Pulse Ox 94 07/07/22 08:00 O2 Del Method Room Air 07/07/22 08:00 Pertinent Lab Results Pertinent Lab Results: Laboratory Tests 07/06/22 07/07/22 07/07/22 20:26 06:34 06:34 WBC 6.7 RBC 3.88 L Hgb 12.3 L Hct 36.9 L MCV 95.1 MCH 31.7 MCHC 33.3 RDW 13.3 Plt Count 124 L MPV 10.2 Immature Gran % (Auto) 0.7 H Neut % (Auto) 69.3 Lymph % (Auto) 14.8 L [place] % (Auto) 11.8 H Eos % (Auto) 3.1 Baso % (Auto) 0.3 Lymph # (Auto) 1.0 L [place] # (Auto) 0.8 Eos # (Auto) 0.2 Baso # (Auto) 0.0 Abs Immat Gran (auto) 0.05 H Absolute Neuts (auto) 4.7 Absolute Nucleated RBC 0.000 Nucleated RBC % (auto) 0.0 Sodium 142 Potassium 4.2 Chloride 106 Carbon Dioxide 29 Anion Gap 11 L BUN 18 H Creatinine 1.27 Estim Creat Clear Calc TNP Estimated GFR 55 Random Glucose 212 H Calcium 8.6 Total Bilirubin 0.6 AST 13 ALT 13 Alkaline Phosphatase 68 Total Protein 6.0 L Albumin 3.4 L Blood Type O Positive Antibody Screen POSITIVE Antibody Identification Anti-E Crossmatch (AHG) See Detail 07/07/22 07/07/22 09:06 09:06 WBC 7.0 RBC 3.96 L Hgb 12.3 L Hct 37.3 L MCV 94.2 MCH 31.1 MCHC 33.0 RDW 13.2 Plt Count 121 L MPV 9.7 Immature Gran % (Auto) 0.4 Neut % (Auto) 71.3 Lymph % (Auto) 14.7 L [place] % (Auto) 10.9 Eos % (Auto) 2.4 Baso % (Auto) 0.3 Lymph # (Auto) 1.0 L [place] # (Auto) 0.8 Eos # (Auto) 0.2 Baso # (Auto) 0.0 Abs Immat Gran (auto) 0.03 Absolute Neuts (auto) 5.0 Absolute Nucleated RBC 0.000 Nucleated RBC % (auto) 0.0 Sodium 142 Potassium 4.1 Chloride 106 Carbon Dioxide 30 H Anion Gap 10 L BUN 17 H Creatinine 1.14 Estim Creat Clear Calc TNP Estimated GFR > 60 Random Glucose 203 H Calcium 8.4 Total Bilirubin AST ALT Alkaline Phosphatase Total Protein Albumin Blood Type Antibody Screen Antibody Identification Crossmatch (AHG) Airway Mallampati Class: II TM Dist: >3cm Neck ROM: Full Denture: Upper and Lower Loose/Missing/Broken Teeth: No Heart: RRR Lungs: CTA Assessment and Plan Assessment Anesthesia Assessment: Anesthesia Plan Discussed and Chart Reviewed Final Anesthetic Review Family History of Problems with Anesthesia: No History of Problems with Anesthesia: No NPO: Yes ASA Class: III Final Preanesthetic Review: No Changes in Pt Med Stat, Consent Obtained/Reviewed and Anes Risks/Benef Reviewed Patient Risk: Intermediate Procedure Risk: Intermediate Anesthetic Plan Anesthetic Plan: GA Disposition: Standard PACU
--- NOTE | 2022-07-07 11:27 | PC.NURSE ---
Patient alert to self only pleasantly confused, provided with continuous redirection on place and time as well as need for surgery. Very hard of hearing. TAY to command 4/5 except LLE slightly bent at knee with lower leg and foot turned outward. c/o pain 9/10 yells out to touch or movement. Per pt decreased sensation to LLE, + pedal pulses bilat no edema noted. Lung sounds clear remains on room air. Incontinent of urine. NPO since midnight for surgery. Bilateral 20G arm IV's intact able to easily flush. Off unit for surgery approximately 1030 in bed. Will continue to monitor
[2022-07-07 12:05] LABS: Glucose, Whole Blood 157 mg/dL (60-115)
--- NOTE | 2022-07-07 13:04 | MHC.CM.PN ---
Pt from inpatient dona/psych here at [facility] per MD (was admitted for 17 days); Pt was scheduled to be D/C'd to a facility but ended up on medical side of hospital. Prior to that, sent to [facility] from [facility] D/T their inability to safely care for him secondary to his psych issues and behaviors. Per Amy (primary contact), [facility] was setting up transfer to their sister facility at [facility] in [place] for dementia care; Amy states she toured and visually saw the dementia unit, although this RNCM unable to confirm via Center's website that they even offer dementia care. Amy also indicated that upon her arrival, [facility] had no knowledge of Pt and his supposed transfer to them for LT dementia care. Per Amy, Pt has a longstanding PMH of challenges associated w/dementia (both at home-[facility] was in place at home, and in facilities), and has also escaped facilities even with wondergaurds in place; she states he absolutely must have a secure unit. This RNCM reviewed other known secure dementia units w/Amy in [facility], to which she was in agreement for referrals to all of them: [facility] (secure dementia building w/certified demenita program and certified staff), [facility], [facility] [place] (certified staff). Will send referral to [facility] as well for secure unit investigational purposes. CM to follow.
--- NOTE | 2022-07-07 13:28 | MHC.CM.PN ---
Called Amy and notified her that referrals went out to secure dementia units: [facility] ([facility]-new name), [facility] [place]. Pending responses.
--- NOTE | 2022-07-07 13:45 | PM.OP ---
Brief Operative Note Date of Service: 07/07/22 Pre-op diagnosis: Left femoral neck fracture Post-op diagnosis: same Procedure: Left hip hemiarthroplasty Implants: Accolade2 #6 127 deg with +4/ bipolar Surgeon: Fabien Chamorro MD Anesthesia: GETA, GLMA and local Was an Dewatering Filtering Supervisor used for this Procedure?: Yes Dewatering Filtering Supervisor: Juliana Beck Estimated blood loss (mL): 250 IV fluids (mL): 850 Pathology: other Condition: stable Disposition: PACU
--- NOTE | 2022-07-07 13:48 | MHC.CM.PN ---
Amy indicates she has an updated HCP reflecting herself and her son as the HCPs for Pt. This RNCM requested she bring this document in as soon as possible given the HCP on file does not reflect this information. Amy is listed as primary contact, and her son Vick is listed as secondary contact, but not the HCPs. Amy indicates Lisbet (listed HCP) is Pt's and also has dementia. Pending new/updated document's arrival. CM to follow.
[2022-07-07] MEDS: Acetaminophen 1,000 MG/100 ML PIGGYBACK 400 MG IV (14:18)
[2022-07-07] MEDS: QUEtiapine Fumarate 100 MG TABLET PO ×2 (15:52→21:59)
[2022-07-07] MEDS: 0.9 % Sodium Chloride Flush 3 ML SYRINGE IVFLUSH ×2 (15:53)
[2022-07-07] MEDS: Insulin Lispro 100 UNIT/ML 3 ML VIAL SUBCUT ×2 (15:53→21:59)
[2022-07-07] MEDS: Lactated Ringers 1,000 ML 100 ML IVCONT (15:56)
[2022-07-07 16:02] LABS: Glucose, Whole Blood 249 mg/dL (60-115)
[2022-07-07 19:40] LABS: Glucose, Whole Blood 419 mg/dL (60-115)
[2022-07-07 20:06] LABS: Glucose, Whole Blood 364 mg/dL (60-115)
[2022-07-07] MEDS: oxyCODONE HCl ER 10 MG TAB.ER.12H PO (21:58)
[2022-07-07] MEDS: metFORMIN HCl ER 500 MG TAB.ER.24H PO (21:58)
[2022-07-07] MEDS: traZODone HCL 100 MG TABLET PO (21:59)
[2022-07-07] MEDS: Divalproex Sodium 500 MG TABLET.DR PO (21:59)
[2022-07-07] MEDS: Docusate Sodium 100 MG CAPSULE PO (21:59)
[2022-07-07] MEDS: Celecoxib 200 MG CAPSULE PO (22:00)
[2022-07-08] VITALS: BP 150/73; PULSE 20; RESP 20; TEMP 36.1; O2SAT 92
[2022-07-08] MEDS: Lactated Ringers 1,000 ML 100 ML IVCONT (03:22)
[2022-07-08 03:25] VITALS: BP 100/56; PULSE 79; RESP 20; TEMP 36.3; O2SAT 93
[2022-07-08] MEDS: Omeprazole 20 MG CAPSULE.DR PO (05:28)
[2022-07-08 06:46] LABS: MANUAL DIFF FLAG NO
[2022-07-08 07:03] LABS: Anion Gap 10 (12-20); Blood Urea Nitrogen 23 mg/dL (9-16); Calcium 8.4 mg/dL (8.4-10.2); Carbon Dioxide 32 mmol/L (22-29); Chloride 104 mmol/L (96-108); Creatinine Clr Calc Pharmacy 57.4; Eosinophils Absolute Auto 0.1 X10*3/uL (0.0-0.4); Eosinophils Percent Auto 1.6 % (0-4); Estimated Glomerular Filt Rate 58; Glucose Fasting 186 mg/dL (60-99); PLT CLUMP 1; Potassium 4.4 mmol/L (3.3-5.1); SCAN SMEAR FLAG 1; Sodium 142 mmol/L (135-145)
[2022-07-08 07:05] LABS: Basophils Percent Auto 0.1 % (0-2); Hematocrit 30.7 % (42.0-52.0); Hemoglobin 10.3 g/dl (14.0-18.0); Imm Gran Abs Auto 0.04 X10*3/uL (0.00-0.03); Imm Gran Pct Auto 0.5 % (0.0-0.4); Lymphocytes Percent Auto 13.6 % (20-40); Mean Corpuscular HGB Conc 33.6 g/dl (31.0-36.0); Mean Corpuscular Volume 95.3 fL (80.0-98.0); Monocytes Absolute Auto 1.2 X10*3/uL (0.1-1.2); Monocytes Percent Auto 15.4 % (2-11); Neutrophils Absolute Auto 5.3 x10*3/uL (2.0-8.3); Neutrophils Percent Auto 68.8 % (45-73); Red Blood Count 3.22 X10*6/uL (4.60-5.80)
[2022-07-08 07:08] LABS: Mean Platelet Volume 10.6 fL (9.4-12.4); Platelet Count 113 X10*3/uL (160-400); White Blood Count 7.7 X10*3/uL (4.8-10.8)
[2022-07-08 07:49] LABS: Glucose, Whole Blood 187 mg/dL (60-115)
[2022-07-08 08:00] VITALS: BP 139/63; PULSE 101; RESP 20; TEMP 36.3; O2SAT 96
[2022-07-08] MEDS: Insulin Lispro 100 UNIT/ML 3 ML VIAL SUBCUT ×4 (08:04→20:10)
[2022-07-08] MEDS: Divalproex Sodium 500 MG TABLET.DR PO ×2 (08:05→20:10)
[2022-07-08] MEDS: QUEtiapine Fumarate 100 MG TABLET PO ×3 (08:05→20:10)
[2022-07-08] MEDS: Escitalopram Oxalate 10 MG TABLET PO (08:05)
[2022-07-08] MEDS: Celecoxib 200 MG CAPSULE PO ×2 (08:05→20:10)
[2022-07-08] MEDS: oxyCODONE HCl ER 10 MG TAB.ER.12H PO ×2 (08:05→20:10)
[2022-07-08] MEDS: Docusate Sodium 100 MG CAPSULE PO ×2 (08:06→20:10)
--- NOTE | 2022-07-08 09:41 | PM.PNORT ---
Subjective Subjective Date of Service: 07/08/22 Interval history: POD1 s/p lt hip hemiarthroplasty. No overnight events. Pain is managed. Laying in bed comfortably. No additional complaints. Physical Exam Vital Signs: Vital Signs: Last Vital Signs Temp 97.3 F 07/08/22 08:00 Pulse 101 H 07/08/22 08:00 Resp 20 07/08/22 08:00 BP 139/63 07/08/22 08:00 Pulse Ox 96 07/08/22 08:00 O2 Del Method Room Air 07/08/22 08:00 O2 Flow Rate 3 07/07/22 18:57 BMI result Body Mass Index 24.4 Const: General: cooperative, healthy appearing and no acute distress Resp: Effort & Inspection: normal respiratory effort and able to speak in complete sentences Cardio: Rate: regular rate Peripheral pulses: Peripheral pulses 2+ throughout GI: Palpation (GI): Soft to palpation Skin: Lesions: no lesions Rashes: no rashes Extrem: Other: Left hip Aquacel is c/d/i. Able to dorsi/plantarflex. NVI. Procedures Date of Service Date of Service: 07/08/22 Progress Note: A&P Assessment and plan (1) Fracture of hip, left, closed: Status: Acute (2) Major neurocognitive disorder: Status: Acute (3) S/P hip hemiarthroplasty: Status: Acute Plan Continue pain mgmnt Begin Lovenox for dvt ppx begin PT for lt hip jemal - WBAT Dispo planning-Pending PT eval, pain mgmnt Time Spent With Patient Time: Total time managing care of this patient today ____ minutes. Quality Stroke Does the patient have a stroke diagnosis?: No VTE Prior VTE?: No VTE Risk Level:: Medical - moderate - high VTE Device Contraindication: N/A - Device Ordered VTE Drug Contraindication: Treatment Not Indicated
--- NOTE | 2022-07-08 09:59 | P.PNIM_ITS ---
Subjective Subjective Date of Service: 07/08/22 Interval History: f/u on hip fracture Hip rapair done 07/07, doing well, pain is controlled Physical Exam Vital Signs: Vital Signs: Last Vital Signs Temp 97.3 F 07/08/22 08:00 Pulse 101 H 07/08/22 08:00 Resp 20 07/08/22 08:00 BP 139/63 07/08/22 08:00 Pulse Ox 96 07/08/22 08:00 O2 Del Method Room Air 07/08/22 08:00 O2 Flow Rate 3 07/07/22 18:57 BMI result Body Mass Index 24.4 Const: Other: General: AO X 3, no acute distress Resp: CTA bilateral CVS: S1,S2,RRR GI: +BS, NT, no distention Skin: No rash, hip surgery wound site d/c/i Neuro: motor grossly intact Psych: appropriate affect Objective Data Active Medications Acetaminophen (Acetaminophen Supp 650 Mg Supp.Rect) 650 mg DC Q6H PRN PRN Reason: Pain, Mild (Pain Scale 1-3) Al Hydroxide/Mg Hydroxide (Magnesium Hydrox/Alum Hydrox 30 Ml Oral.Susp) 30 ml PO Q6H PRN PRN Reason: Heartburn/Nausea Celecoxib (Celecoxib 200 Mg Capsule) 200 mg PO BID [facility] Last Admin: 07/08/22 08:05 Dose: 200 mg Documented By: CORKY Divalproex Sodium (Divalproex Sodium 500 Mg Tablet.) 500 mg PO BID [facility] Last Admin: 07/08/22 08:05 Dose: 500 mg Documented By: CORKY Docusate Sodium (Docusate Sodium 100 Mg Capsule) 100 mg PO BID [facility] Last Admin: 07/08/22 08:06 Dose: 100 mg Documented By: CORKY Enoxaparin Sodium (Enoxaparin Sodium 40 Mg/0.4 Ml Syringe) 40 mg SUBCUT Q24H [facility] Escitalopram Oxalate (Escitalopram Oxalate 10 Mg Tablet) 10 mg PO DAILY [facility] Last Admin: 07/08/22 08:05 Dose: 10 mg Documented By: CORKY Hydromorphone HCl (Hydromorphone Hcl 0.5 Mg/0.5 Ml Syringe) 0.25 mg IVPUSH Q4H PRN; Protocol PRN Reason: Pain, Severe (Pain Scale 7-10) Lactated Ringer's (Lr) 1,000 mls @ 100 mls/hr IVCONT .Q10H [facility] Last Admin: 07/08/22 03:22 Dose: 100 mls/hr Documented By: KAYLIE Insulin Human Lispro (Insulin Lispro 100 Unit/Ml 3 Ml Vial) 0 unit SUBCUT QIDWM [facility]; Protocol Last Admin: 07/08/22 08:04 Dose: 2 unit Documented By: CORKY Loperamide HCl (Loperamide Hcl 2 Mg Capsule) 4 mg PO Q4H PRN PRN Reason: Diarrhea Magnesium Hydroxide (Milk Of Magnesia 30 Ml Oral.Susp) 30 ml PO DAILY PRN PRN Reason: Constipation Melatonin (Melatonin 3 Mg Tablet) 3 mg PO BEDTIME PRN PRN Reason: Insomnia Metformin HCl (Metformin Hcl Er 500 Mg Tab.Er.24h) 500 mg PO BEDTIME [facility] Last Admin: 07/07/22 21:58 Dose: 500 mg Documented By: KAYLIE Omeprazole (Omeprazole 20 Mg Capsule.Dr) 20 mg PO DAILY@0630 [facility] Last Admin: 07/08/22 05:28 Dose: 20 mg Documented By: KYALIE Ondansetron HCl (Ondansetron Hcl 4 Mg/2 Ml Vial) 4 mg IVPUSH Q8H PRN PRN Reason: Nausea Oxycodone HCl (Oxycodone Hcl Immed Release 5 Mg Tablet) 5 mg PO Q4H PRN PRN Reason: Pain, Moderate(Pain Scale 4-6) Oxycodone HCl (Oxycodone Hcl Er 10 Mg Tab.Er.12h) 10 mg PO BID [facility] Last Admin: 07/08/22 08:05 Dose: 10 mg Documented By: CORKY Pharmacy Consult (Consult Rx Perform Med Rec) 1 each MISCELLANE ONCE PRN PRN Reason: Consult order Polyethylene Glycol (Polyethylene Glycol 3350 17 Gm Powd.Pack) 17 gm PO DAILY PRN PRN Reason: Constipation Quetiapine Fumarate (Quetiapine Fumarate 100 Mg Tablet) 100 mg PO TID [facility] Last Admin: 07/08/22 08:05 Dose: 100 mg Documented By: CORKY Sodium Chloride (0.9 % Sodium Chloride Flush 3 Ml Syringe) 3 ml IVFLUSH QSHIFT [facility] Last Admin: 07/08/22 08:06 Dose: Not Given Documented By: CORKY Non-Admin Reason: IV Running Sodium Chloride (0.9 % Sodium Chloride Flush 3 Ml Syringe) 3 ml IVFLUSH QSHIFT [facility] Last Admin: 07/08/22 08:06 Dose: Not Given Documented By: CORKY Non-Admin Reason: Duplicate Order Sodium Chloride (0.9 % Sodium Chloride Flush 3 Ml Syringe) 3 ml IVFLUSH QSTNFT [facility] Last Admin: 07/08/22 08:06 Dose: Not Given Documented By: CORKY Non-Admin Reason: Duplicate Order Trazodone HCl (Trazodone Hcl 100 Mg Tablet) 100 mg PO BEDTIME [facility] Last Admin: 07/07/22 21:59 Dose: 100 mg Documented By: KAYLIE Labs 07/08/22 06:17 07/08/22 06:17 Labs: Laboratory Results - last 24 hr 07/07/22 07/07/22 07/07/22 11:59 15:45 19:00 MCV MCH MCHC RDW Plt Count MPV Immature Gran % (Auto) Neut % (Auto) Lymph % (Auto) [place] % (Auto) Eos % (Auto) Baso % (Auto) Lymph # (Auto) [place] # (Auto) Eos # (Auto) Baso # (Auto) Abs Immat Gran (auto) Absolute Neuts (auto) Absolute Nucleated RBC Nucleated RBC % (auto) Anion Gap Estim Creat Clear Calc Estimated GFR POC Glucose 157 H 249 H 419 H* Fasting Glucose Calcium 07/07/22 07/08/22 07/08/22 20:02 06:17 06:17 MCV 95.3 MCH 32.0 MCHC 33.6 RDW 13.0 Plt Count 113 L MPV 10.6 Immature Gran % (Auto) 0.5 H Neut % (Auto) 68.8 Lymph % (Auto) 13.6 L [place] % (Auto) 15.4 H Eos % (Auto) 1.6 Baso % (Auto) 0.1 Lymph # (Auto) 1.0 L [place] # (Auto) 1.2 Eos # (Auto) 0.1 Baso # (Auto) 0.0 Abs Immat Gran (auto) 0.04 H Absolute Neuts (auto) 5.3 Absolute Nucleated RBC 0.000 Nucleated RBC % (auto) 0.0 Anion Gap 10 L Estim Creat Clear Calc 57.4 Estimated GFR 58 POC Glucose 364 H* Fasting Glucose 186 H Calcium 8.4 07/08/22 07:38 MCV MCH MCHC RDW Plt Count MPV Immature Gran % (Auto) Neut % (Auto) Lymph % (Auto) [place] % (Auto) Eos % (Auto) Baso % (Auto) Lymph # (Auto) [place] # (Auto) Eos # (Auto) Baso # (Auto) Abs Immat Gran (auto) Absolute Neuts (auto) Absolute Nucleated RBC Nucleated RBC % (auto) Anion Gap Estim Creat Clear Calc Estimated GFR POC Glucose 187 H Fasting Glucose Calcium Assessment and Plan (1) Fracture of hip, left, closed: Status: Acute Plan Patient is a 76 year old male with a PMH significant for dementia, insulin- dependent diabetes type 2, anemia, HTN, and SI with multiple attempts of attempting to jump from tall heights. Medical consult for pt who had an unwitnessed fall in his bathroom yesterday at 12:55 in the afternoon. Left knee and hip pain secondary to mechanical fall -surgical repair done on 07/07/22 -pain control -PT tomorrow -Lovenox for DVT prophylaxis . Diabetes --Metformin, insulin and diabetic diet Mood desorder, dementia--continue meds Psych indicated he no longer needed sitter Lovenox for DVT prophylaxis Need for inpatient: Hip fracture, post surgery care and will need placement Time Spent With Patient Time: Total time managing care of this patient today ____ minutes. Quality Stroke Does the patient have a stroke diagnosis?: No VTE Prior VTE?: No VTE Risk Level:: Medical - moderate - high VTE Device Contraindication: N/A - Device Ordered VTE Drug Contraindication: Treatment Not Indicated
[2022-07-08 11:51] LABS: Glucose, Whole Blood 217 mg/dL (60-115)
[2022-07-08 11:55] VITALS: BP 122/58; PULSE 92; RESP 20; TEMP 36.8; O2SAT 95
[2022-07-08] MEDS: Enoxaparin Sodium 40 MG/0.4 ML SYRINGE SUBCUT (12:01)
[2022-07-08 15:32] VITALS: BP 121/56; PULSE 90; RESP 20; TEMP 36.6; O2SAT 94
[2022-07-08 16:04] LABS: Glucose, Whole Blood 217 mg/dL (60-115)
[2022-07-08] MEDS: 0.9 % Sodium Chloride Flush 3 ML SYRINGE IVFLUSH ×4 (16:43→20:13)
--- NOTE | 2022-07-08 17:21 | HO.POSTANES ---
Post Anesthesia Evaluation Post Anesthesia Evaluation Vital Signs: Vital Signs Temp Pulse Resp BP Pulse Ox O2 Del Method 07/08/22 15:32 98 F 90 20 121/56 L 94 Room Air 07/08/22 11:55 98.3 F 92 20 122/58 L 95 Room Air 07/08/22 08:00 97.3 F 101 H 20 139/63 96 Room Air Anesthesia: General LMA Mental Status: Awake Pain Control: Satisfactory Nausea/Vomiting: None Hydration: Adequate Anesthesia-Related Issues: No Anes. Related Issues
[2022-07-08 19:12] VITALS: BP 117/56; PULSE 94; RESP 14; TEMP 36.6; O2SAT 90
[2022-07-08 20:07] LABS: Glucose, Whole Blood 272 mg/dL (60-115)
[2022-07-08] MEDS: traZODone HCL 100 MG TABLET PO (20:10)
[2022-07-08] MEDS: metFORMIN HCl ER 500 MG TAB.ER.24H PO (20:10)
[2022-07-09 03:48] VITALS: BP 97/55; PULSE 86; RESP 16; TEMP 36.2; O2SAT 93
[2022-07-09] MEDS: Omeprazole 20 MG CAPSULE.DR PO (05:18)
[2022-07-09 07:16] VITALS: BP 112/54; PULSE 79; RESP 19; TEMP 36.2; O2SAT 96
[2022-07-09 07:23] LABS: Glucose, Whole Blood 198 mg/dL (60-115)
--- NOTE | 2022-07-09 07:57 | HO.PM.IMPN ---
Subjective Subjective Date of Service: 07/09/22 Interval History: f/u on hip fracture repair no new issues, pain conroled, no new issues Physical Exam Vital Signs: Vital Signs: Last Vital Signs Temp 97.1 F 07/09/22 07:16 Pulse 79 07/09/22 07:16 Resp 19 07/09/22 07:16 BP 112/54 L 07/09/22 07:16 Pulse Ox 96 07/09/22 07:16 O2 Del Method Room Air 07/09/22 07:16 O2 Flow Rate 3 07/07/22 18:57 BMI result Body Mass Index 24.4 Const: Other: General: AO X 3, no acute distress Resp: CTA bilateral CVS: S1,S2,RRR GI: +BS, NT, no distention Skin: No rash, hip surgery wound site d/c/i Neuro: motor grossly intact Psych: appropriate affect Objective Data Active Medications Acetaminophen (Acetaminophen Supp 650 Mg Supp.Rect) 650 mg SC Q6H PRN PRN Reason: Pain, Mild (Pain Scale 1-3) Al Hydroxide/Mg Hydroxide (Magnesium Hydrox/Alum Hydrox 30 Ml Oral.Susp) 30 ml PO Q6H PRN PRN Reason: Heartburn/Nausea Celecoxib (Celecoxib 200 Mg Capsule) 200 mg PO BID [facility] Last Admin: 07/08/22 20:10 Dose: 200 mg Documented By: TIMBO Divalproex Sodium (Divalproex Sodium 500 Mg Tablet.) 500 mg PO BID [facility] Last Admin: 07/08/22 20:10 Dose: 500 mg Documented By: TIMBO Docusate Sodium (Docusate Sodium 100 Mg Capsule) 100 mg PO BID [facility] Last Admin: 07/08/22 20:10 Dose: 100 mg Documented By: TIMBO Enoxaparin Sodium (Enoxaparin Sodium 40 Mg/0.4 Ml Syringe) 40 mg SUBCUT Q24H [facility] Last Admin: 07/08/22 12:01 Dose: 40 mg Documented By: CORKY Escitalopram Oxalate (Escitalopram Oxalate 10 Mg Tablet) 10 mg PO DAILY [facility] Last Admin: 07/08/22 08:05 Dose: 10 mg Documented By: CORKY Hydromorphone HCl (Hydromorphone Hcl 0.5 Mg/0.5 Ml Syringe) 0.25 mg IVPUSH Q4H PRN; Protocol PRN Reason: Pain, Severe (Pain Scale 7-10) Insulin Human Lispro (Insulin Lispro 100 Unit/Ml 3 Ml Vial) 0 unit SUBCUT QIDWMHS [facility]; Protocol Last Admin: 07/08/22 20:10 Dose: 6 unit Documented By: TIMBO Loperamide HCl (Loperamide Hcl 2 Mg Capsule) 4 mg PO Q4H PRN PRN Reason: Diarrhea Magnesium Hydroxide (Milk Of Magnesia 30 Ml Oral.Susp) 30 ml PO DAILY PRN PRN Reason: Constipation Melatonin (Melatonin 3 Mg Tablet) 3 mg PO BEDTIME PRN PRN Reason: Insomnia Metformin HCl (Metformin Hcl Er 500 Mg Tab.Er.24h) 500 mg PO BEDTIME [facility] Last Admin: 07/08/22 20:10 Dose: 500 mg Documented By: TIMBO Omeprazole (Omeprazole 20 Mg Capsule.Dr) 20 mg PO DAILY@0630 [facility] Last Admin: 07/09/22 05:18 Dose: 20 mg Documented By: TIMBO Ondansetron HCl (Ondansetron Hcl 4 Mg/2 Ml Vial) 4 mg IVPUSH Q8H PRN PRN Reason: Nausea Oxycodone HCl (Oxycodone Hcl Immed Release 5 Mg Tablet) 5 mg PO Q4H PRN PRN Reason: Pain, Moderate(Pain Scale 4-6) Oxycodone HCl (Oxycodone Hcl Er 10 Mg Tab.Er.12h) 10 mg PO BID [facility] Last Admin: 07/08/22 20:10 Dose: 10 mg Documented By: TIMBO Pharmacy Consult (Consult Rx Perform Med Rec) 1 each MISCELLANE ONCE PRN PRN Reason: Consult order Polyethylene Glycol (Polyethylene Glycol 3350 17 Gm Powd.Pack) 17 gm PO DAILY PRN PRN Reason: Constipation Quetiapine Fumarate (Quetiapine Fumarate 100 Mg Tablet) 100 mg PO TID [facility] Last Admin: 07/08/22 20:10 Dose: 100 mg Documented By: TIMBO Sodium Chloride (0.9 % Sodium Chloride Flush 3 Ml Syringe) 3 ml IVFLUSH [facility] Last Admin: 07/08/22 19:51 Dose: 3 ml Documented By: TIMBO Sodium Chloride (0.9 % Sodium Chloride Flush 3 Ml Syringe) 3 ml IVFLUSH [facility] Last Admin: 07/08/22 20:13 Dose: 3 ml Documented By: TIMBO Sodium Chloride (0.9 % Sodium Chloride Flush 3 Ml Syringe) [facility] Last Admin: 07/08/22 20:13 Dose: 3 ml Documented By: TMIBO Trazodone HCl (Trazodone Hcl 100 Mg Tablet) 100 mg PO BEDTIME [facility] Last Admin: 07/08/22 20:10 Dose: 100 mg Documented By: TIMBO Labs 07/08/22 06:17 07/08/22 06:17 Labs: Laboratory Results - last 24 hr 07/08/22 07/08/22 07/08/22 11:46 15:34 20:03 POC Glucose 217 H 217 H 272 H 07/09/22 07:18 POC Glucose 198 H Assessment and Plan (1) Fracture of hip, left, closed: Status: Acute Plan 76 year old male with a PMH significant for dementia, insulin-dependent diabetes type 2, anemia, HTN, and SI with multiple attempts of attempting to jump from tall heights. He had an unwitnessed fall day before he was to be discharged from [facility] after 17 days in [facility] Psych and sustained Left hip fracture Left Hip fracture d/t mechancal fall -surgical repair done on 07/07/22 -pain control -PT -Lovenox for DVT prophylaxis -Ultimately to SNF Diabetes --Metformin, insulin SSI and diabetic diet Mood desorder, dementia--continue meds (Depakote, lexapro, seroquel, Trazadone) Psych has indicated that no indication for sitter at this pt, recommend routine Psych follo up GERD--omeprazole check CBC, BMP routinely Lovenox for DVT prophylaxis Need for inpatient: Hip fracture, post surgery care and need placement Time Spent With Patient Time: Total time managing care of this patient today ____ minutes. Quality Stroke Does the patient have a stroke diagnosis?: No VTE Prior VTE?: No VTE Risk Level:: Medical - moderate - high VTE Device Contraindication: N/A - Device Ordered VTE Drug Contraindication: Treatment Not Indicated
[2022-07-09 08:11] LABS: MANUAL DIFF FLAG NO
[2022-07-09 08:17] LABS: Basophils Percent Auto 0.3 % (0-2); Eosinophils Absolute Auto 0.2 X10*3/uL (0.0-0.4); Eosinophils Percent Auto 2.8 % (0-4); Hematocrit 23.7 % (42.0-52.0); Hemoglobin 7.9 g/dl (14.0-18.0); Imm Gran Abs Auto 0.05 X10*3/uL (0.00-0.03); Imm Gran Pct Auto 0.8 % (0.0-0.4); Lymphocytes Absolute Auto 0.9 X10*3/uL (1.2-4.9); Lymphocytes Percent Auto 14.6 % (20-40); Mean Corpuscular HGB Conc 33.3 g/dl (31.0-36.0); Mean Corpuscular Hemoglobin 31.5 pg (27.0-33.0); Mean Corpuscular Volume 94.4 fL (80.0-98.0); Mean Platelet Volume 10.6 fL (9.4-12.4); Monocytes Absolute Auto 0.8 X10*3/uL (0.1-1.2); Monocytes Percent Auto 13.1 % (2-11); Neutrophils Absolute Auto 4.2 x10*3/uL (2.0-8.3); Neutrophils Percent Auto 68.4 % (45-73); Red Blood Count 2.51 X10*6/uL (4.60-5.80); White Blood Count 6.2 X10*3/uL (4.8-10.8)
[2022-07-09] MEDS: Insulin Lispro 100 UNIT/ML 3 ML VIAL SUBCUT ×4 (08:17→20:13)
[2022-07-09] MEDS: Divalproex Sodium 500 MG TABLET.DR PO ×2 (08:17→20:12)
[2022-07-09] MEDS: QUEtiapine Fumarate 100 MG TABLET PO ×3 (08:17→20:12)
[2022-07-09] MEDS: Escitalopram Oxalate 10 MG TABLET PO (08:17)
[2022-07-09] MEDS: Celecoxib 200 MG CAPSULE PO ×2 (08:17→20:12)
[2022-07-09] MEDS: oxyCODONE HCl ER 10 MG TAB.ER.12H PO ×2 (08:17→20:12)
[2022-07-09] MEDS: Docusate Sodium 100 MG CAPSULE PO ×2 (08:17→20:12)
[2022-07-09 08:19] LABS: Platelet Count 97 X10*3/uL (160-400)
[2022-07-09] MEDS: 0.9 % Sodium Chloride Flush 3 ML SYRINGE IVFLUSH ×3 (08:19→20:13)
[2022-07-09 08:29] LABS: Anion Gap 10 (12-20); Blood Urea Nitrogen 26 mg/dL (9-16); Calcium 7.9 mg/dL (8.4-10.2); Carbon Dioxide 29 mmol/L (22-29); Chloride 102 mmol/L (96-108); Creatinine Clr Calc Pharmacy 65.4; Estimated Glomerular Filt Rate > 60; Glucose Fasting 209 mg/dL (60-99); Potassium 3.7 mmol/L (3.3-5.1); Sodium 137 mmol/L (135-145)
--- NOTE | 2022-07-09 08:34 | PM.PNORT ---
Subjective Subjective Date of Service: 07/09/22 Interval history: POD2 s/p lt hip hemiarthroplasty. No overnight events. Pain is managed. Laying in bed comfortably. No additional complaints. Physical Exam Vital Signs: Vital Signs: Last Vital Signs Temp 97.1 F 07/09/22 07:16 Pulse 79 07/09/22 07:16 Resp 19 07/09/22 07:16 BP 112/54 L 07/09/22 07:16 Pulse Ox 96 07/09/22 07:16 O2 Del Method Room Air 07/09/22 07:16 O2 Flow Rate 3 07/07/22 18:57 BMI result Body Mass Index 24.4 Const: General: cooperative, healthy appearing and no acute distress Resp: Effort & Inspection: normal respiratory effort and able to speak in complete sentences Cardio: Rate: regular rate Peripheral pulses: Peripheral pulses 2+ throughout GI: Palpation (GI): Soft to palpation Skin: Lesions: no lesions Rashes: no rashes Extrem: Other: Left hip Aquacel is c/d/i. Able to dorsi/plantarflex. NVI. Procedures Date of Service Date of Service: 07/09/22 Progress Note: A&P Assessment and plan (1) Fracture of hip, left, closed: Status: Acute (2) Major neurocognitive disorder: Status: Acute (3) S/P hip hemiarthroplasty: Status: Acute Plan Continue pain mgmnt Continue Lovenox for dvt ppx Continue PT for lt hip jemal - WBAT -Purple abduction pillow should be placed while in bed Dispo planning-Pending PT eval, pain mgmnt Time Spent With Patient Time: Total time managing care of this patient today ____ minutes. Quality Stroke Does the patient have a stroke diagnosis?: No VTE Prior VTE?: No VTE Risk Level:: Medical - moderate - high VTE Device Contraindication: N/A - Device Ordered VTE Drug Contraindication: Treatment Not Indicated
[2022-07-09 09:20] VITALS: PULSE 85; O2SAT 96
--- NOTE | 2022-07-09 09:50 | HO.POSTANES ---
Post Anesthesia Evaluation Post Anesthesia Evaluation Vital Signs: Vital Signs Temp Pulse Resp BP Pulse Ox O2 Del Method 07/09/22 07:16 97.1 F 79 19 112/54 L 96 Room Air 07/09/22 03:48 97.2 F 86 16 97/55 L 93 Room Air Anesthesia: General Endotracheal-GETA Mental Status: Awake Pain Control: Satisfactory Nausea/Vomiting: None Hydration: Adequate Anesthesia-Related Issues: No Anes. Related Issues
[2022-07-09 11:55] LABS: Glucose, Whole Blood 238 mg/dL (60-115)
[2022-07-09] MEDS: Enoxaparin Sodium 40 MG/0.4 ML SYRINGE SUBCUT (12:01)
--- NOTE | 2022-07-09 12:27 | MHC.CM.PN ---
Addendum entered by Kathryn Mendiola 07/09/22 14:12: [facility]. Elvira ny was working with [facility]. The facility has a locked dementia unit. A clinical update was sent to the facility. Original Note: Patient qualifies for STR. He needs a locked unit as well. The referrals have been expanded. PT and OT have evaluated the patient.A clinical update has been sent to the facilities.
[2022-07-09 16:00] VITALS: BP 140/63; PULSE 92; RESP 16; TEMP 36.9; O2SAT 95
[2022-07-09 16:39] LABS: Glucose, Whole Blood 248 mg/dL (60-115)
[2022-07-09 19:49] VITALS: BP 121/59; PULSE 92; RESP 16; TEMP 37; O2SAT 95
[2022-07-09 19:57] LABS: Glucose, Whole Blood 248 mg/dL (60-115)
[2022-07-09] MEDS: metFORMIN HCl ER 500 MG TAB.ER.24H PO (20:12)
[2022-07-09] MEDS: traZODone HCL 100 MG TABLET PO (20:12)
[2022-07-10 03:12] VITALS: BP 124/59; PULSE 76; RESP 16; TEMP 36; O2SAT 95
[2022-07-10] MEDS: Omeprazole 20 MG CAPSULE.DR PO (05:32)
[2022-07-10 06:48] LABS: MANUAL DIFF FLAG NO
[2022-07-10 06:54] LABS: Basophils Percent Auto 0.2 % (0-2); Eosinophils Absolute Auto 0.3 X10*3/uL (0.0-0.4); Eosinophils Percent Auto 4.4 % (0-4); Hematocrit 26.1 % (42.0-52.0); Hemoglobin 8.5 g/dl (14.0-18.0); Imm Gran Abs Auto 0.06 X10*3/uL (0.00-0.03); Lymphocytes Absolute Auto 0.9 X10*3/uL (1.2-4.9); Lymphocytes Percent Auto 14.8 % (20-40); Mean Corpuscular HGB Conc 32.6 g/dl (31.0-36.0); Mean Corpuscular Hemoglobin 31.3 pg (27.0-33.0); Mean Platelet Volume 10.9 fL (9.4-12.4); Monocytes Absolute Auto 0.7 X10*3/uL (0.1-1.2); Monocytes Percent Auto 11.5 % (2-11); Neutrophils Absolute Auto 3.9 x10*3/uL (2.0-8.3); Neutrophils Percent Auto 68.1 % (45-73); Platelet Count 109 X10*3/uL (160-400); Red Blood Count 2.72 X10*6/uL (4.60-5.80); Red Cell Distribution Width 12.8 % (11.0-16.0); White Blood Count 5.7 X10*3/uL (4.8-10.8)
[2022-07-10 07:13] LABS: Anion Gap 11 (12-20); Blood Urea Nitrogen 28 mg/dL (9-16); Calcium 8.2 mg/dL (8.4-10.2); Carbon Dioxide 30 mmol/L (22-29); Chloride 102 mmol/L (96-108); Creatinine Clr Calc Pharmacy 74.5; Estimated Glomerular Filt Rate > 60; Glucose Fasting 182 mg/dL (60-99); Potassium 3.8 mmol/L (3.3-5.1); Sodium 139 mmol/L (135-145)
[2022-07-10 07:17] VITALS: BP 110/56; PULSE 78; RESP 20; TEMP 36.3; O2SAT 94
--- NOTE | 2022-07-10 07:20 | PM.PNORT ---
Subjective Subjective Date of Service: 07/10/22 Principal diagnosis: Left femoral neck fracture s/p left hip hemiarthroplasty Interval history: Sleeping comfortably Not cooperative Physical Exam Vital Signs: Vital Signs: Last Vital Signs Temp 97.4 F 07/10/22 07:17 Pulse 78 07/10/22 07:17 Resp 20 07/10/22 07:17 BP 110/56 L 07/10/22 07:17 Pulse Ox 94 07/10/22 07:17 O2 Del Method Room Air 07/10/22 07:17 O2 Flow Rate 3 07/07/22 18:57 BMI result Body Mass Index 24.4 Extrem: Other: Dressing c/d/i No pain with FF and log roll Firing ehl/ta/gc Procedures Date of Service Date of Service: 07/10/22 Progress Note: A&P Assessment and plan (1) S/P hip hemiarthroplasty: Status: Acute Assessment and Plan: No issues with patient overnight Not following directions DVT prophylaxis Dispo planning Time Spent With Patient Time: Total time managing care of this patient today ____ minutes. Quality Stroke Does the patient have a stroke diagnosis?: No VTE Prior VTE?: No VTE Risk Level:: Medical - moderate - high VTE Device Contraindication: N/A - Device Ordered VTE Drug Contraindication: Treatment Not Indicated
[2022-07-10 07:33] LABS: Glucose, Whole Blood 167 mg/dL (60-115)
[2022-07-10] MEDS: Docusate Sodium 100 MG CAPSULE PO ×2 (07:48→20:45)
[2022-07-10] MEDS: Divalproex Sodium 500 MG TABLET.DR PO ×2 (07:48→20:45)
[2022-07-10] MEDS: oxyCODONE HCl ER 10 MG TAB.ER.12H PO ×2 (07:48→20:45)
[2022-07-10] MEDS: QUEtiapine Fumarate 100 MG TABLET PO ×3 (07:48→20:45)
[2022-07-10] MEDS: Escitalopram Oxalate 10 MG TABLET PO (07:48)
[2022-07-10] MEDS: Insulin Lispro 100 UNIT/ML 3 ML VIAL SUBCUT ×4 (07:48→20:45)
[2022-07-10] MEDS: Celecoxib 200 MG CAPSULE PO ×2 (07:48→20:45)
[2022-07-10] MEDS: 0.9 % Sodium Chloride Flush 3 ML SYRINGE IVFLUSH ×4 (07:49→23:18)
--- NOTE | 2022-07-10 09:43 | P.OP_ITS ---
Operative Note Operative Note Date of Service: 07/10/22 Narrative: Date of Service: 07/07/22 Pre-op diagnosis: Left femoral neck fracture Post-op diagnosis: same Procedure: Left hip hemiarthroplasty Implants: Accolade2 #6 127 deg with +4/51 bipolar Surgeon: Fabien Chamorro MD Anesthesia: GETA, GLMA and local Was an All Source Intelligence Technician used for this Procedure?: Yes All Source Intelligence Technician: Juliana Beck Estimated blood loss (mL): 250 IV fluids (mL): 850 Pathology: other Condition: stable Disposition: PACU Procedure in detail: Patient was brought to the operative room placed in the lateral decubitus position. All bony prominences were well padded and the was prepped and draped in standard sterile fashion. IV antibiotics per weight were administered and a time-out was called to identify proper site proper procedure proper surgeon. Radiographs were available and confirmed. I began by making a curvilinear incision over the posterolateral aspect of the greater trochanter. Dissection was taken down to the tensor fascia which was incised in line with the incision and a Charnley retractor was placed. The hip was internally rotated and the external rotators were identified. All vessels in the area were cauterized and a full-thickness capsular/external rotator layer was developed in a hockey-stick fashion starting just proximal to the piriformis. This layer was tagged and the displaced femoral neck fracture was identified. Clean-up cuts was performed while protecxtion the posterolateral soft tissues and the head was removed and measured (51 mm) on the back table. I then copiously irrigated the acetabulum and removed all bony fragments. Once this was done I used a cookie cutter to lateralize and a Charnley awl to identify the canal and then sequentially broached up to a 127 deg #6. I then trialed with a standard +4 head and a bipolar component matching the femoral head size. I was satisfied with the range of motion and stability and length. Therefore I removed all instrumentation and copiously irrigated. I then placed my final femoral implant and then retrialed. I was satisfied with the +4/51 implant. My final bipolar components were then placed. I closed the capsular layer with FiberWire and then, after a three minute iodine soak. I performed a layered closure with kane on skin. The patient was placed in sterile dressing extubated brought to recovery room in stable condition there were no known complications.
--- NOTE | 2022-07-10 10:31 | MHC.CM.PN ---
A referral has been made to [facility] financial councilors. The patient needs a secondary payor for LTC. [facility] called. They do not have any Male beds at this time. A Clinical update has been sent to facilities today.
[2022-07-10 11:23] LABS: Glucose, Whole Blood 209 mg/dL (60-115)
--- NOTE | 2022-07-10 13:56 | P.PNIM_ITS ---
Subjective Subjective Date of Service: 07/11/22 Interval History: f/u on hip fracture repair Review of Systems no new issues, pain conroled, no new issues Physical Exam Vital Signs: Vital Signs: Last Vital Signs Temp 97.4 F 07/10/22 07:17 Pulse 78 07/10/22 07:17 Resp 20 07/10/22 07:17 BP 110/56 L 07/10/22 07:17 Pulse Ox 94 07/10/22 07:17 O2 Del Method Room Air 07/10/22 07:17 O2 Flow Rate 3 07/07/22 18:57 BMI result Body Mass Index 24.4 General: AO X 3, no acute distress Resp:? CTA bilateral CVS: S1,S2,RRR GI: +BS, NT, no distention Skin: No rash, hip surgery wound site d/c/i Neuro:? motor grossly intact Psych: appropriate affect Objective Data Active Medications Acetaminophen (Acetaminophen Supp 650 Mg Supp.Rect) 650 mg NE Q6H PRN PRN Reason: Pain, Mild (Pain Scale 1-3) Al Hydroxide/Mg Hydroxide (Magnesium Hydrox/Alum Hydrox 30 Ml Oral.Susp) 30 ml PO Q6H PRN PRN Reason: Heartburn/Nausea Celecoxib (Celecoxib 200 Mg Capsule) 200 mg PO BID [facility] Last Admin: 07/10/22 07:48 Dose: 200 mg Documented By: ERIC Divalproex Sodium (Divalproex Sodium 500 Mg Tablet.) 500 mg PO BID [facility] Last Admin: 07/10/22 07:48 Dose: 500 mg Documented By: ERIC Docusate Sodium (Docusate Sodium 100 Mg Capsule) 100 mg PO BID [facility] Last Admin: 07/10/22 07:48 Dose: 100 mg Documented By: ERIC Enoxaparin Sodium (Enoxaparin Sodium 40 Mg/0.4 Ml Syringe) 40 mg SUBCUT Q24H [facility] Last Admin: 07/10/22 13:10 Dose: Not Given Documented By: ERIC Non-Admin Reason: Patient Refused Escitalopram Oxalate (Escitalopram Oxalate 10 Mg Tablet) 10 mg PO DAILY [facility] Last Admin: 07/10/22 07:48 Dose: 10 mg Documented By: ERIC Hydromorphone HCl (Hydromorphone Hcl 0.5 Mg/0.5 Ml Syringe) 0.25 mg IVPUSH Q4H PRN; Protocol PRN Reason: Pain, Severe (Pain Scale 7-10) Insulin Human Lispro (Insulin Lispro 100 Unit/Ml 3 Ml Vial) 0 unit SUBCUT QIDWMHS [facility]; Protocol Last Admin: 07/10/22 11:52 Dose: 4 unit Documented By: ERIC Loperamide HCl (Loperamide Hcl 2 Mg Capsule) 4 mg PO Q4H PRN PRN Reason: Diarrhea Magnesium Hydroxide (Milk Of Magnesia 30 Ml Oral.Susp) 30 ml PO DAILY PRN PRN Reason: Constipation Melatonin (Melatonin 3 Mg Tablet) 3 mg PO BEDTIME PRN PRN Reason: Insomnia Metformin HCl (Metformin Hcl Er 500 Mg Tab.Er.24h) 500 mg PO BEDTIME [facility] Last Admin: 07/09/22 20:12 Dose: 500 mg Documented By: TAMMY Omeprazole (Omeprazole 20 Mg Capsule.Dr) 20 mg PO DAILY@0630 [facility] Last Admin: 07/10/22 05:32 Dose: 20 mg Documented By: TAMMY Ondansetron HCl (Ondansetron Hcl 4 Mg/2 Ml Vial) 4 mg IVPUSH Q8H PRN PRN Reason: Nausea Oxycodone HCl (Oxycodone Hcl Immed Release 5 Mg Tablet) 5 mg PO Q4H PRN PRN Reason: Pain, Moderate(Pain Scale 4-6) Oxycodone HCl (Oxycodone Hcl Er 10 Mg Tab.Er.12h) 10 mg PO BID [facility] Last Admin: 07/10/22 07:48 Dose: 10 mg Documented By: ERIC Pharmacy Consult (Consult Rx Perform Med Rec) 1 each MISCELLANE ONCE PRN PRN Reason: Consult order Polyethylene Glycol (Polyethylene Glycol 3350 17 Gm Powd.Pack) 17 gm PO DAILY PRN PRN Reason: Constipation Quetiapine Fumarate (Quetiapine Fumarate 100 Mg Tablet) 100 mg PO TID [facility] Last Admin: 07/10/22 07:48 Dose: 100 mg Documented By: ERIC Sodium Chloride (0.9 % Sodium Chloride Flush 3 Ml Syringe) 3 ml IVFLUSH QSHIFT [facility] Last Admin: 07/10/22 07:49 Dose: 3 ml Documented By: ERIC Sodium Chloride (0.9 % Sodium Chloride Flush 3 Ml Syringe) 3 ml IVFLUSH QSHIFT [facility] Last Admin: 07/10/22 07:44 Dose: Not Given Documented By: ERIC Non-Admin Reason: Duplicate Order Sodium Chloride (0.9 % Sodium Chloride Flush 3 Ml Syringe) 3 ml IVFLUSH QSHIFT [facility] Last Admin: 07/10/22 07:44 Dose: Not Given Documented By: ERIC Non-Admin Reason: Duplicate Order Trazodone HCl (Trazodone Hcl 100 Mg Tablet) 100 mg PO BEDTIME [facility] Last Admin: 07/09/22 20:12 Dose: 100 mg Documented By: TAMMY Labs 07/10/22 06:15 07/10/22 06:15 Labs: Laboratory Results - last 24 hr 07/09/22 07/09/22 07/10/22 16:34 19:51 06:15 MCV 96.0 MCH 31.3 MCHC 32.6 RDW 12.8 Plt Count 109 L MPV 10.9 Immature Gran % (Auto) 1.0 H Neut % (Auto) 68.1 Lymph % (Auto) 14.8 L [place] % (Auto) 11.5 H Eos % (Auto) 4.4 H Baso % (Auto) 0.2 Lymph # (Auto) 0.9 L [place] # (Auto) 0.7 Eos # (Auto) 0.3 Baso # (Auto) 0.0 Abs Immat Gran (auto) 0.06 H Absolute Neuts (auto) 3.9 Absolute Nucleated RBC 0.000 Nucleated RBC % (auto) 0.0 Anion Gap Estim Creat Clear Calc Estimated GFR POC Glucose 248 H 248 H Fasting Glucose Calcium 07/10/22 07/10/22 07/10/22 06:15 07:19 11:16 MCV MCH MCHC RDW Plt Count MPV Immature Gran % (Auto) Neut % (Auto) Lymph % (Auto) [place] % (Auto) Eos % (Auto) Baso % (Auto) Lymph # (Auto) [place] # (Auto) Eos # (Auto) Baso # (Auto) Abs Immat Gran (auto) Absolute Neuts (auto) Absolute Nucleated RBC Nucleated RBC % (auto) Anion Gap 11 L Estim Creat Clear Calc 74.5 Estimated GFR > 60 POC Glucose 167 H 209 H Fasting Glucose 182 H Calcium 8.2 L Assessment and Plan (1) Fracture of hip, left, closed: Status: Acute Plan 76 year old male with a PMH significant for dementia, insulin-dependent diabetes type 2, anemia, HTN, and SI with multiple attempts of attempting to jump from tall heights. He had an unwitnessed fall day before he was to be discharged from [facility] after 17 days in [facility] Psych and sustained Left hip fracture Left Hip fracture d/t mechancal fall -surgical repair done on 07/07/22 -pain control -PT -Lovenox for DVT prophylaxis -Ultimately to SNF Diabetes --Metformin, insulin SSI and diabetic diet Mood desorder, dementia--continue meds (Depakote, lexapro, seroquel, Trazadone) Psych has indicated that no indication for sitter at this pt, recommend routine Psych follo up GERD--omeprazole check CBC, BMP routinely Lovenox for DVT prophylaxis Need for inpatient: Hip fracture, post surgery care and need placement Time Spent With Patient Time: Total time managing care of this patient today ____ minutes. Quality Stroke Does the patient have a stroke diagnosis?: No VTE Prior VTE?: No VTE Risk Level:: Medical - moderate - high VTE Device Contraindication: N/A - Device Ordered VTE Drug Contraindication: Treatment Not Indicated
[2022-07-10 15:15] LABS: COVID-19 Test Negative (Negative); IDNOW Serial# 9DB6401D
[2022-07-10 16:05] VITALS: BP 107/54; PULSE 85; RESP 20; TEMP 36.2; O2SAT 96
--- NOTE | 2022-07-10 16:09 | PM.PSYCN ---
History of Present Illness Date of Service: 07/10/2022 Chief Complaint: Left hip fracture Reason for Consult: f/u Requesting physician: Rocio Garcia Discussed with referring provider: Yes Sources of Information: patient interviewed, chart reviewed and crisis/core team assessment reviewed HPI Narrative: Interim Hx: pt lying in bed. He presents as calm. Memory poor, unable to recall events leading to fall and fracture. Pt is with by himself. Pt denies SI/HI. He reports having pain but tolerable. 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 Per nursing, pt was up part of last night, at times reporting that he wanted to go home. No combative behaviors. No psychosis. Past Psychiatric History: Inpatient: unknow Past med trials: depakote (will check ammonia), seroquel, ativan. 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 Dysphagia, oropharyngeal phase Dysphagia, pharyngoesophageal phase Essential (primary) hypertension Major depressive disorder, single episode, unspecified Metabolic encephalopathy Muscle weakness (generalized) Other abnormalities of gait and mobility Repeated falls Schizophrenia, unspecified Type 2 diabetes mellitus without complications Unspecified dementia without behavioral disturbance Unsteadiness on feet Weakness Diagnostics Vital Signs (24Hr): Vital Signs - 24 hr 07/09/22 19:49 07/10/22 03:12 07/10/22 07:17 Temperature 98.6 F 96.8 F 97.4 F Pulse Rate 92 76 78 Respiratory Rate 16 16 20 Blood Pressure 121/59 L 124/59 L 110/56 L Pulse Oximetry 95 95 94 Oxygen Delivery Method Room Air Room Air Room Air 07/10/22 16:05 Temperature 97.2 F Pulse Rate 85 Respiratory Rate 20 Blood Pressure 107/54 L Pulse Oximetry 96 Oxygen Delivery Method Room Air BMI result Body Mass Index 24.4 Labs 07/10/22 06:15 07/10/22 06:15 Labs: Laboratory Results - last 48 hr 07/06/22 07/08/22 07/09/22 20:26 20:03 07:18 WBC RBC Hgb Hct MCV MCH MCHC RDW Plt Count MPV Immature Gran % (Auto) Neut % (Auto) Lymph % (Auto) [place] % (Auto) Eos % (Auto) Baso % (Auto) Lymph # (Auto) [place] # (Auto) Eos # (Auto) Baso # (Auto) Abs Immat Gran (auto) Absolute Neuts (auto) Absolute Nucleated RBC Nucleated RBC % (auto) Sodium Potassium Chloride Carbon Dioxide Anion Gap BUN Creatinine Estim Creat Clear Calc Estimated GFR POC Glucose 272 H 198 H Random Glucose Fasting Glucose Calcium COVID-19 ([facility]) COVID-19 Clin Com Blood Type O Positive Antibody Screen POSITIVE Antibody Identification Anti-E Antigen Identification c Antigen - NEGATIVE Crossmatch ([facility]) See Detail 07/09/22 07/09/22 07/09/22 07:46 07:46 07:46 WBC 6.2 Cancelled RBC 2.51 L D Cancelled Hgb 7.9 L D Cancelled Hct 23.7 L D Cancelled MCV 94.4 Cancelled MCH 31.5 Cancelled MCHC 33.3 Cancelled RDW 13.0 Cancelled Plt Count 97 L Cancelled MPV 10.6 Cancelled Immature Gran % (Auto) 0.8 H Neut % (Auto) 68.4 Lymph % (Auto) 14.6 L [place] % (Auto) 13.1 H Eos % (Auto) 2.8 Baso % (Auto) 0.3 Lymph # (Auto) 0.9 L [place] # (Auto) 0.8 Eos # (Auto) 0.2 Baso # (Auto) 0.0 Abs Immat Gran (auto) 0.05 H Absolute Neuts (auto) 4.2 Absolute Nucleated RBC 0.000 Cancelled Nucleated RBC % (auto) 0.0 Cancelled Sodium 137 Potassium 3.7 Chloride 102 Carbon Dioxide 29 Anion Gap 10 L BUN 26 H Creatinine 1.07 Estim Creat Clear Calc 65.4 Estimated GFR > 60 POC Glucose Random Glucose Fasting Glucose 209 H Calcium 7.9 L COVID-19 ([facility]) COVID-19 Clin [facility] Blood Type Antibody Screen Antibody Identification Antigen Identification Crossmatch ([facility]) 07/09/22 07/09/22 07/09/22 07:46 11:52 16:34 WBC RBC Hgb Hct MCV MCH MCHC RDW Plt Count MPV Immature Gran % (Auto) Neut % (Auto) Lymph % (Auto) [place] % (Auto) Eos % (Auto) Baso % (Auto) Lymph # (Auto) [place] # (Auto) Eos # (Auto) Baso # (Auto) Abs Immat Gran (auto) Absolute Neuts (auto) Absolute Nucleated RBC Nucleated RBC % (auto) Sodium Cancelled Potassium Cancelled Chloride Cancelled Carbon Dioxide Cancelled Anion Gap Cancelled BUN Cancelled Creatinine Cancelled Estim Creat Clear Calc Cancelled Estimated GFR Cancelled POC Glucose 238 H 248 H Random Glucose Cancelled Fasting Glucose Calcium Cancelled COVID-19 ([facility]) COVID-[facility] Blood Type Antibody Screen Antibody Identification Antigen Identification Crossmatch ([facility]) 07/09/22 07/10/22 07/10/22 19:51 06:15 06:15 WBC 5.7 RBC 2.72 L Hgb 8.5 L Hct 26.1 L MCV 96.0 MCH 31.3 MCHC 32.6 RDW 12.8 Plt Count 109 L MPV 10.9 Immature Gran % (Auto) 1.0 H Neut % (Auto) 68.1 Lymph % (Auto) 14.8 L [place] % (Auto) 11.5 H Eos % (Auto) 4.4 H Baso % (Auto) 0.2 Lymph # (Auto) 0.9 L [place] # (Auto) 0.7 Eos # (Auto) 0.3 Baso # (Auto) 0.0 Abs Immat Gran (auto) 0.06 H Absolute Neuts (auto) 3.9 Absolute Nucleated RBC 0.000 Nucleated RBC % (auto) 0.0 Sodium 139 Potassium 3.8 Chloride 102 Carbon Dioxide 30 H Anion Gap 11 L BUN 28 H Creatinine 0.94 Estim Creat Clear Calc 74.5 Estimated GFR > 60 POC Glucose 248 H Random Glucose Fasting Glucose 182 H Calcium 8.2 L COVID-19 ([facility]) COVID-19 [facility] Blood Type Antibody Screen Antibody Identification Antigen Identification Crossmatch ([facility]) 07/10/22 07/10/22 07/10/22 07:19 11:16 14:50 WBC RBC Hgb Hct MCV MCH MCHC RDW Plt Count MPV Immature Gran % (Auto) Neut % (Auto) Lymph % (Auto) [place] % (Auto) Eos % (Auto) Baso % (Auto) Lymph # (Auto) [place] # (Auto) Eos # (Auto) Baso # (Auto) Abs Immat Gran (auto) Absolute Neuts (auto) Absolute Nucleated RBC Nucleated RBC % (auto) Sodium Potassium Chloride Carbon Dioxide Anion Gap BUN Creatinine Estim Creat Clear Calc Estimated GFR POC Glucose 167 H 209 H Random Glucose Fasting Glucose Calcium COVID-19 ([facility]) Negative COVID-19 Clin Com See Note Blood Type Antibody Screen Antibody Identification Antigen Identification Crossmatch ([facility]) Imaging Radiology Impressions: ITS Impressions Pelvis X-Ray 07/07/22 14:26 IMPRESSION: Satisfactory appearance of left hip replacement. Mental Status Exam Mental Status Exam Narrative: Appearance: edentulous, wearing hospital gown, fair hygiene, in NAD Behavior: calmer, Speech: clear, regular rate/rhythm/volume, spontaneous TP: tangential TC: wanting to go home Mood: tired Affect: congruent, tired. SI: denies HI:denies VH/AH: none Delusions: no overt delusional content noted or reported. Insight/judgment: impaired x 2. Memory/cog: alert not oriented to place, month, situation, year- which is his baseline. Medications Medications Current Medications Acetaminophen (Acetaminophen Supp 650 Mg Supp.Rect) 650 mg [place] Q6H PRN PRN Reason: Pain, Mild (Pain Scale 1-3) Al Hydroxide/Mg Hydroxide (Magnesium Hydrox/Alum Hydrox 30 Ml Oral.Susp) 30 ml PO Q6H PRN PRN Reason: Heartburn/Nausea Celecoxib (Celecoxib 200 Mg Capsule) 200 mg PO BID [facility] Last Admin: 07/10/22 07:48 Dose: 200 mg Divalproex Sodium (Divalproex Sodium 500 Mg Tablet.Dr) 500 mg PO BID [facility] Last Admin: 07/10/22 07:48 Dose: 500 mg Docusate Sodium (Docusate Sodium 100 Mg Capsule) 100 mg PO BID [facility] Last Admin: 07/10/22 07:48 Dose: 100 mg Enoxaparin Sodium (Enoxaparin Sodium 40 Mg/0.4 Ml Syringe) 40 mg SUBCUT Q24H [facility] Last Admin: 07/10/22 13:10 Dose: Not Given Escitalopram Oxalate (Escitalopram Oxalate 10 Mg Tablet) 10 mg PO DAILY [facility] Last Admin: 07/10/22 07:48 Dose: 10 mg Hydromorphone HCl (Hydromorphone Hcl 0.5 Mg/0.5 Ml Syringe) 0.25 mg IVPUSH Q4H PRN; Protocol PRN Reason: Pain, Severe (Pain Scale 7-10) Insulin Human Lispro (Insulin Lispro 100 Unit/Ml 3 Ml Vial) 0 unit SUBCUT QIDWMHS [facility]; Protocol Last Admin: 07/10/22 11:52 Dose: 4 unit Loperamide HCl (Loperamide Hcl 2 Mg Capsule) 4 mg PO Q4H PRN PRN Reason: Diarrhea Magnesium Hydroxide (Milk Of Magnesia 30 Ml Oral.Susp) 30 ml PO DAILY PRN PRN Reason: Constipation Melatonin (Melatonin 3 Mg Tablet) 3 mg PO BEDTIME PRN PRN Reason: Insomnia Metformin HCl (Metformin Hcl Er 500 Mg Tab.Er.24h) 500 mg PO BEDTIME [facility] Last Admin: 07/09/22 20:12 Dose: 500 mg Omeprazole (Omeprazole 20 Mg Capsule.Dr) 20 mg PO DAILY@0630 [facility] Last Admin: 07/10/22 05:32 Dose: 20 mg Ondansetron HCl (Ondansetron Hcl 4 Mg/2 Ml Vial) 4 mg IVPUSH Q8H PRN PRN Reason: Nausea Oxycodone HCl (Oxycodone Hcl Immed Release 5 Mg Tablet) 5 mg PO Q4H PRN PRN Reason: Pain, Moderate(Pain Scale 4-6) Oxycodone HCl (Oxycodone Hcl Er 10 Mg Tab.Er.12h) 10 mg PO BID [facility] Last Admin: 07/10/22 07:48 Dose: 10 mg Pharmacy Consult (Consult Rx Perform Med Rec) 1 each MISCELLANE ONCE PRN PRN Reason: Consult order Polyethylene Glycol (Polyethylene Glycol 3350 17 Gm Powd.Pack) 17 gm PO DAILY PRN PRN Reason: Constipation Quetiapine Fumarate (Quetiapine Fumarate 100 Mg Tablet) 100 mg PO TID [facility] Last Admin: 07/10/22 14:48 Dose: 100 mg Sodium Chloride (0.9 % Sodium Chloride Flush 3 Ml Syringe) 3 ml IVFLUSH [facility] Last Admin: 07/10/22 14:48 Dose: 3 ml Sodium Chloride (0.9 % Sodium Chloride Flush 3 Ml Syringe) 3 ml IVFLUSH [facility] Last Admin: 07/10/22 07:44 Dose: Not Given Sodium Chloride (0.9 % Sodium Chloride Flush 3 Ml Syringe) 3 ml IVFLUSH [facility] Last Admin: 07/10/22 07:44 Dose: Not Given Trazodone HCl (Trazodone Hcl 100 Mg Tablet) 100 mg PO BEDTIME [facility] Last Admin: 07/09/22 20:12 Dose: 100 mg Allergies Allergies Allergy/AdvReac Type Severity Reaction Status Date / Time aspirin [ASA] Allergy Facial Verified 08/13/21 16:57 Swelling Penicillins Allergy Redness of Verified 08/13/21 16:57 Skin Sulfa (Sulfonamide AdvReac Rash Verified 08/13/21 16:57 Antibiotics) Assessment & Plan Assessment & Plan (1) Major neurocognitive disorder: Status: Acute Code(s): F03.90 - Unspecified dementia, unspecified severity, without behavioral disturbance, psychotic disturbance, mood disturbance, and anxiety Plan Mr. Bertrand is a 76 year-old male with hx of dementia. Pt was transferred to medicine due to left femur fracture. Pt with no exacerbation of combative behaviors after surgery. Monitor for over sedation with addition of opioid pain medications. continue seroquel, depakote. No need for inpatient psychiatric admission. Pt stable otherwise. Total time managing care of this patient today ____ minutes.
[2022-07-10 16:11] LABS: Glucose, Whole Blood 200 mg/dL (60-115)
[2022-07-10 20:00] VITALS: BP 112/55; PULSE 84; RESP 16; TEMP 36.4; O2SAT 96
[2022-07-10 20:14] LABS: Glucose, Whole Blood 165 mg/dL (60-115)
[2022-07-10] MEDS: traZODone HCL 100 MG TABLET PO (20:45)
[2022-07-10] MEDS: metFORMIN HCl ER 500 MG TAB.ER.24H PO (20:45)
[2022-07-11 03:08] VITALS: BP 106/55; PULSE 84; RESP 16; TEMP 36.3; O2SAT 91
[2022-07-11] MEDS: Omeprazole 20 MG CAPSULE.DR PO (03:19)
[2022-07-11] MEDS: oxyCODONE HCl Immed Release 5 MG TABLET PO (03:19)
[2022-07-11] MEDS: Divalproex Sodium 500 MG TABLET.DR PO ×2 (07:15→20:26)
[2022-07-11] MEDS: 0.9 % Sodium Chloride Flush 3 ML SYRINGE IVFLUSH ×5 (07:15→20:25)
[2022-07-11] MEDS: Docusate Sodium 100 MG CAPSULE PO ×2 (07:15→20:25)
[2022-07-11] MEDS: oxyCODONE HCl ER 10 MG TAB.ER.12H PO ×2 (07:15→20:25)
[2022-07-11] MEDS: Escitalopram Oxalate 10 MG TABLET PO (07:16)
[2022-07-11] MEDS: QUEtiapine Fumarate 100 MG TABLET PO ×3 (07:16→20:25)
[2022-07-11] MEDS: Celecoxib 200 MG CAPSULE PO ×2 (07:16→20:25)
[2022-07-11 07:20] LABS: Glucose, Whole Blood 160 mg/dL (60-115)
[2022-07-11 07:27] VITALS: BP 106/52; PULSE 74; RESP 18; TEMP 36.6; O2SAT 96
[2022-07-11 07:34] LABS: MANUAL DIFF FLAG NO
[2022-07-11 07:38] LABS: Basophils Percent Auto 0.2 % (0-2); Eosinophils Absolute Auto 0.2 X10*3/uL (0.0-0.4); Eosinophils Percent Auto 4.6 % (0-4); Hematocrit 23.3 % (42.0-52.0); Hemoglobin 7.8 g/dl (14.0-18.0); Imm Gran Abs Auto 0.06 X10*3/uL (0.00-0.03); Imm Gran Pct Auto 1.3 % (0.0-0.4); Lymphocytes Absolute Auto 0.9 X10*3/uL (1.2-4.9); Mean Corpuscular HGB Conc 33.5 g/dl (31.0-36.0); Mean Corpuscular Volume 95.5 fL (80.0-98.0); Mean Platelet Volume 10.5 fL (9.4-12.4); Monocytes Absolute Auto 0.6 X10*3/uL (0.1-1.2); Monocytes Percent Auto 11.9 % (2-11); Neutrophils Absolute Auto 2.9 x10*3/uL (2.0-8.3); Platelet Count 132 X10*3/uL (160-400); Red Blood Count 2.44 X10*6/uL (4.60-5.80); Red Cell Distribution Width 12.7 % (11.0-16.0); White Blood Count 4.6 X10*3/uL (4.8-10.8)
[2022-07-11 07:50] LABS: Anion Gap 11 (12-20); Blood Urea Nitrogen 30 mg/dL (9-16); Calcium 7.9 mg/dL (8.4-10.2); Carbon Dioxide 30 mmol/L (22-29); Chloride 103 mmol/L (96-108); Creatinine Clr Calc Pharmacy 74.5; Estimated Glomerular Filt Rate > 60; Glucose Fasting 166 mg/dL (60-99); Potassium 3.7 mmol/L (3.3-5.1); Sodium 140 mmol/L (135-145)
--- NOTE | 2022-07-11 07:53 | PM.PNORT ---
Subjective Subjective Date of Service: 07/11/22 Principal diagnosis: Left femoral neck fracture s/p left hip hemiarthroplasty Interval history: POD4 s/p lt hip hemiarthroplasty. No overnight events. Pain is managed. Laying in bed comfortably. No additional complaints. Physical Exam Vital Signs: Vital Signs: Last Vital Signs Temp 97.8 F 07/11/22 07:27 Pulse 74 07/11/22 07:27 Resp 18 07/11/22 07:27 BP 106/52 L 07/11/22 07:27 Pulse Ox 96 07/11/22 07:27 O2 Del Method Room Air 07/11/22 07:27 O2 Flow Rate 3 07/07/22 18:57 BMI result Body Mass Index 24.4 Const: General: cooperative, healthy appearing and no acute distress Resp: Effort & Inspection: normal respiratory effort and able to speak in complete sentences Cardio: Rate: regular rate Peripheral pulses: Peripheral pulses 2+ throughout GI: Palpation (GI): Soft to palpation Skin: Lesions: no lesions Rashes: no rashes Extrem: Other: Left hip Aquacel is c/d/i. Able to dorsi/plantarflex. NVI. Procedures Date of Service Date of Service: 07/11/22 Progress Note: A&P Assessment and plan (1) Fracture of hip, left, closed: Status: Acute (2) Major neurocognitive disorder: Status: Acute (3) S/P hip hemiarthroplasty: Status: Acute Plan Continue pain mgmnt Continue Lovenox for dvt ppx Continue PT for lt hip jemal - WBAT -Purple abduction pillow should be placed while in bed Dispo planning- Cleared for d/c back to psych from ortho stand point. Ortho signing off. Time Spent With Patient Time: Total time managing care of this patient today ____ minutes. Quality Stroke Does the patient have a stroke diagnosis?: No VTE Prior VTE?: No VTE Risk Level:: Medical - moderate - high VTE Device Contraindication: N/A - Device Ordered VTE Drug Contraindication: Treatment Not Indicated
[2022-07-11] MEDS: Insulin Lispro 100 UNIT/ML 3 ML VIAL SUBCUT ×2 (08:19→16:50)
[2022-07-11 11:11] LABS: Glucose, Whole Blood 156 mg/dL (60-115)
--- NOTE | 2022-07-11 13:55 | HO.PM.IMPN ---
Subjective Subjective Date of Service: 07/13/22 Interval History: f/u on hip fracture repair Review of Systems no new issues, seems comfortable , no fevers Physical Exam Vital Signs: Vital Signs: Last Vital Signs Temp 97.8 F 07/11/22 07:27 Pulse 74 07/11/22 07:27 Resp 18 07/11/22 07:27 BP 106/52 L 07/11/22 07:27 Pulse Ox 96 07/11/22 07:27 O2 Del Method Room Air 07/11/22 07:27 O2 Flow Rate 3 07/07/22 18:57 BMI result Body Mass Index 24.4 General: AO X 3, no acute distress Resp:? CTA bilateral CVS: S1,S2,RRR GI: +BS, NT, no distention Skin: No rash, hip surgery wound site d/c/i Neuro:? motor grossly intact Psych: appropriate affect Objective Data Active Medications Acetaminophen (Acetaminophen Supp 650 Mg Supp.Rect) 650 mg [place] Q6H PRN PRN Reason: Pain, Mild (Pain Scale 1-3) Al Hydroxide/Mg Hydroxide (Magnesium Hydrox/Alum Hydrox 30 Ml Oral.Susp) 30 ml PO Q6H PRN PRN Reason: Heartburn/Nausea Celecoxib (Celecoxib 200 Mg Capsule) 200 mg PO BID [facility] Last Admin: 07/11/22 07:16 Dose: 200 mg Documented By: NIMCO Divalproex Sodium (Divalproex Sodium 500 Mg Tablet.) 500 mg PO BID [facility] Last Admin: 07/11/22 07:15 Dose: 500 mg Documented By: NIMCO Docusate Sodium (Docusate Sodium 100 Mg Capsule) 100 mg PO BID [facility] Last Admin: 07/11/22 07:15 Dose: 100 mg Documented By: NIMCO Enoxaparin Sodium (Enoxaparin Sodium 40 Mg/0.4 Ml Syringe) 40 mg SUBCUT Q24H [facility] Last Admin: 07/11/22 12:21 Dose: Not Given Documented By: BRAYDEN Non-Admin Reason: Patient Refused Escitalopram Oxalate (Escitalopram Oxalate 10 Mg Tablet) 10 mg PO DAILY [facility] Last Admin: 07/11/22 07:16 Dose: 10 mg Documented By: NIMCO Hydromorphone HCl (Hydromorphone Hcl 0.5 Mg/0.5 Ml Syringe) 0.25 mg IVPUSH Q4H PRN; Protocol PRN Reason: Pain, Severe (Pain Scale 7-10) Insulin Human Lispro (Insulin Lispro 100 Unit/Ml 3 Ml Vial) 0 unit SUBCUT QIDWMHS [facility]; Protocol Last Admin: 07/11/22 12:21 Dose: Not Given Documented By: BRAYDEN Non-Admin Reason: finger stick early, nursing judgment Loperamide HCl (Loperamide Hcl 2 Mg Capsule) 4 mg PO Q4H PRN PRN Reason: Diarrhea Magnesium Hydroxide (Milk Of Magnesia 30 Ml Oral.Susp) 30 ml PO DAILY PRN PRN Reason: Constipation Melatonin (Melatonin 3 Mg Tablet) 3 mg PO BEDTIME PRN PRN Reason: Insomnia Metformin HCl (Metformin Hcl Er 500 Mg Tab.Er.24h) 500 mg PO BEDTIME [facility] Last Admin: 07/10/22 20:45 Dose: 500 mg Documented By: MESERET Omeprazole (Omeprazole 20 Mg Capsule.Dr) 20 mg PO DAILY@0630 [facility] Last Admin: 07/11/22 03:19 Dose: 20 mg Documented By: NIMCO Ondansetron HCl (Ondansetron Hcl 4 Mg/2 Ml Vial) 4 mg IVPUSH Q8H PRN PRN Reason: Nausea Oxycodone HCl (Oxycodone Hcl Immed Release 5 Mg Tablet) 5 mg PO Q4H PRN PRN Reason: Pain, Moderate(Pain Scale 4-6) Last Admin: 07/11/22 03:19 Dose: 5 mg Documented By: NIMCO Oxycodone HCl (Oxycodone Hcl Er 10 Mg Tab.Er.12h) 10 mg PO BID [facility] Last Admin: 07/11/22 07:15 Dose: 10 mg Documented By: NIMCO Pharmacy Consult (Consult Rx Perform Med Rec) 1 each MISCELLANE ONCE PRN PRN Reason: Consult order Polyethylene Glycol (Polyethylene Glycol 3350 17 Gm Powd.Pack) 17 gm PO DAILY PRN PRN Reason: Constipation Quetiapine Fumarate (Quetiapine Fumarate 100 Mg Tablet) 100 mg PO TID [facility] Last Admin: 07/11/22 07:16 Dose: 100 mg Documented By: NIMCO Sodium Chloride (0.9 % Sodium Chloride Flush 3 Ml Syringe) 3 ml IVFLUSH QSHIFT [facility] Last Admin: 07/11/22 07:15 Dose: 3 ml Documented By: NIMCO Sodium Chloride (0.9 % Sodium Chloride Flush 3 Ml Syringe) 3 ml IVFLUSH QSHIFT [facility] Last Admin: 07/11/22 06:38 Dose: Not Given Documented By: NIMCO Non-Admin Reason: Duplicate Order Sodium Chloride (0.9 % Sodium Chloride Flush 3 Ml Syringe) 3 ml IVFLUSH QSHIFT [facility] Last Admin: 07/11/22 06:38 Dose: Not Given Documented By: NIMCO Non-Admin Reason: Duplicate Order Trazodone HCl (Trazodone Hcl 100 Mg Tablet) 100 mg PO BEDTIME [facility] Last Admin: 07/10/22 20:45 Dose: 100 mg Documented By: MESERET Labs 07/11/22 07:09 07/11/22 07:09 Labs: Laboratory Results - last 24 hr 07/10/22 07/10/22 07/10/22 14:50 16:08 20:11 MCV MCH MCHC RDW Plt Count MPV Immature Gran % (Auto) Neut % (Auto) Lymph % (Auto) [place] % (Auto) Eos % (Auto) Baso % (Auto) Lymph # (Auto) [place] # (Auto) Eos # (Auto) Baso # (Auto) Abs Immat Gran (auto) Absolute Neuts (auto) Absolute Nucleated RBC Nucleated RBC % (auto) Anion Gap Estim Creat Clear Calc Estimated GFR POC Glucose 200 H 165 H Fasting Glucose Calcium COVID-19 (THOMAS) Negative COVID-19 Clin Com See Note 07/11/22 07/11/22 07/11/22 07:06 07:09 07:09 MCV 95.5 MCH 32.0 MCHC 33.5 RDW 12.7 Plt Count 132 L MPV 10.5 Immature Gran % (Auto) 1.3 H Neut % (Auto) 62.0 Lymph % (Auto) 20.0 [place] % (Auto) 11.9 H Eos % (Auto) 4.6 H Baso % (Auto) 0.2 Lymph # (Auto) 0.9 L [place] # (Auto) 0.6 Eos # (Auto) 0.2 Baso # (Auto) 0.0 Abs Immat Gran (auto) 0.06 H Absolute Neuts (auto) 2.9 Absolute Nucleated RBC 0.000 Nucleated RBC % (auto) 0.0 Anion Gap 11 L Estim Creat Clear Calc 74.5 Estimated GFR > 60 POC Glucose 160 H Fasting Glucose 166 H Calcium 7.9 L COVID-19 (THOMAS) COVID-19 Clin Com 07/11/22 11:07 MCV MCH MCHC RDW Plt Count MPV Immature Gran % (Auto) Neut % (Auto) Lymph % (Auto) [place] % (Auto) Eos % (Auto) Baso % (Auto) Lymph # (Auto) [place] # (Auto) Eos # (Auto) Baso # (Auto) Abs Immat Gran (auto) Absolute Neuts (auto) Absolute Nucleated RBC Nucleated RBC % (auto) Anion Gap Estim Creat Clear Calc Estimated GFR POC Glucose 156 H Fasting Glucose Calcium COVID-19 (THOMAS) COVID-19 Clin Com Assessment and Plan (1) Fracture of hip, left, closed: Status: Acute Plan 76 year old male with a PMH significant for dementia, insulin-dependent diabetes type 2, anemia, HTN, and SI with multiple attempts of attempting to jump from tall heights. He had an unwitnessed fall day before he was to be discharged from [facility] after 17 days in [facility] Psych and sustained Left hip fracture Left Hip fracture d/t mechancal fall -surgical repair done on 07/07/22 -pain control -PT -Lovenox for DVT prophylaxis -Ultimately to SNF Diabetes --Metformin, insulin SSI and diabetic diet Mood desorder, dementia--continue meds (Depakote, lexapro, seroquel, Trazadone) Psych has indicated that no indication for sitter at this pt, recommend routine Psych follo up GERD--omeprazole check CBC, BMP routinely Lovenox for DVT prophylaxis Need for inpatient: Hip fracture, post surgery care and need placement Time Spent With Patient Time: Total time managing care of this patient today ____ minutes. Quality Stroke Does the patient have a stroke diagnosis?: No VTE Prior VTE?: No VTE Risk Level:: Medical - moderate - high VTE Device Contraindication: N/A - Device Ordered VTE Drug Contraindication: Treatment Not Indicated
[2022-07-11 15:51] VITALS: BP 117/57; PULSE 81; RESP 17; TEMP 37; O2SAT 93
[2022-07-11 16:08] LABS: Glucose, Whole Blood 185 mg/dL (60-115)
[2022-07-11 20:00] VITALS: BP 122/60; PULSE 83; RESP 17; TEMP 37.2; O2SAT 94
[2022-07-11 20:14] LABS: Glucose, Whole Blood 140 mg/dL (60-115)
[2022-07-11] MEDS: metFORMIN HCl ER 500 MG TAB.ER.24H PO (20:25)
[2022-07-11] MEDS: Melatonin 3 MG TABLET PO (20:26)
[2022-07-11] MEDS: traZODone HCL 100 MG TABLET PO (20:26)
[2022-07-12 03:44] VITALS: PULSE 73; RESP 16; O2SAT 90
[2022-07-12] MEDS: Omeprazole 20 MG CAPSULE.DR PO (05:51)
[2022-07-12 06:02] LABS: MANUAL DIFF FLAG NO
[2022-07-12 06:23] LABS: Basophils Percent Auto 0.2 % (0-2); Eosinophils Absolute Auto 0.3 X10*3/uL (0.0-0.4); Hematocrit 24.7 % (42.0-52.0); Hemoglobin 8.1 g/dl (14.0-18.0); Imm Gran Abs Auto 0.09 X10*3/uL (0.00-0.03); Imm Gran Pct Auto 1.9 % (0.0-0.4); Mean Corpuscular HGB Conc 32.8 g/dl (31.0-36.0); Mean Corpuscular Volume 94.6 fL (80.0-98.0); Mean Platelet Volume 9.8 fL (9.4-12.4); Monocytes Absolute Auto 0.6 X10*3/uL (0.1-1.2); Monocytes Percent Auto 13.1 % (2-11); Neutrophils Absolute Auto 2.7 x10*3/uL (2.0-8.3); Neutrophils Percent Auto 57.8 % (45-73); Platelet Count 159 X10*3/uL (160-400); Red Blood Count 2.61 X10*6/uL (4.60-5.80); Red Cell Distribution Width 12.8 % (11.0-16.0); White Blood Count 4.7 X10*3/uL (4.8-10.8)
[2022-07-12 06:24] LABS: Anion Gap 12 (12-20); Blood Urea Nitrogen 32 mg/dL (9-16); Calcium 7.9 mg/dL (8.4-10.2); Carbon Dioxide 29 mmol/L (22-29); Chloride 103 mmol/L (96-108); Creatinine Clr Calc Pharmacy 70.7; Estimated Glomerular Filt Rate > 60; Glucose Fasting 162 mg/dL (60-99); Sodium 140 mmol/L (135-145)
[2022-07-12 08:05] VITALS: BP 152/67; PULSE 89; RESP 20; TEMP 36.6; O2SAT 93
--- NOTE | 2022-07-12 08:33 | P.DS_ITS ---
DS: Providers Provider Date of Service: 07/12/22 Date of admission: 07/06/22 17:23 Date of discharge: 07/12/22 Primary care physician: None Physician Attending physician on discharge: Rocio Garcia Discharging clinician: Rocio Garcia DS: Diagnosis Discharge Diagnosis (1) Fracture of hip, left, closed: Status: Acute DS: Summary Hospital Course Hospital Course: ?76 year old male with a PMH significant for dementia, insulin-dependent diabetes type 2, anemia, HTN, and SI with multiple attempts of attempting to jump from tall heights. patient was admitted to medical service because of mechnical fall and found to have hip fracture: Hospital course: patient admitted from [facility] after mechanical fall and had sustained left hip fracture -seen by Orthopedics status post hip fracture repair - seen by PT and recommended rehab. patient will be going to rehab with pain medications,bowel regimen. dementia /major neuro cognitive disorder: Patient was cleared by psych for discharge and recommended to continue his psych medications. Discussed with psych in detail about his psych issues: Patient does not need psych admission. Further management out patiently Plan: Patient will going to go to rehab, follow-up with Ortho and psych outpatient. Patient will benefit from less than 30 days rehab stay. Time Spent with Patient Time attestation: Total time managing care of this patient today ____ minutes. Discharge coordination time: Greater than 30 minutes Quality: Safe Use of Opioids Does Pt have an Active Cancer Diagnosis on the Problem List?: No Quality: Stroke Does the patient have a stroke diagnosis?: No Physical Exam Vital Signs: Vital Signs: Last Vital Signs Temp 97.8 F 07/12/22 08:05 Pulse 89 07/12/22 08:05 Resp 20 07/12/22 08:05 BP 152/67 H 07/12/22 08:05 Pulse Ox 93 07/12/22 08:05 O2 Del Method Room Air 07/12/22 08:05 O2 Flow Rate 3 07/07/22 18:57 BMI result Body Mass Index 24.4 Appearance: Awake,alert,? not in distress.? cvs: rrr, [id number] , no murmur res: clear to auscultation ,no rhonchii or wheezing abd: no rebound or guarding ,nt, bs present. ext pulses present , no cyanosis. Left hip Aquacel is c/d/i. Able to dorsi/plantarflex. neuro: nonfocal. DS: Data Data Completed and Pending Pending studies at discharge: Pending at discharge 07/07/22 13:23 Surgical [PTH] Routine Labs on day of discharge: Laboratory Results - last 24 hr 07/11/22 07/11/22 07/11/22 11:07 16:04 20:05 WBC RBC Hgb Hct MCV MCH MCHC RDW Plt Count MPV Immature Gran % (Auto) Neut % (Auto) Lymph % (Auto) [place] % (Auto) Eos % (Auto) Baso % (Auto) Lymph # (Auto) [place] # (Auto) Eos # (Auto) Baso # (Auto) Abs Immat Gran (auto) Absolute Neuts (auto) Absolute Nucleated RBC Nucleated RBC % (auto) Sodium Potassium Chloride Carbon Dioxide Anion Gap BUN Creatinine Estim Creat Clear Calc Estimated GFR POC Glucose 156 H 185 H 140 H Fasting Glucose Calcium 07/12/22 07/12/22 05:52 05:52 WBC 4.7 L RBC 2.61 L Hgb 8.1 L Hct 24.7 L MCV 94.6 MCH 31.0 MCHC 32.8 RDW 12.8 Plt Count 159 L MPV 9.8 Immature Gran % (Auto) 1.9 H Neut % (Auto) 57.8 Lymph % (Auto) 21.0 [place] % (Auto) 13.1 H Eos % (Auto) 6.0 H Baso % (Auto) 0.2 Lymph # (Auto) 1.0 L [place] # (Auto) 0.6 Eos # (Auto) 0.3 Baso # (Auto) 0.0 Abs Immat Gran (auto) 0.09 H Absolute Neuts (auto) 2.7 Absolute Nucleated RBC 0.000 Nucleated RBC % (auto) 0.0 Sodium 140 Potassium 4.0 Chloride 103 Carbon Dioxide 29 Anion Gap 12 BUN 32 H Creatinine 0.99 Estim Creat Clear Calc 70.7 Estimated GFR > 60 POC Glucose Fasting Glucose 162 H Calcium 7.9 L Imaging Chest x-ray: Radiologist's impression: ITS Impressions Pelvis X-Ray 07/07/22 14:26 IMPRESSION: Satisfactory appearance of left hip replacement. Discharge Plan Discharge Anticipated Discharge Date/Time: 07/11/22 08:57 Patient Disposition: [facility] SN[facility] Discharge Diagnosis: hip fracture ,dementia with behavioral disturbances. [facility] [Outside] - 1 Week Juliana Beck PA-C [Physician Principal Technologist] - 1 Week (July 31 at 8:30am ) Discharge Medications: New oxycodone 5 mg Tablet 5 mg PO Q4H PRN (Reason: Pain, Moderate(Pain Scale 4-6)) Qty: 10 0RF Rx Instructions: Partial Fill upon patient request. docusate sodium [Colace] 100 mg capsule 100 mg PO DAILY PRN (Reason: constipation) Qty: 30 0RF enoxaparin [Lovenox] 40 mg/0.4 mL syringe 40 mg subcut Q24H Qty: 4 0RF enoxaparin 40 mg/0.4 mL Syringe 40 mg subcut Q24H 42 Days Qty: 16.8 0RF Continued acetaminophen 325 mg Tablet 650 mg PO Q4H PRN (Reason: Fever) divalproex [Depakote] 250 mg Tablet,Delayed Release (Dr/Ec) 500 mg PO BID melatonin 3 mg Tablet 6 mg PO BEDTIME docusate sodium 100 mg Capsule 100 mg PO DAILY PRN (Reason: Constipation) insulin lispro 100 unit/mL Solution 1 sliding scale dose SUBCUT USEASDIRECTD Protocol: Insulin Correction Scale Less than or equal to 110 ---- Give (units): 0 111 to 150 Give (units): 0 151 to 200 Give (units): 2 201 to 250 Give (units): 4 251 to 300 Give (units): 6 301 to 350 Give (units): 8 Greater than 350 Give (units): 10 Call MD if Blood Glucose > : 350 escitalopram oxalate 5 mg Tablet 10 mg PO DAILY trazodone 50 mg Tablet 100 mg PO BEDTIME polyethylene glycol 3350 [Miralax] 17 gram Powder In Packet 17 g PO DAILY PRN (Reason: Constipation) omeprazole 20 mg Capsule,Delayed Release(Dr/Ec) 20 mg PO DAILY@0630 quetiapine [Seroquel] 50 mg Tablet 100 mg PO TID methenamine hippurate 1 gram tablet 1 g PO BID metformin 500 mg tablet extended release 24 hr 500 mg PO BEDTIME Discharge Orders: Discharge Order (Routine); Ordered 07/12/22 Ordered By: Rocio Garcia Diet: Advance to usual diet Activity on Discharge: As tolerated Stand Alone Forms: Patient Portal Discharge page Activity Restrictions/Additional Instructions: Physical Therapy for total hip arthroplasty: posterior precautions, gait training, ROM, strength Limit stair climbing No showering, no tub bath-keep dressing clean, dry and intact No driving x6 weeks Continue Lovenox injections once a day x 6 weeks Follow up with [facility] in 2 weeks Care Plan Goals: patient admitted from [facility] after mechanical fall and had sustained left hip fracture -seen by Orthopedics status post hip fracture repair - seen by PT and recommended rehab. patient will be going to rehab with pain medications,bowel regimen. dementia Health Concerns: as above. Plan of Treatment: as above. Assessment: as above. Discharge Date/Time: 07/12/22 14:14
[2022-07-12] MEDS: Divalproex Sodium 500 MG TABLET.DR PO (09:08)
[2022-07-12] MEDS: Escitalopram Oxalate 10 MG TABLET PO (09:08)
[2022-07-12] MEDS: Docusate Sodium 100 MG CAPSULE PO (09:08)
[2022-07-12] MEDS: QUEtiapine Fumarate 100 MG TABLET PO (09:08)
[2022-07-12] MEDS: oxyCODONE HCl ER 10 MG TAB.ER.12H PO (09:08)
[2022-07-12] MEDS: Celecoxib 200 MG CAPSULE PO (09:08)
[2022-07-12] MEDS: 0.9 % Sodium Chloride Flush 3 ML SYRINGE IVFLUSH (09:28)
[2022-07-12 11:01] LABS: Glucose, Whole Blood 186 mg/dL (60-115)
== END 2022-07-12 14:14 | disposition skilled nursing facility (03) | DRG 522 ==
LOC: HO.IMC 18:32 → HO.S3 07-08 18:03
PROVIDERS: Orthopaedic Surgery; Physician Assistant; Student in an Organized Health Care Education/Training Program; Admitting Provider Internal Medicine; Visit Provider Internal Medicine
PROC: 0SRS0JA Replacement of Left Hip Joint, Femoral Surface with Synthetic Substitute, Uncemented, Open Approach (ICD-10-PCS; CPT 27125; principal; 2022-07-07 12:00)
DX: S72.002A Fracture of unspecified part of neck of left femur, initial encounter for closed fracture (principal); F03.90 Unspecified dementia, unspecified severity, without behavioral disturbance, psychotic disturbance, mood disturbance, and anxiety; W19.XXXA Unspecified fall, initial encounter; E11.9 Type 2 diabetes mellitus without complications; I10 Essential (primary) hypertension; Z20.822 Contact with and (suspected) exposure to COVID-19; Z91.51 Personal history of suicidal behavior; Z88.0 Allergy status to penicillin; Z88.2 Allergy status to sulfonamides; Z88.6 Allergy status to analgesic agent; Z79.84 Long term (current) use of oral hypoglycemic drugs; Z79.899 Other long term (current) drug therapy
CPT/HCPCS: 36415; 72170; 80048; 80053; 82947; 85025; 86850; 86870; 86885; 86900; 86901; 86902; 86905; 86920; 86922; 87635; 88305; 88311; 97110; 97163; 97167; 97530; 97535; C1776; J0131; J0690; J1100; J1650; J2270; J2405; J2795; J3010

== ENCOUNTER 2022-07-31 07:28 | Outpatient (REF) | payer OTHER, MEDICARE, MEDICAID, SELFPAY ==
--- NOTE | ~2022-07-31 | XR_ITS ---
EXAMINATION: XR PELVIS CLINICAL INFORMATION: Pain COMPARISON: Pelvis radiographs 07/07/2022 TECHNIQUE: AP view of the pelvis. FINDINGS: Status post left total hip arthroplasty in unchanged alignment. No evidence of hardware fracture or complication. Mild degenerative changes of the right hip with borderline loss of superolateral joint space. Atherosclerotic vascular calcification. Partially imaged surgical wires overlie the pelvis. XR/XR pelvis 1-2V IMPRESSION: 1. Status post left total hip arthroplasty in unchanged alignment. No evidence of hardware fracture or complication. 2. Mild degenerative changes of the right hip.
== END 2022-07-31 07:29 | disposition home or self-care (01) ==
LOC: HO.HOSX 07:28
PROVIDERS: Visit Provider Physician Assistant
DX: M25.552 Pain in left hip (principal); Z96.642 Presence of left artificial hip joint
CPT/HCPCS: 72170; 99212

== ENCOUNTER 2022-09-03 09:56 | Outpatient (AMB) | payer MEDICARE, MEDICAID, SELFPAY ==
--- NOTE | 2022-09-03 10:26 | MHC.OFFVIS ---
Intake Intake Visit Reasons: PO - Left hip jemal 07/07/22 NE Intake Note: Noah is a 76 year old who presents today for a post op appointment s/p left hip jemal 07/07/22 NE. Allergies aspirin [ASA] Allergy (Verified 07/31/22 08:36) Facial Swelling Penicillins Allergy (Verified 07/31/22 08:36) Redness of Skin Sulfa (Sulfonamide Antibiotics) Adverse Reaction (Verified 07/31/22 08:36) Rash HPI PO - Left hip jemal 07/07/22 NE HPI Details Noah is a 76 year old man who presents ~6 weeks S/P left hip hemiarthroplasty. He is here today with his family. He says he is doing okay, but he continues to have pain when moving his hip. He spends most of his time lying in bed, which reportedly was typical for him prior to his surgery as well. He has Dementia and a Hx of falls. [facility] in a [facility], in the rehab unit. 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 Dysphagia, oropharyngeal phase Dysphagia, pharyngoesophageal phase Essential (primary) hypertension Major depressive disorder, single episode, unspecified Metabolic encephalopathy Muscle weakness (generalized) Other abnormalities of gait and mobility Repeated falls Schizophrenia, unspecified Type 2 diabetes mellitus without complications Unspecified dementia without behavioral disturbance Unsteadiness on feet Weakness Social History Household Members: Unknown / Unable to assess Housing: Unknown / Unable to assess Do you presently have visiting nurse or other home services: No Unable to assess alcohol history related to: Unknown Alcohol intake: current Alcohol intake frequency: holidays/special occasions only Patient Tobacco Use Status: Never used Tobacco Second Hand Smoke Exposure: No Advance Directives Date on File: 08/11/20 service: No Sexual orientation: Straight/Heterosexual Review of Systems Const All systems reviewed & are unremarkable except as noted in HPI and below Physical Exam Const General: no acute distress and alert Orientation/consciousness: patient oriented x3 Neuro General: patient oriented x3 Extrem Other: Left Hip: Well-healed incision flex to 90 degrees and ER Hip is moving comfortably Poor historian Psych Appearance: grossly normal Affect: normal affect Attitude: cooperative Results Reviewed Results Reviewed: I personally reviewed relevant radiographs. 1.? Status post left total hip arthroplasty in unchanged alignment. No evidence of hardware fracture or complication. 2.? Mild degenerative changes of the right hip. Assessment & Plan Assessment & Plan (1) S/P hip hemiarthroplasty: Comment: Left hip hemiarthroplasty 07/07/2022 NE Code(s): Z96.649 - Presence of unspecified artificial hip joint Plan: This is a 76 year old man S/P left hip hemiarthroplasty, DOS: 07/07/22. He is doing well overall. He has some pain with weight-bearing, and spends most of his time in bed. He had a poor ambulatory capacity and a Hx of falls prior to his hip fracture, so this is understandable for him. He can WBAT with max assistance due to risk of falling and I recommend he remain active as tolerated. He will follow up in 6 weeks. (2) Major neurocognitive disorder: Code(s): F03.90 - Unspecified dementia, unspecified severity, without behavioral disturbance, psychotic disturbance, mood disturbance, and anxiety Plan Scribed for Fabien Chamorro MD by Suhail Doe, medical unit secretary, on 09/03/22 at 10:40 AM, EST. Coding Level of Care Code Global (07827) Diagnoses S/P hip hemiarthroplasty Z96.649 Major neurocognitive disorder F03.90
== END 2022-09-03 10:41 | disposition home or self-care (01) ==
PROVIDERS: Visit Provider Orthopaedic Surgery
DX: Z96.649 Presence of unspecified artificial hip joint (principal); F03.90 Unspecified dementia, unspecified severity, without behavioral disturbance, psychotic disturbance, mood disturbance, and anxiety
CPT/HCPCS: 99024

== ENCOUNTER 2022-09-03 10:22 | Outpatient (REF) | payer MEDICARE, MEDICAID, SELFPAY ==
--- NOTE | ~2022-09-03 | XR_ITS ---
EXAMINATION: XR PELVIS CLINICAL INFORMATION: Pain COMPARISON: 07/31/2022 TECHNIQUE: AP view of the pelvis. FINDINGS: Left hip prosthesis is again noted. No evidence for periprosthetic fracture or loosening. Contralateral right femoral head is well-seated within the acetabulum with minimal degenerative change. I do not appreciate any acute superimposed fracture or dislocation. Extensive vascular calcification again noted. XR/XR pelvis 1-2V IMPRESSION: Chronic appearing and postoperative changes. I do not appreciate any acute superimposed fracture or dislocation.
== END 2022-09-03 10:23 | disposition home or self-care (01) ==
LOC: HO.HOSX 10:22
PROVIDERS: Visit Provider Orthopaedic Surgery
DX: Z47.1 Aftercare following joint replacement surgery (principal); Z96.642 Presence of left artificial hip joint; F03.90 Unspecified dementia, unspecified severity, without behavioral disturbance, psychotic disturbance, mood disturbance, and anxiety
CPT/HCPCS: 72170

== ENCOUNTER 2022-10-15 08:39 | Outpatient (REF) | payer MEDICARE, MEDICAID, SELFPAY | END 2022-10-15 08:40 | disposition home or self-care (01) | LOC: HO.HOSX 08:39 | PROVIDERS: Visit Provider Orthopaedic Surgery | DX: Z13.89 Encounter for screening for other disorder (principal) ==